=== PATIENT | male | born 1975 | race Caucasian/White ===

== ENCOUNTER 2017-03-19 13:48 | Inpatient (IN) | payer OTHER ==
[2017-03-19] VITALS (9 sets, daily range): BP systolic 100–131; BP diastolic 57–76; PULSE 112–118; RESP 15–18; TEMP 98.7–98.8; O2SAT 90–96
[~2017-03-19] VITALS: Ht 182.9 cm; Wt 75.2 kg
[~2017-03-19 13:48] MED LIST: BACT800T5 PO; BUPR1SUB6 SL; XANA1TAB6 PO
[2017-03-19] MEDS ORDERED: SODIUM CHLORIDE 0.9% FLUSH 10 ML FLUSH IVF PRN (14:30)
[2017-03-19] MEDS ORDERED: FURO1TAB60 PO (14:56)
[2017-03-19] MEDS ORDERED: subutex SL (14:56)
[2017-03-19] MEDS ORDERED: bp med PO (14:56)
--- NOTE | 2017-03-19 14:56 | PD ---
HPI Chief Complaint: Chest Pain Time Seen by Provider: 14:23 Travel History International Travel<30 days: No Contact w/Intl Traveler<30days: No Traveled to known affect area: No History of Present Illness HPI 41-year-old male with history of chronic alcohol use, chronic back pain currently uses Suboxone, chronic leg swelling, presents to the ER today because he complains of increased abdominal girth and left upper quadrant abdominal pain. He denies any nausea, vomiting, shortness of breath, fevers, or any other issues. He states that his primary care physician has done recent workup on him a few weeks ago with ultrasound of the leg which was negative. He has not heard back about CAT scans that were done. He was prescribed diuretics but has not been taking him because he does not feel that his primary care doctor knows what they're doing. Modifying Factors: None Associated Signs & Symptoms: Left upper quadrant abdominal pain, increased abdominal girth Risk Factors: Alcohol abuse PFSH Past Medical History Anxiety: Yes Cardiovascular Problems: Yes Diminished Hearing: No Immunizations Current: Yes Social History Alcohol Use: Yes (WEEKLY) Tobacco Use: Yes (1 PPD) Substance Use: No Allergies-Medications (Allergen,Severity, Reaction): Coded Allergies: clarithromycin (Unverified Allergy, Severe, Rash, 03/19/17) clindamycin (Unverified Allergy, Severe, RASH, 03/19/17) Reported Meds & Prescriptions Reported Meds & Active Scripts Active Reported Xanax (Alprazolam) 1 Mg Tab 1 Mg PO Q6H PRN Lactulose Liq (Lactulose) 10 Gm/15 Ml Soln 30 Ml PO Q6H PRN [bp med] Unknown Dose PO DAILY Lasix (Furosemide) 40 Mg Tab Unknown Dose PO DAILY [subutex] 8 mg 8 Mg SL QID Review of Systems Except as stated in HPI: all other systems reviewed are Neg Physical Exam Narrative GENERAL: Well-developed middle age white male patient currently in mild distress. Awake and oriented 3. SKIN: Focused skin assessment warm/dry. HEAD: Atraumatic. Normocephalic. EYES: Pupils equal and round. No scleral icterus. No injection or drainage. ENT: No nasal bleeding or discharge. Mucous membranes pink and moist. NECK: Trachea midline. No JVD. CARDIOVASCULAR: Regular rate and rhythm. No murmur appreciated. RESPIRATORY: No accessory muscle use. Clear to auscultation. Breath sounds equal bilaterally. GASTROINTESTINAL: Abdomen moderately distended, nontender to palpation. Hepatic and splenic margins not palpable. MUSCULOSKELETAL: No obvious deformities. No clubbing. No cyanosis. No edema. EXTREMITIES: No clubbing, cyanosis, or bilateral severe pitting edema the legs going up to the thighs, there is notable erythema bilaterally. No joint tenderness, effusion, or edema noted. No calf tenderness. NEUROLOGICAL: Awake and alert. No obvious cranial nerve deficits. Motor grossly within normal limits. Normal speech. PSYCHIATRIC: Appropriate mood and affect; insight and judgment normal. Data Data Last Documented VS Vital Signs Date Time Temp Pulse Resp B/P (MAP) Pulse Ox O2 Delivery O2 Flow Rate FiO2 03/19/17 17:05 112 15 114/67 (83) 96 Room Air 03/19/17 13:52 98.8 Orders Orders Electrocardiogram (03/19/17 14:23) Ckmb (Isoenzyme) Profile (03/19/17 14:23) Complete Blood Count With Diff (03/19/17 14:23) Comprehensive Metabolic Panel (03/19/17 14:23) Magnesium (Mg) (03/19/17 14:23) Prothrombin Time / Inr (Pt) (03/19/17 14:23) Act Partial Throm Time (Ptt) (03/19/17 14:23) Troponin I (03/19/17 14:23) Lipase (03/19/17 14:23) Chest, Single Ap (03/19/17 14:23) Ecg Monitoring (03/19/17 14:23) Bilateral Bp Monitoring (03/19/17 14:23) Iv Access Insert/Monitor (03/19/17 14:23) Oximetry (03/19/17 14:23) Oxygen Administration (03/19/17 14:23) Sodium Chloride 0.9% Flush (Ns Flush) (03/19/17 14:30) Us Leg Venous Doppler Bilat (03/19/17 14:41) Lactic Acid Sepsis Protocol (03/19/17 15:36) Urinalysis - C+S If Indicated (03/19/17 15:36) Blood Culture (03/19/17 15:36) Piperacil-Tazo 4.5 Gm Premix (Zosyn 4.5 (03/19/17 15:36) Admit Order (Ed Use Only) (03/19/17 17:26) Labs Laboratory Tests Test 03/19/17 14:30 03/19/17 16:07 03/19/17 16:45 White Blood Count 20.4 TH/MM3 Red Blood Count 3.17 MIL/MM3 Hemoglobin 12.4 GM/DL Hematocrit 36.7 % Mean Corpuscular Volume 115.9 FL Mean Corpuscular Hemoglobin 39.2 PG Mean Corpuscular Hemoglobin Concent 33.8 % Red Cell Distribution Width 17.3 % Platelet Count 173 TH/MM3 Mean Platelet Volume 7.7 FL Neutrophils (%) (Auto) 78.9 % Lymphocytes (%) (Auto) 10.7 % Monocytes (%) (Auto) 9.5 % Eosinophils (%) (Auto) 0.6 % Basophils (%) (Auto) 0.3 % Neutrophils # (Auto) 16.1 TH/MM3 Lymphocytes # (Auto) 2.2 TH/MM3 Monocytes # (Auto) 1.9 TH/MM3 Eosinophils # (Auto) 0.1 TH/MM3 Basophils # (Auto) 0.1 TH/MM3 CBC Comment DIFF FINAL Differential Comment Prothrombin Time 14.1 SEC Prothromb Time International Ratio 1.3 RATIO Activated Partial Thromboplast Time 34.5 SEC Blood Urea Nitrogen 4 MG/DL Creatinine 0.49 MG/DL Random Glucose 101 MG/DL Total Protein 7.5 GM/DL Albumin 2.6 GM/DL Calcium Level 8.0 MG/DL Magnesium Level 1.9 MG/DL Alkaline Phosphatase 213 U/L Aspartate Amino Transf (AST/SGOT) 172 U/L Alanine Aminotransferase (ALT/SGPT) 51 U/L Total Bilirubin 3.3 MG/DL Sodium Level 131 MEQ/L Potassium Level 3.5 MEQ/L Chloride Level 91 MEQ/L Carbon Dioxide Level 32.9 MEQ/L Anion Gap 7 MEQ/L Estimat Glomerular Filtration Rate 189 ML/MIN Total Creatine Kinase 81 U/L Troponin I LESS THAN 0.02 NG/ML Lipase 44 U/L Lactic Acid Level 2.5 mmol/L MDM Medical Decision Making Medical Screen Exam Complete: Yes Emergency Medical Condition: Yes Medical Record Reviewed: Yes Interpretation(s) EKG shows sinus tachycardia at a rate of 114 bpm with no signs of acute ST-T changes. Laboratory Tests Test 03/19/17 14:30 03/19/17 16:07 03/19/17 16:45 White Blood Count 20.4 TH/MM3 (4.0-11.0) Red Blood Count 3.17 MIL/MM3 (4.50-5.90) Hemoglobin 12.4 GM/DL (13.0-17.0) Hematocrit 36.7 % (39.0-51.0) Mean Corpuscular Volume 115.9 FL (80.0-100.0) Mean Corpuscular Hemoglobin 39.2 PG (27.0-34.0) Red Cell Distribution Width 17.3 % (11.6-17.2) Neutrophils (%) (Auto) 78.9 % (16.0-70.0) Monocytes (%) (Auto) 9.5 % (0.0-8.0) Neutrophils # (Auto) 16.1 TH/MM3 (1.8-7.7) Monocytes # (Auto) 1.9 TH/MM3 (0-0.9) Prothrombin Time 14.1 SEC (9.8-11.6) Activated Partial Thromboplast Time 34.5 SEC (24.3-30.1) Blood Urea Nitrogen 4 MG/DL (7-18) Creatinine 0.49 MG/DL (0.60-1.30) Albumin 2.6 GM/DL (3.4-5.0) Calcium Level 8.0 MG/DL (8.5-10.1) Alkaline Phosphatase 213 U/L (45-117) Aspartate Amino Transf (AST/SGOT) 172 U/L (15-37) Total Bilirubin 3.3 MG/DL (0.2-1.0) Sodium Level 131 MEQ/L (136-145) Chloride Level 91 MEQ/L (98-107) Carbon Dioxide Level 32.9 MEQ/L (21.0-32.0) Troponin I LESS THAN 0.02 NG/ML Lipase 44 U/L (73-393) Lactic Acid Level 2.5 mmol/L (0.4-2.0) Last 24 hours Impressions Lower Extremity Ultrasound 03/19/17 1441 Signed Impressions: Service Date/Time: Sunday, March 19, 2017 15:40 - CONCLUSION: 1. No evidence of deep venous thrombosis. Claudio Argueta MD Chest X-Ray 03/19/17 1423 Signed Impressions: Service Date/Time: Sunday, March 19, 2017 14:33 - CONCLUSION: Bibasilar atelectasis and borderline cardiomegaly. Aaron Tesfaye MD Differential Diagnosis Tense ascites versus obstruction versus pneumonia versus ACS versus DVT Narrative Course Lab work shows leukocytosis and considering the way the leg looks, there is concern for cellulitis. Ultrasound did not show any signs of DVT. His lactate is also elevated and IV antibiotics were initiated after cultures were done as precaution. Outpatient CAT scan from a week and a half ago was obtained from [facility] and it shows ascites with portal hypertension and cirrhosis. These findings are consistent with patient's current exam. Abdomen exam is fairly benign other than the ascites and distention. Patient is not vomiting I do not suspect an obstruction in this case. My plan would be to admit him for further treatment. Case was admitted to [facility] Dr. Looney for admission. Diagnosis Primary Impression: Alcoholic cirrhosis Additional Impressions: Sepsis Leg edema Admitting Information Admitting Physician Requests: Admit Alexa Coon MD Mar 19, 2017 14:56
[2017-03-19] MEDS ORDERED: LACT10SO PO (14:58)
[2017-03-19] MEDS ORDERED: XANA1TAB2 PO (14:59)
--- NOTE | 2017-03-19 15:08 | RADRPT ---
EXAM DATE/TIME: 03/19/2017 14:33 [facility] COMPARISON: Report only CHEST SINGLE AP, April 03, 2009, 11:00. INDICATIONS : Chest pain, shortness of breath, swelling of lower legs and feet. Patient states these symptoms are g radually getting worse. MEDICAL HISTORY : None. SURGICAL HISTORY : None. ENCOUNTER: Initial ACUITY: 3 months PAIN SCORE: 6/10 LOCATION: Bilateral chest FINDINGS: Moderate severity bibasilar atelectasis noted. No effusion seen. No pneumothorax. Heart size upper limits of normal. CONCLUSION: Bibasilar atelectasis and borderline cardiomegaly. Aaron Tesfaye MD on March 19, 2017 at 15:06 Board Certified Radiologist. This report was verified electronically.
[2017-03-19 15:15] LABS: AUTOMATED NEUTROPHIL # 16.1 TH/MM3 (1.8-7.7); BASOPHIL # 0.1 TH/MM3 (0-0.2); BASOPHIL % 0.3 % (0.0-2.0); EOSINOPHIL # 0.1 TH/MM3 (0-0.4); EOSINOPHIL % 0.6 % (0.0-4.0); HEMATOCRIT 36.7 % (39.0-51.0); HEMO FLAGS DIFF FINAL; LYMPH % 10.7 % (9.0-44.0); LYMPHOCYTE # 2.2 TH/MM3 (1.0-4.8); MEAN CELL VOLUME 115.9 FL (80.0-100.0); MEAN CORPUSCULAR HEMOGLOBIN 39.2 PG (27.0-34.0); MEAN CORPUSCULAR HGB CONC 33.8 % (32.0-36.0); MONO % 9.5 % (0.0-8.0); NEUT % 78.9 % (16.0-70.0); PLATELET COUNT 173 TH/MM3 (150-450); RED BLOOD COUNT 3.17 MIL/MM3 (4.50-5.90); RED CELL DISTRIBUTION WIDTH 17.3 % (11.6-17.2); WHITE BLOOD COUNT 20.4 TH/MM3 (4.0-11.0)
[2017-03-19] MEDS ORDERED: PIPERACIL-TAZO 4.5 GM PREMIX 100 ML IV STA (15:36)
[2017-03-19 15:38] LABS: APTT (PATIENT) 34.5 SEC (24.3-30.1); INTERNATIONAL NORMALIZED RATIO 1.3 RATIO; PROTHROMBIN TIME - PATIENT 14.1 SEC (9.8-11.6)
[2017-03-19 16:04] LABS: ALKALINE PHOSPHATASE 213 U/L (45-117); ALT (GPT) 51 U/L (12-78); ANION GAP 7 MEQ/L (5-15); AST (GOT) 172 U/L (15-37); BICARBONATE 32.9 MEQ/L (21.0-32.0); BLOOD UREA NITROGEN 4 MG/DL (7-18); CHLORIDE 91 MEQ/L (98-107); GLOMERULAR FILTRATION RATE 189 ML/MIN (>89); MAGNESIUM 1.9 MG/DL (1.5-2.5); POTASSIUM 3.5 MEQ/L (3.5-5.1); SODIUM (NA) 131 MEQ/L (136-145); TOTAL BILIRUBIN ADULT 3.3 MG/DL (0.2-1.0)
[2017-03-19 16:06] LABS: CREATINE KINASE 81 U/L (39-308)
--- NOTE | 2017-03-19 16:20 | RADRPT ---
EXAM DATE/TIME: 03/19/2017 15:40 [facility] COMPARISON: No previous studies available for comparison. INDICATIONS : Bilateral leg swelling. MEDICAL HISTORY : Hypertension. Anxiety. Pneumonia. Ascites. Abdominal pain. SURGICAL HISTORY : Hand surgery. ENCOUNTER: Initial ACUITY: 3 months PAIN SCORE: 2/10 LOCATION: Bilateral legs. TECHNIQUE: Venous ultrasound of the left and right leg was performed from the inguinal ligament to the proximal calf. Real-time, color Doppler and spectral tracing, compression and augmentation techniques were us ed. FINDINGS: RIGHT LEG: There is normal compressibility of the deep venous system from the inguinal region to the proximal ca lf. No echogenic clot is seen in the lumen of the common femoral, femoral, popliteal, and posterior tibial veins. There is a normal response of the venous system to proximal and distal augmentation an d respiration. LEFT LEG: There is normal compressibility of the deep venous system from the inguinal region to the proximal ca lf. No echogenic clot is seen in the lumen of the common femoral, femoral, popliteal, and posterior tibial veins. There is a normal response of the venous system to proximal and distal augmentation an d respiration. CONCLUSION: 1. No evidence of deep venous thrombosis. Claudio Argueta MD on March 19, 2017 at 16:18 Board Certified Radiologist. This report was verified electronically.
[2017-03-19] MEDS ORDERED: LORazepam 2 MG/ML VIAL IV PUSH PRN ×4 (17:45)
[2017-03-19] MEDS ORDERED: ACETAMINOPHEN 325 MG TAB PO PRN (17:45)
[2017-03-19] MEDS ORDERED: NALOXONE HCL 0.4 MG/ML AMP IV PRN (17:45)
[2017-03-19] MEDS ORDERED: FLUMAZENIL 0.5 MG/5 ML VIAL IV PUSH PRN (17:45)
[2017-03-19] MEDS ORDERED: SODIUM CHLORIDE 0.9% FLUSH 10 ML FLUSH IV FLUSH PRN (17:45)
[2017-03-19] MEDS ORDERED: LORazepam 2 MG TAB PO PRN (17:45)
[2017-03-19 17:46] LABS: BACTERIA, URINE RARE /hpf; BLOOD, URINE NEG (NEG); GLUCOSE,URINE NEG (NEG); KETONE, URINE NEG (NEG); NITRITE,URINE NEG (NEG); URINE COLOR YELLOW (YELLW/STRAW)
[2017-03-19 17:48] LABS: COMMENT (UR) CATH-CULTURE IND; CULTURE IF INDICATED CATH CULTURE IND
--- NOTE | 2017-03-19 17:49 | HHI.HP ---
HPI Service [facility] Primary Care Physician Taylor Daniel M.D. Admission Diagnosis Chief Complaint: BLE edema Travel History International Travel<30 Days: No Contact w/Intl Traveler <30 Da: No Traveled to Known Affected Are: No History of Present Illness This a 41 year old male patient with a past medical history which includes ETOH abuse, tobacco abuse and HTN. Patient reports over the last 4 months he has had progressively worsening BLE edema. Patient also having increasing abdominal girth over the past four months. Patient also endorses SOB difficult to take a deep breath, cough productive of brown sputum. Patient denies history of known Cirrhosis. Patient does admit to daily ETOH use a pint or more of vodka a day. Patient also endorses constipation for which he takes Lactulose. Patient denies chest or nausea. Review of Systems ROS Limitations: Poor Historian Constitutional: DENIES: Fatigue, Fever, Chills Eyes: DENIES: Blurred vision, Vision loss, Double Vision Respiratory: COMPLAINS OF: Cough, Sputum production, Shortness of breath Cardiovascular: COMPLAINS OF: Dyspnea on Exertion, Lower Extremity Edema, DENIES: Chest pain Gastrointestinal: COMPLAINS OF: Abdominal pain, Constipation, Vomiting Neurologic: COMPLAINS OF: Tremor, DENIES: Abnormal gait, Headache, Localized weakness Psychiatric: COMPLAINS OF: Confusion, Depression, DENIES: Anxiety Past Family Social History Past Medical History cirrhosis, HTN, ETOH abuse, tobacco use, chronic pain, history of oxycodone/ Roxicodone abuse now on Suboxone Past Surgical History Right hand reconstructive surgery Reported Medications Xanax (Alprazolam) 1 Mg Tab 1 Mg PO Q6H PRN Lactulose Liq (Lactulose) 10 Gm/15 Ml Soln 30 Ml PO Q6H PRN [bp med] Unknown Dose PO DAILY Lasix (Furosemide) 40 Mg Tab Unknown Dose PO DAILY [subutex] 8 mg 8 Mg SL QID Allergies: Coded Allergies: clarithromycin (Unverified Allergy, Severe, Rash, 03/19/17) clindamycin (Unverified Allergy, Severe, RASH, 03/19/17) Active Ordered Medications Current Medications Medications (Trade) Dose Ordered Sig/Edjah Route Start Time Stop Time Status Last Admin (NS Flush) 2 ml UNSCH PRN IVF 03/19/17 14:30 Family History noncontributory Social History started drinking at age 15, daily ETOH use mostly vodka. last drink this AM Tobacco use: 1 PPD since age 16 Illicit drug use: denies at this time. 5 years ago history of oxycodone/ Roxicodone abuse now on Suboxone Physical Exam Vital Signs Vital Signs Date Time Temp Pulse Resp B/P (MAP) Pulse Ox O2 Delivery O2 Flow Rate FiO2 03/19/17 17:05 112 15 114/67 (83) 96 Room Air 03/19/17 15:09 107/57 (74) 100/58 (72) 03/19/17 15:08 112 18 107/57 (74) 94 Room Air 03/19/17 13:52 98.8 118 15 127/74 (91) 93 Physical Exam GENERAL: This is a 41 year old male patient who appear older than stated age SKIN: yellowing of skin EYES: Extraocular motions intact. Positive scleral icterus. No injection or drainage. CARDIOVASCULAR: Regular rate and rhythm without murmurs, gallops, or rubs. RESPIRATORY: Clear to auscultation. Breath sounds equal bilaterally. No wheezes , rales, or rhonchi. GASTROINTESTINAL: Abdomen distended, dullness with percussion MUSCULOSKELETAL: BLE edema 2-3+ NEUROLOGICAL: Awake and alert. no focal deficits. Motor and sensory grossly within normal limits. 4-5 out of 5 muscle strength in all muscle groups. Normal speech. Laboratory Laboratory Tests Test 03/19/17 14:30 03/19/17 16:07 White Blood Count 20.4 Red Blood Count 3.17 Hemoglobin 12.4 Hematocrit 36.7 Mean Corpuscular Volume 115.9 Mean Corpuscular Hemoglobin 39.2 Mean Corpuscular Hemoglobin Concent 33.8 Red Cell Distribution Width 17.3 Platelet Count 173 Mean Platelet Volume 7.7 Neutrophils (%) (Auto) 78.9 Lymphocytes (%) (Auto) 10.7 Monocytes (%) (Auto) 9.5 Eosinophils (%) (Auto) 0.6 Basophils (%) (Auto) 0.3 Neutrophils # (Auto) 16.1 Lymphocytes # (Auto) 2.2 Monocytes # (Auto) 1.9 Eosinophils # (Auto) 0.1 Basophils # (Auto) 0.1 CBC Comment DIFF FINAL Differential Comment Prothrombin Time 14.1 Prothromb Time International Ratio 1.3 Activated Partial Thromboplast Time 34.5 Blood Urea Nitrogen 4 Creatinine 0.49 Random Glucose 101 Total Protein 7.5 Albumin 2.6 Calcium Level 8.0 Magnesium Level 1.9 Alkaline Phosphatase 213 Aspartate Amino Transf (AST/SGOT) 172 Alanine Aminotransferase (ALT/SGPT) 51 Total Bilirubin 3.3 Sodium Level 131 Potassium Level 3.5 Chloride Level 91 Carbon Dioxide Level 32.9 Anion Gap 7 Estimat Glomerular Filtration Rate 189 Total Creatine Kinase 81 Troponin I LESS THAN 0.02 Lipase 44 Lactic Acid Level 2.5 Date/Time Source Procedure Growth Status 03/19/17 15:40 Blood Peripheral Aerobic Blood Culture Pending Received 03/19/17 15:40 Blood Peripheral Anaerobic Blood Culture Pending Received Result Diagram: 03/19/17 1430 03/19/17 1430 Imaging Last Impressions Lower Extremity Ultrasound 03/19/17 1441 Signed Impressions: Service Date/Time: Sunday, March 19, 2017 15:40 - CONCLUSION: 1. No evidence of deep venous thrombosis. Claudio Argueta MD Chest X-Ray 03/19/17 1423 Signed Impressions: Service Date/Time: Sunday, March 19, 2017 14:33 - CONCLUSION: Bibasilar atelectasis and borderline cardiomegaly. Aaron Tesfaye MD Caprini VTE Risk Assessment Caprini VTE Risk Assessment: Mod/High Risk (score >= 2) Caprini Risk Assessment Model Point Value = 1 Point Value = 2 Point Value = 3 Point Value = 5 Age 41-60 Minor surgery BMI > 25 kg/m2 Swollen legs Varicose veins or History of unexplained or recurrent spontaneous Oral contraceptives or hormone replacement Sepsis (< 1 month) Serious lung disease, including pneumonia (< 1 month) Abnormal pulmonary function Acute myocardial infarction Congestive heart failure (< 1 month) History of inflammatory bowel disease Medical patient at bed rest Age 61-74 Arthroscopic surgery Major open surgery (> 45 min) Laparoscopic surgery (> 45 min) Malignancy Confined to bed (> 72 hours) Immobilizing plaster cast Central venous access Age >= 75 History of VTE Family history of VTE Factor V Leiden Prothrombin [id number] Lupus anticoagulant Anticardiolipin antibodies Elevated serum homocysteine Heparin-induced thrombocytopenia Other congenital or acquired thrombophilia Stroke (< 1 month) Elective arthroplasty Hip, pelvis, or leg fracture Acute spinal cord injury (< 1 month) Prophylaxis Regimen Total Risk Factor Score Risk Level Prophylaxis Regimen 0-1 Low Early ambulation 2 Moderate Order ONE of the following: *Sequential Compression Device (SCD) *Heparin 5000 units SQ BID 3-4 Higher Order ONE of the following medications: *Heparin 5000 units SQ TID *Enoxaparin/Lovenox 40 mg SQ daily (WT < 150 kg, CrCl > 30 mL/min) *Enoxaparin/Lovenox 30 mg SQ daily (WT < 150 kg, CrCl > 10-29 mL/min) *Enoxaparin/Lovenox 30 mg SQ BID (WT < 150 kg, CrCl > 30 mL/min) AND/OR *Sequential Compression Device (SCD) 5 or more Highest Order ONE of the following medications: *Heparin 5000 units SQ TID (Preferred with Epidurals) *Enoxaparin/Lovenox 40 mg SQ daily (WT < 150 kg, CrCl > 30 mL/min) *Enoxaparin/Lovenox 30 mg SQ daily (WT < 150 kg, CrCl > 10-29 mL/min) *Enoxaparin/Lovenox 30 mg SQ BID (WT < 150 kg, CrCl > 30 mL/min) AND *Sequential Compression Device (SCD) Assessment and Plan Problem List: (1) Alcoholic cirrhosis ICD Codes: K70.30 - Alcoholic cirrhosis of liver without ascites (2) HTN (hypertension) ICD Codes: I10 - Essential (primary) hypertension (3) ETOH abuse ICD Codes: F10.10 - Alcohol abuse, uncomplicated (4) Tobacco abuse ICD Codes: Z72.0 - Tobacco use (5) Chronic back pain ICD Codes: M54.9 - Dorsalgia, unspecified; G89.29 - Other chronic pain Assessment and Plan Cirrhosis secondary to ETOH abuse Ascites ETOH abuse Seizure precautions - Patient has a long history of ETOH abuse now with progressive BLE edema and abdominal ascites Now with Bilirubin of 3.3 AST 172 ALT 51 Librium 25 mg Q6H scheduled CIWA protocol Thiamine and folic acid supplementation Patient counselled on the effects of ETOH abuse encourage to abstain lactulose TID add Lasix 20 mg IV BID- may also need spironolactone US liver Consult GI HTN- currently hypotensive monitor BP trend Chronic pain- back Hx substance abuse now on Suboxone- our pharmacy does not carry patient my take his own Tobacco abuse patient counselled nicotine patch DVT prophylaxis with SCDs Patient examined. Assessment and plan formulated with Lorene Stackpole PA-C. I agree with the above. etoh abuse. peripheral edema/ascites. mild hepatic encephalopathy. concern for etoh w/d. GI consult. US paracentesis. studies ordered iv lasix. monitor bmp. titrate up and/or add aldactone as tolerated etoh cessation. nicotine patch. pt uses suboxone for hx pain pill abuse. pt says he tested neg for hepatitis. Lorene Ochoa Mar 19, 2017 17:49 Eliud Looney MD Mar 19, 2017 20:34
[2017-03-19] MEDS ORDERED: chlordiazePOXIDE 25 MG CAP PO PRN (18:00)
[2017-03-19] MEDS ORDERED: POTASSIUM CHLORIDE 20 MEQ CONTROLLED RELEASE TAB PO ONE (18:00)
[2017-03-19] MEDS ORDERED: SODIUM CHLOR 0.9% 1000 ML INJ 1,000 ML IV SCH (18:00)
[2017-03-19] MEDS: THIAMINE HCL 100 MG TAB PO SCH (18:15)
[2017-03-19] MEDS: FOLIC ACID 1 MG TAB PO SCH (18:15)
[2017-03-19] MEDS: FUROSEMIDE 20 MG/2 ML VIAL IV PUSH SCH (18:15)
[2017-03-19 18:30] LABS: LACTIC ACID GHOST NOT REPORTABLE
--- NOTE | 2017-03-19 19:32 | RADRPT ---
EXAM DATE/TIME: 03/19/2017 18:23 [facility] COMPARISON: No previous studies available for comparison. INDICATIONS : Abdominal pain and bloating. MEDICAL HISTORY : Hypertension. Anxiety. Pneumonia. Ascites. Abdominal pain. SURGICAL HISTORY : Hand surgery. ENCOUNTER: Initial ACUITY: 3 months PAIN SCORE: 2/10 LOCATION: Bilateral upper quadrant MEASUREMENTS: LIVER: 18.6 cm length COMMON DUCT: 3 mm RIGHT KIDNEY: 11.8 x 5.6 x 5.8 cm SPLEEN: 14.3 cm length FINDINGS: Moderate ascites identified. Gallbladder wall thickened with sludge. Bidirectional flow in the portal vein. Liver enlarged to 18.6 cm and spleen to 14.3 cm. Pancreas not well-visualized CONCLUSION: 1. Moderate ascites. Thickened gallbladder wall with sludge. Mild hepatosplenomegaly. Kyle Thorpe MD on March 19, 2017 at 19:28 Board Certified Radiologist. This report was verified electronically.
[2017-03-19] MEDS: chlordiazePOXIDE 25 MG CAP PO SCH (20:09)
[2017-03-19] MEDS: NICOTINE 21 MG/24 HR PATCH T-DERMAL SCH (20:09)
[2017-03-19] MEDS ORDERED: LACTULOSE SYRUP 20 GM/30 ML CUP PO ONE (20:30)
[2017-03-19] MEDS ORDERED: PATIENT OWN MEDICATION PO SCH (21:00)
[2017-03-19] MEDS ORDERED: [UNRECOGNIZED DRUG - OTHER] PO SCH (21:00)
[2017-03-19] MEDS: LORazepam 1 MG TAB PO PRN (22:05)
[2017-03-19] MEDS: SODIUM CHLORIDE 0.9% FLUSH 10 ML FLUSH IV FLUSH SCH (22:08)
[2017-03-20] VITALS (9 sets, daily range): BP systolic 100–125; BP diastolic 46–75; PULSE 90–119; RESP 14–20; TEMP 96.2–98.5; O2SAT 90–96
[2017-03-20] MEDS: chlordiazePOXIDE 25 MG CAP PO SCH ×3 (00:12→12:20)
--- NOTE | 2017-03-20 08:53 | HHI.PR ---
Subjective Remarks calm. no distress. 3 bm last night good urine output. Objective Vitals oriented no tremors heart reg lung cta abd distended. dullness to percussion on flanks ext 2 plus pitting edema Vital Signs Date Time Temp Pulse Resp B/P (MAP) Pulse Ox O2 Delivery O2 Flow Rate FiO2 03/20/17 04:00 98.4 99 18 125/75 (92) 93 03/20/17 00:00 97.1 108 18 110/65 (80) 93 03/19/17 23:54 94 03/19/17 22:02 112 03/19/17 20:52 03/19/17 20:00 98.7 118 18 117/70 (86) 93 03/19/17 19:00 113 18 112/64 (80) 95 Room Air 03/19/17 18:23 114 131/76 (94) 03/19/17 17:05 112 15 114/67 (83) 96 Room Air 03/19/17 15:09 107/57 (74) 100/58 (72) 03/19/17 15:08 112 18 107/57 (74) 94 Room Air 03/19/17 13:52 98.8 118 15 127/74 (91) 93 Result Diagram: 03/19/17 1430 03/19/17 1430 Imaging Last Impressions Lower Extremity Ultrasound 03/19/17 1441 Signed Impressions: Service Date/Time: Sunday, March 19, 2017 15:40 - CONCLUSION: 1. No evidence of deep venous thrombosis. Claudio Argueta MD Chest X-Ray 03/19/17 1423 Signed Impressions: Service Date/Time: Sunday, March 19, 2017 14:33 - CONCLUSION: Bibasilar atelectasis and borderline cardiomegaly. Aaron Tesfaye MD A/P Problem List: (1) Alcoholic cirrhosis ICD Codes: K70.30 - Alcoholic cirrhosis of liver without ascites Plan: Pt is known alcoholic. hx narcotic addiction/abuse Presents with 4 months progressive lower ext edema/ascites Appears to have liver cirrhosis/portal htn cont iv lasix and titrate as tolerated. likely add aldactone f/u pending bmp today u/s paracentesis with studies ordered and pending GI consulted lactulose to have at least 3bm/day etoh w/d protocol (2) ETOH abuse ICD Codes: F10.10 - Alcohol abuse, uncomplicated Status: Chronic (3) Tobacco abuse ICD Codes: Z72.0 - Tobacco use Status: Chronic (4) Chronic back pain ICD Codes: M54.9 - Dorsalgia, unspecified; G89.29 - Other chronic pain Status: Chronic (5) HTN (hypertension) ICD Codes: I10 - Essential (primary) hypertension Status: Chronic Eliud Looney MD Mar 20, 2017 08:53
[2017-03-20] MEDS: LACTULOSE SYRUP 20 GM/30 ML CUP PO SCH ×2 (08:55→12:20)
[2017-03-20] MEDS: FOLIC ACID 1 MG TAB PO SCH (08:55)
[2017-03-20] MEDS: FUROSEMIDE 20 MG/2 ML VIAL IV PUSH SCH (08:55)
[2017-03-20] MEDS: NICOTINE 21 MG/24 HR PATCH T-DERMAL SCH (08:56)
[2017-03-20] MEDS: SODIUM CHLORIDE 0.9% FLUSH 10 ML FLUSH IV FLUSH SCH ×2 (08:56→20:58)
[2017-03-20] MEDS: THIAMINE HCL 100 MG TAB PO SCH (08:56)
[2017-03-20] MEDS: REMOVE OLD PATCH T-DERMAL SCH (09:00)
[2017-03-20] MEDS: LORazepam 1 MG TAB PO PRN ×2 (09:10→17:39)
[2017-03-20 12:47] LABS: PERITONEAL WBC 579 /MM3 (0-10)
[2017-03-20 12:48] LABS: PERITONEAL BASO 2 %; PERITONEAL HISTIOCYTES 37 %; PERITONEAL LYMPHS 18 %; PERITONEAL MESOTHELIAL 3 %; PERITONEAL POLYS(SEGS) 40 %
--- NOTE | 2017-03-20 13:13 | RADRPT ---
EXAM DATE/TIME: 03/20/2017 09:42 [facility] COMPARISON: No previous studies available for comparison. INDICATIONS : Ascites. MEDICAL HISTORY : ETOH abuse. Hypertension. Anxiety. Pneumonia. Ascites. Abdominal pain. SURGICAL HISTORY : Hand surgery. ENCOUNTER: Initial ACUITY: 4 - 6 months PAIN SCORE: 0/10 LOCATION: Right lower quadrant FLUID: Total volume of 3,300 cc of clear, yellow fluid was removed. Fluid was sent to lab for ordered studies. Post procedure scanning reveals no hematoma or other complication. TECHNIQUE: 1. Ultrasound guidance for abdominal paracentesis. 2. Paracentesis. The risks, benefits, and alternatives to ultrasound guided paracentesis were explained to the patient in detail including the risk of bleeding and infection. Written and verbal informed consent was obt ained. With the patient on the ultrasound table, ultrasound imaging was used to select the most appropriate approach for paracentesis. Overlying skin was prepped and draped in the usual sterile fashion and wi th a local anesthetic, a dermatotomy was made with an 11 blade scalpel. A 6 [place] [id number] ca theter was introduced into the peritoneal cavity and fluid was collected. The patient tolerated the procedure well and left the ultrasound suite in stable condition. CONCLUSION: Uncomplicated ultrasound guided paracentesis. Kareem Mahan MD on March 20, 2017 at 13:11 Board Certified Radiologist. This report was verified electronically.
--- NOTE | 2017-03-20 13:40 | EKG ---
Date Performed: 03/19/2017 Time Performed: 14:57:28 PTAGE: 41 years EKG: SINUS TACHYCARDIA NONSPECIFIC ST & T-WAVE ABNORMALITY ABNORMAL RHYTHM ECG NO PREVIOUS TRACING DOCTOR: Calos Garcia Interpretating Date/Time 03/20/2017 13:37:55
[2017-03-20 15:36] LABS: BASOPHIL % 0.3 % (0.0-2.0); EOSINOPHIL % 0.3 % (0.0-4.0); HEMATOCRIT 31.9 % (39.0-51.0); HEMO FLAGS DIFF FINAL; LYMPH % 9.3 % (9.0-44.0); LYMPHOCYTE # 1.5 TH/MM3 (1.0-4.8); MEAN CELL VOLUME 115.4 FL (80.0-100.0); MEAN CORPUSCULAR HEMOGLOBIN 39.7 PG (27.0-34.0); MEAN CORPUSCULAR HGB CONC 34.4 % (32.0-36.0); MONO % 9.3 % (0.0-8.0); NEUT % 80.8 % (16.0-70.0); PLATELET COUNT 138 TH/MM3 (150-450); RED BLOOD COUNT 2.76 MIL/MM3 (4.50-5.90); RED CELL DISTRIBUTION WIDTH 17.6 % (11.6-17.2); WHITE BLOOD COUNT 16.1 TH/MM3 (4.0-11.0)
--- NOTE | 2017-03-20 15:43 | PD.CONS ---
HPI History of Present Illness This is a 41 year old male with hx ETOH abuse, chronic pain who presented with complaint of worsening BLE edema and abdominal distention, onset 4m ago. He also admits constipation and dark urine. HE denies diarrhea, n/v, blood in stool, prior hx liver problems, hepatitis. Admits drinking "excessively" on a regular basis. He is s/p paracentesis. Never had EGD or colonoscopy. PFSH Past Medical History DDD bulging discs back pain Past Surgical History hand surgery Coded Allergies: clarithromycin (Unverified Allergy, Severe, Rash, 03/19/17) clindamycin (Unverified Allergy, Severe, RASH, 03/19/17) Family History none Social History "excessive" ETOH consumption regularly smokes 1ppd no illicit drug use Review of Systems Constitutional: DENIES: Dizziness Eyes: DENIES: Blurred vision Ears, nose, mouth, throat: DENIES: Hearing loss Respiratory: DENIES: Hemoptysis Cardiovascular: DENIES: Chest pain Gastrointestinal: COMPLAINS OF: Constipation, Swelling of Abdomen, DENIES: Abdominal pain, Black stools, Bloody stools, Diarrhea, Nausea, Vomiting, Hematemesis Genitourinary: DENIES: Hematuria Musculoskeletal: DENIES: Joint Swelling Integumentary: DENIES: Abnormal pigmentation Hematologic/lymphatic: DENIES: Bruising Neurologic: DENIES: Abnormal gait Psychiatric: DENIES: Mood changes GI Exam Vitals I&O Vital Signs Date Time Temp Pulse Resp B/P (MAP) Pulse Ox O2 Delivery O2 Flow Rate FiO2 03/20/17 12:00 112 03/20/17 12:00 98.0 112 18 103/59 (74) 93 03/20/17 11:19 98.0 114 14 102/54 (70) 90 03/20/17 11:16 98.0 114 16 100/46 (64) 90 03/20/17 09:40 98.2 90 18 123/66 (85) 90 03/20/17 08:00 119 03/20/17 08:00 98.5 118 20 106/61 (76) 92 03/20/17 04:00 98.4 99 18 125/75 (92) 93 03/20/17 00:00 97.1 108 18 110/65 (80) 93 03/19/17 23:54 94 03/19/17 22:02 112 03/19/17 20:52 03/19/17 20:00 98.7 118 18 117/70 (86) 93 03/19/17 19:00 113 18 112/64 (80) 95 Room Air 03/19/17 18:23 114 131/76 (94) 03/19/17 17:05 112 15 114/67 (83) 96 Room Air I/O 03/19/17 03/19/17 03/19/17 03/20/17 03/20/17 03/20/17 07:00 15:00 23:00 07:00 15:00 23:00 Intake Total 100 ml Balance 100 ml Intake IV Total 100 ml # Voids 2 1 # Bowel Movements 1 Imaging Last Impressions Cyst Biopsy Asp-Paracentesis US 03/20/17 0600 Signed Impressions: Service Date/Time: Monday, March 20, 2017 09:42 - CONCLUSION: Uncomplicated ultrasound guided paracentesis. Kareem Mahan MD Lower Extremity Ultrasound 03/19/17 1441 Signed Impressions: Service Date/Time: Sunday, March 19, 2017 15:40 - CONCLUSION: 1. No evidence of deep venous thrombosis. Claudio Argueta MD Chest X-Ray 03/19/17 1423 Signed Impressions: Service Date/Time: Sunday, March 19, 2017 14:33 - CONCLUSION: Bibasilar atelectasis and borderline cardiomegaly. Aaron Tesfaye MD Liver Ultrasound 03/19/17 0000 Signed Impressions: Service Date/Time: Sunday, March 19, 2017 18:23 - CONCLUSION: 1. Moderate ascites. Thickened gallbladder wall with sludge. Mild hepatosplenomegaly. Kyle Thorpe MD Laboratory Test 03/19/17 16:07 03/19/17 16:45 03/19/17 18:30 03/19/17 18:45 Lactic Acid Level 2.5 mmol/L 2.6 mmol/L Urine Color YELLOW Urine Turbidity CLEAR Urine pH 6.0 Urine Specific [place] 1.009 Urine Protein NEG mg/dL Urine Glucose (UA) NEG mg/dL Urine Ketones NEG mg/dL Urine Occult Blood NEG Urine Nitrite NEG Urine Bilirubin NEG Urine Urobilinogen 4.0 MG/DL Urine Leukocyte Esterase NEG Urine WBC 1 /hpf Urine Bacteria RARE /hpf Microscopic Urinalysis Comment CATH-CULTURE IND Ammonia 64 MCMOL/L Test 03/20/17 10:15 03/20/17 11:00 03/20/17 15:04 Peritoneal Fluid WBC 579 /MM3 Peritoneal Fluid RBC 140 /MM3 Peritoneal Fluid Neutrophils 40 % Peritoneal Fluid Lymphocytes 18 % Peritoneal Fluid Basophils 2 % Peritoneal Fluid Histiocytes 37 % Peritoneal Fluid Mesothelial Cells 3 % Peritoneal Fluid Total Protein 1.9 GM/DL Peritoneal Fluid Albumin 0.8 G/DL Peritoneal Fluid Glucose 101 MG/DL Date/Time Source Procedure Growth Status 03/19/17 15:40 Blood Peripheral Aerobic Blood Culture - Preliminary NO GROWTH IN 1 DAY Resulted 03/19/17 15:40 Blood Peripheral Anaerobic Blood Culture - Preliminary NO GROWTH IN 1 DAY Resulted 03/20/17 11:00 Fluid Peritoneal Fluid Gram Stain Pending Received 03/20/17 11:00 Fluid Peritoneal Fluid Body Fluid Culture Pending Received 03/19/17 16:45 Urine Catheterized Urine Urine Culture - Preliminary NO GROWTH IN 24 HOURS. Resulted Physical Examination HEENT: PERRL; normocephalic; atraumatic; mild icterus CHEST: CTA CARDIAC: RRR ABDOMEN: semifirm, mildly distended, nontender; bowel sounds are present in all four quadrants. 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 US shows moderate ascites, gallbladder sludge, mild hepatomegaly. DF 12.96. SAAG 1.8, likely portal HTN - acites - s/p paracentesis, on lasix - leukocytosis - WBC 20, peritoneal WBC 579, neutrophils 40% will treat empirically for SBP, await cultures PLAN - hep panel - iron studies - immunology labs - ceftriaxone 1g BID - await peritoneal fluid cx - monitor labs - continue diuretics - ETOH cessation - further recs to follow This pt seen by myself and Dr Reeves and this note is written on his behalf Lainey Qureshi Mar 20, 2017 3:42 pm
[2017-03-20 16:07] LABS: ALT (GPT) 37 U/L (12-78); AST (GOT) 129 U/L (15-37); GLOMERULAR FILTRATION RATE 139 ML/MIN (>89)
[2017-03-20 16:13] LABS: CHLORIDE 87 MEQ/L (98-107); POTASSIUM 3.1 MEQ/L (3.5-5.1); SODIUM (NA) 130 MEQ/L (136-145)
[2017-03-20 16:30] LABS: ALKALINE PHOSPHATASE 183 U/L (45-117); ANION GAP 7 MEQ/L (5-15); BICARBONATE 35.6 MEQ/L (21.0-32.0); BLOOD UREA NITROGEN 4 MG/DL (7-18); TOTAL BILIRUBIN ADULT 7.2 MG/DL (0.2-1.0)
[2017-03-20] MEDS: cefTRIAXone INJ 1,000 MG in SODIUM CHLORIDE 0.9% INJ 100 ML IV SCH (17:39)
[2017-03-20] MEDS: POTASSIUM CHLORIDE 20 MEQ CONTROLLED RELEASE TAB PO SCH ×2 (17:49→20:55)
[2017-03-20] MEDS: BUPRENORPHINE 8 MG SL SCH (20:58)
[2017-03-20] MEDS ORDERED: [UNRECOGNIZED DRUG - OTHER] PO SCH (21:00)
[2017-03-20] MEDS ORDERED: BUPRENORPHINE 8 MG PO SCH (21:00)
[2017-03-21] VITALS (8 sets, daily range): BP systolic 96–109; BP diastolic 52–65; PULSE 102–114; RESP 16–18; TEMP 97.2–98.6; O2SAT 92–94
[2017-03-21] MEDS: LORazepam 1 MG TAB PO PRN ×2 (03:37→16:31)
[2017-03-21] MEDS: cefTRIAXone INJ 1,000 MG in SODIUM CHLORIDE 0.9% INJ 100 ML IV SCH ×2 (03:45→16:32)
[2017-03-21] MEDS ORDERED: FUROSEMIDE 20 MG/2 ML VIAL IV PUSH SCH (09:00)
--- NOTE | 2017-03-21 09:19 | HHI.PR ---
Subjective Remarks doing ok. Objective Vitals heart reg lung cta abd softer. bs ext less pitting edema Vital Signs Date Time Temp Pulse Resp B/P (MAP) Pulse Ox O2 Delivery O2 Flow Rate FiO2 03/21/17 04:00 97.7 110 18 107/65 (79) 93 03/21/17 00:00 97.6 105 17 104/61 (75) 93 03/20/17 20:00 97.6 108 18 110/67 (81) 94 03/20/17 16:00 96.2 111 18 103/59 (74) 96 03/20/17 12:00 112 03/20/17 12:00 98.0 112 18 103/59 (74) 93 03/20/17 11:19 98.0 114 14 102/54 (70) 90 03/20/17 11:16 98.0 114 16 100/46 (64) 90 03/20/17 09:40 98.2 90 18 123/66 (85) 90 Result Diagram: 03/20/17 1504 03/20/17 1504 Imaging Last Impressions Lower Extremity Ultrasound 03/19/17 1441 Signed Impressions: Service Date/Time: Sunday, March 19, 2017 15:40 - CONCLUSION: 1. No evidence of deep venous thrombosis. Claudio Argueta MD Chest X-Ray 03/19/17 1423 Signed Impressions: Service Date/Time: Sunday, March 19, 2017 14:33 - CONCLUSION: Bibasilar atelectasis and borderline cardiomegaly. Aaron Tesfaye MD A/P Problem List: (1) Alcoholic cirrhosis ICD Codes: K70.30 - Alcoholic cirrhosis of liver without ascites Plan: Pt is known alcoholic. hx narcotic addiction/abuse Presents with 4 months progressive lower ext edema/ascites Appears to have liver cirrhosis/portal htn. SAAG 1.5 us guided paracentesis 03/20...3.3 L cont iv lasix and titrate as tolerated. likely add aldactone f/u pending bmp today for med adjustment decisions. f/u ascites studies lactulose etoh w/d protocol] GI following. (2) ETOH abuse ICD Codes: F10.10 - Alcohol abuse, uncomplicated Status: Chronic (3) Tobacco abuse ICD Codes: Z72.0 - Tobacco use Status: Chronic (4) Chronic back pain ICD Codes: M54.9 - Dorsalgia, unspecified; G89.29 - Other chronic pain Status: Chronic (5) HTN (hypertension) ICD Codes: I10 - Essential (primary) hypertension Status: Chronic Eliud Looney MD Mar 21, 2017 09:19
[2017-03-21] MEDS: BUPRENORPHINE 8 MG SL SCH ×2 (09:43→20:03)
[2017-03-21] MEDS: NICOTINE 21 MG/24 HR PATCH T-DERMAL SCH (09:43)
[2017-03-21] MEDS: FOLIC ACID 1 MG TAB PO SCH (09:44)
[2017-03-21] MEDS: LACTULOSE SYRUP 20 GM/30 ML CUP PO SCH ×2 (09:44→20:03)
[2017-03-21] MEDS: SODIUM CHLORIDE 0.9% FLUSH 10 ML FLUSH IV FLUSH SCH ×2 (09:48→20:03)
[2017-03-21] MEDS: REMOVE OLD PATCH T-DERMAL SCH (09:48)
[2017-03-21] MEDS: THIAMINE HCL 100 MG TAB PO SCH (09:52)
[2017-03-21 09:56] LABS: ANION GAP 5 MEQ/L (5-15); BICARBONATE 34.9 MEQ/L (21.0-32.0); BLOOD UREA NITROGEN 6 MG/DL (7-18); CHLORIDE 89 MEQ/L (98-107); FERRITIN 840 NG/ML (26-388); GLOMERULAR FILTRATION RATE 173 ML/MIN (>89); POTASSIUM 3.5 MEQ/L (3.5-5.1); SODIUM (NA) 129 MEQ/L (136-145); TRANSFERRIN IRON PROFILE 65 MG/DL (200-360)
[2017-03-21 10:10] LABS: ACETAMINOPHEN LESS THAN 2.0 MCG/ML (10.0-30.0)
[2017-03-21 10:26] LABS: CALCIUM-PROTEIN CORRECTED 7.9 MG/DL (8.5-10.1)
[2017-03-21] MEDS ORDERED: POTASSIUM CHLORIDE 20 MEQ CONTROLLED RELEASE TAB PO ONE (10:45)
--- NOTE | 2017-03-21 15:12 | HHI.GIFU ---
Subjective Remarks Pt resting in bed, says his leg swelling is much improved. 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) Objective Vitals I&O Vital Signs Date Time Temp Pulse Resp B/P (MAP) Pulse Ox O2 Delivery O2 Flow Rate FiO2 03/21/17 12:00 98.4 104 16 102/58 (73) 92 03/21/17 08:00 98.6 114 18 109/58 (75) 93 03/21/17 04:00 97.7 110 18 107/65 (79) 93 03/21/17 00:00 97.6 105 17 104/61 (75) 93 03/20/17 20:00 97.6 108 18 110/67 (81) 94 03/20/17 16:00 96.2 111 18 103/59 (74) 96 I/O 03/20/17 03/20/17 03/20/17 03/21/17 03/21/17 03/21/17 07:00 15:00 23:00 07:00 15:00 23:00 Intake Total 240 ml Balance 240 ml Intake Oral 240 ml # Voids 1 6 2 # Bowel Movements 1 2 Laboratory Laboratory Tests Test 03/21/17 08:49 Blood Urea Nitrogen 6 Creatinine 0.53 Random Glucose 94 Total Protein 6.1 Calcium Level 7.4 Sodium Level 129 Potassium Level 3.5 Chloride Level 89 Carbon Dioxide Level 34.9 Anion Gap 5 Estimat Glomerular Filtration Rate 173 Protein Corrected Calcium 7.9 Iron Level 93 Total Iron Binding Capacity 91 Percent Iron Saturation Ferritin 840 Acetaminophen Level LESS THAN 2.0 Date/Time Source Procedure Growth Status 03/19/17 15:40 Blood Peripheral Aerobic Blood Culture - Preliminary NO GROWTH IN 2 DAYS Resulted 03/19/17 15:40 Blood Peripheral Anaerobic Blood Culture - Preliminary NO GROWTH IN 2 DAYS Resulted 03/20/17 11:00 Fluid Peritoneal Fluid Gram Stain - Final Resulted 03/20/17 11:00 Fluid Peritoneal Fluid Body Fluid Culture - Preliminary NO GROWTH IN 24 HOURS. Resulted 03/19/17 16:45 Urine Catheterized Urine Urine Culture - Final NO GROWTH IN 48 HOURS. Complete Imaging Last Impressions Cyst Biopsy Asp-Paracentesis US 03/20/17 0600 Signed Impressions: Service Date/Time: Monday, March 20, 2017 09:42 - CONCLUSION: Uncomplicated ultrasound guided paracentesis. Kareem Mahan MD Lower Extremity Ultrasound 03/19/17 1441 Signed Impressions: Service Date/Time: Sunday, March 19, 2017 15:40 - CONCLUSION: 1. No evidence of deep venous thrombosis. Claudio Argueta MD Chest X-Ray 03/19/17 1423 Signed Impressions: Service Date/Time: Sunday, March 19, 2017 14:33 - CONCLUSION: Bibasilar atelectasis and borderline cardiomegaly. Aaron Tesfaye MD Liver Ultrasound 03/19/17 0000 Signed Impressions: Service Date/Time: Sunday, March 19, 2017 18:23 - CONCLUSION: 1. Moderate ascites. Thickened gallbladder wall with sludge. Mild hepatosplenomegaly. Kyle Thorpe MD Physical Exam HEENT: PERRL; normocephalic; atraumatic; CHEST: CTA CARDIAC: RRR ABDOMEN: semifirm, distended, nontender; bowel sounds are present in all four quadrants. EXTREMITIES: No clubbing, cyanosis, or edema. SKIN: Normal; no rash; mild jaundice. REPOSSESSION AGENT: No focal deficits; alert and oriented times three. (Lainey Qureshi) Assessment and Plan Plan ASSESSMENT - elevated LFTs - on admission ALP 213, AST 172, ALT 51. trending down, tbil rising however. ferritin 840H, %sat 102, TIBC 91L, serum fe 93. will check hfe gene rest of liver w/u pending. US shows moderate ascites, gallbladder sludge, mild hepatomegaly. DF 12.96. SAAG > 1.1, likely portal HTN - acites - s/p paracentesis, on lasix - leukocytosis - wbc 20 on admission, peritoneal WBC 579, neutrophils 40% treating empirically for SBP, await cultures on ceftriaxone, wbc decreased today PLAN - await hep panel - await immunology labs - continue ceftriaxone 1g BID - await peritoneal fluid cx - monitor labs - continue diuretics - ETOH cessation This pt seen by myself and Dr Cancino and this note is written on his behalf (Lainey Qureshi) Plan Patient was seen and examined, agree with the above note, the patient is a heavy drinker according to him so still could be alcohol liver disease but we need to rule out hemachromatosis or other etiology and work up is in progress for that we will check gene for hemochromatosis (Ann-Marie Cancino MD) Lainey Qureshi Mar 21, 2017 15:12 Ann-Marie Cancino MD Mar 21, 2017 22:11
[2017-03-21] MEDS: SPIRONOLACTONE 25 MG TAB PO SCH (16:32)
[2017-03-22] VITALS: BP 98/57; PULSE 103; RESP 18; TEMP 98.5; O2SAT 93
[2017-03-22] MEDS: cefTRIAXone INJ 1,000 MG in SODIUM CHLORIDE 0.9% INJ 100 ML IV SCH ×2 (02:34→17:41)
[2017-03-22] MEDS: LORazepam 1 MG TAB PO PRN ×3 (02:34→17:42)
[2017-03-22 04:00] VITALS: BP 104/61; PULSE 108; RESP 18; TEMP 98.6; O2SAT 92
[2017-03-22 08:00] VITALS: BP 108/59; PULSE 110; RESP 18; TEMP 97; O2SAT 91
[2017-03-22 08:22] LABS: BICARBONATE 33.6 MEQ/L (21.0-32.0); POTASSIUM 3.3 MEQ/L (3.5-5.1)
[2017-03-22] MEDS: BUPRENORPHINE 8 MG SL SCH ×2 (09:00→21:00)
[2017-03-22] MEDS: REMOVE OLD PATCH T-DERMAL SCH (09:00)
--- NOTE | 2017-03-22 09:01 | HHI.PR ---
Subjective Remarks doing ok feels better. Objective Vitals heart reg lung cta abd s/nt ext improving LE edema Vital Signs Date Time Temp Pulse Resp B/P (MAP) Pulse Ox O2 Delivery O2 Flow Rate FiO2 03/22/17 04:00 98.6 108 18 104/61 (75) 92 03/22/17 00:00 98.5 103 18 98/57 (71) 93 03/21/17 20:03 112 03/21/17 20:00 98.4 105 16 96/55 (69) 94 03/21/17 16:29 97.2 102 16 97/52 (67) 92 03/21/17 16:00 105 03/21/17 12:00 105 03/21/17 12:00 98.4 104 16 102/58 (73) 92 Result Diagram: 03/20/17 1504 03/22/17 0739 Imaging Last Impressions Lower Extremity Ultrasound 03/19/17 1441 Signed Impressions: Service Date/Time: Sunday, March 19, 2017 15:40 - CONCLUSION: 1. No evidence of deep venous thrombosis. Claudio Argueta MD Chest X-Ray 03/19/17 1423 Signed Impressions: Service Date/Time: Sunday, March 19, 2017 14:33 - CONCLUSION: Bibasilar atelectasis and borderline cardiomegaly. Aaron Tesfaye MD A/P Problem List: (1) Alcoholic cirrhosis ICD Codes: K70.30 - Alcoholic cirrhosis of liver without ascites Plan: Pt is known alcoholic. hx narcotic addiction/abuse Presents with 4 months progressive lower ext edema/ascites Appears to have liver cirrhosis/portal htn. SAAG 1.5 us guided paracentesis 03/20...3.3 L cont aldactone. replace kcl. monitor na. edema improved f/u ascites studies lactulose etoh w/d protocol] GI following. pending liver studies noted. ?d/c over the weekend if stable...otherwise will need to stay until after the storm. (2) ETOH abuse ICD Codes: F10.10 - Alcohol abuse, uncomplicated Status: Chronic (3) Tobacco abuse ICD Codes: Z72.0 - Tobacco use Status: Chronic (4) Chronic back pain ICD Codes: M54.9 - Dorsalgia, unspecified; G89.29 - Other chronic pain Status: Chronic (5) HTN (hypertension) ICD Codes: I10 - Essential (primary) hypertension Status: Chronic Eliud Looney MD Mar 22, 2017 09:01
[2017-03-22] MEDS: FOLIC ACID 1 MG TAB PO SCH (09:06)
[2017-03-22] MEDS: LACTULOSE SYRUP 20 GM/30 ML CUP PO SCH (09:06)
[2017-03-22] MEDS: SPIRONOLACTONE 25 MG TAB PO SCH ×2 (09:07→17:40)
[2017-03-22] MEDS: THIAMINE HCL 100 MG TAB PO SCH (09:07)
[2017-03-22] MEDS: SODIUM CHLORIDE 0.9% FLUSH 10 ML FLUSH IV FLUSH SCH ×2 (09:07→21:53)
[2017-03-22] MEDS: NICOTINE 21 MG/24 HR PATCH T-DERMAL SCH (09:08)
[2017-03-22] MEDS ORDERED: POTASSIUM CHLORIDE 20 MEQ CONTROLLED RELEASE TAB PO ONE (09:15)
[2017-03-22 12:00] VITALS: BP 102/55; PULSE 106; RESP 18; TEMP 98; O2SAT 93
[2017-03-22 16:00] VITALS: BP 110/60; PULSE 109; RESP 18; TEMP 97.5; O2SAT 94
--- NOTE | 2017-03-22 16:50 | HHI.GIFU ---
Subjective Remarks Pt resting in bed. says his abd is more distended. he is having some leakage from paracentesis site. (Lainey Qureshi) Objective Vitals I&O Vital Signs Date Time Temp Pulse Resp B/P (MAP) Pulse Ox O2 Delivery O2 Flow Rate FiO2 03/22/17 12:00 98.0 106 18 102/55 (71) 93 03/22/17 08:00 97.0 110 18 108/59 (75) 91 03/22/17 04:00 98.6 108 18 104/61 (75) 92 03/22/17 00:00 98.5 103 18 98/57 (71) 93 03/21/17 20:03 112 03/21/17 20:00 98.4 105 16 96/55 (69) 94 I/O 03/21/17 03/21/17 03/21/17 03/22/17 03/22/17 03/22/17 06:59 14:59 22:59 06:59 14:59 22:59 Output Total 200 ml Balance -200 ml Output Stool Total 200 ml # Voids 2 2 5 0 # Bowel Movements 4 0 Laboratory Laboratory Tests Test 03/22/17 07:39 Blood Urea Nitrogen 9 Creatinine 0.54 Random Glucose 100 Calcium Level 7.6 Sodium Level 129 Potassium Level 3.3 Chloride Level 86 Carbon Dioxide Level 33.6 Anion Gap 9 Estimat Glomerular Filtration Rate 169 Date/Time Source Procedure Growth Status 03/19/17 15:40 Blood Peripheral Aerobic Blood Culture - Preliminary NO GROWTH IN 3 DAYS Resulted 03/19/17 15:40 Blood Peripheral Anaerobic Blood Culture - Preliminary NO GROWTH IN 3 DAYS Resulted 03/20/17 11:00 Fluid Peritoneal Fluid Gram Stain - Final Resulted 03/20/17 11:00 Fluid Peritoneal Fluid Body Fluid Culture - Preliminary NO GROWTH IN 48 HOURS. Resulted 03/19/17 16:45 Urine Catheterized Urine Urine Culture - Final NO GROWTH IN 48 HOURS. Complete Physical Exam HEENT: PERRL; normocephalic; atraumatic; CHEST: CTA CARDIAC: RRR ABDOMEN: semifirm, distended, nontender; bowel sounds are present in all four quadrants. EXTREMITIES: No clubbing, cyanosis, or edema. SKIN: Normal; no rash; mild jaundice. 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 (Lainey Qureshi) Assessment and Plan Plan ASSESSMENT - elevated LFTs - on admission ALP 213, AST 172, ALT 51. trending down, tbil rising however. ferritin 840H, %sat 102, TIBC 91L, serum fe 93. will check hfe gene ALEJA neg, not a1 antitrypsin deficient, rest of liver w/u pending. US shows moderate ascites, gallbladder sludge, mild hepatomegaly. DF 12.96. SAAG > 1.1, likely portal HTN - acites - s/p paracentesis, on lasix - leukocytosis - wbc 20 on admission, peritoneal WBC 579, neutrophils 40% treating empirically for SBP, cx no growth 48h. on ceftriaxone, wbc did decrease yesterday, will rck PLAN - rck CBC - await Hfe - await hep panel - await immunology labs - continue ceftriaxone 1g BID - monitor labs - continue diuretics - ETOH cessation This pt seen by myself and Dr Cancino and this note is written on his behalf (Lainey Qureshi) Plan Patient was seen and examined, mild distention of his abdomen, some tenderness. Labs still pending, management based on the finding on the labs (Ann-Marie Cancino MD) Lainey Qureshi Mar 22, 2017 16:50 Ann-Marie Cancino MD Mar 22, 2017 21:58
[2017-03-22] MEDS: POTASSIUM CHLORIDE 20 MEQ CONTROLLED RELEASE TAB PO SCH (21:00)
[2017-03-22 21:55] VITALS: BP 108/60; PULSE 107; RESP 18; TEMP 97.9; O2SAT 94
[2017-03-23] VITALS (11 sets, daily range): BP systolic 97–126; BP diastolic 56–74; PULSE 66–114; RESP 16–20; TEMP 97.5–98.3; O2SAT 93–96
[2017-03-23] MEDS: LORazepam 1 MG TAB PO PRN ×3 (02:35→17:10)
[2017-03-23] MEDS: cefTRIAXone INJ 1,000 MG in SODIUM CHLORIDE 0.9% INJ 100 ML IV SCH ×2 (04:37→17:00)
[2017-03-23] MEDS: FOLIC ACID 1 MG TAB PO SCH (08:08)
[2017-03-23] MEDS: LACTULOSE SYRUP 20 GM/30 ML CUP PO SCH (08:08)
[2017-03-23] MEDS: POTASSIUM CHLORIDE 20 MEQ CONTROLLED RELEASE TAB PO SCH ×2 (08:08→20:50)
[2017-03-23] MEDS: SPIRONOLACTONE 25 MG TAB PO SCH ×2 (08:09→17:00)
[2017-03-23] MEDS: THIAMINE HCL 100 MG TAB PO SCH (08:09)
[2017-03-23] MEDS: NICOTINE 21 MG/24 HR PATCH T-DERMAL SCH (08:10)
[2017-03-23] MEDS: REMOVE OLD PATCH T-DERMAL SCH (08:10)
[2017-03-23] MEDS: BUPRENORPHINE 8 MG SL SCH ×2 (08:10→20:51)
[2017-03-23] MEDS: SODIUM CHLORIDE 0.9% FLUSH 10 ML FLUSH IV FLUSH SCH ×2 (08:17→20:50)
--- NOTE | 2017-03-23 09:04 | HHI.PR ---
Subjective Remarks mild scrotal edema Objective Vitals heart rg lung cta abd mild distention. no rebound ext trace to 1plus LE edema..better. Vital Signs Date Time Temp Pulse Resp B/P (MAP) Pulse Ox O2 Delivery O2 Flow Rate FiO2 03/23/17 05:43 97.5 105 18 100/58 (72) 95 03/23/17 01:10 97.9 108 18 97/58 (71) 94 03/22/17 21:55 97.9 107 18 108/60 (76) 94 03/22/17 16:00 97.5 109 18 110/60 (77) 94 03/22/17 12:00 98.0 106 18 102/55 (71) 93 Result Diagram: 03/20/17 1504 03/22/17 0739 Imaging Last Impressions Lower Extremity Ultrasound 03/19/17 1441 Signed Impressions: Service Date/Time: Sunday, March 19, 2017 15:40 - CONCLUSION: 1. No evidence of deep venous thrombosis. Claudio Argueta MD Chest X-Ray 03/19/17 1423 Signed Impressions: Service Date/Time: Sunday, March 19, 2017 14:33 - CONCLUSION: Bibasilar atelectasis and borderline cardiomegaly. Aaron Tesfaye MD A/P Problem List: (1) Alcoholic cirrhosis ICD Codes: K70.30 - Alcoholic cirrhosis of liver without ascites Plan: Pt is known alcoholic. hx narcotic addiction/abuse Presents with 4 months progressive lower ext edema/ascites Appears to have liver cirrhosis/portal htn. SAAG 1.5 us guided paracentesis 03/20...3.3 L cont aldactone. replace kcl. monitor na. edema improved f/u ascites studies labwork pending PT eval. ambulate lactulose etoh w/d protocol] GI following. pending liver studies noted. will likely d/c on Saturday after the storm. (2) ETOH abuse ICD Codes: F10.10 - Alcohol abuse, uncomplicated Status: Chronic (3) Tobacco abuse ICD Codes: Z72.0 - Tobacco use Status: Chronic (4) Chronic back pain ICD Codes: M54.9 - Dorsalgia, unspecified; G89.29 - Other chronic pain Status: Chronic (5) HTN (hypertension) ICD Codes: I10 - Essential (primary) hypertension Status: Chronic Aure,Eliud L MD Mar 23, 2017 09:04
[2017-03-23 12:23] LABS: AUTOMATED NEUTROPHIL # 15.4 TH/MM3 (1.8-7.7); BASOPHIL % 0.1 % (0.0-2.0); EOSINOPHIL # 0.1 TH/MM3 (0-0.4); EOSINOPHIL % 0.6 % (0.0-4.0); HEMATOCRIT 31.2 % (39.0-51.0); LYMPH % 8.3 % (9.0-44.0); LYMPHOCYTE # 1.6 TH/MM3 (1.0-4.8); MEAN CELL VOLUME 114.9 FL (80.0-100.0); MEAN CORPUSCULAR HEMOGLOBIN 39.3 PG (27.0-34.0); MEAN CORPUSCULAR HGB CONC 34.2 % (32.0-36.0); MONO % 11.5 % (0.0-8.0); NEUT % 79.5 % (16.0-70.0); PLATELET COUNT 141 TH/MM3 (150-450); RED BLOOD COUNT 2.72 MIL/MM3 (4.50-5.90); RED CELL DISTRIBUTION WIDTH 17.6 % (11.6-17.2); WHITE BLOOD COUNT 19.4 TH/MM3 (4.0-11.0)
[2017-03-23 12:26] LABS: HEMO FLAGS AUTO DIFF
[2017-03-23 12:54] LABS: BICARBONATE 31.2 MEQ/L (21.0-32.0); MAGNESIUM 1.5 MG/DL (1.5-2.5); POTASSIUM 3.6 MEQ/L (3.5-5.1)
[2017-03-23 13:14] LABS: INDIRECT BILIRUBIN 1.6 MG/DL (0.0-0.8); TOTAL BILIRUBIN ADULT 3.3 MG/DL (0.2-1.0)
[2017-03-23 13:17] LABS: BANDS 3 % (0-6); MYELOCYTES 1 % (0-0); NEUTROPHIL # MANUAL DIFF 15.3 TH/MM3 (1.8-7.7); POLYS (SEG NEUTROPHILS) 75 % (16-70); WBC DIFF SAMPLE 100
[2017-03-23 13:18] LABS: PLATELET ESTIMATE SMEAR LOW (NORMAL); PLATELET MORPHOLOGY NORMAL (NORMAL); SCAN/DIFF FINAL DIFF MANUAL; TARGET CELLS 1+ (NORMAL)
[2017-03-23 19:52] LABS: MITOCHONDRIAL ABS 79.7 U (<=20.0)
[2017-03-24] VITALS (12 sets, daily range): BP systolic 94–114; BP diastolic 52–64; PULSE 86–111; RESP 16–20; TEMP 97.9–99.6; O2SAT 91–96
[2017-03-24] MEDS: cefTRIAXone INJ 1,000 MG in SODIUM CHLORIDE 0.9% INJ 100 ML IV SCH ×2 (03:35→16:57)
[2017-03-24] MEDS: LORazepam 1 MG TAB PO PRN ×4 (03:35→21:02)
--- NOTE | 2017-03-24 08:54 | HHI.PR ---
Subjective Remarks doing well. Objective Vitals heart reg lung cta abd mild distention.no tenderness ext 1 plus edema Vital Signs Date Time Temp Pulse Resp B/P (MAP) Pulse Ox O2 Delivery O2 Flow Rate FiO2 03/24/17 04:00 97.9 111 20 110/64 (79) 95 03/24/17 00:00 98.2 86 16 99/63 (75) 95 03/23/17 20:58 80 03/23/17 20:00 98.3 66 16 123/73 (90) 96 03/23/17 16:38 110 03/23/17 15:50 97.6 109 20 126/70 (88) 93 03/23/17 13:41 114/74 (87) 03/23/17 12:12 107 03/23/17 11:30 98.2 106 20 98/57 (71) 93 Result Diagram: 03/23/17 1145 03/23/17 1145 Imaging Last Impressions Cyst Biopsy Asp-Paracentesis US 03/20/17 0600 Signed Impressions: Service Date/Time: Monday, March 20, 2017 09:42 - CONCLUSION: Uncomplicated ultrasound guided paracentesis. Kareem Mahan MD Lower Extremity Ultrasound 03/19/17 1441 Signed Impressions: Service Date/Time: Sunday, March 19, 2017 15:40 - CONCLUSION: 1. No evidence of deep venous thrombosis. Claudio Argueta MD Chest X-Ray 03/19/17 1423 Signed Impressions: Service Date/Time: Sunday, March 19, 2017 14:33 - CONCLUSION: Bibasilar atelectasis and borderline cardiomegaly. Aaron Tesfaye MD Liver Ultrasound 03/19/17 0000 Signed Impressions: Service Date/Time: Sunday, March 19, 2017 18:23 - CONCLUSION: 1. Moderate ascites. Thickened gallbladder wall with sludge. Mild hepatosplenomegaly. Kyle Thorpe MD Objective Remarks GENERAL: This is a well-nourished, well-developed patient, in no apparent distress. CARDIOVASCULAR: Regular rate and rhythm without murmurs, gallops, or rubs. RESPIRATORY: Clear to auscultation. Breath sounds equal bilaterally. No wheezes , rales, or rhonchi. GASTROINTESTINAL: Abdomen soft, non-tender, nondistended. Normal active bowel sounds MUSCULOSKELETAL: Extremities without clubbing, cyanosis, or edema. NEURO: Alert & Oriented x4 to person, place, time, situation. Moves all ext x4 A/P Problem List: (1) Alcoholic cirrhosis ICD Codes: K70.30 - Alcoholic cirrhosis of liver without ascites Plan: Pt is known alcoholic. hx narcotic addiction/abuse Presents with 4 months progressive lower ext edema/ascites Appears to have liver cirrhosis/portal htn. SAAG 1.5 us guided paracentesis 03/20...3.3 L - aldactone stopped yesterday d/t hypotension - awaiting repeat labs this AM - f/u ascites study - PT - encourage ambulation - continue lactulose PT eval. ambulate lactulose etoh w/d protocol] GI following. pending liver studies noted. will likely d/c on Saturday after the storm. (2) ETOH abuse ICD Codes: F10.10 - Alcohol abuse, uncomplicated Status: Chronic (3) Tobacco abuse ICD Codes: Z72.0 - Tobacco use Status: Chronic (4) Chronic back pain ICD Codes: M54.9 - Dorsalgia, unspecified; G89.29 - Other chronic pain Status: Chronic (5) HTN (hypertension) ICD Codes: I10 - Essential (primary) hypertension Status: Chronic Eliud Looney MD Mar 24, 2017 08:54 Jerardo Khan DO Mar 25, 2017 08:45
[2017-03-24] MEDS: SPIRONOLACTONE 25 MG TAB PO SCH ×2 (10:49→17:24)
[2017-03-24] MEDS: THIAMINE HCL 100 MG TAB PO SCH (10:49)
[2017-03-24] MEDS: POTASSIUM CHLORIDE 20 MEQ CONTROLLED RELEASE TAB PO SCH ×2 (10:49→20:58)
[2017-03-24] MEDS: FOLIC ACID 1 MG TAB PO SCH (10:49)
[2017-03-24] MEDS: LACTULOSE SYRUP 20 GM/30 ML CUP PO SCH (10:49)
[2017-03-24] MEDS: REMOVE OLD PATCH T-DERMAL SCH (10:50)
[2017-03-24] MEDS: NICOTINE 21 MG/24 HR PATCH T-DERMAL SCH (10:50)
[2017-03-24] MEDS: BUPRENORPHINE 8 MG SL SCH ×2 (10:51→20:58)
[2017-03-24] MEDS: SODIUM CHLORIDE 0.9% FLUSH 10 ML FLUSH IV FLUSH SCH ×2 (10:51→20:58)
[2017-03-24 12:39] LABS: BICARBONATE 31.4 MEQ/L (21.0-32.0); POTASSIUM 3.9 MEQ/L (3.5-5.1)
[2017-03-25] VITALS (8 sets, daily range): BP systolic 97–127; BP diastolic 55–72; PULSE 101–115; RESP 18–24; TEMP 98–99.6; O2SAT 91–98
[2017-03-25] MEDS: LORazepam 1 MG TAB PO PRN ×4 (01:35→21:58)
[2017-03-25] MEDS: cefTRIAXone INJ 1,000 MG in SODIUM CHLORIDE 0.9% INJ 100 ML IV SCH ×2 (04:11→16:37)
--- NOTE | 2017-03-25 08:54 | HHI.PR ---
Subjective Remarks PRELIMINARY NOTE No new complaints. Objective Vitals Vital Signs Date Time Temp Pulse Resp B/P (MAP) Pulse Ox O2 Delivery O2 Flow Rate FiO2 03/25/17 08:16 101 03/25/17 04:00 98.1 115 24 127/72 (90) 91 03/25/17 00:00 99.1 106 20 103/57 (72) 94 03/24/17 21:10 104 03/24/17 20:00 99.6 107 18 94/53 (67) 96 03/24/17 17:07 104/57 (73) 03/24/17 16:00 98 03/24/17 15:50 98.9 104 20 96/52 (67) 91 03/24/17 11:50 98.7 111 20 110/59 (76) 93 03/24/17 11:47 108 03/24/17 10:48 106 114/56 (75) Result Diagram: 03/23/17 1145 03/24/17 1115 Imaging Last Impressions Cyst Biopsy Asp-Paracentesis US 03/20/17 0600 Signed Impressions: Service Date/Time: Monday, March 20, 2017 09:42 - CONCLUSION: Uncomplicated ultrasound guided paracentesis. Kareem Mahan MD Lower Extremity Ultrasound 03/19/17 1441 Signed Impressions: Service Date/Time: Sunday, March 19, 2017 15:40 - CONCLUSION: 1. No evidence of deep venous thrombosis. Claudio Argueta MD Chest X-Ray 03/19/17 1423 Signed Impressions: Service Date/Time: Sunday, March 19, 2017 14:33 - CONCLUSION: Bibasilar atelectasis and borderline cardiomegaly. Aaron Tesfaye MD Liver Ultrasound 03/19/17 0000 Signed Impressions: Service Date/Time: Sunday, March 19, 2017 18:23 - CONCLUSION: 1. Moderate ascites. Thickened gallbladder wall with sludge. Mild hepatosplenomegaly. Kyle Thorpe MD Objective Remarks GENERAL: This is a well-nourished, well-developed patient, in no apparent distress. CARDIOVASCULAR: Regular rate and rhythm without murmurs, gallops, or rubs. RESPIRATORY: Clear to auscultation. Breath sounds equal bilaterally. No wheezes , rales, or rhonchi. GASTROINTESTINAL: Abdomen soft, non-tender, nondistended. Normal active bowel sounds MUSCULOSKELETAL: Extremities without clubbing, cyanosis, or edema. NEURO: Alert & Oriented x4 to person, place, time, situation. Moves all ext x4 EXT: 1-2 + LE edema A/P Problem List: (1) Alcoholic cirrhosis ICD Codes: K70.30 - Alcoholic cirrhosis of liver without ascites Plan: - comgmt with GI Pt is known alcoholic. hx narcotic addiction/abuse Presents with 4 months progressive lower ext edema/ascites Appears to have liver cirrhosis/portal htn. SAAG 1.5 us guided paracentesis 03/20...3.3 L - aldactone stopped yesterday d/t hypotension, will try at lower dose with parameters - awaiting repeat labs this AM - f/u ascities study - obtain repeat limited abdominal US to reassess for need for repeat paracentesis prior to discharge - PT - encourage ambulation - continue lactulose - CIWA - liver studies pending - anticipate d/c on Saturday, ? (2) ETOH abuse ICD Codes: F10.10 - Alcohol abuse, uncomplicated Status: Chronic Plan: - see above (3) Tobacco abuse ICD Codes: Z72.0 - Tobacco use Status: Chronic (4) Chronic back pain ICD Codes: M54.9 - Dorsalgia, unspecified; G89.29 - Other chronic pain Status: Chronic (5) HTN (hypertension) ICD Codes: I10 - Essential (primary) hypertension Status: Chronic Jerardo Khan DO Mar 25, 2017 08:54
[2017-03-25] MEDS: SPIRONOLACTONE 25 MG TAB PO SCH ×2 (09:00→16:47)
[2017-03-25] MEDS: LACTULOSE SYRUP 20 GM/30 ML CUP PO SCH (09:02)
[2017-03-25] MEDS: REMOVE OLD PATCH T-DERMAL SCH (09:03)
[2017-03-25] MEDS: FOLIC ACID 1 MG TAB PO SCH (09:03)
[2017-03-25] MEDS: SODIUM CHLORIDE 0.9% FLUSH 10 ML FLUSH IV FLUSH SCH ×2 (09:03→21:59)
[2017-03-25] MEDS: POTASSIUM CHLORIDE 20 MEQ CONTROLLED RELEASE TAB PO SCH ×2 (09:03→21:58)
[2017-03-25] MEDS: THIAMINE HCL 100 MG TAB PO SCH (09:03)
[2017-03-25] MEDS: BUPRENORPHINE 8 MG SL SCH ×2 (09:03→21:59)
[2017-03-25] MEDS: NICOTINE 21 MG/24 HR PATCH T-DERMAL SCH (09:04)
--- NOTE | 2017-03-25 11:17 | RADRPT ---
EXAM DATE/TIME: 03/25/2017 10:49 [facility] COMPARISON: No previous studies available for comparison. INDICATIONS : Ascites. MEDICAL HISTORY : Hypertension. Cirrhosis. SURGICAL HISTORY : Hand surgery. ENCOUNTER: Initial ACUITY: 1 day PAIN SCORE: 07/24 LOCATION: Abdomen. AREA EVALUATED: Abdomen. FINDINGS: Imaging of the abdomen and pelvis was performed to evaluate for ascites for possible paracentesis. T here is very subtle ascites without a sufficient pocket for safe paracentesis. CONCLUSION: 1. Very subtle ascites without sufficient pocket for safe paracentesis. Hipolito Palencia MD on March 25, 2017 at 11:15 Board Certified Radiologist. This report was verified electronically.
[2017-03-25 11:58] LABS: AUTOMATED NEUTROPHIL # 18.8 TH/MM3 (1.8-7.7); BASOPHIL # 0.1 TH/MM3 (0-0.2); BASOPHIL % 0.5 % (0.0-2.0); EOSINOPHIL # 0.1 TH/MM3 (0-0.4); EOSINOPHIL % 0.4 % (0.0-4.0); HEMATOCRIT 32.4 % (39.0-51.0); LYMPH % 6.8 % (9.0-44.0); LYMPHOCYTE # 1.6 TH/MM3 (1.0-4.8); MEAN CELL VOLUME 115.1 FL (80.0-100.0); MEAN CORPUSCULAR HEMOGLOBIN 39.9 PG (27.0-34.0); MEAN CORPUSCULAR HGB CONC 34.6 % (32.0-36.0); MONO % 11.4 % (0.0-8.0); NEUT % 80.9 % (16.0-70.0); PLATELET COUNT 138 TH/MM3 (150-450); RED BLOOD COUNT 2.81 MIL/MM3 (4.50-5.90); RED CELL DISTRIBUTION WIDTH 17.2 % (11.6-17.2); WHITE BLOOD COUNT 23.2 TH/MM3 (4.0-11.0)
[2017-03-25 12:06] LABS: HEMO FLAGS AUTO DIFF
[2017-03-25 12:29] LABS: BICARBONATE 31.5 MEQ/L (21.0-32.0); MAGNESIUM 1.4 MG/DL (1.5-2.5); POTASSIUM 3.8 MEQ/L (3.5-5.1)
[2017-03-25 12:59] LABS: BANDS 3 % (0-6); EOSINOPHILS 1 % (0-4); METAMYELOCYTES 1 % (0-1); PLATELET ESTIMATE SMEAR LOW (NORMAL); PLATELET MORPHOLOGY NORMAL (NORMAL); POLYS (SEG NEUTROPHILS) 82 % (16-70); SCAN/DIFF FINAL DIFF MANUAL; WBC DIFF SAMPLE 100
[2017-03-25 13:00] LABS: TARGET CELLS 1+ (NORMAL)
[2017-03-26] VITALS (9 sets, daily range): BP systolic 87–116; BP diastolic 52–61; PULSE 106–117; RESP 16–20; TEMP 99–99.9; O2SAT 88–95
[2017-03-26] MEDS: LORazepam 1 MG TAB PO PRN ×7 (01:21→16:02)
[2017-03-26] MEDS: cefTRIAXone INJ 1,000 MG in SODIUM CHLORIDE 0.9% INJ 100 ML IV SCH ×2 (04:10→16:02)
[2017-03-26] MEDS: SPIRONOLACTONE 25 MG TAB PO SCH ×2 (08:25→18:09)
[2017-03-26] MEDS: LACTULOSE SYRUP 20 GM/30 ML CUP PO SCH (08:26)
[2017-03-26] MEDS: NICOTINE 21 MG/24 HR PATCH T-DERMAL SCH (08:27)
[2017-03-26] MEDS: POTASSIUM CHLORIDE 20 MEQ CONTROLLED RELEASE TAB PO SCH ×2 (08:27→20:48)
[2017-03-26] MEDS: FOLIC ACID 1 MG TAB PO SCH (08:27)
[2017-03-26] MEDS: REMOVE OLD PATCH T-DERMAL SCH (08:27)
[2017-03-26] MEDS: BUPRENORPHINE 8 MG SL SCH ×2 (08:27→20:49)
[2017-03-26] MEDS: THIAMINE HCL 100 MG TAB PO SCH (08:27)
[2017-03-26] MEDS: SODIUM CHLORIDE 0.9% FLUSH 10 ML FLUSH IV FLUSH SCH ×2 (08:28→20:48)
--- NOTE | 2017-03-26 09:24 | HHI.PR ---
Subjective Remarks Pt with low grade fevers this morning, Tmax 99.9 Pt reports that he didn't sleep well last night and was somewhat anxious. Nursing staff reports that the patient has been hypoxic off the supplemental O2 with sats dropping as low as 76% on RA, pt currently on 4L via NC. Objective Vitals Vital Signs Date Time Temp Pulse Resp B/P (MAP) Pulse Ox O2 Delivery O2 Flow Rate FiO2 03/26/17 08:18 Nasal Cannula 4.00 03/26/17 08:00 99.9 113 19 102/56 (71) 90 03/26/17 04:45 99.7 117 18 116/61 (79) 90 03/26/17 00:40 99.6 106 17 97/53 (68) 91 03/25/17 21:59 Nasal Cannula 4.00 03/25/17 20:45 99.6 111 18 116/65 (82) 92 03/25/17 15:50 98.8 107 20 97/55 (69) 94 03/25/17 14:04 94 Nasal Cannula 4.00 03/25/17 12:26 92 Nasal Cannula 4.00 03/25/17 12:00 91 Nasal Cannula 3.50 03/25/17 11:50 98.9 113 20 110/55 (73) 98 Result Diagram: 03/25/17 1135 03/25/17 1135 Other Results Laboratory Tests Test 03/24/17 11:15 03/25/17 11:35 Blood Urea Nitrogen 6 MG/DL 6 MG/DL Creatinine 0.65 MG/DL 0.51 MG/DL Random Glucose 104 MG/DL 108 MG/DL Calcium Level 7.8 MG/DL 7.6 MG/DL Sodium Level 127 MEQ/L 127 MEQ/L Potassium Level 3.9 MEQ/L 3.8 MEQ/L Chloride Level 89 MEQ/L 88 MEQ/L Carbon Dioxide Level 31.4 MEQ/L 31.5 MEQ/L Anion Gap 7 MEQ/L 8 MEQ/L Estimat Glomerular Filtration Rate 137 ML/MIN 181 ML/MIN Vitamin B12 Level 1559 PG/ML Folate 3.9 NG/ML White Blood Count 23.2 TH/MM3 Red Blood Count 2.81 MIL/MM3 Hemoglobin 11.2 GM/DL Hematocrit 32.4 % Mean Corpuscular Volume 115.1 FL Mean Corpuscular Hemoglobin 39.9 PG Mean Corpuscular Hemoglobin Concent 34.6 % Red Cell Distribution Width 17.2 % Platelet Count 138 TH/MM3 Mean Platelet Volume 8.4 FL Neutrophils (%) (Auto) 80.9 % Lymphocytes (%) (Auto) 6.8 % Monocytes (%) (Auto) 11.4 % Eosinophils (%) (Auto) 0.4 % Basophils (%) (Auto) 0.5 % Neutrophils # (Auto) 18.8 TH/MM3 Lymphocytes # (Auto) 1.6 TH/MM3 Monocytes # (Auto) 2.6 TH/MM3 Eosinophils # (Auto) 0.1 TH/MM3 Basophils # (Auto) 0.1 TH/MM3 CBC Comment AUTO DIFF Differential Total Cells Counted 100 Neutrophils % (Manual) 82 % Band Neutrophils % 3 % Lymphocytes % 7 % Monocytes % 6 % Eosinophils % 1 % Neutrophils # (Manual) 20.0 TH/MM3 Metamyelocytes 1 % Differential Comment FINAL DIFF MANUAL Platelet Estimate LOW Platelet Morphology Comment NORMAL Target Cells 1+ Magnesium Level 1.4 MG/DL Ammonia 35 MCMOL/L Imaging Last Impressions Cyst Biopsy Asp-Paracentesis US 03/20/17 0600 Signed Impressions: Service Date/Time: Monday, March 20, 2017 09:42 - CONCLUSION: Uncomplicated ultrasound guided paracentesis. Kareem Mahan MD Lower Extremity Ultrasound 03/19/17 1441 Signed Impressions: Service Date/Time: Sunday, March 19, 2017 15:40 - CONCLUSION: 1. No evidence of deep venous thrombosis. Claudio Argueta MD Chest X-Ray 03/19/17 1423 Signed Impressions: Service Date/Time: Sunday, March 19, 2017 14:33 - CONCLUSION: Bibasilar atelectasis and borderline cardiomegaly. Aaron Tesfaye MD Liver Ultrasound 03/19/17 0000 Signed Impressions: Service Date/Time: Sunday, March 19, 2017 18:23 - CONCLUSION: 1. Moderate ascites. Thickened gallbladder wall with sludge. Mild hepatosplenomegaly. 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 SAAG 1.5 - He had US guided paracentesis on 03/20 with removal of 3.3 L of ascetic fluid. - Aldactone stopped on 03/24 d/t hypotension, will try at lower dose with parameters - awaiting repeat labs this AM - f/u ascites study - Repeat limited abdominal US (03/25) --> with very subtle ascites without significant pocket for paracentesis. - Liver workup revealed a positive AMA of 79.7 ?PBC, reconsult GI for recommendations - Hemochromatosis workup is pending as well as pt had significantly elevated iron saturation of 102.2% - Pt with some low grade fever this morning, tmax 99.9. Pt is on Ceftriaxone - He is still requiring increased supplemental O2, try to wean, IS, CXR today - PT - encourage ambulation - continue lactulose - Ativan PRN - Supportive care (2) ETOH abuse ICD Codes: F10.10 - Alcohol abuse, uncomplicated Status: Chronic Plan: - see above (3) Tobacco abuse ICD Codes: Z72.0 - Tobacco use Status: Chronic (4) Chronic back pain ICD Codes: M54.9 - Dorsalgia, unspecified; G89.29 - Other chronic pain Status: Chronic (5) HTN (hypertension) ICD Codes: I10 - Essential (primary) hypertension Status: Chronic Assessment and Plan Patient examined. Assessment and plan formulated with Tawnya Sue PA-C. I agree with the above. Tawnya Sue Mar 26, 2017 09:24 Jerardo Khan DO Apr 01, 2017 12:19
[2017-03-26 09:43] LABS: AUTOMATED NEUTROPHIL # 19.8 TH/MM3 (1.8-7.7); BASOPHIL # 0.2 TH/MM3 (0-0.2); BASOPHIL % 0.8 % (0.0-2.0); EOSINOPHIL # 0.1 TH/MM3 (0-0.4); EOSINOPHIL % 0.3 % (0.0-4.0); HEMATOCRIT 30.8 % (39.0-51.0); LYMPH % 6.4 % (9.0-44.0); LYMPHOCYTE # 1.6 TH/MM3 (1.0-4.8); MEAN CELL VOLUME 115.3 FL (80.0-100.0); MEAN CORPUSCULAR HEMOGLOBIN 39.9 PG (27.0-34.0); MEAN CORPUSCULAR HGB CONC 34.6 % (32.0-36.0); MONO % 12.7 % (0.0-8.0); NEUT % 79.8 % (16.0-70.0); PLATELET COUNT 141 TH/MM3 (150-450); RED BLOOD COUNT 2.67 MIL/MM3 (4.50-5.90); WHITE BLOOD COUNT 24.8 TH/MM3 (4.0-11.0)
[2017-03-26 09:58] LABS: HEMO FLAGS AUTO DIFF
[2017-03-26 10:04] LABS: BICARBONATE 28.5 MEQ/L (21.0-32.0); MAGNESIUM 1.4 MG/DL (1.5-2.5); POTASSIUM 3.7 MEQ/L (3.5-5.1)
--- NOTE | 2017-03-26 10:41 | RADRPT ---
EXAM DATE/TIME: 03/26/2017 10:30 [facility] COMPARISON: CHEST SINGLE AP, March 19, 2017, 14:33. INDICATIONS : Short of breath, hypoxic MEDICAL HISTORY : Hypertension. pneumonia, ETOH abuse, anxiety SURGICAL HISTORY : None. ENCOUNTER: Initial ACUITY: 4 - 6 days PAIN SCORE: 0/10 LOCATION: Bilateral chest FINDINGS: AP and lateral views of the chest were obtained and demonstrate new alveolar infiltrates in both cent ral and upper lobes. There are denser and coarser infiltrates again noted the lung bases. There is no effusion. The heart size remains within normal limits. The bony thorax is intact. CONCLUSION: 1. New alveolar infiltrates in both lungs which may represent pulmonary edema which may be noncardiog enic in origin. 2. Denser course infiltrates in both lung bases likely representing scarring. Ap Zamora MD on March 26, 2017 at 10:37 Board Certified Radiologist. This report was verified electronically.
[2017-03-26 10:45] LABS: PLATELET ESTIMATE SMEAR LOW (NORMAL); PLATELET MORPHOLOGY NORMAL (NORMAL); SCAN/DIFF AUTO DIFF CONFIRMED; TARGET CELLS 1+ (NORMAL)
[2017-03-26] MEDS: MAGNESIUM SULFATE 1 GM PREMIX 100 ML IV SCH ×2 (10:49→11:59)
[2017-03-26] MEDS: ALBUMIN HUMAN 25% 25 GM/100 ML BAGP IV SCH (13:56)
[2017-03-26] MEDS: SODIUM CHLOR 0.9% 1000 ML INJ 1,000 ML IV SCH ×2 (13:56→23:15)
[2017-03-26 14:38] LABS: BICARBONATE 30.1 MEQ/L (21.0-32.0); POTASSIUM 3.8 MEQ/L (3.5-5.1)
--- NOTE | 2017-03-26 15:31 | HHI.GIFU ---
Subjective Remarks Resting in bed. States he has been mostly eating chicken noodle soup and trying to drink a large amount of fluids to help with the bloating. No n/v. 2 loose stools today. Low grade temp. (Claudia Harvey) Objective Vitals I&O Vital Signs Date Time Temp Pulse Resp B/P (MAP) Pulse Ox O2 Delivery O2 Flow Rate FiO2 03/26/17 12:00 99.9 110 19 100/58 (72) 90 03/26/17 08:18 Nasal Cannula 4.00 03/26/17 08:00 99.9 113 19 102/56 (71) 90 03/26/17 04:45 99.7 117 18 116/61 (79) 90 03/26/17 00:40 99.6 106 17 97/53 (68) 91 03/25/17 21:59 Nasal Cannula 4.00 03/25/17 20:45 99.6 111 18 116/65 (82) 92 03/25/17 15:50 98.8 107 20 97/55 (69) 94 I/O 03/25/17 03/25/17 03/25/17 03/26/17 03/26/17 03/26/17 07:00 15:00 23:00 07:00 15:00 23:00 Intake Total 240 ml 761 ml 100 ml Balance 240 ml 761 ml 100 ml Intake Oral 240 ml 761 ml IV Total 100 ml # Voids 2 3 # Bowel Movements 1 1 1 Laboratory Laboratory Tests Test 03/26/17 09:23 03/26/17 13:29 White Blood Count 24.8 Red Blood Count 2.67 Hemoglobin 10.6 Hematocrit 30.8 Mean Corpuscular Volume 115.3 Mean Corpuscular Hemoglobin 39.9 Mean Corpuscular Hemoglobin Concent 34.6 Red Cell Distribution Width 17.0 Platelet Count 141 Mean Platelet Volume 8.3 Neutrophils (%) (Auto) 79.8 Lymphocytes (%) (Auto) 6.4 Monocytes (%) (Auto) 12.7 Eosinophils (%) (Auto) 0.3 Basophils (%) (Auto) 0.8 Neutrophils # (Auto) 19.8 Lymphocytes # (Auto) 1.6 Monocytes # (Auto) 3.2 Eosinophils # (Auto) 0.1 Basophils # (Auto) 0.2 CBC Comment AUTO DIFF Differential Comment AUTO DIFF CONFIRMED Platelet Estimate LOW Platelet Morphology Comment NORMAL Target Cells 1+ Blood Urea Nitrogen 7 8 Creatinine 0.57 0.65 Random Glucose 124 111 Calcium Level 7.6 7.8 Magnesium Level 1.4 Sodium Level 121 126 Potassium Level 3.7 3.8 Chloride Level 85 89 Carbon Dioxide Level 28.5 30.1 Anion Gap 8 7 Estimat Glomerular Filtration Rate 159 137 Ammonia 29 Date/Time Source Procedure Growth Status 03/19/17 15:40 Blood Peripheral Aerobic Blood Culture - Final NO GROWTH IN 5 DAYS Complete 03/19/17 15:40 Blood Peripheral Anaerobic Blood Culture - Final NO GROWTH IN 5 DAYS Complete 03/20/17 11:00 Fluid Peritoneal Fluid Gram Stain - Final Complete 03/20/17 11:00 Fluid Peritoneal Fluid Body Fluid Culture - Final NO GROWTH IN 72 HRS.--AEROBICALLY OR ... Complete 03/19/17 16:45 Urine Catheterized Urine Urine Culture - Final NO GROWTH IN 48 HOURS. Complete Imaging Last Impressions Chest X-Ray 03/26/17 0000 Signed Impressions: Service Date/Time: Sunday, March 26, 2017 10:30 - CONCLUSION: 1. New alveolar infiltrates in both lungs which may represent pulmonary edema which may be noncardiogenic in origin. 2. Denser course infiltrates in both lung bases likely representing scarring. Ap Zamora MD Abdomen Ultrasound 03/25/17 0000 Signed Impressions: Service Date/Time: Saturday, March 25, 2017 10:49 - CONCLUSION: 1. Very subtle ascites without sufficient pocket for safe paracentesis. Hipolito Palencia MD Cyst Biopsy Asp-Paracentesis US 03/20/17 0600 Signed Impressions: Service Date/Time: Monday, March 20, 2017 09:42 - CONCLUSION: Uncomplicated ultrasound guided paracentesis. Kareem Mahan MD Lower Extremity Ultrasound 03/19/17 1441 Signed Impressions: Service Date/Time: Sunday, March 19, 2017 15:40 - CONCLUSION: 1. No evidence of deep venous thrombosis. Claudio Argueta MD Liver Ultrasound 03/19/17 0000 Signed Impressions: Service Date/Time: Sunday, March 19, 2017 18:23 - CONCLUSION: 1. Moderate ascites. Thickened gallbladder wall with sludge. Mild hepatosplenomegaly. Kyle Thorpe MD Physical Exam HEENT: Normocephalic; atraumatic; CHEST: CTA CARDIAC: RRR ABDOMEN: Semifirm, distended with ascites, nontender; bowel sounds are present in all four quadrants. EXTREMITIES: No clubbing, cyanosis, or edema. SKIN: Normal; no rash; mild jaundice. 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 (Claudia Harvey) Assessment and Plan Plan ASSESSMENT: - Ascites. US guided paracentesis (03/20/17)---> 3,300cc removed. Peritoneal WBC 579, RBC 140. Peritoneal cx no growth 72 hours. Spironolactone, held for b/p, Ceftriaxone. Of note, patient reports that he is mostly eating chicken noodle soup and trying to drink a large amount of fluids to help with his abdominal distention. D/W patient importance of low sodium diet and trying to limit fluids to 2L per day. Albumin added. - Elevated liver enzymes, liver cirrhosis. Liver US (03/19/17)---> Moderate ascites. Thickened gallbladder wall with sludge, mild hepatomegaly. ALEJA negative, AMA 79.7, ASMA negative, Ceruloplasmin 20, Alpha 1 Antitrypsin 180, Check hepatitis profile, AFP level. Start Actigal. Await Hfe gene. May need liver biopsy (liver cirrhosis with + AMA, high iron saturation). - Elevated Iron Saturation. Check Hfe gene. - (+) AMA. Started on Actigal, ? liver biopsy. - Leukocytosis. Peritoneal cx negative x 72 hours. On Ceftriaxone. - Anemia. HH 10.6/30.8. - Thrombocytopenia Plt 141 - Hepatic encephalopathy, lactulose. A/Ox3 - Hyponatremia, per attending. PLAN: - 2 gram sodium diet, 2L fluid restriction- D/W patient - Add albumin - Add ursodiol - Hepatitis profile - AFP level - Monitor LFTs - Add Protonix 40mg po daily - Cont. Lactulose - Cont. Ceftriaxone - Cont. Spironolactone - Monitor labs - Monitor I/O - ? liver biopsy - Will need egd with band ligation, timing to be determined (inpatient vs. outpatient) - Supportive care - Further recommendations to follow based on results of above - Pt seen and examined by Dr. Maldonado and myself and this note is written on her behalf (Claudia Harvey) Physician Comments seen, examined agree with above (Jacqueline Maldonado MD) Claudia Harvey Mar 26, 2017 15:31 Jacqueline Maldonado MD Mar 26, 2017 18:56
[2017-03-26] MEDS: URSODIOL 300 MG CAP PO SCH (18:09)
[2017-03-26] MEDS: PANTOPRAZOLE SOD 40 MG DELAYED RELEASE TAB PO SCH (20:48)
[2017-03-27] VITALS (16 sets, daily range): BP systolic 81–125; BP diastolic 43–70; PULSE 90–125; RESP 16–33; TEMP 97.7–99.9; O2SAT 87–98
[2017-03-27] MEDS ORDERED: VANCOMYCIN 1,000 MG/NS 250 ML IV ONE ×2
[2017-03-27] MEDS ORDERED: PIPERACIL-TAZO 3.375 GM PREMIX 50 ML IV ONE
[2017-03-27] MEDS: LORazepam 1 MG TAB PO PRN ×3 (00:35→05:34)
[2017-03-27] MEDS ORDERED: FUROSEMIDE 20 MG/2 ML VIAL IV PUSH ONE ×2 (01:15→02:45)
[2017-03-27] MEDS ORDERED: POTASSIUM CHLORIDE 20 MEQ CONTROLLED RELEASE TAB PO ONE (01:30)
--- NOTE | 2017-03-27 01:31 | PD.CONS ---
[facility] Service Critical Care Medicine Consult Requested By Dr. Lund Reason for Consult Respiratory failure Primary Care Physician Taylor Daniel M.D. History of Present Illness This is a 42-year-old male. Date of admission 03/19/2017. Date of consultation 03/27/2017. Past medical history includes EtOH use abuse, tobaccoism, hypertension Gastroesophageal reflux disease and DDD. Patient is on Suboxone for prior opiate abuse. He drinks one bottle of vodka daily patient is on chronic alprazolam at home on lactulose and Lasix. Patient was originally admitted with abdominal ascites. Status post paracentesis 03/20-3300 cc. Possible SBP. Placed on ceftriaxone. Blood work included a positive AMA and elevated iron studies. GS re-consulted. Over the past 24 hours. Patient has had increased oxygen requirements from 4 L currently 2 nonrebreather. He denies chest pressure respiratory denies cough. No significant peripheral edema. Patient's abdomen is quite distended however ultrasound reveals minimal ascites. Awake and alert. His only complaint is "dry throat from aerosolized mask Review of Systems Constitutional: COMPLAINS OF: Fatigue, Weight gain, DENIES: Fever, Weight loss Endocrine: DENIES: Polydipsia, Polyuria Eyes: DENIES: Blurred vision Ears, nose, mouth, throat: DENIES: Tinnitus Respiratory: DENIES: Apneas, Cough, Sputum production, Shortness of breath Cardiovascular: DENIES: Chest pain Gastrointestinal: DENIES: Constipation, Diarrhea, Nausea, Vomiting Genitourinary: DENIES: Sexual dysfunction Musculoskeletal: DENIES: Joint pain Integumentary: DENIES: Abnormal pigmentation Hematologic/lymphatic: COMPLAINS OF: Bruising Immunologic/allergic: DENIES: Eczema Neurologic: DENIES: Abnormal gait, Headache Psychiatric: COMPLAINS OF: Anxiety, DENIES: Confusion Past Family Social History Allergies: Coded Allergies: clarithromycin (Unverified Allergy, Severe, Rash, 03/19/17) clindamycin (Unverified Allergy, Severe, RASH, 03/19/17) Past Medical History Anxiety Hypertension Gastroesophageal reflux disease DDD/low back pain Cirrhosis of the liver Chronic tobaccoism EtOH abuse Past Surgical History Right hand reconstruction with hardware removal Reported Medications Xanax (Alprazolam) 1 Mg Tab 1 Mg PO Q6H PRN Lactulose Liq (Lactulose) 10 Gm/15 Ml Soln 30 Ml PO Q6H PRN [bp med] Unknown Dose PO DAILY Lasix (Furosemide) 40 Mg Tab Unknown Dose PO DAILY [subutex] 8 mg 8 Mg SL QID Active Ordered Medications Reviewed in EMR Family History No history of alcohol isn't/depression. Social History started drinking at age 15, daily ETOH use mostly vodka. last drink this AM Tobacco use: 1 PPD since age 16 Illicit drug use: denies at this time. 5 years ago history of oxycodone/ Roxicodone abuse now on Suboxone Physical Exam Vital Signs Vital Signs Date Time Temp Pulse Resp B/P (MAP) Pulse Ox O2 Delivery O2 Flow Rate FiO2 03/27/17 00:42 90 Non-Rebreather 15.00 03/27/17 00:41 120 107/56 (73) 87 03/27/17 00:40 99.9 116 18 104/57 (73) 90 03/26/17 22:40 90 Partial Non-Rebreather 12.00 03/26/17 20:38 112 16 103/60 (74) 95 03/26/17 20:31 94 Partial Rebreather 15.00 03/26/17 20:20 99.0 111 20 87/53 (64) 89 03/26/17 20:20 113 97/52 (67) 90 03/26/17 20:17 90 Simple Mask 8.00 03/26/17 20:12 104/59 (74) 88 03/26/17 16:00 99.1 106 19 91/52 (65) 90 03/26/17 12:00 99.9 110 19 100/58 (72) 90 03/26/17 08:18 Nasal Cannula 4.00 03/26/17 08:00 99.9 113 19 102/56 (71) 90 03/26/17 04:45 99.7 117 18 116/61 (79) 90 Physical Exam GENERAL: This is a 42-year-old male, critically ill currently resting in bed on a nonrebreather mask SKIN: Warm and dry. No rash HEAD: Atraumatic. Normocephalic. EYES: Pupils equal and round about 2 mm bilaterally and reactive. No scleral icterus. No injection or drainage. ENT: No nasal bleeding or discharge. Mucous membranes pink and moist. NECK: Trachea midline. + JVD CARDIOVASCULAR: Tachycardic, RR. S1, S2 no S4. Without murmur RESPIRATORY: No accessory muscle use. Clear to auscultation. Breath sounds equal bilaterally. GASTROINTESTINAL: Abdomen not distended. Hypoactive bowel sounds. Nontender to palpation. MUSCULOSKELETAL: Extremities with peripheral edema. No obvious deformities. NEUROLOGICAL: Awake and alert. No obvious cranial nerve deficits. Motor grossly within normal limits. Five out of 5 muscle strength in the arms and legs. Normal speech. PSYCHIATRIC: Appropriate mood and affect; insight and judgment normal. Laboratory Laboratory Tests Test 03/26/17 09:23 03/26/17 13:29 03/26/17 14:33 White Blood Count 24.8 Red Blood Count 2.67 Hemoglobin 10.6 Hematocrit 30.8 Mean Corpuscular Volume 115.3 Mean Corpuscular Hemoglobin 39.9 Mean Corpuscular Hemoglobin Concent 34.6 Red Cell Distribution Width 17.0 Platelet Count 141 Mean Platelet Volume 8.3 Neutrophils (%) (Auto) 79.8 Lymphocytes (%) (Auto) 6.4 Monocytes (%) (Auto) 12.7 Eosinophils (%) (Auto) 0.3 Basophils (%) (Auto) 0.8 Neutrophils # (Auto) 19.8 Lymphocytes # (Auto) 1.6 Monocytes # (Auto) 3.2 Eosinophils # (Auto) 0.1 Basophils # (Auto) 0.2 CBC Comment AUTO DIFF Differential Comment AUTO DIFF CONFIRMED Platelet Estimate LOW Platelet Morphology Comment NORMAL Target Cells 1+ Blood Urea Nitrogen 7 8 Creatinine 0.57 0.65 Random Glucose 124 111 Calcium Level 7.6 7.8 Magnesium Level 1.4 Sodium Level 121 126 Potassium Level 3.7 3.8 Chloride Level 85 89 Carbon Dioxide Level 28.5 30.1 Anion Gap 8 7 Estimat Glomerular Filtration Rate 159 137 Ammonia 29 Tumor Marker Alpha Fetoprotein 2.1 Date/Time Source Procedure Growth Status 03/19/17 15:40 Blood Peripheral Aerobic Blood Culture - Final NO GROWTH IN 5 DAYS Complete 03/19/17 15:40 Blood Peripheral Anaerobic Blood Culture - Final NO GROWTH IN 5 DAYS Complete 03/20/17 11:00 Fluid Peritoneal Fluid Gram Stain - Final Complete 03/20/17 11:00 Fluid Peritoneal Fluid Body Fluid Culture - Final NO GROWTH IN 72 HRS.--AEROBICALLY OR ... Complete 03/19/17 16:45 Urine Catheterized Urine Urine Culture - Final NO GROWTH IN 48 HOURS. Complete Result Diagram: 03/26/17 0923 03/26/17 1329 Imaging Last Impressions Chest X-Ray 03/26/17 0000 Signed Impressions: Service Date/Time: Sunday, March 26, 2017 10:30 - CONCLUSION: 1. New alveolar infiltrates in both lungs which may represent pulmonary edema which may be noncardiogenic in origin. 2. Denser course infiltrates in both lung bases likely representing scarring. Ap Zamora MD Abdomen Ultrasound 03/25/17 0000 Signed Impressions: Service Date/Time: Saturday, March 25, 2017 10:49 - CONCLUSION: 1. Very subtle ascites without sufficient pocket for safe paracentesis. Hipolito Palencia MD Cyst Biopsy Asp-Paracentesis US 03/20/17 0600 Signed Impressions: Service Date/Time: Monday, March 20, 2017 09:42 - CONCLUSION: Uncomplicated ultrasound guided paracentesis. Kareem Mahan MD Lower Extremity Ultrasound 03/19/17 1441 Signed Impressions: Service Date/Time: Sunday, March 19, 2017 15:40 - CONCLUSION: 1. No evidence of deep venous thrombosis. Claudio Argueta MD Liver Ultrasound 03/19/17 0000 Signed Impressions: Service Date/Time: Sunday, March 19, 2017 18:23 - CONCLUSION: 1. Moderate ascites. Thickened gallbladder wall with sludge. Mild hepatosplenomegaly. Kyle Thorpe MD Assessment and Plan Assessment and Plan Neuro/Psych: History of oxycodone use Anxiety disorder on chronic alprazolam History of hepatic encephalopathy Patient is using his home Suboxone 8 mg 4 times a day On lorazepam 1 mg every 2 hours when necessary anxiety On alprazolam 1 mg by mouth every 6 hours. Home for anxiety CV: Sinus tachycardia History of hypertension Currently not requiring any vasopressors and/or anti-hypertensives On fluid restricted diet 2 L daily/low sodium. Resp: Acute hypoxemic respiratory failure Tobaccoism Chest x-ray 03/26 revealed Currently on nonrebreather mask to maintain saturations greater than equal to 90 % Albuterol/ipratropium aerosols every 4 hours with albuterol aerosols every 2 hours when necessary Added budesonide 0.5/2 1 inhalation twice a day Added Solu-Medrol 40 mg IV twice a day Nicotine patch at 21 mg daily Tobacco sensation will be encouraged. CT PA pending GI: Likely cirrhosis - Will need liver biopsy Abdominal ascites AMA positive. Elevated iron studies. Pending hemachromatosis and hepatitis panel Status post paracentesis 03/20. -3300. Abdominal ultrasound 03/25. Not sufficient fluid for paracentesis Ursodiol to be continued possible primary biliary cirrhosis Currently in Rocephin 1 g every 24. Noted 579 WBC Continue lactulose 30 cc daily. Continue spironolactone 12.5 mg twice a day. Resume Lasix 40 mg daily. : Bowden catheter not indicated Endo: Sliding-scale insulin currently not indicated Renal: Monitor urine output Accurate I's and O's Heme: Leukocytosis Macrocytic anemia Thrombocytopenia Monitor CBC daily. Follow trends. No indications for transfusion of blood products at this time ID: SBP - culture negative Currently on Rocephin 1 g IV daily. Status post 1 dose vancomycin today. Recheck blood cultures 2, urine antigens and sputum. MSK: Physical therapy evaluate and treat FEN: Hyponatremia Hypo-magnesium Hyponatremia workup see orders osm serum, urine, urine sodium, TSH, cortisol uric acid, triglycerides. A.m. laboratories pending. Replacing electrolytes as clinically indicated Access - Utilize peripheral IV. Central line if indicated Prophylaxis - GI - pantoprazole - DVT - SCD/ pharmacological prophylaxis currently on hold cirrhotic patient. Critical Care: The total critical care time was 35 minutes. Time to perform other separately billable procedures was not included in the critical care time. Code Status Full code Discussed Condition With Patient. Care plan discussed and all questions answered. Félix Barfield MD Mar 27, 2017 01:31
[2017-03-27] MEDS: ALBUMIN HUMAN 25% 25 GM/100 ML BAGP IV SCH ×2 (02:00→14:36)
[2017-03-27] MEDS ORDERED: ALBUMIN HUMAN 25% 25 GM/100 ML BAGP IV ONE (02:45)
[2017-03-27 03:02] LABS: BLOOD GAS BASE EXCESS 4.8 mmol/L (-2-2); BLOOD GAS CARBOXYHEMOGLOBIN 1.8 % (0-4); BLOOD GAS HCO3 29 mmol/L (22-26); BLOOD GAS METHEMOGLOBIN 0.7 % (0-2); BLOOD GAS O2 HGB SATURATION 91 % (90-100); BLOOD GAS PCO2 40 mmHg (38-42); BLOOD GAS PO2 66 mmHg (61-120); BLOOD GAS TOTAL HGB 10.9 G/DL (12.0-16.0); CRITICAL VALUE NO; DRAW SITE RT RADIAL; FIO2 100 %; LITER FLOW 15 L/M; NUMBER OF ARTERIAL PUNCTURES 1; STAT NO; TEMP CORR TO 98.6; ULNAR PULSE PRESENT
[2017-03-27] MEDS: RESP: ALBUTEROL 2.5 MG/IPRATROPIUM 0.5 MG NEB (SCH) NEB ×5 (03:12→20:42)
[2017-03-27] MEDS ORDERED: IOHEXOL 350 MG/ML 10 ML VIAL (for RAD DIAG) IVCONTRAST ONE (03:56)
--- NOTE | 2017-03-27 04:17 | RADRPT ---
EXAM DATE/TIME: 03/27/2017 03:55 [facility] COMPARISON: No previous studies available for comparison. INDICATIONS : Shortness of breath. IV CONTRAST: 75 cc Omnipaque 350 (iohexol) IV RADIATION DOSE: 23.26 CTDIvol (mGy) MEDICAL HISTORY : Hypertension. Cardiovascular disease Cirrhosis. SURGICAL HISTORY : None. ENCOUNTER: Initial ACUITY: 1 day PAIN SCALE: 0/10 LOCATION: chest TECHNIQUE: Volumetric scanning of the chest was performed using a pulmonary embolism protocol MIP images were re constructed. Using automated exposure control and adjustment of the mA and/or kV according to patien t size, radiation dose was kept as low as reasonably achievable to obtain optimal diagnostic quality images. DICOM format image data is available electronically for review and comparison. Follow-up recommendations for detected pulmonary nodules are based at a minimum on nodule size and pa tient risk factors according to Fleischner Society Guidelines. FINDINGS: No filling defects identified to suggest pulmonary embolic disease. Contrast bolus the pulmonary juan donovan is suboptimal. There are moderate bilateral pleural effusions with dependent consolidation and atelectasis in both l ungs. There is also mixed groundglass opacity and dense consolidation in both upper lobes, right greater th an left. Differential diagnosis includes infection/aspiration as well as pulmonary hemorrhage. Trace pericardial fluid. No adenopathy. Upper abdomen reveals an enlarged liver with mild ascites. Al so mild anasarca. CONCLUSION: 1. Mixed groundglass opacity and airspace consolidation in both upper lobes. Differential diagnosis i ncludes infection, aspiration and pulmonary hemorrhage. 2. Moderate pleural effusions with dependent consolidation and atelectasis at both lung bases. 3. Hepatomegaly with ascites. 4. Contrast bolus suboptimal but no pulmonary emboli identified. Kyle Thorpe MD on March 27, 2017 at 4:10 Board Certified Radiologist. This report was verified electronically.
[2017-03-27] MEDS: cefTRIAXone INJ 1,000 MG in SODIUM CHLORIDE 0.9% INJ 100 ML IV SCH (04:38)
[2017-03-27] MEDS: methylPREDNISolone SOD SUCC 40 MG/1 ML VIAL IV PUSH SCH ×3 (05:34→20:29)
[2017-03-27] MEDS ORDERED: VANCOMYCIN 1,000 MG/NS 250 ML IV STA ×2 (05:41)
[2017-03-27] MEDS ORDERED: Vancomycin Consult Pharmacy 1 EA OTHER SCH (05:45)
[2017-03-27 05:52] LABS: APTT (PATIENT) 37.8 SEC (24.3-30.1); INTERNATIONAL NORMALIZED RATIO 1.5 RATIO; PROTHROMBIN TIME - PATIENT 16.3 SEC (9.8-11.6); PROTHROMBIN TIME - PATIENT 16.8 SEC (9.8-11.6)
[2017-03-27] MEDS: PIPERACIL-TAZO 4.5 GM PREMIX 100 ML IV SCH ×3 (06:00→18:05)
[2017-03-27 06:37] LABS: ALKALINE PHOSPHATASE 127 U/L (45-117); ALT (GPT) 31 U/L (12-78); ANION GAP 6 MEQ/L (5-15); AST (GOT) 69 U/L (15-37); BICARBONATE 30.9 MEQ/L (21.0-32.0); BLOOD UREA NITROGEN 8 MG/DL (7-18); CHLORIDE 87 MEQ/L (98-107); GLOMERULAR FILTRATION RATE 134 ML/MIN (>89); MAGNESIUM 1.6 MG/DL (1.5-2.5); POTASSIUM 4.1 MEQ/L (3.5-5.1); TOTAL BILIRUBIN ADULT 5.3 MG/DL (0.2-1.0); URIC ACID 5.1 MG/DL (2.6-7.2)
[2017-03-27 06:55] LABS: SODIUM (NA) 124 MEQ/L (136-145)
[2017-03-27] MEDS: LEVOFLOXACIN 750 MG PREMIX INJ 150 ML IV SCH (06:58)
[2017-03-27] MEDS ORDERED: RESP: ALBUTEROL 2.5 MG/IPRATROPIUM 0.5 MG NEB (SCH) NEB (08:00)
[2017-03-27] MEDS: RESP: BUDESONIDE 0.5 MG/2 ML NEB NEB SCH ×2 (08:00→20:42)
[2017-03-27] MEDS: BUPRENORPHINE 8 MG SL SCH (08:40)
[2017-03-27] MEDS: REMOVE OLD PATCH T-DERMAL SCH (09:00)
[2017-03-27] MEDS: URSODIOL 300 MG CAP PO SCH ×4 (09:00→18:57)
[2017-03-27] MEDS: LACTULOSE SYRUP 20 GM/30 ML CUP PO SCH (09:00)
[2017-03-27] MEDS: NICOTINE 21 MG/24 HR PATCH T-DERMAL SCH (09:28)
[2017-03-27] MEDS: FOLIC ACID 1 MG TAB PO SCH (09:31)
[2017-03-27] MEDS: POTASSIUM CHLORIDE 20 MEQ CONTROLLED RELEASE TAB PO SCH ×2 (09:32→20:36)
[2017-03-27] MEDS: THIAMINE HCL 100 MG TAB PO SCH (09:32)
[2017-03-27] MEDS: SPIRONOLACTONE 25 MG TAB PO SCH ×3 (09:32→18:57)
[2017-03-27] MEDS: SODIUM CHLORIDE 0.9% FLUSH 10 ML FLUSH IV FLUSH SCH ×2 (09:35→20:31)
[2017-03-27] MEDS: PANTOPRAZOLE SOD 40 MG DELAYED RELEASE TAB PO SCH ×2 (09:43→20:36)
[2017-03-27] MEDS: MULTIVITAMIN TAB PO SCH (09:43)
[2017-03-27 12:02] LABS: HEREDITARY HEMOCHROM SPECIMEN WB Whole Blood
--- NOTE | 2017-03-27 16:42 | HHI.GIFU ---
Subjective Remarks Pt resting in bed, family at bedside. Bipap. (Lainey Qureshi) Objective Vitals I&O Vital Signs Date Time Temp Pulse Resp B/P (MAP) Pulse Ox O2 Delivery O2 Flow Rate FiO2 03/27/17 15:51 91 70 03/27/17 12:23 91 100 03/27/17 10:23 91 100 03/27/17 08:02 89 Non-Rebreather 15.00 03/27/17 03:16 94 Non-Rebreather 15.00 100 03/27/17 03:00 98.7 118 26 124/62 (82) 96 03/27/17 00:42 90 Non-Rebreather 15.00 03/27/17 00:41 120 107/56 (73) 87 03/27/17 00:40 99.9 116 18 104/57 (73) 90 03/26/17 22:40 90 Partial Non-Rebreather 12.00 03/26/17 20:38 112 16 103/60 (74) 95 03/26/17 20:31 94 Partial Rebreather 15.00 03/26/17 20:20 99.0 111 20 87/53 (64) 89 03/26/17 20:20 113 97/52 (67) 90 03/26/17 20:17 90 Simple Mask 8.00 03/26/17 20:12 104/59 (74) 88 I/O 03/26/17 03/26/17 03/26/17 03/27/17 03/27/17 03/27/17 07:00 15:00 23:00 07:00 15:00 23:00 Intake Total 200 ml 960 ml 1886 ml 358 ml Output Total 1975 ml 550 ml Balance 200 ml 960 ml -89 ml -192 ml Intake Oral 960 ml 600 ml 250 ml IV Total 200 ml 1286 ml 108 ml Output Urine Total 1975 ml 550 ml # Voids 5 1 # Bowel Movements 1 2 1 Laboratory Laboratory Tests Test 03/27/17 02:45 03/27/17 02:50 03/27/17 05:20 Nasal Screen MRSA (PCR) MRSA NOT DETECTED Blood Gas Puncture Site RT RADIAL Blood Gas Patient Temperature 98.6 Blood Gas HCO3 29 Blood Gas Base Excess 4.8 Blood Gas Oxygen Saturation 91 Arterial Blood pH 7.47 Arterial Blood Partial Pressure CO2 40 Arterial Blood Partial Pressure O2 66 Arterial Blood Oxygen Content 14.0 Arterial Blood Carboxyhemoglobin 1.8 Arterial Blood Methemoglobin 0.7 Blood Gas Hemoglobin 10.9 Oxygen Delivery Device Non-Rebreathing Mask Blood Gas Liter Flow 15 Blood Gas Inspired Oxygen 100 Prothrombin Time 16.3 Prothromb Time International Ratio 1.5 Activated Partial Thromboplast Time 37.8 Fibrinogen 208 Blood Urea Nitrogen 8 Creatinine 0.66 Random Glucose 112 Total Protein 6.2 Albumin 2.7 Calcium Level 7.6 Alkaline Phosphatase 127 Aspartate Amino Transf (AST/SGOT) 69 Alanine Aminotransferase (ALT/SGPT) 31 Total Bilirubin 5.3 Sodium Level 124 Potassium Level 4.1 Chloride Level 87 Carbon Dioxide Level 30.9 Anion Gap 6 Estimat Glomerular Filtration Rate 134 Serum Osmolality 268 Lactic Acid Level 1.4 Uric Acid 5.1 Phosphorus Level 2.9 Magnesium Level 1.6 Ammonia LESS THAN 10 Triglycerides Level 87 Amylase Level 26 Lipase 20 Thyroid Stimulating Hormone 3rd Gen 2.200 Date/Time Source Procedure Growth Status 03/27/17 07:40 Blood Peripheral Aerobic Blood Culture Pending Received 03/27/17 07:40 Blood Peripheral Anaerobic Blood Culture Pending Received 03/20/17 11:00 Fluid Peritoneal Fluid Gram Stain - Final Complete 03/20/17 11:00 Fluid Peritoneal Fluid Body Fluid Culture - Final NO GROWTH IN 72 HRS.--AEROBICALLY OR ... Complete 03/19/17 16:45 Urine Catheterized Urine Urine Culture - Final NO GROWTH IN 48 HOURS. Complete Imaging Last Impressions CT Angiography 03/27/17 0000 Signed Impressions: Service Date/Time: Monday, March 27, 2017 03:55 - CONCLUSION: 1. Mixed groundglass opacity and airspace consolidation in both upper lobes. Differential diagnosis includes infection, aspiration and pulmonary hemorrhage. 2. Moderate pleural effusions with dependent consolidation and atelectasis at both lung bases. 3. Hepatomegaly with ascites. 4. Contrast bolus suboptimal but no pulmonary emboli identified. Kyle Thorpe MD Chest X-Ray 03/26/17 0000 Signed Impressions: Service Date/Time: Sunday, March 26, 2017 10:30 - CONCLUSION: 1. New alveolar infiltrates in both lungs which may represent pulmonary edema which may be noncardiogenic in origin. 2. Denser course infiltrates in both lung bases likely representing scarring. Ap Zamora MD Abdomen Ultrasound 03/25/17 0000 Signed Impressions: Service Date/Time: Saturday, March 25, 2017 10:49 - CONCLUSION: 1. Very subtle ascites without sufficient pocket for safe paracentesis. Hipolito Palencia MD Cyst Biopsy Asp-Paracentesis US 03/20/17 0600 Signed Impressions: Service Date/Time: Monday, March 20, 2017 09:42 - CONCLUSION: Uncomplicated ultrasound guided paracentesis. Kareem Mahan MD Lower Extremity Ultrasound 03/19/17 1441 Signed Impressions: Service Date/Time: Sunday, March 19, 2017 15:40 - CONCLUSION: 1. No evidence of deep venous thrombosis. Claudio Argueta MD Liver Ultrasound 03/19/17 0000 Signed Impressions: Service Date/Time: Sunday, March 19, 2017 18:23 - CONCLUSION: 1. Moderate ascites. Thickened gallbladder wall with sludge. Mild hepatosplenomegaly. Kyle Thorpe MD Physical Exam HEENT: Normocephalic; atraumatic; bipap CHEST: diminished CARDIAC: RRR ABDOMEN: Semifirm, distended with ascites, nontender; bowel sounds are present in all four quadrants. EXTREMITIES: No clubbing, cyanosis, or edema. SKIN: Normal; no rash; mild jaundice. HYPERBARIC NURSE: lethargic (Lainey Qureshi CLINICAL DOCUMENTATION NURSE) Assessment and Plan Plan ASSESSMENT: - Ascites. US guided paracentesis (03/20/17)---> 3,300cc removed. Peritoneal WBC 579, RBC 140. Peritoneal cx no growth 72 hours. Spironolactone, held for b/p, Ceftriaxone. D/W patient importance of low sodium diet and trying to limit fluids to 2L per day. Albumin added. - Elevated liver enzymes, liver cirrhosis. Liver US (03/19/17)---> Moderate ascites. Thickened gallbladder wall with sludge, mild hepatomegaly. ALEJA negative, AMA 79.7, ASMA negative, Ceruloplasmin 20, Alpha 1 Antitrypsin 180, Check hepatitis profile, AFP level WNL. Start Actigal. Hfe--> carrier at minimum hereditary hemochromatosis. May need liver biopsy (liver cirrhosis with + AMA, high iron saturation). - Elevated Iron Saturation. HH carrier at minimum - (+) AMA. Started on Actigal, ? liver biopsy. - Leukocytosis. Peritoneal cx negative x 72 hours. On Ceftriaxone. - Anemia. HH 10.6/30.8. - Thrombocytopenia Plt 141 - Hepatic encephalopathy, lactulose. A/Ox3 - Hyponatremia, per attending. PLAN: - continue fluid, Na restriction - cont albumin - cont ursodiol - await Hepatitis profile - Monitor LFTs - cont Protonix 40mg po daily - Cont. Lactulose - Cont. Ceftriaxone - Cont. Spironolactone - Monitor labs - Monitor I/O - ? liver biopsy - Will need egd with band ligation, timing to be determined (inpatient vs. outpatient) - Supportive care - Further recommendations to follow based on results of above - Pt seen and examined by Dr. Maldonado and myself and this note is written on her behalf (Lainey Qureshi) Physician Comments seen, examined Patient just got intubated secondary worsening pneumonia (Jacqueline Maldonado MD) Lainey Qureshi Mar 27, 2017 16:42 Jacqueline Maldonado MD Mar 27, 2017 17:54
[2017-03-27] MEDS: VANCOMYCIN INJ 2,000 MG in SODIUM CHLORID 0.9% 500 ML INJ 500 ML IV SCH (16:50)
[2017-03-27] MEDS ORDERED: ETOMIDATE 20 MG/10 ML VIAL ONE (17:25)
[2017-03-27] MEDS ORDERED: MIDAZOLAM HCL 2 MG/2 ML VIAL IV PUSH ONE (17:30)
[2017-03-27] MEDS ORDERED: ETOMIDATE 20 MG/10 ML VIAL IVP ONE (17:30)
[2017-03-27] MEDS ORDERED: fentaNYL CITRATE 250 MCG/5 ML AMP IV ONE (17:30)
[2017-03-27] MEDS ORDERED: SUCCINYLCHOLINE CHLORIDE 200 MG/10 ML VIAL IV ONE (17:30)
[2017-03-27] MEDS ORDERED: fentaNYL DRIP 250 ML IV PRN (17:30)
[2017-03-27] MEDS ORDERED: PROPOFOL 1000 MG/100 ML INJ 100 ML ONE (18:02)
[2017-03-27] MEDS: SODIUM CHLOR 0.9% 1000 ML INJ 1,000 ML IV SCH (18:05)
[2017-03-27] MEDS ORDERED: VECURONIUM BROMIDE 10 MG VIAL ONE (18:10)
[2017-03-27] MEDS: MIDAZOLAM 100 MG/100 ML INJ 100 ML IV PRN (18:55)
[2017-03-27] MEDS ORDERED: CISATRACURIUM BESYLATE 20 MG/10 ML VIAL IV PUSH ONE (19:00)
--- NOTE | 2017-03-27 19:02 | RADRPT ---
EXAM DATE/TIME: 03/27/2017 18:12 [facility] COMPARISON: No previous studies available for comparison. INDICATIONS : Confirm Et Tube placement. MEDICAL HISTORY : Hypertension. Cardiovascular disease Cirrhosis SURGICAL HISTORY : None. ENCOUNTER: Subsequent ACUITY: 1 day PAIN SCORE: Non-responsive. LOCATION: Bilateral chest FINDINGS: Diffuse consolidation again seen of both lungs, more dense in the interim. No large effusion seen. No pneumothorax. There is a new right internal jugular central venous catheter with tip at atriocaval junction. Endotracheal tube tip is approximately 4 cm above the antonio. Nasogastric tube courses into the stoma ch. CONCLUSION: 1. Severe, worsening diffuse airspace opacities of both lungs. 2. Lines and tubes as above. The endotracheal tube tip is about 4 cm above the antonio and the right I J central venous catheter tip is at the atriocaval junction. No pneumothorax. Aaron Tesfaye MD on March 27, 2017 at 18:58 Board Certified Radiologist. This report was verified electronically.
[2017-03-27] MEDS ORDERED: NALOXONE HCL 0.4 MG/ML AMP IV PUSH PRN (19:30)
--- NOTE | 2017-03-27 19:40 | HHI.CCPN ---
Subjective Remarks/Hospital Course 03/26: This is a 42-year-old male. Date of admission 03/19/2017. Date of consultation 03/27/2017. Past medical history includes EtOH use abuse, tobaccoism, hypertension Gastroesophageal reflux disease and DDD. Patient is on Suboxone for prior opiate abuse. He drinks one bottle of vodka daily patient is on chronic alprazolam at home on lactulose and Lasix. Patient was originally admitted with abdominal ascites. Status post paracentesis 03/20-3300 cc. Possible SBP. Placed on ceftriaxone. Blood work included a positive AMA and elevated iron studies. GS re-consulted. Over the past 24 hours. Patient has had increased oxygen requirements from 4 L currently 2 nonrebreather. He denies chest pressure respiratory denies cough. No significant peripheral edema. Patient's abdomen is quite distended however ultrasound reveals minimal ascites. Awake and alert. His only complaint is "dry throat from aerosolized mask 03/27: She developed worsening respiratory distress during the day and was placed on BiPAP with full facemask. He was requiring 100% FiO2 with BiPAP settings at +15/+8. His respiratory status declined as a day progress. Had multiple discussions with patient as well as his family members including reviewing his CT chest from early this morning which revealed extensive pulmonary infiltrates (right greater than left) and explained probable need for proceeding with intubation and mechanical ventilation. Subsequently patient's O2 sats dropped in the upper 80s despite BiPAP and patient was intubated and placed on mechanical ventilation around 6 PM. I subsequently proceeded with central line placement. Postintubation chest x-ray revealed extensive bilateral pulmonary infiltrates which appeared to have progress since his previous chest x-ray. Patient was requiring high doses of sedatives including Versed/fentanyl and propofol drips to keep him sedated. Objective Vital Signs Date Time Temp Pulse Resp B/P (MAP) Pulse Ox O2 Delivery O2 Flow Rate FiO2 03/27/17 17:55 95 100 03/27/17 17:55 Mechanical Ventilator 03/27/17 09:30 15.00 03/27/17 03:00 98.7 118 26 124/62 (82) Intake and Output 03/27/17 03/27/17 03/28/17 08:00 16:00 00:00 Intake Total 1886 ml 388 ml 652 ml Output Total 1975 ml 950 ml 100 ml Balance -89 ml -562 ml 552 ml Result Diagram: 03/26/17 0923 03/27/17 0520 Other Results Laboratory Tests Test 03/27/17 02:45 03/27/17 02:50 03/27/17 05:20 Nasal Screen MRSA (PCR) MRSA NOT DETECTED Blood Gas Puncture Site RT RADIAL Blood Gas Patient Temperature 98.6 Blood Gas HCO3 29 mmol/L Blood Gas Base Excess 4.8 mmol/L Blood Gas Oxygen Saturation 91 % Arterial Blood pH 7.47 Arterial Blood Partial Pressure CO2 40 mmHg Arterial Blood Partial Pressure O2 66 mmHg Arterial Blood Oxygen Content 14.0 Vol % Arterial Blood Carboxyhemoglobin 1.8 % Arterial Blood Methemoglobin 0.7 % Blood Gas Hemoglobin 10.9 G/DL Oxygen Delivery Device Non-Rebreathing Mask Blood Gas Liter Flow 15 L/M Blood Gas Inspired Oxygen 100 % Prothrombin Time 16.3 SEC Prothromb Time International Ratio 1.5 RATIO Activated Partial Thromboplast Time 37.8 SEC Fibrinogen 208 mg/dL Blood Urea Nitrogen 8 MG/DL Creatinine 0.66 MG/DL Random Glucose 112 MG/DL Total Protein 6.2 GM/DL Albumin 2.7 GM/DL Calcium Level 7.6 MG/DL Alkaline Phosphatase 127 U/L Aspartate Amino Transf (AST/SGOT) 69 U/L Alanine Aminotransferase (ALT/SGPT) 31 U/L Total Bilirubin 5.3 MG/DL Sodium Level 124 MEQ/L Potassium Level 4.1 MEQ/L Chloride Level 87 MEQ/L Carbon Dioxide Level 30.9 MEQ/L Anion Gap 6 MEQ/L Estimat Glomerular Filtration Rate 134 ML/MIN Serum Osmolality 268 MOSM/KG Lactic Acid Level 1.4 mmol/L Uric Acid 5.1 MG/DL Phosphorus Level 2.9 MG/DL Magnesium Level 1.6 MG/DL Ammonia LESS THAN 10 MCMOL/L Triglycerides Level 87 MG/DL Amylase Level 26 U/L Lipase 20 U/L Thyroid Stimulating Hormone 3rd Gen 2.200 uIU/ML Imaging Chest x-ray portable done on 03/27 post intubation was personally reviewed: ET tube above antonio, right IJ central line with tip overlying SVC, NG tube in place, extensive bilateral infiltrates involving almost the entire lung lopez. Last [address] Angiography 03/27/17 0000 Signed Impressions: Service Date/Time: Monday, March 27, 2017 03:55 - CONCLUSION: 1. Mixed groundglass opacity and airspace consolidation in both upper lobes. Differential diagnosis includes infection, aspiration and pulmonary hemorrhage. 2. Moderate pleural effusions with dependent consolidation and atelectasis at both lung bases. 3. Hepatomegaly with ascites. 4. Contrast bolus suboptimal but no pulmonary emboli identified. Kyle Thorpe MD Last Impressions Chest X-Ray 03/26/17 0000 Signed Impressions: Service Date/Time: Sunday, March 26, 2017 10:30 - CONCLUSION: 1. New alveolar infiltrates in both lungs which may represent pulmonary edema which may be noncardiogenic in origin. 2. Denser course infiltrates in both lung bases likely representing scarring. Ap Zamora MD Abdomen Ultrasound 03/25/17 0000 Signed Impressions: Service Date/Time: Saturday, March 25, 2017 10:49 - CONCLUSION: 1. Very subtle ascites without sufficient pocket for safe paracentesis. Hipolito Palencia MD Cyst Biopsy Asp-Paracentesis US 03/20/17 0600 Signed Impressions: Service Date/Time: Monday, March 20, 2017 09:42 - CONCLUSION: Uncomplicated ultrasound guided paracentesis. Kareem Mahan MD Lower Extremity Ultrasound 03/19/17 1441 Signed Impressions: Service Date/Time: Sunday, March 19, 2017 15:40 - CONCLUSION: 1. No evidence of deep venous thrombosis. Claudio Argueta MD Liver Ultrasound 03/19/17 0000 Signed Impressions: Service Date/Time: Sunday, March 19, 2017 18:23 - CONCLUSION: 1. Moderate ascites. Thickened gallbladder wall with sludge. Mild hepatosplenomegaly. Kyle Thorpe MD Objective Remarks HEENT/ Neuro: Sedated, orally intubated, Pallor present, icterus present, tongue / mucosa moist (was awake alert oriented 3 prior to intubation) Neck: No JVD Chest/Pulm: on mech vent, good air entry bilaterally, bilateral extensive rhonchi, no wheezing/ crackles CVS: S1-S2 regular, no murmur GI/abdomen: soft, distended nontender, bowel sounds sluggish Extremities: warm bilaterally, trace edema Vascular Central Line Catheter: Yes Date of Insertion: Mar 27, 2017 Line: Central Venous Catheter Side: Right Location: Internal, Jugular A/P Assessment and Plan Neuro/Psych: History of oxycodone use Anxiety disorder on chronic alprazolam History of hepatic encephalopathy Patient is using his home Suboxone 8 mg 4 times a day- Suboxone to be held as patient will require sedation while intubated. Starting propofol/Versed gtt. as well as Dilaudid BEATER TENDER 2 mg/h basal rate. One still ordered started will stop fentanyl gtt. Dilaudid 2 mg IV every 3 hourly scheduled for next 72 hours while waiting for buprenorphine to wear off. Starting neuromuscular blockade with Nimbex in view of ARDS to facilitate mechanical ventilation. Added Librium 20 mg every 12 hourly in view of history of alcohol abuse. Continue thiamine/folic acid/MVI via OG tube. On lorazepam 1 mg every 2 hours when necessary anxiety On alprazolam 1 mg by mouth every 6 hours. Home for anxiety CV: Sinus tachycardia History of hypertension Currently not requiring any vasopressors and/or anti-hypertensives Continue spironolactone. Diurese to keep even fluid balance Resp: Acute hypoxemic respiratory failure Bilateral pneumonia ARDS Tobaccoism CT chest on 03/27 with extensive bilateral infiltrates right greater than left. Progressive respiratory failure with borderline O2 sats on BiPAP hence was sedated with endotracheal intubation and patient placed on mechanical ventilation on 03/27. Continue mechanical ventilation with ACV with tidal volume 550, rate 16, FiO2 100%, PEEP +14. Follow up ABG. Albuterol/ipratropium aerosols every 4 hours with albuterol aerosols every 2 hours when necessary budesonide 0.5/2 1 inhalation twice a day Continue Solu-Medrol 40 mg IV twice a day Nicotine patch at 21 mg daily GI/liver: Likely cirrhosis - Will need liver biopsy Abdominal ascites AMA positive. Elevated iron studies. Pending hemachromatosis and hepatitis panel Status post paracentesis 03/20. -3300. Abdominal ultrasound 03/25. Not sufficient fluid for paracentesis Ursodiol to be continued possible primary biliary cirrhosis Noted 579 WBC and peritoneal fluid however peritoneal fluid cultures negative. Was on Rocephin from 03/20 - 03/27 Continue lactulose 30 cc daily. Continue spironolactone 12.5 mg twice a day. Continue Lasix 40 mg daily. Start tube feeds with Neutra hep and advanced to goal of 60 cc an hour : Bowden catheterization for accurate intake output in critically ill patient with sepsis/pneumonia Endo: Sliding-scale insulin if needed for glycemic control. Renal: Strict intake output, monitor and replete electrolytes, follow BUN/creatinine. Heme: Leukocytosis Macrocytic anemia Thrombocytopenia Monitor CBC daily. Follow trends. No indications for transfusion of blood products at this time ID: Sepsis/pneumonia with ARDS SBP - culture negative On Rocephin from 03/20 -03/27. Status post 1 dose vancomycin 03/27. Zosyn started 03/27. Added Zyvox 600 mg IV every 12 hourly on 03/27 following intubation. ID consult requested for sepsis/severe pneumonia. Recheck blood cultures 2, urine antigens. Sputum for Gram stain and cultures following intubation to be sent. MSK: Physical therapy FEN: Hyponatremia Hypo-magnesium Hyponatremia workup see orders osm serum, urine, urine sodium, TSH, cortisol uric acid, triglycerides. Replacing electrolytes as clinically indicated Access -Placed right IJ central line 03/27. Prophylaxis - GI - pantoprazole - DVT - SCD/ pharmacological prophylaxis with subcutaneous heparin 5000 units every 12 hourly. Extensive discussion with patient's family members and with patient at bedside on multiple occasions during the day and following intubation with family members regarding severity of pneumonia and need for mechanical ventilation including neuromuscular blockade and they voiced understanding and were agreeable and appreciative of care provided. Also explained that if patient's restless status does not improve over the next 2 weeks he may require tracheostomy. Condition remains extremely critical. Starting neuromuscular blockade. Probably will require prone ventilation if no improvement in respiratory status. Additional time spent on critical care excluding procedures 90 minutes. Glynn Stoddard MD Mar 27, 2017 19:40
[2017-03-27] MEDS: LINEZOLID 600 MG PREMIX 300 ML IV SCH (20:30)
[2017-03-27] MEDS: NOREPINEPHRINE 4 MG/D5W 250 ML IV PRN (20:32)
[2017-03-27] MEDS: PROPOFOL 1000 MG/100 ML IV PRN (20:35)
[2017-03-27] MEDS: CHLORHEXIDINE 0.12% (ORAL KIT) 15 ML CUP MT SCH (20:42)
[2017-03-27] MEDS: CISATRACURIUM INJ 100 MG in SODIUM CHLOR 0.9% 250 ML INJ 250 ML IV PRN (21:02)
[2017-03-27] MEDS: HYDROmorphone HCL PCA 6 MG/30 ML IV SCH (21:06)
[2017-03-27 21:22] LABS: HEMATOCRIT 30.7 % (39.0-51.0); MEAN CELL VOLUME 115.1 FL (80.0-100.0); MEAN CORPUSCULAR HEMOGLOBIN 38.7 PG (27.0-34.0); MEAN CORPUSCULAR HGB CONC 33.6 % (32.0-36.0); PLATELET COUNT 201 TH/MM3 (150-450); RED BLOOD COUNT 2.66 MIL/MM3 (4.50-5.90); RED CELL DISTRIBUTION WIDTH 17.2 % (11.6-17.2); WHITE BLOOD COUNT 32.2 TH/MM3 (4.0-11.0)
[2017-03-27 21:34] LABS: ANION GAP 9 MEQ/L (5-15); AST (GOT) 60 U/L (15-37); BICARBONATE 25.8 MEQ/L (21.0-32.0); BLOOD UREA NITROGEN 14 MG/DL (7-18); CHLORIDE 93 MEQ/L (98-107); GLOMERULAR FILTRATION RATE 98 ML/MIN (>89); MAGNESIUM 1.8 MG/DL (1.5-2.5); POTASSIUM 4.8 MEQ/L (3.5-5.1); SODIUM (NA) 128 MEQ/L (136-145)
[2017-03-27 21:43] LABS: ALKALINE PHOSPHATASE 107 U/L (45-117); ALT (GPT) 30 U/L (12-78)
[2017-03-27 21:48] LABS: REVIEW FLAG FINAL
[2017-03-27] MEDS: PCA - TOTAL MG DILAUDID DELIVERED PER SHIFT OTHER SCH (22:00)
[2017-03-27 22:31] LABS: BLOOD, URINE TRACE (NEG); COMMENT (UR) CULT NOT INDICATED; CULTURE IF INDICATED CULT NOT INDICATED; GLUCOSE,URINE NEG (NEG); KETONE, URINE NEG (NEG); MUCUS URINE FEW /lpf (OCC); NITRITE,URINE NEG (NEG); PH, URINE 5.5 (5.0-8.5); SQUAMOUS EPITHELIAL CELL URINE 2 /hpf (0-5); URINE COLOR YELLOW (YELLW/STRAW)
--- NOTE | 2017-03-27 22:33 | PD.PROCEDR ---
Procedure Note Procedure DATE: 03/27/2017 PROCEDURE: Left Femoral arterial catheter placement INDICATION: Hemodynamic access DETAILS OF PROCEDURE The patient was placed in supine position. The skin was cleansed with Chloraprep. Additional barrier precautions included large sterile drape, sterile gloves, sterile gown, face mask, and hat. 1% lidocaine was used for local anesthesia. Under direct ultrasound guidance and on the initial attempt, the artery was accessed with an introducer needle. The guide wire was advanced. Using Seldinger technique 20 gauge arterial catheter was placed. The guide wire was removed. The catheter was connected to a transducer line and flushed with saline. The video monitor displayed normal arterial wave forms. The catheter was secured with 2-0 silk. A sterile dressing with antibiotic disc was applied. ESTIMATED BLOOD LOSS: minimal COMPLICATIONS: None Félix Barfield MD Mar 27, 2017 22:33
[2017-03-27] MEDS ORDERED: DEXTROSE 50% IN WATER 50 ML VIAL(D50) IV PRN (22:45)
[2017-03-27] MEDS: ARTIFICIAL TEARS OPTH OINT 3.5 APPLIC/3.5 GM TUBO EACH EYE SCH (22:45)
[2017-03-27] MEDS ORDERED: GLUCAGON 1 MG/ML VIAL OTHER PRN (22:45)
[2017-03-28] VITALS (18 sets, daily range): BP systolic 90–115; BP diastolic 51–74; PULSE 83–100; RESP 14–18; TEMP 95.7–97.7; O2SAT 90–98
[2017-03-28] MEDS: RESP: ALBUTEROL 2.5 MG/IPRATROPIUM 0.5 MG NEB (SCH) NEB ×6 (00:58→20:30)
[2017-03-28] MEDS: PIPERACIL-TAZO 4.5 GM PREMIX 100 ML IV SCH ×4 (01:03→17:17)
[2017-03-28] MEDS: ALBUMIN HUMAN 25% 25 GM/100 ML BAGP IV SCH ×2 (01:03→13:45)
[2017-03-28] MEDS: EPOPROSTENOL NEB SOLUTION 50 NG/KG/MIN 100 ML NEB SCH ×4 (01:05→08:32)
[2017-03-28] MEDS: HYDROmorphone HCL PCA 6 MG/30 ML IV SCH ×7 (01:06→22:00)
[2017-03-28 02:26] LABS: BLOOD GAS BASE EXCESS -0.5 mmol/L (-2-2); BLOOD GAS CARBOXYHEMOGLOBIN 1.3 % (0-4); BLOOD GAS HCO3 24 mmol/L (22-26); BLOOD GAS O2 HGB SATURATION 93 % (90-100); BLOOD GAS OXYGEN CONTENT 14.7 Vol % (12.0-20.0); BLOOD GAS PCO2 40 mmHg (38-42); BLOOD GAS PO2 80 mmHg (61-120); BLOOD GAS TOTAL HGB 11.2 G/DL (12.0-16.0); CRITICAL VALUE NO; OXYGEN DEVICE VENTILATOR; TEMP CORR TO 98.6
[2017-03-28 02:27] LABS: DRAW SITE ART LINE; FIO2 965 %; STAT NO
[2017-03-28] MEDS: PROPOFOL 1000 MG/100 ML IV PRN ×6 (02:49→22:24)
[2017-03-28] MEDS: INSULIN NovoLIN REGULAR SUPPLEMENTAL SCALE SQ SCH ×5 (04:00→16:20)
[2017-03-28] MEDS: MIDAZOLAM 100 MG/100 ML INJ 100 ML IV PRN ×2 (05:16→13:45)
[2017-03-28] MEDS: NOREPINEPHRINE 4 MG/D5W 250 ML IV PRN ×3 (05:17→18:16)
[2017-03-28] MEDS: LEVOFLOXACIN 750 MG PREMIX INJ 150 ML IV SCH (05:21)
[2017-03-28] MEDS: VANCOMYCIN INJ 2,000 MG in SODIUM CHLORID 0.9% 500 ML INJ 500 ML IV SCH (05:21)
[2017-03-28] MEDS: methylPREDNISolone SOD SUCC 40 MG/1 ML VIAL IV PUSH SCH ×3 (05:22→21:26)
[2017-03-28 05:34] LABS: AUTOMATED NEUTROPHIL # 37.5 TH/MM3 (1.8-7.7); BASOPHIL # 0.1 TH/MM3 (0-0.2); BASOPHIL % 0.1 % (0.0-2.0); HEMATOCRIT 32.3 % (39.0-51.0); LYMPH % 4.1 % (9.0-44.0); LYMPHOCYTE # 1.7 TH/MM3 (1.0-4.8); MEAN CELL VOLUME 114.9 FL (80.0-100.0); MEAN CORPUSCULAR HEMOGLOBIN 38.6 PG (27.0-34.0); MEAN CORPUSCULAR HGB CONC 33.6 % (32.0-36.0); MONO % 8.1 % (0.0-8.0); NEUT % 87.7 % (16.0-70.0); PLATELET COUNT 262 TH/MM3 (150-450); RED BLOOD COUNT 2.81 MIL/MM3 (4.50-5.90); RED CELL DISTRIBUTION WIDTH 17.4 % (11.6-17.2); WHITE BLOOD COUNT 42.7 TH/MM3 (4.0-11.0)
[2017-03-28 05:39] LABS: HEMO FLAGS AUTO DIFF
[2017-03-28] MEDS: PCA - TOTAL MG DILAUDID DELIVERED PER SHIFT OTHER SCH ×3 (06:00→21:26)
[2017-03-28 06:02] LABS: ALT (GPT) 30 U/L (12-78); ANION GAP 9 MEQ/L (5-15); AST (GOT) 62 U/L (15-37); BICARBONATE 26.3 MEQ/L (21.0-32.0); BLOOD UREA NITROGEN 19 MG/DL (7-18); CHLORIDE 92 MEQ/L (98-107); GLOMERULAR FILTRATION RATE 87 ML/MIN (>89); MAGNESIUM 1.9 MG/DL (1.5-2.5); POTASSIUM 4.3 MEQ/L (3.5-5.1); SODIUM (NA) 127 MEQ/L (136-145)
[2017-03-28 06:05] LABS: ALKALINE PHOSPHATASE 104 U/L (45-117); TOTAL BILIRUBIN ADULT 4.4 MG/DL (0.2-1.0)
--- NOTE | 2017-03-28 06:55 | RADRPT ---
EXAM DATE/TIME: 03/28/2017 06:06 [facility] COMPARISON: CHEST SINGLE AP, March 27, 2017, 18:12. INDICATIONS : Shortness of breath MEDICAL HISTORY : Hypertension. Cardiovascular disease Cirrhosis SURGICAL HISTORY : None. ENCOUNTER: Subsequent ACUITY: 2 weeks PAIN SCORE: Non-responsive. LOCATION: Bilateral chest FINDINGS: A single view of the chest demonstrates diffuse bilateral airspace disease, unchanged. Heart size is prominent. Life support tubes are unchanged in position. CONCLUSION: 1. Diffuse bilateral airspace disease, unchanged. 2. Stable position of life support tubes. Michael Oliveira MD on March 28, 2017 at 6:53 Board Certified Radiologist. This report was verified electronically.
[2017-03-28] MEDS ORDERED: BUMETANIDE INJ 1 MG/4 ML VIAL IV ONE (07:00)
[2017-03-28] MEDS: CHLORHEXIDINE 0.12% (ORAL KIT) 15 ML CUP MT SCH ×2 (08:32→22:23)
[2017-03-28 08:43] LABS: BANDS 6 % (0-6); METAMYELOCYTES 1 % (0-1); MYELOCYTES 1 % (0-0); NEUTROPHIL # MANUAL DIFF 38.9 TH/MM3 (1.8-7.7); POLYS (SEG NEUTROPHILS) 83 % (16-70); WBC DIFF SAMPLE 100
[2017-03-28 08:44] LABS: TARGET CELLS 1+ (NORMAL)
[2017-03-28 08:45] LABS: PLATELET ESTIMATE SMEAR NORMAL (NORMAL); PLATELET MORPHOLOGY NORMAL (NORMAL)
[2017-03-28 08:47] LABS: SCAN/DIFF FINAL DIFF MANUAL
[2017-03-28] MEDS: CISATRACURIUM INJ 100 MG in SODIUM CHLOR 0.9% 250 ML INJ 250 ML IV PRN ×2 (08:53→18:14)
[2017-03-28] MEDS: URSODIOL 300 MG CAP PO SCH ×3 (09:00→17:17)
[2017-03-28] MEDS: SODIUM CHLORIDE 0.9% FLUSH 10 ML FLUSH IV FLUSH SCH ×2 (09:00→21:00)
[2017-03-28] MEDS ORDERED: LANSOPRAZOLE SOLUTAB 30 MG TAB NG SCH (09:00)
[2017-03-28] MEDS: LACTULOSE SYRUP 20 GM/30 ML CUP PO SCH (09:04)
[2017-03-28] MEDS: MULTIVITAMIN TAB PO SCH (09:04)
[2017-03-28] MEDS: FOLIC ACID 1 MG TAB PO SCH (09:04)
[2017-03-28] MEDS: PANTOPRAZOLE SODIUM 40 MG VIAL IV SCH (09:04)
[2017-03-28] MEDS: SPIRONOLACTONE 25 MG TAB PO SCH ×2 (09:04→17:17)
[2017-03-28] MEDS: THIAMINE HCL 100 MG TAB PO SCH (09:04)
[2017-03-28] MEDS: RESP: BUDESONIDE 0.5 MG/2 ML NEB NEB SCH ×2 (09:05→20:30)
[2017-03-28] MEDS: ARTIFICIAL TEARS OPTH OINT 3.5 APPLIC/3.5 GM TUBO EACH EYE SCH ×2 (09:10→22:23)
[2017-03-28] MEDS: LINEZOLID 600 MG PREMIX 300 ML IV SCH ×2 (09:10→21:25)
[2017-03-28] MEDS: HEPARIN SODIUM - SQ 10,000 UNITS/ML VIAL SQ SCH ×2 (10:21→21:26)
--- NOTE | 2017-03-28 13:35 | PD.ID.CON ---
History of Present Illness Service ID Consult Requested By Dr Stoddard Reason for Consult PNA sepsis Primary Care Physician Taylor Daniel M.D. Diagnoses: History of Present Illness Pt unable to give history History obtained from the chart 42 yo male with liver cirrhosis, EtOH use abuse, tobaccoism, hypertension Gastroesophageal reflux disease and DDD. admistted on 03/19 with abdominal ascites , sp t paracentesis 3300 cc. Possible SBP (borderline ANC). Placed on ceftriaxone. , but clx were negative 2 days ago pt started to experience respiratory difficulties which quickly progressed into respiratory failure requiring intubation [facility] Postintubation chest x-ray revealed extensive bilateral pulmonary infiltrates His WBC is 42 K Low grade fever 2 days ago now pt is hypothermic His admission blood clx are finalised negative and repeat blood clx are neg @ 1 day so far His sputum G stain looks unremarkable and clx is P He had mild lactic acodiosisi yday He is on broad spectrum abx (BSA) Influenza, leg, pneimococcus antigens negative Pt is on pressors Review of Systems ROS Limitations: Clinical Condition, Intubated Past Family Social History Allergies: Coded Allergies: clarithromycin (Unverified Allergy, Severe, Rash, 03/19/17) clindamycin (Unverified Allergy, Severe, RASH, 03/19/17) Past Medical History cirrhosis, HTN, ETOH abuse, tobacco use, chronic pain, 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 noncontributory Social History started drinking at age 15, daily ETOH use mostly vodka. last drink this AM Tobacco use: 1 PPD since age 16 Illicit drug use: denies at this time. 5 years ago history of oxycodone/ Roxicodone abuse now on Suboxone Physical Exam Vital Signs Vital Signs Date Time Temp Pulse Resp B/P (MAP) Pulse Ox O2 Delivery O2 Flow Rate FiO2 03/28/17 12:25 98 50 03/28/17 12:10 14 03/28/17 12:00 97.7 100 14 101/63 (76) 94 03/28/17 12:00 50 03/28/17 10:44 50 03/28/17 10:00 96.6 92 14 106/64 (78) 98 03/28/17 09:32 94 109/66 03/28/17 09:08 96 Ventilator 100 03/28/17 09:05 14 03/28/17 08:55 96 100 03/28/17 08:00 95.9 86 14 115/71 (86) 90 03/28/17 07:26 16 03/28/17 07:00 91 Mechanical Ventilator 95 03/28/17 06:00 16 03/28/17 05:17 87 94/53 03/28/17 04:39 92 95 03/28/17 04:00 95.7 83 16 90/53 (65) 94 101/60 (74) 03/28/17 04:00 95 03/28/17 02:01 95 95 03/28/17 01:06 16 03/28/17 01:00 95 03/28/17 00:00 95.7 87 16 111/72 (85) 94 94/51 (65) 03/28/17 00:00 100 03/27/17 22:59 90 15.00 100 03/27/17 22:26 97 90 03/27/17 22:00 0 03/27/17 21:06 16 03/27/17 20:42 98 90 03/27/17 20:32 87 79/41 03/27/17 20:00 97.9 90 16 82/43 (56) 98 03/27/17 20:00 100 03/27/17 19:00 98 Mechanical Ventilator 100 03/27/17 17:55 95 100 03/27/17 17:55 100 03/27/17 17:55 99 Mechanical Ventilator 100 03/27/17 16:00 97.7 94 27 81/52 (62) 96 03/27/17 15:51 91 70 03/27/17 15:20 95 Bi-Pap 70 Physical Exam CONSTITUTIONAL/GENERAL: This is an adequately nourished patient, sedated intubated, paralysed in prone position in rotaprobne bed TUBES/LINES/DRAINS: SKIN: No jaundice, rashes, or lesions. HEAD: Unable to assess 2/2 prone position EYES: Unable to assess 2/2 prone position ENT: Face edematous Unable to assess 2/2 prone position NECK: Unable to assess 2/2 prone position CARDIOVASCULAR: Regular rate and rhythm on th e monitor . Well perfused perifery RESPIRATORY/CHEST: Diffuse prominent rhonchi posteriorly to auscultation. GASTROINTESTINAL:Unable to assess 2/2 prone position GENITOURINARY: Bowden catheter in place with clear yellow urine MUSCULOSKELETAL: Extremities without clubbing, cyanosis, or edema. LYMPHATICS: Unable to assess 2/2 prone position NEUROLOGICAL:Sedated and paralyzed PSYCHIATRIC:Unable to assess 2/2 heavy sedation Laboratory Laboratory Tests Test 03/27/17 20:50 03/27/17 20:55 03/27/17 21:30 03/28/17 02:07 Blood Urea Nitrogen 14 Creatinine 0.86 Random Glucose 187 Total Protein 6.0 Albumin 2.5 Calcium Level 8.1 Phosphorus Level 4.4 Magnesium Level 1.8 Alkaline Phosphatase 107 Aspartate Amino Transf (AST/SGOT) 60 Alanine Aminotransferase (ALT/SGPT) 30 Total Bilirubin 5.0 Sodium Level 128 Potassium Level 4.8 Chloride Level 93 Carbon Dioxide Level 25.8 Anion Gap 9 Estimat Glomerular Filtration Rate 98 White Blood Count 32.2 Red Blood Count 2.66 Hemoglobin 10.3 Hematocrit 30.7 Mean Corpuscular Volume 115.1 Mean Corpuscular Hemoglobin 38.7 Mean Corpuscular Hemoglobin Concent 33.6 Red Cell Distribution Width 17.2 Platelet Count 201 Mean Platelet Volume 8.4 Lactic Acid Level 2.1 Urine Color YELLOW Urine Turbidity CLOUDY Urine pH 5.5 Urine Specific [place] 1.028 Urine Protein 30 Urine Glucose (UA) NEG Urine Ketones NEG Urine Occult Blood TRACE Urine Nitrite NEG Urine Bilirubin NEG Urine Urobilinogen LESS THAN 2.0 Urine Leukocyte Esterase NEG Urine RBC 2 Urine WBC 3 Urine Squamous Epithelial Cells 2 Urine Amorphous Sediment RARE Urine Mucus FEW Microscopic Urinalysis Comment CULT NOT INDICATED Urine Osmolality 308 Urine Random Sodium 10 Blood Gas Puncture Site ART LINE Blood Gas Patient Temperature 98.6 Blood Gas HCO3 24 Blood Gas Base Excess -0.5 Blood Gas Oxygen Saturation 93 Arterial Blood pH 7.39 Arterial Blood Partial Pressure CO2 40 Arterial Blood Partial Pressure O2 80 Arterial Blood Oxygen Content 14.7 Arterial Blood Carboxyhemoglobin 1.3 Arterial Blood Methemoglobin 1.0 Blood Gas Hemoglobin 11.2 Oxygen Delivery Device VENTILATOR Blood Gas Ventilator Setting SEE COMMENT Blood Gas Inspired Oxygen 965 Test 03/28/17 05:15 White Blood Count 42.7 Red Blood Count 2.81 Hemoglobin 10.9 Hematocrit 32.3 Mean Corpuscular Volume 114.9 Mean Corpuscular Hemoglobin 38.6 Mean Corpuscular Hemoglobin Concent 33.6 Red Cell Distribution Width 17.4 Platelet Count 262 Mean Platelet Volume 8.8 Neutrophils (%) (Auto) 87.7 Lymphocytes (%) (Auto) 4.1 Monocytes (%) (Auto) 8.1 Eosinophils (%) (Auto) 0.0 Basophils (%) (Auto) 0.1 Neutrophils # (Auto) 37.5 Lymphocytes # (Auto) 1.7 Monocytes # (Auto) 3.5 Eosinophils # (Auto) 0.0 Basophils # (Auto) 0.1 CBC Comment AUTO DIFF Differential Total Cells Counted 100 Neutrophils % (Manual) 83 Band Neutrophils % 6 Lymphocytes % 6 Monocytes % 3 Neutrophils # (Manual) 38.9 Metamyelocytes 1 Myelocytes 1 Differential Comment FINAL DIFF MANUAL Platelet Estimate NORMAL Platelet Morphology Comment NORMAL Target Cells 1+ Blood Urea Nitrogen 19 Creatinine 0.96 Random Glucose 166 Total Protein 6.5 Albumin 2.9 Calcium Level 8.6 Phosphorus Level 4.1 Magnesium Level 1.9 Alkaline Phosphatase 104 Aspartate Amino Transf (AST/SGOT) 62 Alanine Aminotransferase (ALT/SGPT) 30 Total Bilirubin 4.4 Sodium Level 127 Potassium Level 4.3 Chloride Level 92 Carbon Dioxide Level 26.3 Anion Gap 9 Estimat Glomerular Filtration Rate 87 Date/Time Source Procedure Growth Status 03/27/17 07:40 Blood Peripheral Aerobic Blood Culture - Preliminary NO GROWTH IN 1 DAY Resulted 03/27/17 07:40 Blood Peripheral Anaerobic Blood Culture - Preliminary NO GROWTH IN 1 DAY Resulted 03/20/17 11:00 Fluid Peritoneal Fluid Gram Stain - Final Complete 03/20/17 11:00 Fluid Peritoneal Fluid Body Fluid Culture - Final NO GROWTH IN 72 HRS.--AEROBICALLY OR ... Complete 03/27/17 21:30 Nasal Aspirate Influenza Types A,B Antigen (KRISTINE) - Final NEGATIVE FOR FLU A AND B ANTIGEN.... Complete 03/27/17 21:30 Urine Clean Catch Legionella Antigen - Final PRESUMPTIVE NEGATIVE FOR LEGIONELLA P... Complete 03/27/17 21:30 Urine Clean Catch Streptococcus pneumoniae Antigen (M - Final PRESUMPTIVE NEGATIVE FOR STREPTOCOCCU... Complete Result Diagram: 03/28/17 0515 03/28/17 0515 Imaging Last Impressions Chest X-Ray 03/28/17 0600 Signed Impressions: Service Date/Time: March 06:06 - CONCLUSION: 1. Diffuse bilateral airspace disease, unchanged. 2. Stable position of life support tubes. Michael Oliveira MD CT Angiography 03/27/17 0000 Signed Impressions: Service Date/Time: Monday, March 27, 2017 03:55 - CONCLUSION: 1. Mixed groundglass opacity and airspace consolidation in both upper lobes. Differential diagnosis includes infection, aspiration and pulmonary hemorrhage. 2. Moderate pleural effusions with dependent consolidation and atelectasis at both lung bases. 3. Hepatomegaly with ascites. 4. Contrast bolus suboptimal but no pulmonary emboli identified. Kyle Thorpe MD Abdomen Ultrasound 03/25/17 0000 Signed Impressions: Service Date/Time: Saturday, March 25, 2017 10:49 - CONCLUSION: 1. Very subtle ascites without sufficient pocket for safe paracentesis. Hipolito Palencia MD Cyst Biopsy Asp-Paracentesis US 03/20/17 0600 Signed Impressions: Service Date/Time: Monday, March 20, 2017 09:42 - CONCLUSION: Uncomplicated ultrasound guided paracentesis. Kareem Mahan MD Lower Extremity Ultrasound 03/19/17 1441 Signed Impressions: Service Date/Time: Sunday, March 19, 2017 15:40 - CONCLUSION: 1. No evidence of deep venous thrombosis. Claudio Argueta MD Liver Ultrasound 03/19/17 0000 Signed Impressions: Service Date/Time: Sunday, March 19, 2017 18:23 - CONCLUSION: 1. Moderate ascites. Thickened gallbladder wall with sludge. Mild hepatosplenomegaly. Kyle Thorpe MD Assessment and Plan Assessment and Plan PNA Acute VDRF, severe, requires igh vent settings and prone ventilation Liver cisrrosis Critically ill and unstable cont broad spectrum abx fu P clx further rec's to follow per clinical status and results Elda Farias MD Mar 28, 2017 13:35
[2017-03-28] MEDS: SODIUM CHLOR 0.9% 1000 ML INJ 1,000 ML IV SCH (13:46)
[2017-03-28] MEDS ORDERED: EPOPROSTENOL NEB SOLUTION 20 NG/KG/MIN 100 ML NEB SCH ×2 (15:00)
[2017-03-28 15:02] LABS: BLOOD GAS BASE EXCESS -3.6 mmol/L (-2-2); BLOOD GAS HCO3 22 mmol/L (22-26); BLOOD GAS METHEMOGLOBIN 0.9 % (0-2); BLOOD GAS O2 HGB SATURATION 94 % (90-100); BLOOD GAS OXYGEN CONTENT 13.8 Vol % (12.0-20.0); BLOOD GAS PCO2 50 mmHg (38-42); BLOOD GAS PO2 88 mmHg (61-120); BLOOD GAS TOTAL HGB 10.4 G/DL (12.0-16.0); TEMP CORR TO 98.6
[2017-03-28 15:03] LABS: CRITICAL VALUE YES; OXYGEN DEVICE VENTILATOR
[2017-03-28 15:06] LABS: DRAW SITE ART LINE; FIO2 50 %; STAT NO
--- NOTE | 2017-03-28 16:27 | HHI.CCPN ---
Subjective Remarks/Hospital Course 03/26: This is a 42-year-old male. Date of admission 03/19/2017. Date of consultation 03/27/2017. Past medical history includes EtOH use abuse, tobaccoism, hypertension Gastroesophageal reflux disease and DDD. Patient is on Suboxone for prior opiate abuse. He drinks one bottle of vodka daily patient is on chronic alprazolam at home on lactulose and Lasix. Patient was originally admitted with abdominal ascites. Status post paracentesis 03/20-3300 cc. Possible SBP. Placed on ceftriaxone. Blood work included a positive AMA and elevated iron studies. GS re-consulted. Over the past 24 hours. Patient has had increased oxygen requirements from 4 L currently 2 nonrebreather. He denies chest pressure respiratory denies cough. No significant peripheral edema. Patient's abdomen is quite distended however ultrasound reveals minimal ascites. Awake and alert. His only complaint is "dry throat from aerosolized mask 03/27: Patient developed worsening respiratory distress during the day and was placed on BiPAP with full facemask. He was requiring 100% FiO2 with BiPAP settings at +15/+8. His respiratory status declined as a day progress. Had multiple discussions with patient as well as his family members including reviewing his CT chest from early this morning which revealed extensive pulmonary infiltrates (right greater than left) and explained probable need for proceeding with intubation and mechanical ventilation. Subsequently patient's O2 sats dropped in the upper 80s despite BiPAP and patient was intubated and placed on mechanical ventilation around 6 PM. I subsequently proceeded with central line placement. Postintubation chest x-ray revealed extensive bilateral pulmonary infiltrates which appeared to have progress since his previous chest x-ray. Patient was requiring high doses of sedatives including Versed/fentanyl and propofol drips to keep him sedated. 03/28: Patient placed on prone ventilation last night and inhaled Flolan. Currently sedated, orally intubated on mechanical ventilation. On neuromuscular blockade. Remains on Versed/propofol/Dilaudid drips for sedation. Nimbex for neuromuscular blockade. Objective Vital Signs Date Time Temp Pulse Resp B/P (MAP) Pulse Ox O2 Delivery O2 Flow Rate FiO2 03/28/17 16:00 50 03/28/17 16:00 97.0 97 14 103/51 (68) 96 03/28/17 09:08 Ventilator 03/27/17 22:59 15.00 Intake and Output 03/28/17 03/28/17 03/29/17 08:00 16:00 00:00 Intake Total 1242 ml 1500 ml Output Total 1010 ml Balance 232 ml 1500 ml Result Diagram: 03/28/17 0515 03/28/17 0515 Other Results Microbiology Date/Time Source Procedure Growth Status 03/27/17 21:30 Nasal Aspirate Influenza Types A,B Antigen (KRISTINE) - Final NEGATIVE FOR FLU A AND B ANTIGEN.... Complete 03/27/17 21:30 Urine Clean Catch Legionella Antigen - Final PRESUMPTIVE NEGATIVE FOR LEGIONELLA P... Complete 03/27/17 21:30 Urine Clean Catch Streptococcus pneumoniae Antigen (M - Final PRESUMPTIVE NEGATIVE FOR STREPTOCOCCU... Complete Laboratory Tests Test 03/27/17 20:50 03/27/17 20:55 03/27/17 21:30 03/28/17 02:07 Blood Urea Nitrogen 14 MG/DL Creatinine 0.86 MG/DL Random Glucose 187 MG/DL Total Protein 6.0 GM/DL Albumin 2.5 GM/DL Calcium Level 8.1 MG/DL Phosphorus Level 4.4 MG/DL Magnesium Level 1.8 MG/DL Alkaline Phosphatase 107 U/L Aspartate Amino Transf (AST/SGOT) 60 U/L Alanine Aminotransferase (ALT/SGPT) 30 U/L Total Bilirubin 5.0 MG/DL Sodium Level 128 MEQ/L Potassium Level 4.8 MEQ/L Chloride Level 93 MEQ/L Carbon Dioxide Level 25.8 MEQ/L Anion Gap 9 MEQ/L Estimat Glomerular Filtration Rate 98 ML/MIN White Blood Count 32.2 TH/MM3 Red Blood Count 2.66 MIL/MM3 Hemoglobin 10.3 GM/DL Hematocrit 30.7 % Mean Corpuscular Volume 115.1 FL Mean Corpuscular Hemoglobin 38.7 PG Mean Corpuscular Hemoglobin Concent 33.6 % Red Cell Distribution Width 17.2 % Platelet Count 201 TH/MM3 Mean Platelet Volume 8.4 FL Lactic Acid Level 2.1 mmol/L Urine Color YELLOW Urine Turbidity CLOUDY Urine pH 5.5 Urine Specific [place] 1.028 Urine Protein 30 mg/dL Urine Glucose (UA) NEG mg/dL Urine Ketones NEG mg/dL Urine Occult Blood TRACE Urine Nitrite NEG Urine Bilirubin NEG Urine Urobilinogen LESS THAN 2.0 MG/DL Urine Leukocyte Esterase NEG Urine RBC 2 /hpf Urine WBC 3 /hpf Urine Squamous Epithelial Cells 2 /hpf Urine Amorphous Sediment RARE Urine Mucus FEW /lpf Microscopic Urinalysis Comment CULT NOT INDICATED Urine Osmolality 308 MOSM/KG Urine Random Sodium 10 MEQ/L Blood Gas Puncture Site ART LINE Blood Gas Patient Temperature 98.6 Blood Gas HCO3 24 mmol/L Blood Gas Base Excess -0.5 mmol/L Blood Gas Oxygen Saturation 93 % Arterial Blood pH 7.39 Arterial Blood Partial Pressure CO2 40 mmHg Arterial Blood Partial Pressure O2 80 mmHg Arterial Blood Oxygen Content 14.7 Vol % Arterial Blood Carboxyhemoglobin 1.3 % Arterial Blood Methemoglobin 1.0 % Blood Gas Hemoglobin 11.2 G/DL Oxygen Delivery Device VENTILATOR Blood Gas Ventilator Setting SEE COMMENT Blood Gas Inspired Oxygen 965 % Test 03/28/17 05:15 03/28/17 14:47 White Blood Count 42.7 TH/MM3 Red Blood Count 2.81 MIL/MM3 Hemoglobin 10.9 GM/DL Hematocrit 32.3 % Mean Corpuscular Volume 114.9 FL Mean Corpuscular Hemoglobin 38.6 PG Mean Corpuscular Hemoglobin Concent 33.6 % Red Cell Distribution Width 17.4 % Platelet Count 262 TH/MM3 Mean Platelet Volume 8.8 FL Neutrophils (%) (Auto) 87.7 % Lymphocytes (%) (Auto) 4.1 % Monocytes (%) (Auto) 8.1 % Eosinophils (%) (Auto) 0.0 % Basophils (%) (Auto) 0.1 % Neutrophils # (Auto) 37.5 TH/MM3 Lymphocytes # (Auto) 1.7 TH/MM3 Monocytes # (Auto) 3.5 TH/MM3 Eosinophils # (Auto) 0.0 TH/MM3 Basophils # (Auto) 0.1 TH/MM3 CBC Comment AUTO DIFF Differential Total Cells Counted 100 Neutrophils % (Manual) 83 % Band Neutrophils % 6 % Lymphocytes % 6 % Monocytes % 3 % Neutrophils # (Manual) 38.9 TH/MM3 Metamyelocytes 1 % Myelocytes 1 % Differential Comment FINAL DIFF MANUAL Platelet Estimate NORMAL Platelet Morphology Comment NORMAL Target Cells 1+ Blood Urea Nitrogen 19 MG/DL Creatinine 0.96 MG/DL Random Glucose 166 MG/DL Total Protein 6.5 GM/DL Albumin 2.9 GM/DL Calcium Level 8.6 MG/DL Phosphorus Level 4.1 MG/DL Magnesium Level 1.9 MG/DL Alkaline Phosphatase 104 U/L Aspartate Amino Transf (AST/SGOT) 62 U/L Alanine Aminotransferase (ALT/SGPT) 30 U/L Total Bilirubin 4.4 MG/DL Sodium Level 127 MEQ/L Potassium Level 4.3 MEQ/L Chloride Level 92 MEQ/L Carbon Dioxide Level 26.3 MEQ/L Anion Gap 9 MEQ/L Estimat Glomerular Filtration Rate 87 ML/MIN Blood Gas Puncture Site ART LINE Blood Gas Patient Temperature 98.6 Blood Gas HCO3 22 mmol/L Blood Gas Base Excess -3.6 mmol/L Blood Gas Oxygen Saturation 94 % Arterial Blood pH 7.27 Arterial Blood Partial Pressure CO2 50 mmHg Arterial Blood Partial Pressure O2 88 mmHg Arterial Blood Oxygen Content 13.8 Vol % Arterial Blood Carboxyhemoglobin 1.0 % Arterial Blood Methemoglobin 0.9 % Blood Gas Hemoglobin 10.4 G/DL Oxygen Delivery Device VENTILATOR Blood Gas Ventilator Setting Blood Gas Inspired Oxygen 50 % Imaging Chest x-ray portable done on 03/27 post intubation was personally reviewed: ET tube above antonio, right IJ central line with tip overlying SVC, NG tube in place, extensive bilateral infiltrates involving almost the entire lung lopez. Last [address] Angiography 03/27/17 0000 Signed Impressions: Service Date/Time: Monday, March 27, 2017 03:55 - CONCLUSION: 1. Mixed groundglass opacity and airspace consolidation in both upper lobes. Differential diagnosis includes infection, aspiration and pulmonary hemorrhage. 2. Moderate pleural effusions with dependent consolidation and atelectasis at both lung bases. 3. Hepatomegaly with ascites. 4. Contrast bolus suboptimal but no pulmonary emboli identified. Kyle Thorpe MD Last Impressions Chest X-Ray 03/26/17 0000 Signed Impressions: Service Date/Time: Sunday, March 26, 2017 10:30 - CONCLUSION: 1. New alveolar infiltrates in both lungs which may represent pulmonary edema which may be noncardiogenic in origin. 2. Denser course infiltrates in both lung bases likely representing scarring. Ap Zamora MD Abdomen Ultrasound 03/25/17 0000 Signed Impressions: Service Date/Time: Saturday, March 25, 2017 10:49 - CONCLUSION: 1. Very subtle ascites without sufficient pocket for safe paracentesis. Hipolito Palencia MD Cyst Biopsy Asp-Paracentesis US 03/20/17 0600 Signed Impressions: Service Date/Time: Monday, March 20, 2017 09:42 - CONCLUSION: Uncomplicated ultrasound guided paracentesis. Kareem Mahan MD Lower Extremity Ultrasound 03/19/17 1441 Signed Impressions: Service Date/Time: Sunday, March 19, 2017 15:40 - CONCLUSION: 1. No evidence of deep venous thrombosis. Claudio Argueta MD Liver Ultrasound 03/19/17 0000 Signed Impressions: Service Date/Time: Sunday, March 19, 2017 18:23 - CONCLUSION: 1. Moderate ascites. Thickened gallbladder wall with sludge. Mild hepatosplenomegaly. Kyle Thorpe MD Objective Remarks HEENT/ Neuro: Sedated, on neuromuscular blockade, pupils 2 mm bilaterally constricted. Orally intubated, Pallor present, icterus present, tongue/ mucosa moist (was awake alert oriented 3 prior to intubation) Neck: Right IJ central line in place Chest/Pulm: on mech vent on Rota prone bed, good air entry bilaterally, bilateral extensive rhonchi, no wheezing/ crackles CVS: S1-S2 regular, no murmur GI/abdomen: soft, distended nontender, bowel sounds sluggish Extremities: warm bilaterally, trace edema Urinary Catheter: Yes Assessment to: Continue Vascular Central Line Catheter: Yes Assessment to: Continue Date of Insertion: Mar 27, 2017 Line: Central Venous Catheter Side: Right Location: Internal, Jugular A/P Assessment and Plan Neuro/Psych: History of oxycodone use Anxiety disorder on chronic alprazolam History of hepatic encephalopathy Patient was on his home Suboxone 8 mg 4 times a day till 03/28 which was held following intubation as patient requiring deep sedation and neuromuscular blockade. Starting propofol/Versed gtt. as well as Dilaudid [employer] 2 mg/h basal rate.. Dilaudid 2 mg IV every 3 hourly scheduled for 72 hours up to 03/30/17 while waiting for buprenorphine to wear off and will then plan on transitioning to fentanyl gtt from Dilaudid [employer]. Continue neuromuscular blockade with Nimbex in view of ARDS to facilitate mechanical ventilation. Added Librium 20 mg every 12 hourly in view of history of alcohol abuse. Continue thiamine/folic acid/MVI via OG tube. On lorazepam 1 mg every 2 hours when necessary anxiety On alprazolam 1 mg by mouth every 6 hours. Home for anxiety CV: Sinus tachycardia History of hypertension Hypotension Levophed for pressor support. Continue spironolactone for fluid retention secondary to liver disease. Diurese to keep even fluid balance Resp: Acute hypoxemic respiratory failure Bilateral pneumonia ARDS Tobaccoism CT chest on 03/27 with extensive bilateral infiltrates right greater than left. Progressive respiratory failure with borderline O2 sats on BiPAP hence was sedated with endotracheal intubation and patient placed on mechanical ventilation on 03/27. Continue mechanical ventilation with ACV with tidal volume 550, rate 16, FiO2 100%, PEEP +14. Follow up ABG. Albuterol/ipratropium aerosols every 4 hours with albuterol aerosols every 2 hours when necessary budesonide 0.5/2 1 inhalation twice a day Continue Solu-Medrol 40 mg IV twice a day Nicotine patch at 21 mg daily GI/liver: Likely cirrhosis - Will need liver biopsy Abdominal ascites AMA positive. Elevated iron studies. Pending hepatitis panel. Appears to be carrier for hemochromatosis gene ? Significance. Status post paracentesis 03/20. -3300. Abdominal ultrasound 03/25. Not sufficient fluid for paracentesis Ursodiol to be continued possible primary biliary cirrhosis Noted 579 WBC and peritoneal fluid however peritoneal fluid cultures negative. Was on Rocephin from 03/20 - 03/27 Continue lactulose 30 cc daily. Continue spironolactone. Continue Lasix 40 mg daily. Start tube feeds with Neutra hep and advanced to goal of 60 cc an hour : Bowden catheterization for accurate intake output in critically ill patient with sepsis/pneumonia Endo: Sliding-scale insulin if needed for glycemic control. Renal: Strict intake output, monitor and replete electrolytes, follow BUN/creatinine. Heme: Leukocytosis Macrocytic anemia Thrombocytopenia Monitor CBC daily. Follow trends. Continue MVI/folic acid. No indications for transfusion of blood products at this time ID: Sepsis/pneumonia with ARDS SBP - culture negative On Rocephin from 03/20 -03/27. Status post 1 dose vancomycin 03/27. Zosyn started 03/27. Added Zyvox 600 mg IV every 12 hourly on 03/27 following intubation. ID consult requested for sepsis/severe pneumonia. Recheck blood cultures 2, urine antigens. Urine negative for strep pneumo and Legionella antigen Sputum for Gram stain and cultures following intubation to be sent. MSK: Physical therapy FEN: Hyponatremia Hypo-magnesium Hyponatremia workup see orders osm serum, urine, urine sodium, TSH, cortisol uric acid, triglycerides. Replacing electrolytes as clinically indicated Access -Placed right IJ central line 03/27. Prophylaxis - GI - pantoprazole - DVT - SCD/ pharmacological prophylaxis with subcutaneous heparin 5000 units every 12 hourly. Extensive discussion on 03/27 with patient's family members and with patient at bedside on multiple occasions during the day and following intubation with family members regarding severity of pneumonia and need for mechanical ventilation including neuromuscular blockade and they voiced understanding and were agreeable and appreciative of care provided. Also explained that if patient's restless status does not improve over the next 2 weeks he may require tracheostomy. Condition remains extremely critical. Starting neuromuscular blockade. Probably will require prone ventilation if no improvement in respiratory status. Updated patient's mother on 03/28 regarding current clinical status including prone ventilation and possible need for prolonged mechanical ventilation. She voiced understanding and was agreeable with plan of care. Condition remains extremely critical with severe ARDS on prone ventilation and hypotension. Time spent on critical care excluding procedures 45 minutes Glynn Stoddard MD Mar 28, 2017 16:27
--- NOTE | 2017-03-28 16:31 | PD.PROCEDR ---
Central Line Procedure Date of procedure: 03/27/2017 REASON FOR PROCEDURE Central venous access PROCEDURE PERFORMED Central line placement: Right internal jugular vein CONSENT Informed consent for procedure was obtained from patient's family and documented on chart. ANESTHESIA Local injection of 1% Lidocaine DESCRIPTION OF THE PROCEDURE The patient was placed in supine, mild Trendelenburg position. The area was exposed and cleansed with ChloraPrep, times two. Large sterile drape was used to cover the patient, with the site exposed, under sterile conditions including cap, face mask, sterile gown, and sterile gloves. On single attempt, the introducer needle was inserted with negative pressure in syringe and venous flash was obtained. The guide wire was then advanced without any restriction and the needle was removed. The dilator was used without any complications. Using Seldinger technique a 20 cm antimicrobial coated triple lumen catheter was advanced over the guide wire to a depth of 17 centimeters. The guide wire was removed. All ports were aspirated with dark venous blood return and flushed easily with sterile saline. All ports were capped. Antibiotic disc was placed around central line at puncture site. The central line was secured to the skin with a stat lock,the area was bandaged with sterile see-through central line bandage. RADIOLOGICAL DATA Ultrasound guidance was used to locate the right internal jugular vein. COMPLICATIONS: No apparent complications. Prior failed attempt at right subclavian vein cannulation. ESTIMATED BLOOD LOSS: Less than 1 cc. Glynn Stoddard MD Mar 28, 2017 16:31
--- NOTE | 2017-03-28 17:05 | PD.PROCEDR ---
Procedure Note Procedure Date of procedure: 03/27/17 Procedure: Endotracheal intubation Preop diagnosis: Pneumonia, ARDS, acute respiratory failure Postop diagnosis: Same Sedation used: Etomidate 40 mg, fentanyl 200 mcg, succinylcholine 150 mg IV Procedure: Patient was preoxygenated with 100% oxygen via Ambu bag with bag mask ventilation, following induction of sedation and neuromuscular blockade, direct laryngoscopy was performed using a Mac 3 blade with good visualization of vocal cords. An 8 Syriac ET tube was passed through the vocal cords under direct visualization up to the 25 centimeter carlos and after inflating cuff of ET tube, correct placement was confirmed using bagging with good color change on CO2 detector, 5 point auscultation and chest rise with ventilation. Patient was connected to mechanical ventilation. Patient tolerated the procedure well with no immediate complications noted. Postprocedure chest x-ray was ordered. Glynn Stoddard MD Mar 28, 2017 17:05
[2017-03-28] MEDS: EPOPROSTENOL NEB SOLUTION 20 NG/KG/MIN 100 ML NEB SCH ×2 (17:17)
--- NOTE | 2017-03-28 17:38 | HHI.GIFU ---
Subjective Remarks Pt was intubated last night and then placed on rotaprone bed earlier today. No vomiting. TF started trickle feeds- nurse reports that plan is to place dobhoff tonight when they turn him. (Claudia Harvey) Objective Vitals I&O Vital Signs Date Time Temp Pulse Resp B/P (MAP) Pulse Ox O2 Delivery O2 Flow Rate FiO2 03/28/17 16:54 50 03/28/17 16:32 96 50 03/28/17 16:00 50 03/28/17 16:00 97.0 97 14 103/51 (68) 96 03/28/17 15:33 14 03/28/17 14:00 97.0 94 14 106/66 (79) 96 03/28/17 13:49 14 03/28/17 12:25 98 50 03/28/17 12:10 14 03/28/17 12:00 97.7 100 14 101/63 (76) 94 03/28/17 12:00 50 03/28/17 10:44 50 03/28/17 10:00 96.6 92 14 106/64 (78) 98 03/28/17 09:32 94 109/66 03/28/17 09:08 96 Ventilator 100 03/28/17 09:05 14 03/28/17 08:55 96 100 03/28/17 08:00 95.9 86 14 115/71 (86) 90 03/28/17 07:26 16 03/28/17 07:00 91 Mechanical Ventilator 95 03/28/17 06:00 16 03/28/17 05:17 87 94/53 03/28/17 04:39 92 95 03/28/17 04:00 95.7 83 16 90/53 (65) 94 101/60 (74) 03/28/17 04:00 95 03/28/17 02:01 95 95 03/28/17 01:06 16 03/28/17 01:00 95 03/28/17 00:00 95.7 87 16 111/72 (85) 94 94/51 (65) 03/28/17 00:00 100 03/27/17 22:59 90 15.00 100 03/27/17 22:26 97 90 03/27/17 22:00 0 03/27/17 21:06 16 03/27/17 20:42 98 90 03/27/17 20:32 87 79/41 03/27/17 20:00 97.9 90 16 82/43 (56) 98 03/27/17 20:00 100 03/27/17 19:00 98 Mechanical Ventilator 100 03/27/17 17:55 95 100 03/27/17 17:55 100 03/27/17 17:55 99 Mechanical Ventilator 100 I/O 03/27/17 03/27/17 03/27/17 03/28/17 03/28/17 03/28/17 07:00 15:00 23:00 07:00 15:00 23:00 Intake Total 1886 ml 388 ml 2502 ml 622 ml 2120 ml 155 ml Output Total 1975 ml 950 ml 100 ml 1010 ml Balance -89 ml -562 ml 2402 ml -388 ml 2120 ml 155 ml Intake Oral 600 ml 280 ml IV Total 1286 ml 108 ml 2402 ml 622 ml 2120 ml 155 ml Other 100 ml Output Urine Total 1975 ml 950 ml 100 ml 1000 ml Stool Total 0 ml Gastric Drainage Total 10 ml # Voids 2 1 # Bowel Movements 2 Laboratory Laboratory Tests Test 03/27/17 20:50 03/27/17 20:55 03/27/17 21:30 03/28/17 02:07 Blood Urea Nitrogen 14 Creatinine 0.86 Random Glucose 187 Total Protein 6.0 Albumin 2.5 Calcium Level 8.1 Phosphorus Level 4.4 Magnesium Level 1.8 Alkaline Phosphatase 107 Aspartate Amino Transf (AST/SGOT) 60 Alanine Aminotransferase (ALT/SGPT) 30 Total Bilirubin 5.0 Sodium Level 128 Potassium Level 4.8 Chloride Level 93 Carbon Dioxide Level 25.8 Anion Gap 9 Estimat Glomerular Filtration Rate 98 White Blood Count 32.2 Red Blood Count 2.66 Hemoglobin 10.3 Hematocrit 30.7 Mean Corpuscular Volume 115.1 Mean Corpuscular Hemoglobin 38.7 Mean Corpuscular Hemoglobin Concent 33.6 Red Cell Distribution Width 17.2 Platelet Count 201 Mean Platelet Volume 8.4 Lactic Acid Level 2.1 Urine Color YELLOW Urine Turbidity CLOUDY Urine pH 5.5 Urine Specific Dur[place] 1.028 Urine Protein 30 Urine Glucose (UA) NEG Urine Ketones NEG Urine Occult Blood TRACE Urine Nitrite NEG Urine Bilirubin NEG Urine Urobilinogen LESS THAN 2.0 Urine Leukocyte Esterase NEG Urine RBC 2 Urine WBC 3 Urine Squamous Epithelial Cells 2 Urine Amorphous Sediment RARE Urine Mucus FEW Microscopic Urinalysis Comment CULT NOT INDICATED Urine Osmolality 308 Urine Random Sodium 10 Blood Gas Puncture Site ART LINE Blood Gas Patient Temperature 98.6 Blood Gas HCO3 24 Blood Gas Base Excess -0.5 Blood Gas Oxygen Saturation 93 Arterial Blood pH 7.39 Arterial Blood Partial Pressure CO2 40 Arterial Blood Partial Pressure O2 80 Arterial Blood Oxygen Content 14.7 Arterial Blood Carboxyhemoglobin 1.3 Arterial Blood Methemoglobin 1.0 Blood Gas Hemoglobin 11.2 Oxygen Delivery Device VENTILATOR Blood Gas Ventilator Setting SEE COMMENT Blood Gas Inspired Oxygen 965 Test 03/28/17 05:15 03/28/17 14:47 White Blood Count 42.7 Red Blood Count 2.81 Hemoglobin 10.9 Hematocrit 32.3 Mean Corpuscular Volume 114.9 Mean Corpuscular Hemoglobin 38.6 Mean Corpuscular Hemoglobin Concent 33.6 Red Cell Distribution Width 17.4 Platelet Count 262 Mean Platelet Volume 8.8 Neutrophils (%) (Auto) 87.7 Lymphocytes (%) (Auto) 4.1 Monocytes (%) (Auto) 8.1 Eosinophils (%) (Auto) 0.0 Basophils (%) (Auto) 0.1 Neutrophils # (Auto) 37.5 Lymphocytes # (Auto) 1.7 Monocytes # (Auto) 3.5 Eosinophils # (Auto) 0.0 Basophils # (Auto) 0.1 CBC Comment AUTO DIFF Differential Total Cells Counted 100 Neutrophils % (Manual) 83 Band Neutrophils % 6 Lymphocytes % 6 Monocytes % 3 Neutrophils # (Manual) 38.9 Metamyelocytes 1 Myelocytes 1 Differential Comment FINAL DIFF MANUAL Platelet Estimate NORMAL Platelet Morphology Comment NORMAL Target Cells 1+ Blood Urea Nitrogen 19 Creatinine 0.96 Random Glucose 166 Total Protein 6.5 Albumin 2.9 Calcium Level 8.6 Phosphorus Level 4.1 Magnesium Level 1.9 Alkaline Phosphatase 104 Aspartate Amino Transf (AST/SGOT) 62 Alanine Aminotransferase (ALT/SGPT) 30 Total Bilirubin 4.4 Sodium Level 127 Potassium Level 4.3 Chloride Level 92 Carbon Dioxide Level 26.3 Anion Gap 9 Estimat Glomerular Filtration Rate 87 Blood Gas Puncture Site ART LINE Blood Gas Patient Temperature 98.6 Blood Gas HCO3 22 Blood Gas Base Excess -3.6 Blood Gas Oxygen Saturation 94 Arterial Blood pH 7.27 Arterial Blood Partial Pressure CO2 50 Arterial Blood Partial Pressure O2 88 Arterial Blood Oxygen Content 13.8 Arterial Blood Carboxyhemoglobin 1.0 Arterial Blood Methemoglobin 0.9 Blood Gas Hemoglobin 10.4 Oxygen Delivery Device VENTILATOR Blood Gas Ventilator Setting Blood Gas Inspired Oxygen 50 Date/Time Source Procedure Growth Status 03/27/17 07:40 Blood Peripheral Aerobic Blood Culture - Preliminary NO GROWTH IN 1 DAY Resulted 03/27/17 07:40 Blood Peripheral Anaerobic Blood Culture - Preliminary NO GROWTH IN 1 DAY Resulted 03/20/17 11:00 Fluid Peritoneal Fluid Gram Stain - Final Complete 03/20/17 11:00 Fluid Peritoneal Fluid Body Fluid Culture - Final NO GROWTH IN 72 HRS.--AEROBICALLY OR ... Complete 03/27/17 21:30 Nasal Aspirate Influenza Types A,B Antigen (KRISTINE) - Final NEGATIVE FOR FLU A AND B ANTIGEN.... Complete 03/27/17 21:30 Urine Clean Catch Legionella Antigen - Final PRESUMPTIVE NEGATIVE FOR LEGIONELLA P... Complete 03/27/17 21:30 Urine Clean Catch Streptococcus pneumoniae Antigen (M - Final PRESUMPTIVE NEGATIVE FOR STREPTOCOCCU... Complete Imaging Last Impressions Chest X-Ray 03/28/17 0600 Signed Impressions: Service Date/Time: March 06:06 - CONCLUSION: 1. Diffuse bilateral airspace disease, unchanged. 2. Stable position of life support tubes. Michael Oliveira MD CT Angiography 03/27/17 0000 Signed Impressions: Service Date/Time: Monday, March 27, 2017 03:55 - CONCLUSION: 1. Mixed groundglass opacity and airspace consolidation in both upper lobes. Differential diagnosis includes infection, aspiration and pulmonary hemorrhage. 2. Moderate pleural effusions with dependent consolidation and atelectasis at both lung bases. 3. Hepatomegaly with ascites. 4. Contrast bolus suboptimal but no pulmonary emboli identified. Kyle Thorpe MD Abdomen Ultrasound 03/25/17 0000 Signed Impressions: Service Date/Time: Saturday, March 25, 2017 10:49 - CONCLUSION: 1. Very subtle ascites without sufficient pocket for safe paracentesis. Hipolito Palencia MD Cyst Biopsy Asp-Paracentesis US 03/20/17 0600 Signed Impressions: Service Date/Time: Monday, March 20, 2017 09:42 - CONCLUSION: Uncomplicated ultrasound guided paracentesis. Kareem Mahan MD Lower Extremity Ultrasound 03/19/17 1441 Signed Impressions: Service Date/Time: Sunday, March 19, 2017 15:40 - CONCLUSION: 1. No evidence of deep venous thrombosis. Claudio Argueta MD Liver Ultrasound 03/19/17 0000 Signed Impressions: Service Date/Time: Sunday, March 19, 2017 18:23 - CONCLUSION: 1. Moderate ascites. Thickened gallbladder wall with sludge. Mild hepatosplenomegaly. Kyle Thorpe MD Physical Exam HEENT: On rotaprone bed CHEST: Course breath sounds. OETT to vent CARDIAC: RRR ABDOMEN: Unable to examine- in rotaprone, flexiseal without stool [employer]: Sedated on vent Limited assessment, on rotaprone (Claudia Harvey) Assessment and Plan Plan ASSESSMENT: - Ascites. US guided paracentesis (03/20/17)---> 3,300cc removed. Peritoneal WBC 579, RBC 140. Peritoneal cx no growth 72 hours. Spironolactone, Albumin - Elevated liver enzymes, liver cirrhosis. Liver US (03/19/17)---> Moderate ascites. Thickened gallbladder wall with sludge, mild hepatomegaly. ALEJA negative, AMA 79.7, ASMA negative, Ceruloplasmin 20, Alpha 1 Antitrypsin 180, Hepatitis profile negative AFP 2.1. Iron saturation 102.2%, Ferritin 840, Hfe gene C282Y one mutation identified, H63D, S65C not detected. ? Liver bx at some point, timing to be determined. He was started on Ursodiol. T. Bili 4.4, AST 62, ALT 30, ALk PHosph 104. - Elevated Iron Saturation. Hfe gene C282Y one mutation identified, H63D, S65C not detected. - (+) AMA. Started on Actigal, ? liver biopsy when stable. - Leukocytosis, worsening. WBC 42.7. Not having diarrhea. Bilateral pna. Peritoneal cx negative x 72 hours. BCx no growth 1/5 day, sputum cx pending, Urine negative for legionella, streptococcus pneumoniae. On Zyvox, Levaquin , Zosyn - Anemia. HH 10.9/32.3 - Thrombocytopenia, improved - Hepatic encephalopathy, lactulose. Sedated on vent. - Hyponatremia, per attending. - Respiratory failure, bilateral pneumonia, ARDS. vent per CCM, on Rotaprone PLAN: - Plan is for dobhoff when rotaprone turned. - Cont albumin - Cont ursodiol - Cont Protonix - Cont. Lactulose - Cont. Spironolactone - Monitor labs - Monitor I/O - Supportive care - ? liver biopsy when stable - Will need egd with band ligation, timing to be determined (inpatient vs. outpatient)-inpatient if active bleeding, otherwise when stable - Further recommendations to follow based on results of above - Pt seen and examined by Dr. Maldonado and myself and this note is written on her behalf (Claudia Harvey) Physician Comments agree with above (Jacqueline Maldonado MD) Claudia Harvey Mar 28, 2017 17:38 Jacqueline Maldonado MD Mar 28, 2017 19:08
[2017-03-28 22:02] LABS: BLOOD GAS BASE EXCESS -4.3 mmol/L (-2-2); BLOOD GAS HCO3 23 mmol/L (22-26); BLOOD GAS METHEMOGLOBIN 1.1 % (0-2); BLOOD GAS O2 HGB SATURATION 93 % (90-100); BLOOD GAS OXYGEN CONTENT 13.1 Vol % (12.0-20.0); BLOOD GAS PCO2 65 mmHg (38-42); BLOOD GAS PO2 96 mmHg (61-120); BLOOD GAS TOTAL HGB 9.8 G/DL (12.0-16.0); TEMP CORR TO 98.6
[2017-03-28 22:03] LABS: CRITICAL VALUE YES; OXYGEN DEVICE VENTILATOR
[2017-03-28 22:04] LABS: DRAW SITE ART LINE; FIO2 50 %; STAT NO
[2017-03-29] VITALS (12 sets, daily range): BP systolic 90–122; BP diastolic 48–74; PULSE 83–95; RESP 18–20; TEMP 95.2–98.1; O2SAT 91–97
[2017-03-29] MEDS: RESP: ALBUTEROL 2.5 MG/IPRATROPIUM 0.5 MG NEB (SCH) NEB ×6 (00:15→21:59)
[2017-03-29] MEDS: HYDROmorphone HCL PCA 6 MG/30 ML IV SCH ×8 (00:30→21:00)
[2017-03-29] MEDS: MIDAZOLAM 100 MG/100 ML INJ 100 ML IV PRN ×3 (01:40→21:00)
[2017-03-29] MEDS: ALBUMIN HUMAN 25% 25 GM/100 ML BAGP IV SCH ×2 (02:00→13:44)
[2017-03-29] MEDS: CISATRACURIUM INJ 100 MG in SODIUM CHLOR 0.9% 250 ML INJ 250 ML IV PRN ×3 (02:15→15:49)
[2017-03-29] MEDS: PROPOFOL 1000 MG/100 ML IV PRN ×6 (02:30→22:00)
[2017-03-29] MEDS: INSULIN NovoLIN REGULAR SUPPLEMENTAL SCALE SQ SCH ×5 (04:00→16:00)
[2017-03-29 04:03] LABS: BLOOD GAS BASE EXCESS -2.2 mmol/L (-2-2); BLOOD GAS CARBOXYHEMOGLOBIN 1.3 % (0-4); BLOOD GAS HCO3 23 mmol/L (22-26); BLOOD GAS METHEMOGLOBIN 1.1 % (0-2); BLOOD GAS O2 HGB SATURATION 94 % (90-100); BLOOD GAS OXYGEN CONTENT 13.9 Vol % (12.0-20.0); BLOOD GAS PCO2 48 mmHg (38-42); BLOOD GAS PO2 85 mmHg (61-120); BLOOD GAS TOTAL HGB 10.4 G/DL (12.0-16.0); CRITICAL VALUE NO; OXYGEN DEVICE VENTILATOR; TEMP CORR TO 98.6
[2017-03-29 04:04] LABS: DRAW SITE ART LINE; FIO2 50 %; STAT NO
[2017-03-29] MEDS: EPOPROSTENOL NEB SOLUTION 20 NG/KG/MIN 100 ML NEB SCH ×4 (04:10→09:00)
[2017-03-29] MEDS ORDERED: PHARMACY ORDERED LAB ONE (04:45)
[2017-03-29 05:00] LABS: BLOOD GAS BASE EXCESS -0.7 mmol/L (-2-2); BLOOD GAS CARBOXYHEMOGLOBIN 1.3 % (0-4); BLOOD GAS HCO3 24 mmol/L (22-26); BLOOD GAS METHEMOGLOBIN 0.9 % (0-2); BLOOD GAS O2 HGB SATURATION 94 % (90-100); BLOOD GAS OXYGEN CONTENT 12.6 Vol % (12.0-20.0); BLOOD GAS PCO2 43 mmHg (38-42); BLOOD GAS PO2 79 mmHg (61-120); BLOOD GAS TOTAL HGB 9.5 G/DL (12.0-16.0); CRITICAL VALUE NO; TEMP CORR TO 98.6
[2017-03-29 05:01] LABS: OXYGEN DEVICE VENTILATOR
[2017-03-29 05:02] LABS: DRAW SITE ALINE; FIO2 50 %; STAT NO
[2017-03-29] MEDS: methylPREDNISolone SOD SUCC 40 MG/1 ML VIAL IV PUSH SCH ×3 (05:21→22:00)
[2017-03-29] MEDS: LEVOFLOXACIN 750 MG PREMIX INJ 150 ML IV SCH (05:21)
[2017-03-29] MEDS: PIPERACIL-TAZO 4.5 GM PREMIX 100 ML IV SCH ×4 (05:21→17:39)
[2017-03-29] MEDS: PCA - TOTAL MG DILAUDID DELIVERED PER SHIFT OTHER SCH ×3 (05:22→22:00)
[2017-03-29 06:24] LABS: HEMATOCRIT 29.2 % (39.0-51.0); MEAN CELL VOLUME 114.7 FL (80.0-100.0); MEAN CORPUSCULAR HEMOGLOBIN 38.7 PG (27.0-34.0); MEAN CORPUSCULAR HGB CONC 33.7 % (32.0-36.0); PLATELET COUNT 277 TH/MM3 (150-450); RED BLOOD COUNT 2.55 MIL/MM3 (4.50-5.90); WHITE BLOOD COUNT 33.9 TH/MM3 (4.0-11.0)
[2017-03-29 06:34] LABS: ANION GAP 12 MEQ/L (5-15); AST (GOT) 61 U/L (15-37); BICARBONATE 24.5 MEQ/L (21.0-32.0); BLOOD UREA NITROGEN 26 MG/DL (7-18); CHLORIDE 93 MEQ/L (98-107); GLOMERULAR FILTRATION RATE 61 ML/MIN (>89); HEMO FLAGS AUTO DIFF; POTASSIUM 3.9 MEQ/L (3.5-5.1); SODIUM (NA) 129 MEQ/L (136-145)
[2017-03-29 06:35] LABS: ALT (GPT) 32 U/L (12-78)
[2017-03-29 06:38] LABS: ALKALINE PHOSPHATASE 83 U/L (45-117)
[2017-03-29] MEDS: RESP: ALBUTEROL 2.5 MG/3 ML NEB (PRN) NEB (07:44)
[2017-03-29] MEDS: RESP: BUDESONIDE 0.5 MG/2 ML NEB NEB SCH ×2 (07:44→21:59)
[2017-03-29] MEDS: CHLORHEXIDINE 0.12% (ORAL KIT) 15 ML CUP MT SCH ×2 (08:00→20:00)
[2017-03-29 08:10] LABS: BANDS 1 % (0-6); NEUTROPHIL # MANUAL DIFF 31.2 TH/MM3 (1.8-7.7); POLYS (SEG NEUTROPHILS) 91 % (16-70); WBC DIFF SAMPLE 100
[2017-03-29 08:11] LABS: PLATELET ESTIMATE SMEAR NORMAL (NORMAL); PLATELET MORPHOLOGY NORMAL (NORMAL); SCAN/DIFF FINAL DIFF MANUAL
[2017-03-29] MEDS: URSODIOL 300 MG CAP PO SCH ×3 (08:11→17:39)
[2017-03-29] MEDS: LINEZOLID 600 MG PREMIX 300 ML IV SCH ×2 (08:11→20:00)
[2017-03-29] MEDS: PANTOPRAZOLE SODIUM 40 MG VIAL IV SCH (08:11)
[2017-03-29] MEDS: SODIUM CHLORIDE 0.9% FLUSH 10 ML FLUSH IV FLUSH SCH ×2 (08:11→21:00)
[2017-03-29] MEDS: ARTIFICIAL TEARS OPTH OINT 3.5 APPLIC/3.5 GM TUBO EACH EYE SCH ×2 (08:11→21:00)
[2017-03-29] MEDS: MULTIVITAMIN TAB PO SCH (08:12)
[2017-03-29] MEDS: THIAMINE HCL 100 MG TAB PO SCH (08:12)
[2017-03-29] MEDS: SPIRONOLACTONE 25 MG TAB PO SCH ×2 (08:12→17:39)
[2017-03-29] MEDS: FOLIC ACID 1 MG TAB PO SCH (08:12)
[2017-03-29] MEDS: HEPARIN SODIUM - SQ 10,000 UNITS/ML VIAL SQ SCH ×2 (08:12→21:00)
[2017-03-29] MEDS: LACTULOSE SYRUP 20 GM/30 ML CUP PO SCH (08:12)
[2017-03-29] MEDS: NOREPINEPHRINE INJ 4 MG in SODIUM CHLOR 0.9% 250 ML INJ 250 ML IV PRN (08:39)
--- NOTE | 2017-03-29 09:26 | MB ---
cc: ALEXANDRE NICE DATE OF CONSULTATION: 03/28/2017 REASON FOR CONSULTATION: Pulmonary management. History of acute respiratory distress syndrome. HISTORY OF PRESENT ILLNESS: This is a 42 year-old white male who initially was admitted on 03/19/2017, has had a history of hypertension and history of ethanolism and history of probable chronic obstructive pulmonary disease due to long standing history of smoking. Has had gastroesophageal reflux. The patient also has been on Suboxone for a prior of opiate abuse and has had been on alprazolam and lactulose as well as Lasix for leg edema. He was admitted for ascites and had a paracentesis done for admission and was on antibiotic therapy as well. He had been on oxygen at 4 liters nasal cannula but over the past 24 hours apparently his oxygen requirements markedly increased and the patient was tachypneic and hypoxic. He was transferred to the intensive care unit and his abdomen is noted to be quite distended. The patient had to be intubated urgently for acute respiratory failure. Chest x-ray Done following intubation and also a CT chest that was done which demonstrated extensive bilateral pulmonary infiltrates with a CT angiogram was reportedly showing ground-glass opacity in the air space consolidation in both upper lobes and there was a question of aspiration and/or pulmonary hemorrhage. There is moderate pleural effusions noted atelectasis at both lung bases. He had hepatomegaly as well as ascites. The patient was then sedated and needed the large doses of propofol and also was on fentanyl but subsequently switched to IV Dilaudid and has been on the Limbex as well. His chest x-ray continued to show bilateral pulmonary infiltrates and he has not been placed on Flolan inhalation and the patient has been on antibiotic therapy for aspiration pneumonia. The patient is presently on a throne bed and on a small dose of Levophed. His blood gases showing respiratory acidosis and his O2 sats now 96% on 50% FIO2 and a PEEP of 16. PAST MEDICAL HISTORY: The past history has included history for gastritis and history for hypertension and history of cirrhosis of the liver and chronic smoking. He has anxiety disorder. He has had a right hand surgery for trauma. MEDICATIONS: Medication list includes; 1. Lasix 2. Xanax 3. Lactulose FAMILY HISTORY Noncontributory HABITS The patient was smoker a pack per day since age 16. Alcohol use quite regular. REVIEW OF SYSTEMS The patient is on ventilator support. PHYSICAL EXAMINATION IN GENERAL: This averagely built middle-aged man is intubated, sedated on a throne bed. VITAL SIGNS: Blood pressure 104/60, pulse is 112, respiration respirations are 16, temperature 99.5. HEAD, EYES, EARS, NOSE, AND THROAT: Pupils reactive. Sclerae are anicteric. Throat not visible. The ET tube in place. NECK: No venous distension. CHEST: Decreased breath sounds at the periphery. Occasional wheezes are heard. HEART: Heart sounds are regular S1-S2. ABDOMEN: Abdomen is soft, slightly protuberant. Bowel sounds not heard. EXTREMITIES: Mild peripheral edema. The patient is sedated and does not move his extremities. DERMATOLOGY: The skin was dry and cool. IMPRESSION 1. Acute hypoxemic respiratory failure. 2. ARDS 3. Aspiration pneumonia versus pulmonary edema. 4. Cirrhosis of the liver 5. Probable underlying chronic lung disease 6. Ascites. PLAN The patient has been placed on FIO2 of 30%. We will wean the PEEP down and he will be maintained on pressure control ventilation. Sedation will be continued as ordered as well as Flolan and follow up chest x-ray has been ordered for the a.m. we will continue with antibiotic therapy as ordered and get cultures. Continue with Solu-Medrol 40 mg every 8 hours and if he is clinically improving over the next 24 hours attempts will be made to wean the ventilator down to C-PAP. I will review and follow the case with you Dr. Stoddard, thank you for this consultation. MD CELSO Husain/mandeep /6:40 PM /9:06 AM
--- NOTE | 2017-03-29 10:15 | HHI.CCPN ---
Subjective Remarks/Hospital Course 03/26: This is a 42-year-old male. Date of admission 03/19/2017. Date of consultation 03/27/2017. Past medical history includes EtOH use abuse, tobaccoism, hypertension Gastroesophageal reflux disease and DDD. Patient is on Suboxone for prior opiate abuse. He drinks one bottle of vodka daily patient is on chronic alprazolam at home on lactulose and Lasix. Patient was originally admitted with abdominal ascites. Status post paracentesis 03/20-3300 cc. Possible SBP. Placed on ceftriaxone. Blood work included a positive AMA and elevated iron studies. GS re-consulted. Over the past 24 hours. Patient has had increased oxygen requirements from 4 L currently 2 nonrebreather. He denies chest pressure respiratory denies cough. No significant peripheral edema. Patient's abdomen is quite distended however ultrasound reveals minimal ascites. Awake and alert. His only complaint is "dry throat from aerosolized mask 03/27: Patient developed worsening respiratory distress during the day and was placed on BiPAP with full facemask. He was requiring 100% FiO2 with BiPAP settings at +15/+8. His respiratory status declined as a day progress. Had multiple discussions with patient as well as his family members including reviewing his CT chest from early this morning which revealed extensive pulmonary infiltrates (right greater than left) and explained probable need for proceeding with intubation and mechanical ventilation. Subsequently patient's O2 sats dropped in the upper 80s despite BiPAP and patient was intubated and placed on mechanical ventilation around 6 PM. I subsequently proceeded with central line placement. Postintubation chest x-ray revealed extensive bilateral pulmonary infiltrates which appeared to have progress since his previous chest x-ray. Patient was requiring high doses of sedatives including Versed/fentanyl and propofol drips to keep him sedated. 03/28: Patient placed on prone ventilation last night and inhaled Flolan. Currently sedated, orally intubated on mechanical ventilation. On neuromuscular blockade. Remains on Versed/propofol/Dilaudid drips for sedation. Nimbex for neuromuscular blockade. 03/29: Remains sedated, orally intubated on mechanical ventilation, on neuromuscular blockade. Inhaled Flolan to be decreased from 20,000 ng per KG per minute to 10,000 ng per KG per minute this morning. O2 sats in the mid 90s. Vent mode change from pressure control to PRVC last night for elevation of PCO2. Objective Vital Signs Date Time Temp Pulse Resp B/P (MAP) Pulse Ox O2 Delivery O2 Flow Rate FiO2 03/29/17 09:19 20 03/29/17 08:39 86 108/68 03/29/17 08:00 96.4 96 03/29/17 08:00 50 03/29/17 07:00 Mechanical Ventilator 03/27/17 22:59 15.00 Intake and Output 03/29/17 03/29/17 03/30/17 08:00 16:00 00:00 Intake Total 1076 ml 228 ml Output Total 850 ml Balance 226 ml 228 ml Result Diagram: 03/29/17 0515 03/29/17 0515 Other Results Microbiology Date/Time Source Procedure Growth Status 03/27/17 21:30 Nasal Aspirate Influenza Types A,B Antigen (KRISTINE) - Final NEGATIVE FOR FLU A AND B ANTIGEN.... Complete 03/27/17 18:00 Sputum Endotracheal Gram Stain - Final Complete 03/27/17 18:00 Sputum Endotracheal Sputum Culture - Final NO GROWTH IN 48 HOURS. Complete 03/27/17 21:30 Urine Clean Catch Legionella Antigen - Final PRESUMPTIVE NEGATIVE FOR LEGIONELLA P... Complete 03/27/17 21:30 Urine Clean Catch Streptococcus pneumoniae Antigen (M - Final PRESUMPTIVE NEGATIVE FOR STREPTOCOCCU... Complete Laboratory Tests Test 03/28/17 14:47 03/28/17 21:39 03/28/17 22:51 03/29/17 04:44 Blood Gas Puncture Site ART LINE ART LINE ART LINE LAURIE Blood Gas Patient Temperature 98.6 98.6 98.6 98.6 Blood Gas HCO3 22 mmol/L (22-26) 23 mmol/L (22-26) 23 mmol/L (22-26) 24 mmol/L (22-26) Blood Gas Base Excess -3.6 mmol/L (-2-2) -4.3 mmol/L (-2-2) -2.2 mmol/L (-2-2) -0.7 mmol/L (-2-2) Blood Gas Oxygen Saturation 94 % (90-100) 93 % (90-100) 94 % (90-100) 94 % ( 90-100) Arterial Blood pH 7.27 (7.380-7.420) 7.17 (7.380-7.420) 7.31 (7.380-7.420) 7.37 (7.380-7.420) Arterial Blood Partial Pressure CO2 50 mmHg (38-42) 65 mmHg (38-42) 48 mmHg (38-42) 43 mmHg (38-42) Arterial Blood Partial Pressure O2 88 mmHg (61-120) 96 mmHg (61-120) 85 mmHg (61-120) 79 mmHg (61-120) Arterial Blood Oxygen Content 13.8 Vol % (12.0-20.0) 13.1 Vol % (12.0-20.0) 13.9 Vol % (12.0-20.0) 12.6 Vol % (12.0-20.0) Arterial Blood Carboxyhemoglobin 1.0 % (0-4) 1.0 % (0-4) 1.3 % (0-4) 1.3 % (0-4) Arterial Blood Methemoglobin 0.9 % (0-2) 1.1 % (0-2) 1.1 % (0-2) 0.9 % (0-2) Blood Gas Hemoglobin 10.4 G/DL (12.0-16.0) 9.8 G/DL (12.0-16.0) 10.4 G/DL (12.0-16.0) 9.5 G/DL (12.0-16.0) Oxygen Delivery Device VENTILATOR VENTILATOR VENTILATOR VENTILATOR Blood Gas Ventilator Setting SEE COMMENT SEE COMMENT SEE COMMENT Blood Gas Inspired Oxygen 50 % 50 % 50 % 50 % Imaging Chest x-ray portable done on 03/27 post intubation was personally reviewed: ET tube above antonio, right IJ central line with tip overlying SVC, NG tube in place, extensive bilateral infiltrates involving almost the entire lung lopez. Last [address] Angiography 03/27/17 0000 Signed Impressions: Service Date/Time: Monday, March 27, 2017 03:55 - CONCLUSION: 1. Mixed groundglass opacity and airspace consolidation in both upper lobes. Differential diagnosis includes infection, aspiration and pulmonary hemorrhage. 2. Moderate pleural effusions with dependent consolidation and atelectasis at both lung bases. 3. Hepatomegaly with ascites. 4. Contrast bolus suboptimal but no pulmonary emboli identified. Kyle Thrope MD Last Impressions Chest X-Ray 03/26/17 0000 Signed Impressions: Service Date/Time: Sunday, March 26, 2017 10:30 - CONCLUSION: 1. New alveolar infiltrates in both lungs which may represent pulmonary edema which may be noncardiogenic in origin. 2. Denser course infiltrates in both lung bases likely representing scarring. Ap Zamora MD Abdomen Ultrasound 03/25/17 0000 Signed Impressions: Service Date/Time: Saturday, March 25, 2017 10:49 - CONCLUSION: 1. Very subtle ascites without sufficient pocket for safe paracentesis. Hipolito Palencia MD Cyst Biopsy Asp-Paracentesis US 03/20/17 0600 Signed Impressions: Service Date/Time: Monday, March 20, 2017 09:42 - CONCLUSION: Uncomplicated ultrasound guided paracentesis. Kareem Mahan MD Lower Extremity Ultrasound 03/19/17 1441 Signed Impressions: Service Date/Time: Sunday, March 19, 2017 15:40 - CONCLUSION: 1. No evidence of deep venous thrombosis. Claudio Argueta MD Liver Ultrasound 03/19/17 0000 Signed Impressions: Service Date/Time: Sunday, March 19, 2017 18:23 - CONCLUSION: 1. Moderate ascites. Thickened gallbladder wall with sludge. Mild hepatosplenomegaly. Kyle Thorpe MD Objective Remarks HEENT/ Neuro: Sedated, on neuromuscular blockade, pupils 2 mm bilaterally constricted. Orally intubated, Pallor present, icterus present, tongue/ mucosa moist (was awake alert oriented 3 prior to intubation) Neck: Right IJ central line in place Chest/Pulm: on mech vent on Rota prone bed, good air entry bilaterally, bilateral rhonchi, no wheezing/ crackles CVS: S1-S2 regular, no murmur GI/abdomen: soft, distended nontender, bowel sounds sluggish Extremities: warm bilaterally, trace edema Date of Insertion: Mar 27, 2017 Line: Central Venous Catheter Side: Right Location: Internal, Jugular A/P Assessment and Plan Neuro/Psych: History of oxycodone use Anxiety disorder on chronic alprazolam History of hepatic encephalopathy Patient was on his home Suboxone 8 mg 4 times a day till 03/28 which was held following intubation as patient requiring deep sedation and neuromuscular blockade. Starting propofol/Versed gtt. as well as Dilaudid [employer] LINE 2 mg/h basal rate.. Dilaudid 2 mg IV every 3 hourly scheduled for 72 hours up to 03/30/17 while waiting for buprenorphine to wear off and will then plan on transitioning to fentanyl gtt from Dilaudid [employer] LINE. Continue neuromuscular blockade with Nimbex in view of ARDS to facilitate mechanical ventilation. Added Librium 20 mg every 12 hourly in view of history of alcohol abuse. Continue thiamine/folic acid/MVI via OG tube. On lorazepam 1 mg every 2 hours when necessary anxiety On alprazolam 1 mg by mouth every 6 hours. Home for anxiety CV: Sinus tachycardia History of hypertension Hypotension Levophed for pressor support. Continue spironolactone for fluid retention secondary to liver disease. Diurese to keep even fluid balance Resp: Acute hypoxemic respiratory failure Bilateral pneumonia ARDS Tobaccoism CT chest on 03/27 with extensive bilateral infiltrates right greater than left. Progressive respiratory failure with borderline O2 sats on BiPAP hence was intubated and placed on mechanical ventilation on 03/27. Continue mechanical ventilation with PRVC with tidal volume 500, rate 16, FiO2 50%, PEEP +15. Follow up ABGs. Allow permissive hypercapnia Albuterol/ipratropium aerosols every 4 hours with albuterol aerosols every 2 hours when necessary Titrate off inhaled Flolan if tolerated Continue Solu-Medrol 40 mg IV every 8 hourly Nicotine patch at 21 mg daily GI/liver: Likely cirrhosis - Will need liver biopsy Abdominal ascites AMA positive. Elevated iron studies. Pending hepatitis panel. Appears to be carrier for hemochromatosis gene ? Significance. Status post paracentesis 03/20. -3300. Abdominal ultrasound 03/25. Not sufficient fluid for paracentesis Ursodiol to be continued possible primary biliary cirrhosis Noted 579 WBC and peritoneal fluid however peritoneal fluid cultures negative. Was on Rocephin from 03/20 - 03/27 Continue lactulose 30 cc daily. Continue spironolactone. Continue Lasix 40 mg daily. Start tube feeds with Neutra hep and advance to goal of 60 cc an hour once Dobbhoff placed. : Bowden catheterization for accurate intake output in critically ill patient with sepsis/pneumonia Endo: Sliding-scale insulin if needed for glycemic control. Renal: Strict intake output, monitor and replete electrolytes, follow BUN/creatinine. Heme: Leukocytosis Macrocytic anemia Thrombocytopenia Monitor CBC daily. Follow trends. Continue MVI/folic acid. No indications for transfusion of blood products at this time ID: Sepsis/pneumonia with ARDS SBP - culture negative On Rocephin from 03/20 -03/27. Status post 1 dose vancomycin 03/27. Zosyn started 03/27. Added Zyvox 600 mg IV every 12 hourly on 03/27 following intubation. ID consult requested for sepsis/severe pneumonia. Recheck blood cultures 2, urine antigens. Urine negative for strep pneumo and Legionella antigen Sputum for Gram stain and cultures following intubation in process MSK: Physical therapy FEN: Hyponatremia Hypo-magnesium Hyponatremia workup see orders osm serum, urine, urine sodium, TSH, cortisol uric acid, triglycerides. Replacing electrolytes as clinically indicated Access -Placed right IJ central line 03/27. Prophylaxis - GI - pantoprazole - DVT - SCD/ pharmacological prophylaxis with subcutaneous heparin 5000 units every 12 hourly. Extensive discussion on 03/27 with patient's family members and with patient at bedside on multiple occasions during the day and following intubation with family members regarding severity of pneumonia and need for mechanical ventilation including neuromuscular blockade and they voiced understanding and were agreeable and appreciative of care provided. Also explained that if patient's restless status does not improve over the next 2 weeks he may require tracheostomy. Condition remains extremely critical. Starting neuromuscular blockade. Probably will require prone ventilation if no improvement in respiratory status. Updated patient's mother on 03/28 and 03/29 regarding current clinical status including prone ventilation and possible need for prolonged mechanical ventilation. She voiced understanding and was agreeable with plan of care. Condition remains extremely critical with severe ARDS on prone ventilation, neuromuscular blockade and inhaled Flolan. Time spent on critical care excluding procedures 45 minutes Glynn Stoddard MD Mar 29, 2017 10:15
--- NOTE | 2017-03-29 11:06 | RADRPT ---
EXAM DATE/TIME: 03/29/2017 10:03 [facility] COMPARISON: CHEST SINGLE AP, March 28, 2017, 6:06. INDICATIONS : Follow up pneumonia/ ARDS. MEDICAL HISTORY : Hypertension. Cardiovascular disease. Cirrhosis SURGICAL HISTORY : None. ENCOUNTER: Initial ACUITY: 3 days PAIN SCORE: Non-responsive. LOCATION: Bilateral chest FINDINGS: The heart is enlarged. The right jugular central line and nasogastric tube are in good position. The endotracheal tube is slightly high approximately 7 cm above the level of the antonio. There is diffuse infiltrate within the pulmonary parenchyma consolidative change within the left lowe r lobe. The visualized bony structures are grossly intact. CONCLUSION: 1. The ET tube is somewhat high approximately 7 cm above the antonio. 2. The remainder of the port with its in good position. 3. Continued diffuse parenchymal infiltrate and consolidation concerning for pneumonia/ARDS. Bo Wall MD on March 29, 2017 at 11:03 Board Certified Radiologist. This report was verified electronically.
--- NOTE | 2017-03-29 11:46 | RADRPT ---
EXAM DATE/TIME: 03/29/2017 10:15 [facility] COMPARISON: No previous studies available for comparison. INDICATIONS : Dobhoff placement. MEDICAL HISTORY : Hypertension. Cardiovascular disease. Cirrhosis SURGICAL HISTORY : None. ENCOUNTER: Initial ACUITY: 1 day PAIN SCORE: Non-responsive. LOCATION: Bilateral abdomen. FINDINGS: Feeding tube antrum of the stomach next to the NG tube. Normal bowel gas pattern. CONCLUSION: Feeding tube antrum of the stomach. Roland Wall MD FACR on March 29, 2017 at 11:43 Board Certified Radiologist. This report was verified electronically.
--- NOTE | 2017-03-29 12:17 | HHI.PR ---
Subjective Remarks Sedated and on Prone bed. FIo2 50 %. On PRVC A/C rate 20, PEEP 15 Objective Vital Signs Date Time Temp Pulse Resp B/P (MAP) Pulse Ox O2 Delivery O2 Flow Rate FiO2 03/29/17 09:49 20 03/29/17 09:19 20 03/29/17 08:39 86 108/68 03/29/17 08:00 96.4 85 20 96 108/66 (80) 03/29/17 08:00 50 03/29/17 07:45 93 50 03/29/17 07:00 94 Mechanical Ventilator 50 03/29/17 06:35 20 03/29/17 05:22 2 03/29/17 04:17 95 50 03/29/17 04:00 97.2 89 20 95 102/64 (77) 03/29/17 04:00 50 03/29/17 03:30 20 03/29/17 01:19 94 50 03/29/17 00:30 18 03/29/17 00:00 97.3 95 18 95 122/74 (90) 03/29/17 00:00 50 03/28/17 22:11 93 50 03/28/17 22:00 18 03/28/17 21:26 2 03/28/17 20:31 94 100 03/28/17 20:00 50 03/28/17 20:00 97.2 97 18 98/55 (69) 96 93/74 (80) 03/28/17 19:00 97 Mechanical Ventilator 50 03/28/17 18:48 97 50 03/28/17 18:34 14 03/28/17 18:16 95 104/63 03/28/17 18:00 97.2 95 14 111/71 (84) 97 03/28/17 16:54 50 03/28/17 16:32 96 50 03/28/17 16:00 50 03/28/17 16:00 97.0 97 14 103/51 (68) 96 03/28/17 15:33 14 03/28/17 14:00 97.0 94 14 106/66 (79) 96 03/28/17 13:49 14 03/28/17 12:25 98 50 I/O 03/28/17 03/28/17 03/28/17 03/29/17 03/29/17 03/29/17 07:00 15:00 23:00 07:00 15:00 23:00 Intake Total 622 ml 2120 ml 1727 ml 1076 ml 912 ml Output Total 1010 ml 630 ml 850 ml Balance -388 ml 2120 ml 1097 ml 226 ml 912 ml Intake Oral 0 ml IV Total 622 ml 2120 ml 1425 ml 810 ml 912 ml Tube Feeding 202 ml 206 ml Other 100 ml 60 ml Output Urine Total 1000 ml 630 ml 850 ml Stool Total 0 ml Gastric Drainage Total 10 ml 0 ml # Bowel Movements 0 0 Result Diagram: 03/29/1751403/29/17514 Objective Remarks PHYSICAL EXAMINATION IN GENERAL: This averagely built middle-aged man is intubated, sedated on a throne bed. HEAD, EYES, EARS, NOSE, AND THROAT: Pupils reactive. Sclerae are icteric. Throat not visible. The ET tube in place. NECK: No venous distension. CHEST: Decreased breath sounds at the periphery. Occasional wheezes are heard. HEART: Heart sounds are regular S1-S2. ABDOMEN: Abdomen is soft, slightly protuberant. Bowel sounds not heard. EXTREMITIES: Mild peripheral edema. The patient is sedated and does not move his extremities. DERMATOLOGY: The skin was dry and cool. Assessment and Plan Assessment and Plan IMPRESSION 1. Acute hypoxemic respiratory failure. 2. ARDS 3. Aspiration pneumonia versus pulmonary edema. 4. Cirrhosis of the liver 5. Probable underlying chronic lung disease 6. Ascites. Plan : 1. WEan FIO2 to keep sat >92. 2. Continue Flolan and taper. 3. Antibiotics as ordered. 4. Continue Solumedrol 40 mg IV q8h. 5. Nebs q6h with duoneb. 6. Wean Levophed. 7. CXR ,CBC,BMP in am Mela Becerra MD Mar 29, 2017 12:17
--- NOTE | 2017-03-29 14:46 | HHI.IDPN ---
Subjective Subjective Remarks Hypothermic remains on prone ventilation WBC better from 42+ to 33.9 Antibiotics zyvox levaquin zosyn Allergies: Coded Allergies: clarithromycin (Unverified Allergy, Severe, Rash, 03/19/17) clindamycin (Unverified Allergy, Severe, RASH, 03/19/17) Objective . Vital Signs Date Time Temp Pulse Resp B/P (MAP) Pulse Ox O2 Delivery O2 Flow Rate FiO2 03/29/17 13:52 20 03/29/17 13:02 20 03/29/17 12:32 20 03/29/17 12:08 91 50 03/29/17 12:00 50 03/29/17 12:00 95.2 83 20 93 109/71 (84) 03/29/17 09:19 20 03/29/17 08:39 86 108/68 03/29/17 08:00 96.4 85 20 96 108/66 (80) 03/29/17 08:00 50 03/29/17 07:45 93 50 03/29/17 07:00 94 Mechanical Ventilator 50 03/29/17 06:35 20 03/29/17 05:22 2 03/29/17 04:17 95 50 03/29/17 04:00 97.2 89 20 95 102/64 (77) 03/29/17 04:00 50 03/29/17 03:30 20 03/29/17 01:19 94 50 03/29/17 00:30 18 03/29/17 00:00 97.3 95 18 95 122/74 (90) 03/29/17 00:00 50 03/28/17 22:11 93 50 03/28/17 22:00 18 03/28/17 21:26 2 03/28/17 20:31 94 100 03/28/17 20:00 50 03/28/17 20:00 97.2 97 18 98/55 (69) 96 93/74 (80) 03/28/17 19:00 97 Mechanical Ventilator 50 03/28/17 18:48 97 50 03/28/17 18:34 14 03/28/17 18:16 95 104/63 03/28/17 18:00 97.2 95 14 111/71 (84) 97 03/28/17 16:54 50 03/28/17 16:32 96 50 03/28/17 16:00 50 03/28/17 16:00 97.0 97 14 103/51 (68) 96 03/28/17 15:33 14 03/29/17 03/29/17 03/30/17 15:00 23:00 07:00 Intake Total 1210 ml Balance 1210 ml IV Total 1210 ml . Laboratory Tests Test 03/27/17 20:55 03/28/17 05:15 03/29/17 05:15 White Blood Count 32.2 TH/MM3 42.7 TH/MM3 33.9 TH/MM3 Red Blood Count 2.66 MIL/MM3 2.81 MIL/MM3 2.55 MIL/MM3 Hemoglobin 10.3 GM/DL 10.9 GM/DL 9.9 GM/DL Hematocrit 30.7 % 32.3 % 29.2 % Mean Corpuscular Volume 115.1 FL 114.9 FL 114.7 FL Mean Corpuscular Hemoglobin 38.7 PG 38.6 PG 38.7 PG Mean Corpuscular Hemoglobin Concent 33.6 % 33.6 % 33.7 % Red Cell Distribution Width 17.2 % 17.4 % 17.0 % Platelet Count 201 TH/MM3 262 TH/MM3 277 TH/MM3 Mean Platelet Volume 8.4 FL 8.8 FL 8.0 FL Neutrophils (%) (Auto) 87.7 % Lymphocytes (%) (Auto) 4.1 % Monocytes (%) (Auto) 8.1 % Eosinophils (%) (Auto) 0.0 % Basophils (%) (Auto) 0.1 % Neutrophils # (Auto) 37.5 TH/MM3 Lymphocytes # (Auto) 1.7 TH/MM3 Monocytes # (Auto) 3.5 TH/MM3 Eosinophils # (Auto) 0.0 TH/MM3 Basophils # (Auto) 0.1 TH/MM3 CBC Comment AUTO DIFF AUTO DIFF Differential Total Cells Counted 100 100 Neutrophils % (Manual) 83 % 91 % Band Neutrophils % 6 % 1 % Lymphocytes % 6 % 1 % Monocytes % 3 % 7 % Neutrophils # (Manual) 38.9 TH/MM3 31.2 TH/MM3 Metamyelocytes 1 % Myelocytes 1 % Differential Comment FINAL DIFF MANUAL FINAL DIFF MANUAL Platelet Estimate NORMAL NORMAL Platelet Morphology Comment NORMAL NORMAL Target Cells 1+ Laboratory Tests Test 03/27/17 20:50 03/27/17 20:55 03/28/17 05:15 03/29/17 05:15 Blood Urea Nitrogen 14 MG/DL 19 MG/DL 26 MG/DL Creatinine 0.86 MG/DL 0.96 MG/DL 1.30 MG/DL Random Glucose 187 MG/DL 166 MG/DL 148 MG/DL Total Protein 6.0 GM/DL 6.5 GM/DL 6.4 GM/DL Albumin 2.5 GM/DL 2.9 GM/DL 3.2 GM/DL Calcium Level 8.1 MG/DL 8.6 MG/DL 8.0 MG/DL Phosphorus Level 4.4 MG/DL 4.1 MG/DL Magnesium Level 1.8 MG/DL 1.9 MG/DL Alkaline Phosphatase 107 U/L 104 U/L 83 U/L Aspartate Amino Transf (AST/SGOT) 60 U/L 62 U/L 61 U/L Alanine Aminotransferase (ALT/SGPT) 30 U/L 30 U/L 32 U/L Total Bilirubin 5.0 MG/DL 4.4 MG/DL 3.0 MG/DL Sodium Level 128 MEQ/L 127 MEQ/L 129 MEQ/L Potassium Level 4.8 MEQ/L 4.3 MEQ/L 3.9 MEQ/L Chloride Level 93 MEQ/L 92 MEQ/L 93 MEQ/L Carbon Dioxide Level 25.8 MEQ/L 26.3 MEQ/L 24.5 MEQ/L Anion Gap 9 MEQ/L 9 MEQ/L 12 MEQ/L Estimat Glomerular Filtration Rate 98 ML/MIN 87 ML/MIN 61 ML/MIN Lactic Acid Level 2.1 mmol/L Microbiology Date/Time Source Procedure Growth Status 03/27/17 07:40 Blood Peripheral Aerobic Blood Culture - Preliminary NO GROWTH IN 2 DAYS Resulted 03/27/17 07:40 Blood Peripheral Anaerobic Blood Culture - Preliminary NO GROWTH IN 2 DAYS Resulted 03/27/17 07:40 Blood Peripheral Aerobic Blood Culture - Preliminary NO GROWTH IN 2 DAYS Resulted 03/27/17 07:40 Blood Peripheral Anaerobic Blood Culture - Preliminary NO GROWTH IN 2 DAYS Resulted 03/27/17 21:30 Nasal Aspirate Influenza Types A,B Antigen (KRISTINE) - Final NEGATIVE FOR FLU A AND B ANTIGEN.... Complete 03/27/17 18:00 Sputum Endotracheal Gram Stain - Final Complete 03/27/17 18:00 Sputum Endotracheal Sputum Culture - Final NO GROWTH IN 48 HOURS. Complete 03/27/17 21:30 Urine Clean Catch Legionella Antigen - Final PRESUMPTIVE NEGATIVE FOR LEGIONELLA P... Complete 03/27/17 21:30 Urine Clean Catch Streptococcus pneumoniae Antigen (M - Final PRESUMPTIVE NEGATIVE FOR STREPTOCOCCU... Complete Imaging Last Impressions Chest X-Ray 03/29/17 0600 Signed Impressions: Service Date/Time: Wednesday, March 29, 2017 10:03 - CONCLUSION: 1. The ET tube is somewhat high approximately 7 cm above the antonio. 2. The remainder of the port with its in good position. 3. Continued diffuse parenchymal infiltrate and consolidation concerning for pneumonia/ARDS. Bo Wall MD CT Angiography 03/27/17 0000 Signed Impressions: Service Date/Time: Monday, March 27, 2017 03:55 - CONCLUSION: 1. Mixed groundglass opacity and airspace consolidation in both upper lobes. Differential diagnosis includes infection, aspiration and pulmonary hemorrhage. 2. Moderate pleural effusions with dependent consolidation and atelectasis at both lung bases. 3. Hepatomegaly with ascites. 4. Contrast bolus suboptimal but no pulmonary emboli identified. Kyle Thorpe MD Abdomen Ultrasound 03/25/17 0000 Signed Impressions: Service Date/Time: Saturday, March 25, 2017 10:49 - CONCLUSION: 1. Very subtle ascites without sufficient pocket for safe paracentesis. Hipolito Palencia MD Cyst Biopsy Asp-Paracentesis US 03/20/17 0600 Signed Impressions: Service Date/Time: Monday, March 20, 2017 09:42 - CONCLUSION: Uncomplicated ultrasound guided paracentesis. Kareem Mahan MD Lower Extremity Ultrasound 03/19/17 1441 Signed Impressions: Service Date/Time: Sunday, March 19, 2017 15:40 - CONCLUSION: 1. No evidence of deep venous thrombosis. Claudio Argueta MD Liver Ultrasound 03/19/17 0000 Signed Impressions: Service Date/Time: Sunday, March 19, 2017 18:23 - CONCLUSION: 1. Moderate ascites. Thickened gallbladder wall with sludge. Mild hepatosplenomegaly. Kyle Thorpe MD Physical Exam CONSTITUTIONAL/GENERAL: This is an adequately nourished patient, sedated intubated, paralysed in prone position in rotaprobne bed TUBES/LINES/DRAINS: SKIN: No jaundice, rashes, or lesions. HEAD: Unable to assess 2/2 prone position EYES: Unable to assess 2/2 prone position ENT: Face quite edematous Unable to assess 2/2 prone position NECK: very edematous Unable to assess 2/2 prone position CARDIOVASCULAR: Regular rate and rhythm on th e monitor . Well perfused perifery RESPIRATORY/CHEST: clear posteriorly to auscultation. GASTROINTESTINAL:Unable to assess 2/2 prone position GENITOURINARY: Bowden catheter in place with clear yellow urine MUSCULOSKELETAL: Extremities without clubbing, cyanosis, or edema. LYMPHATICS: Unable to assess 2/2 prone position NEUROLOGICAL:Sedated and paralyzed PSYCHIATRIC:Unable to assess 2/2 heavy sedation Assessment & Plan Remarks PNA, culture negative Acute VDRF, very unstable remains on prone ventilation Liver cisrrosis Critically ill and unstable cont broad spectrum abx fu P clx will chk crypto serologies further rec's to follow per clinical status and results dw Elda Jeffery MD Mar 29, 2017 14:46
[2017-03-29] MEDS: EPOPROSTENOL NEB SOLUTION 10 NG/KG/MIN 100 ML NEB SCH ×4 (15:16→23:00)
[2017-03-29] MEDS ORDERED: METOCLOPRAMIDE HCL 10 MG/2 ML VIAL IV PUSH ONE (17:15)
--- NOTE | 2017-03-29 19:05 | HHI.GIFU ---
Subjective Remarks Sedated, on rotaprone bed. Family at bedside. There is a very scant amount of red blood in ogt, but this only occurred after dobhoff was placed and otherwise has been draining yellow/bilious material. No BM since arrival to [facility] per nurse. (Claudia Harvey) Objective Vitals I&O Vital Signs Date Time Temp Pulse Resp B/P (MAP) Pulse Ox O2 Delivery O2 Flow Rate FiO2 03/29/17 18:44 90 105/64 03/29/17 18:29 20 03/29/17 17:32 97 50 03/29/17 16:00 96.4 87 20 95 106/73 (84) 03/29/17 16:00 50 03/29/17 15:52 20 03/29/17 15:22 20 03/29/17 13:52 20 03/29/17 12:32 20 03/29/17 12:08 91 50 03/29/17 12:00 50 03/29/17 12:00 95.2 83 20 93 109/71 (84) 03/29/17 09:19 20 03/29/17 08:39 86 108/68 03/29/17 08:00 96.4 85 20 96 108/66 (80) 03/29/17 08:00 50 03/29/17 07:45 93 50 03/29/17 07:00 94 Mechanical Ventilator 50 03/29/17 06:35 20 03/29/17 05:22 2 03/29/17 04:17 95 50 03/29/17 04:00 97.2 89 20 95 102/64 (77) 03/29/17 04:00 50 03/29/17 03:30 20 03/29/17 01:19 94 50 03/29/17 00:30 18 03/29/17 00:00 97.3 95 18 95 122/74 (90) 03/29/17 00:00 50 03/28/17 22:11 93 50 03/28/17 22:00 18 03/28/17 21:26 2 03/28/17 20:31 94 100 03/28/17 20:00 50 03/28/17 20:00 97.2 97 18 98/55 (69) 96 93/74 (80) 03/28/17 19:00 97 Mechanical Ventilator 50 I/O 03/28/17 03/28/17 03/28/17 03/29/17 03/29/17 03/29/17 07:00 15:00 23:00 07:00 15:00 23:00 Intake Total 622 ml 2120 ml 1727 ml 1076 ml 1210 ml 1119 ml Output Total 1010 ml 630 ml 850 ml 1150 ml Balance -388 ml 2120 ml 1097 ml 226 ml 1210 ml -31 ml Intake Oral 0 ml IV Total 622 ml 2120 ml 1425 ml 810 ml 1210 ml 719 ml Tube Feeding 202 ml 206 ml 300 ml Other 100 ml 60 ml 100 ml Output Urine Total 1000 ml 630 ml 850 ml 750 ml Stool Total 0 ml Gastric Drainage Total 10 ml 0 ml 400 ml # Bowel Movements 0 0 0 Laboratory Laboratory Tests Test 03/28/17 21:39 03/28/17 22:51 03/29/17 04:44 03/29/17 05:15 Blood Gas Puncture Site ART LINE ART LINE LAURIE Blood Gas Patient Temperature 98.6 98.6 98.6 Blood Gas HCO3 23 23 24 Blood Gas Base Excess -4.3 -2.2 -0.7 Blood Gas Oxygen Saturation 93 94 94 Arterial Blood pH 7.17 7.31 7.37 Arterial Blood Partial Pressure CO2 65 48 43 Arterial Blood Partial Pressure O2 96 85 79 Arterial Blood Oxygen Content 13.1 13.9 12.6 Arterial Blood Carboxyhemoglobin 1.0 1.3 1.3 Arterial Blood Methemoglobin 1.1 1.1 0.9 Blood Gas Hemoglobin 9.8 10.4 9.5 Oxygen Delivery Device VENTILATOR VENTILATOR VENTILATOR Blood Gas Ventilator Setting SEE COMMENT SEE COMMENT SEE COMMENT Blood Gas Inspired Oxygen 50 50 50 White Blood Count 33.9 Red Blood Count 2.55 Hemoglobin 9.9 Hematocrit 29.2 Mean Corpuscular Volume 114.7 Mean Corpuscular Hemoglobin 38.7 Mean Corpuscular Hemoglobin Concent 33.7 Red Cell Distribution Width 17.0 Platelet Count 277 Mean Platelet Volume 8.0 CBC Comment AUTO DIFF Differential Total Cells Counted 100 Neutrophils % (Manual) 91 Band Neutrophils % 1 Lymphocytes % 1 Monocytes % 7 Neutrophils # (Manual) 31.2 Differential Comment FINAL DIFF MANUAL Platelet Estimate NORMAL Platelet Morphology Comment NORMAL Blood Urea Nitrogen 26 Creatinine 1.30 Random Glucose 148 Total Protein 6.4 Albumin 3.2 Calcium Level 8.0 Alkaline Phosphatase 83 Aspartate Amino Transf (AST/SGOT) 61 Alanine Aminotransferase (ALT/SGPT) 32 Total Bilirubin 3.0 Sodium Level 129 Potassium Level 3.9 Chloride Level 93 Carbon Dioxide Level 24.5 Anion Gap 12 Estimat Glomerular Filtration Rate 61 Vancomycin Level Trough 25.7 Date/Time Source Procedure Growth Status 03/27/17 07:40 Blood Peripheral Aerobic Blood Culture - Preliminary NO GROWTH IN 2 DAYS Resulted 03/27/17 07:40 Blood Peripheral Anaerobic Blood Culture - Preliminary NO GROWTH IN 2 DAYS Resulted 03/20/17 11:00 Fluid Peritoneal Fluid Gram Stain - Final Complete 03/20/17 11:00 Fluid Peritoneal Fluid Body Fluid Culture - Final NO GROWTH IN 72 HRS.--AEROBICALLY OR ... Complete 03/27/17 21:30 Nasal Aspirate Influenza Types A,B Antigen (KRISTINE) - Final NEGATIVE FOR FLU A AND B ANTIGEN.... Complete 03/27/17 21:30 Urine Clean Catch Legionella Antigen - Final PRESUMPTIVE NEGATIVE FOR LEGIONELLA P... Complete 03/27/17 21:30 Urine Clean Catch Streptococcus pneumoniae Antigen (M - Final PRESUMPTIVE NEGATIVE FOR STREPTOCOCCU... Complete Imaging Last Impressions Chest X-Ray 03/29/17 0600 Signed Impressions: Service Date/Time: Wednesday, March 29, 2017 10:03 - CONCLUSION: 1. The ET tube is somewhat high approximately 7 cm above the antonio. 2. The remainder of the port with its in good position. 3. Continued diffuse parenchymal infiltrate and consolidation concerning for pneumonia/ARDS. Bo Wall MD Abdomen X-Ray 03/29/17 0000 Signed Impressions: Service Date/Time: Wednesday, March 29, 2017 10:15 - CONCLUSION: Feeding tube antrum of the stomach. Roland Wall MD FACR CT Angiography 03/27/17 0000 Signed Impressions: Service Date/Time: Monday, March 27, 2017 03:55 - CONCLUSION: 1. Mixed groundglass opacity and airspace consolidation in both upper lobes. Differential diagnosis includes infection, aspiration and pulmonary hemorrhage. 2. Moderate pleural effusions with dependent consolidation and atelectasis at both lung bases. 3. Hepatomegaly with ascites. 4. Contrast bolus suboptimal but no pulmonary emboli identified. Kyle Thorpe MD Abdomen Ultrasound 03/25/17 0000 Signed Impressions: Service Date/Time: Saturday, March 25, 2017 10:49 - CONCLUSION: 1. Very subtle ascites without sufficient pocket for safe paracentesis. Hipolito Palencia MD Cyst Biopsy Asp-Paracentesis US 03/20/17 0600 Signed Impressions: Service Date/Time: Monday, March 20, 2017 09:42 - CONCLUSION: Uncomplicated ultrasound guided paracentesis. Kareem Mahan MD Lower Extremity Ultrasound 03/19/17 1441 Signed Impressions: Service Date/Time: Sunday, March 19, 2017 15:40 - CONCLUSION: 1. No evidence of deep venous thrombosis. Claudio Argueta MD Liver Ultrasound 03/19/17 0000 Signed Impressions: Service Date/Time: Sunday, March 19, 2017 18:23 - CONCLUSION: 1. Moderate ascites. Thickened gallbladder wall with sludge. Mild hepatosplenomegaly. Kyle Thorpe MD Physical Exam HEENT: On rotaprone bed CHEST: Course breath sounds. 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 US guided paracentesis (03/20/17)---> 3,300cc removed. Peritoneal WBC 579, RBC 140. Peritoneal cx no growth 72 hours. Spironolactone, Albumin - Constipation, abdominal distention. Nurse reports no bowel movements since arrival to [facility]. He is on lactulose. Will add reglan. - Elevated liver enzymes, liver cirrhosis. Liver US (03/19/17)---> Moderate ascites. Thickened gallbladder wall with sludge, mild hepatomegaly. ALEJA negative, AMA 79.7, ASMA negative, Ceruloplasmin 20, Alpha 1 Antitrypsin 180, Hepatitis profile negative AFP 2.1. Iron saturation 102.2%, Ferritin 840, Hfe gene C282Y one mutation identified, H63D, S65C not detected. ? Liver bx at some point, timing to be determined. He was started on Ursodiol. LFts trending down. - Elevated Iron Saturation. Hfe gene C282Y one mutation identified, H63D, S65C not detected. - (+) AMA. Started on Actigal, ? liver biopsy when stable. - Leukocytosis. WBC 33.9. Not having diarrhea. Bilateral pna. Peritoneal cx negative x 72 hours. BCx no growth 2/5 day, sputum cx neg, Urine negative for legionella, streptococcus pneumoniae. On Zyvox, Levaquin , Zosyn - Anemia. HH 10.9/32.3 - Thrombocytopenia, improved - Hepatic encephalopathy, lactulose. Sedated on vent. - Hyponatremia, per attending. - Respiratory failure, bilateral pneumonia, ARDS. vent per CCM, on Rotaprone PLAN: - TF via Dobhoff - Add Reglan - Cont Albumin - Cont Ursodiol - Cont Protonix - Cont. Lactulose - Cont. Spironolactone - Monitor labs - Monitor I/O - Supportive care - ? liver biopsy when stable - Will need egd with band ligation, timing to be determined (inpatient vs. outpatient)-inpatient if active bleeding, otherwise when stable - Further recommendations to follow based on results of above - Pt seen and examined by Dr. Maldonado and myself and this note is written on her behalf (Claudia Harvey) Claudia Harvey Mar 29, 2017 19:05 Jacqueline Maldonado MD Mar 29, 2017 19:18
[2017-03-29] MEDS: METOCLOPRAMIDE HCL 10 MG/2 ML VIAL IV PUSH SCH (22:00)
[2017-03-30] VITALS (12 sets, daily range): BP systolic 92–118; BP diastolic 52–70; PULSE 83–90; RESP 11–20; TEMP 97.5–99; O2SAT 92–98
[2017-03-30] MEDS: PIPERACIL-TAZO 4.5 GM PREMIX 100 ML IV SCH ×4 (00:21→17:27)
[2017-03-30] MEDS: HYDROmorphone HCL PCA 6 MG/30 ML IV SCH ×5 (00:22→17:38)
[2017-03-30] MEDS: CISATRACURIUM INJ 100 MG in SODIUM CHLOR 0.9% 250 ML INJ 250 ML IV PRN ×2 (00:53→05:48)
[2017-03-30] MEDS: RESP: ALBUTEROL 2.5 MG/IPRATROPIUM 0.5 MG NEB (SCH) NEB ×6 (01:20→20:32)
[2017-03-30] MEDS: ALBUMIN HUMAN 25% 25 GM/100 ML BAGP IV SCH ×2 (03:04→13:07)
[2017-03-30] MEDS: PROPOFOL 1000 MG/100 ML IV PRN ×5 (03:04→17:27)
[2017-03-30] MEDS: INSULIN NovoLIN REGULAR SUPPLEMENTAL SCALE SQ SCH ×6 (04:00→19:56)
[2017-03-30 05:01] LABS: BLOOD GAS CARBOXYHEMOGLOBIN 1.3 % (0-4); BLOOD GAS HCO3 25 mmol/L (22-26); BLOOD GAS METHEMOGLOBIN 1.1 % (0-2); BLOOD GAS O2 HGB SATURATION 95 % (90-100); BLOOD GAS OXYGEN CONTENT 12.9 Vol % (12.0-20.0); BLOOD GAS PCO2 40 mmHg (38-42); BLOOD GAS PO2 94 mmHg (61-120); BLOOD GAS TOTAL HGB 9.5 G/DL (12.0-16.0); CRITICAL VALUE NO; OXYGEN DEVICE VENTILATOR; TEMP CORR TO 98.6
[2017-03-30 05:02] LABS: DRAW SITE LT RADIAL; FIO2 50 %; NUMBER OF ARTERIAL PUNCTURES 1; STAT NO; ULNAR PULSE PRESENT; VENT SETTINGS PRVC/20/500/1.0/+15
[2017-03-30] MEDS: methylPREDNISolone SOD SUCC 40 MG/1 ML VIAL IV PUSH SCH ×3 (05:43→22:32)
[2017-03-30] MEDS: LEVOFLOXACIN 750 MG PREMIX INJ 150 ML IV SCH (05:43)
[2017-03-30] MEDS: METOCLOPRAMIDE HCL 10 MG/2 ML VIAL IV PUSH SCH ×3 (05:44→22:32)
[2017-03-30] MEDS: PCA - TOTAL MG DILAUDID DELIVERED PER SHIFT OTHER SCH ×3 (05:45→22:00)
[2017-03-30 05:57] LABS: HEMATOCRIT 27.8 % (39.0-51.0); MEAN CELL VOLUME 113.8 FL (80.0-100.0); MEAN CORPUSCULAR HEMOGLOBIN 39.4 PG (27.0-34.0); MEAN CORPUSCULAR HGB CONC 34.6 % (32.0-36.0); PLATELET COUNT 200 TH/MM3 (150-450); RED BLOOD COUNT 2.45 MIL/MM3 (4.50-5.90); WHITE BLOOD COUNT 22.8 TH/MM3 (4.0-11.0)
[2017-03-30 06:03] LABS: HEMO FLAGS AUTO DIFF
[2017-03-30 06:08] LABS: GLOMERULAR FILTRATION RATE 46 ML/MIN (>89)
[2017-03-30] MEDS: MIDAZOLAM 100 MG/100 ML INJ 100 ML IV PRN ×2 (06:55→17:26)
[2017-03-30 07:36] LABS: BLOOD UREA NITROGEN 31 MG/DL (7-18); CHLORIDE 95 MEQ/L (98-107); POTASSIUM 4.2 MEQ/L (3.5-5.1); SODIUM (NA) 131 MEQ/L (136-145)
[2017-03-30 07:40] LABS: AST (GOT) 68 U/L (15-37)
[2017-03-30 07:41] LABS: TOTAL BILIRUBIN ADULT 2.3 MG/DL (0.2-1.0)
[2017-03-30 08:00] LABS: ANION GAP 11 MEQ/L (5-15); BICARBONATE 24.6 MEQ/L (21.0-32.0)
[2017-03-30] MEDS: CHLORHEXIDINE 0.12% (ORAL KIT) 15 ML CUP MT SCH ×2 (08:00→19:55)
[2017-03-30 08:03] LABS: ALKALINE PHOSPHATASE 72 U/L (45-117); ALT (GPT) 39 U/L (12-78)
[2017-03-30] MEDS: LACTULOSE SYRUP 20 GM/30 ML CUP PO SCH (08:17)
[2017-03-30] MEDS: HEPARIN SODIUM - SQ 10,000 UNITS/ML VIAL SQ SCH ×2 (08:17→19:56)
[2017-03-30] MEDS: SPIRONOLACTONE 25 MG TAB PO SCH ×2 (08:18→18:00)
[2017-03-30] MEDS: FOLIC ACID 1 MG TAB PO SCH (08:18)
[2017-03-30] MEDS: THIAMINE HCL 100 MG TAB PO SCH (08:18)
[2017-03-30] MEDS: MULTIVITAMIN TAB PO SCH (08:18)
[2017-03-30] MEDS: LINEZOLID 600 MG PREMIX 300 ML IV SCH ×2 (08:19→19:55)
[2017-03-30] MEDS: ARTIFICIAL TEARS OPTH OINT 3.5 APPLIC/3.5 GM TUBO EACH EYE SCH ×2 (08:19→19:56)
[2017-03-30] MEDS: PANTOPRAZOLE SODIUM 40 MG VIAL IV SCH (08:19)
--- NOTE | 2017-03-30 08:54 | HHI.CCPN ---
Subjective Remarks/Hospital Course 03/26: This is a 42-year-old male. Date of admission 03/19/2017. Date of consultation 03/27/2017. Past medical history includes EtOH use abuse, tobaccoism, hypertension Gastroesophageal reflux disease and DDD. Patient is on Suboxone for prior opiate abuse. He drinks one bottle of vodka daily patient is on chronic alprazolam at home on lactulose and Lasix. Patient was originally admitted with abdominal ascites. Status post paracentesis 03/20-3300 cc. Possible SBP. Placed on ceftriaxone. Blood work included a positive AMA and elevated iron studies. GS re-consulted. Over the past 24 hours. Patient has had increased oxygen requirements from 4 L currently 2 nonrebreather. He denies chest pressure respiratory denies cough. No significant peripheral edema. Patient's abdomen is quite distended however ultrasound reveals minimal ascites. Awake and alert. His only complaint is "dry throat from aerosolized mask 03/27: Patient developed worsening respiratory distress during the day and was placed on BiPAP with full facemask. He was requiring 100% FiO2 with BiPAP settings at +15/+8. His respiratory status declined as a day progress. Had multiple discussions with patient as well as his family members including reviewing his CT chest from early this morning which revealed extensive pulmonary infiltrates (right greater than left) and explained probable need for proceeding with intubation and mechanical ventilation. Subsequently patient's O2 sats dropped in the upper 80s despite BiPAP and patient was intubated and placed on mechanical ventilation around 6 PM. I subsequently proceeded with central line placement. Postintubation chest x-ray revealed extensive bilateral pulmonary infiltrates which appeared to have progress since his previous chest x-ray. Patient was requiring high doses of sedatives including Versed/fentanyl and propofol drips to keep him sedated. 03/28: Patient placed on prone ventilation last night and inhaled Flolan. Currently sedated, orally intubated on mechanical ventilation. On neuromuscular blockade. Remains on Versed/propofol/Dilaudid drips for sedation. Nimbex for neuromuscular blockade. 03/29: Remains sedated, orally intubated on mechanical ventilation, on neuromuscular blockade. Inhaled Flolan to be decreased from 20,000 ng per KG per minute to 10,000 ng per KG per minute this morning. O2 sats in the mid 90s. Vent mode change from pressure control to PRVC last night for elevation of PCO2. 09/16: Down to FiO2 0.50, PEEP 15. Will convert to regular bed. Leave on PRVC. Update, converted to APRV due to lack of progress on conventional mode. Improved PO2 to 114 and no CO2 retention. Objective Vital Signs Date Time Temp Pulse Resp B/P (MAP) Pulse Ox O2 Delivery O2 Flow Rate FiO2 03/30/17 05:45 18 03/30/17 04:00 50 03/30/17 04:00 98.8 90 97/52 (67) 95 114/67 (83) 03/29/17 19:00 Mechanical Ventilator 03/27/17 22:59 15.00 Intake and Output 03/30/17 03/30/17 03/31/17 08:00 16:00 00:00 Intake Total 1055 ml Output Total 850 ml Balance 205 ml Result Diagram: 03/30/1725 03/30/17524 Other Results Microbiology Date/Time Source Procedure Growth Status 03/27/17 21:30 Nasal Aspirate Influenza Types A,B Antigen (KRISTINE) - Final NEGATIVE FOR FLU A AND B ANTIGEN.... Complete 03/27/17 18:00 Sputum Endotracheal Gram Stain - Final Complete 03/27/17 18:00 Sputum Endotracheal Sputum Culture - Final NO GROWTH IN 48 HOURS. Complete 03/27/17 21:30 Urine Clean Catch Legionella Antigen - Final PRESUMPTIVE NEGATIVE FOR LEGIONELLA P... Complete 03/27/17 21:30 Urine Clean Catch Streptococcus pneumoniae Antigen (M - Final PRESUMPTIVE NEGATIVE FOR STREPTOCOCCU... Complete Laboratory Tests Test 03/30/17 04:50 Blood Gas Puncture Site LT RADIAL Blood Gas Patient Temperature 98.6 Blood Gas HCO3 25 mmol/L (22-26) Blood Gas Base Excess 1.0 mmol/L (-2-2) Blood Gas Oxygen Saturation 95 % (90-100) Arterial Blood pH 7.41 (7.380-7.420) Arterial Blood Partial Pressure CO2 40 mmHg (38-42) Arterial Blood Partial Pressure O2 94 mmHg (61-120) Arterial Blood Oxygen Content 12.9 Vol % (12.0-20.0) Arterial Blood Carboxyhemoglobin 1.3 % (0-4) Arterial Blood Methemoglobin 1.1 % (0-2) Blood Gas Hemoglobin 9.5 G/DL (12.0-16.0) Oxygen Delivery Device VENTILATOR Blood Gas Ventilator Setting PRVC/20/500/1.0/+15 Blood Gas Inspired Oxygen 50 % Imaging Chest x-ray portable done on 03/27 post intubation was personally reviewed: ET tube above antonio, right IJ central line with tip overlying SVC, NG tube in place, extensive bilateral infiltrates involving almost the entire lung lopez. Last [address] Angiography 03/27/17 0000 Signed Impressions: Service Date/Time: Monday, March 27, 2017 03:55 - CONCLUSION: 1. Mixed groundglass opacity and airspace consolidation in both upper lobes. Differential diagnosis includes infection, aspiration and pulmonary hemorrhage. 2. Moderate pleural effusions with dependent consolidation and atelectasis at both lung bases. 3. Hepatomegaly with ascites. 4. Contrast bolus suboptimal but no pulmonary emboli identified. Kyle Thorpe MD Last Impressions Chest X-Ray 03/26/17 0000 Signed Impressions: Service Date/Time: Sunday, March 26, 2017 10:30 - CONCLUSION: 1. New alveolar infiltrates in both lungs which may represent pulmonary edema which may be noncardiogenic in origin. 2. Denser course infiltrates in both lung bases likely representing scarring. Ap Zamora MD Abdomen Ultrasound 03/25/17 0000 Signed Impressions: Service Date/Time: Saturday, March 25, 2017 10:49 - CONCLUSION: 1. Very subtle ascites without sufficient pocket for safe paracentesis. Hipolito Palencia MD Cyst Biopsy Asp-Paracentesis US 03/20/17 0600 Signed Impressions: Service Date/Time: Monday, March 20, 2017 09:42 - CONCLUSION: Uncomplicated ultrasound guided paracentesis. Kareem Mahan MD Lower Extremity Ultrasound 03/19/17 1441 Signed Impressions: Service Date/Time: Sunday, March 19, 2017 15:40 - CONCLUSION: 1. No evidence of deep venous thrombosis. Claudio Argueta MD Liver Ultrasound 03/19/17 0000 Signed Impressions: Service Date/Time: Sunday, March 19, 2017 18:23 - CONCLUSION: 1. Moderate ascites. Thickened gallbladder wall with sludge. Mild hepatosplenomegaly. Kyle Thorpe MD Objective Remarks HEENT/ Neuro: Sedated, on neuromuscular blockade, pupils 2 mm bilaterally constricted. Neck: Right IJ central line in place. Orally intubated. Chest/Pulm: on mech vent on Rota prone bed, good air entry bilaterally, diffuse bilateral rhonchi, no wheezing/ crackles CVS: S1-S2 regular, no murmur GI/abdomen: soft, distended nontender, bowel sounds active Extremities: warm bilaterally, trace edema Date of Insertion: Mar 27, 2017 Line: Central Venous Catheter Side: Right Location: Internal, Jugular A/P Assessment and Plan Neuro/Psych: History of oxycodone use Anxiety disorder on chronic alprazolam History of hepatic encephalopathy Patient was on his home Suboxone 8 mg 4 times a day till 03/28 which was held following intubation as patient requiring deep sedation and neuromuscular blockade. Starting propofol/Versed gtt. as well as Dilaudid [employer] 2 mg/h basal rate.. Dilaudid 2 mg IV every 3 hourly scheduled for 72 hours up to 03/30/17 while waiting for buprenorphine to wear off and will then plan on transitioning to fentanyl gtt from Dilaudid [employer]. Continue neuromuscular blockade with Nimbex in view of ARDS to facilitate mechanical ventilation. Added Librium 20 mg every 12 hourly in view of history of alcohol abuse. Continue thiamine/folic acid/MVI via OG tube. On lorazepam 1 mg every 2 hours when necessary anxiety On alprazolam 1 mg by mouth every 6 hours chronically. CV: Sinus tachycardia History of hypertension Hypotension Levophed for pressor support. Continue spironolactone for fluid retention secondary to liver disease. Diurese to keep even fluid balance Resp: Acute hypoxemic respiratory failure Bilateral pneumonia ARDS Tobaccoism CT chest on 03/27 with extensive bilateral infiltrates right greater than left. Progressive respiratory failure with borderline O2 sats on BiPAP hence was intubated and placed on mechanical ventilation on 03/27. Continue mechanical ventilation with PRVC with tidal volume 500, rate 16, FiO2 50%, PEEP +15. Follow up ABGs. Allow permissive hypercapnia Albuterol/ipratropium aerosols every 4 hours with albuterol aerosols every 2 hours when necessary Titrate off inhaled Flolan if tolerated Continue Solu-Medrol 40 mg IV every 8 hourly Nicotine patch at 21 mg daily GI/liver: Likely cirrhosis - Will need liver biopsy Abdominal ascites AMA positive. Elevated iron studies. Pending hepatitis panel. Appears to be carrier for hemochromatosis gene ? Significance. Status post paracentesis 03/20. -3300. Abdominal ultrasound 03/25. Not sufficient fluid for paracentesis Ursodiol to be continued possible primary biliary cirrhosis Noted 579 WBC and peritoneal fluid however peritoneal fluid cultures negative. Was on Rocephin from 03/20 - 03/27 Continue lactulose 30 cc daily. Continue spironolactone. Continue Lasix 40 mg daily. Start tube feeds with Neutra hep and advance to goal of 60 cc an hour once Dobbhoff placed. : Bowden catheterization for accurate intake output in critically ill patient with sepsis/pneumonia Endo: Sliding-scale insulin if needed for glycemic control. Renal: Strict intake output, monitor and replete electrolytes, follow BUN/creatinine. Heme: Leukocytosis Macrocytic anemia Thrombocytopenia Monitor CBC daily. Follow trends. Continue MVI/folic acid. No indications for transfusion of blood products at this time ID: Sepsis/pneumonia with ARDS SBP - culture negative On Rocephin from 03/20 -03/27. Status post 1 dose vancomycin 03/27. Zosyn started 03/27. Added Zyvox 600 mg IV every 12 hourly on 03/27 following intubation. ID consult requested for sepsis/severe pneumonia. Recheck blood cultures 2, urine antigens. Urine negative for strep pneumo and Legionella antigen Sputum for Gram stain and cultures following intubation in process MSK: Physical therapy FEN: Hyponatremia Hypo-magnesium Hyponatremia workup see orders osm serum, urine, urine sodium, TSH, cortisol uric acid, triglycerides. Replacing electrolytes as clinically indicated Access -Placed right IJ central line 03/27. Prophylaxis - GI - pantoprazole - DVT - SCD/ pharmacological prophylaxis with subcutaneous heparin 5000 units every 12 hourly. Extensive discussion on 03/27 with patient's family members and with patient at bedside on multiple occasions during the day and following intubation with family members regarding severity of pneumonia and need for mechanical ventilation including neuromuscular blockade and they voiced understanding and were agreeable and appreciative of care provided. Also explained that if patient's restless status does not improve over the next 2 weeks he may require tracheostomy. Condition remains extremely critical. Continue neuromuscular blockade. Dr. Stoddard updated patient's mother on 03/28 and 03/29 regarding current clinical status including prone ventilation and possible need for prolonged mechanical ventilation. She voiced understanding and was agreeable with plan of care. Overall impression: Condition remains extremely critical with severe ARDS on prone ventilation, neuromuscular blockade and inhaled Flolan. Remains critically ill. Critical Care 38 mins Donn Davalos MD Mar 30, 2017 08:53
[2017-03-30 09:11] LABS: NEUTROPHIL # MANUAL DIFF 20.3 TH/MM3 (1.8-7.7); POLYS (SEG NEUTROPHILS) 89 % (16-70); TOXIC VACUOLATION PRESENT (NONE SEEN); WBC DIFF SAMPLE 100
[2017-03-30 09:12] LABS: SCAN/DIFF FINAL DIFF MANUAL; TARGET CELLS 1+ (NORMAL)
[2017-03-30] MEDS: RESP: BUDESONIDE 0.5 MG/2 ML NEB NEB SCH ×2 (09:24→20:32)
[2017-03-30] MEDS: NOREPINEPHRINE INJ 4 MG in SODIUM CHLOR 0.9% 250 ML INJ 250 ML IV PRN (10:28)
--- NOTE | 2017-03-30 10:30 | RADRPT ---
EXAM DATE/TIME: 03/30/2017 10:02 [facility] COMPARISON: CHEST SINGLE AP, March 29, 2017, 10:03. INDICATIONS : Shortness of breath- ARDS. MEDICAL HISTORY : Hypertension. Cardiovascular disease. Cirrhosis. SURGICAL HISTORY : None. ENCOUNTER: Subsequent ACUITY: 1 week PAIN SCORE: Non-responsive. LOCATION: Bilateral chest FINDINGS: ET tube, NG tube, feeding tube, and right internal jugular central line are well placed. The heart si ze is normal. There is increased density throughout the lungs being worse on the right. Significant e ffusions are not clearly identified. CONCLUSION: Diffuse consolidation seen much worse on the right likely related to underlying processes such as kavin ma, diffuse infection, or ARDS. Aaron Moscoso MD on March 30, 2017 at 10:27 Board Certified Radiologist. This report was verified electronically.
[2017-03-30] MEDS: URSODIOL 300 MG CAP PO SCH ×3 (10:45→17:26)
[2017-03-30] MEDS: SODIUM CHLORIDE 0.9% FLUSH 10 ML FLUSH IV FLUSH SCH ×2 (10:45→19:56)
[2017-03-30 11:35] LABS: BLOOD GAS BASE EXCESS -2.8 mmol/L (-2-2); BLOOD GAS CARBOXYHEMOGLOBIN 1.3 % (0-4); BLOOD GAS HCO3 21 mmol/L (22-26); BLOOD GAS METHEMOGLOBIN 1.1 % (0-2); BLOOD GAS O2 HGB SATURATION 95 % (90-100); BLOOD GAS OXYGEN CONTENT 11.9 Vol % (12.0-20.0); BLOOD GAS PCO2 35 mmHg (38-42); BLOOD GAS PO2 90 mmHg (61-120); BLOOD GAS TOTAL HGB 8.8 G/DL (12.0-16.0); CRITICAL VALUE NO; OXYGEN DEVICE VENTILATOR; TEMP CORR TO 98.6
[2017-03-30 11:36] LABS: DRAW SITE ART LINE; FIO2 50 %; STAT NO
[2017-03-30 16:42] LABS: BLOOD GAS BASE EXCESS -0.9 mmol/L (-2-2); BLOOD GAS CARBOXYHEMOGLOBIN 1.2 % (0-4); BLOOD GAS HCO3 23 mmol/L (22-26); BLOOD GAS METHEMOGLOBIN 1.1 % (0-2); BLOOD GAS O2 HGB SATURATION 96 % (90-100); BLOOD GAS OXYGEN CONTENT 12.9 Vol % (12.0-20.0); BLOOD GAS PCO2 39 mmHg (38-42); BLOOD GAS PO2 114 mmHg (61-120); BLOOD GAS TOTAL HGB 9.3 G/DL (12.0-16.0); CRITICAL VALUE NO; DRAW SITE ART LINE; FIO2 50 %; OXYGEN DEVICE VENTILATOR; STAT NO; TEMP CORR TO 98.6
[2017-03-31] VITALS (15 sets, daily range): BP systolic 102–122; BP diastolic 54–64; PULSE 78–107; RESP 10–18; TEMP 97.5–98.4; O2SAT 95–98
[2017-03-31] MEDS: PIPERACIL-TAZO 4.5 GM PREMIX 100 ML IV SCH ×4 (00:23→17:34)
[2017-03-31] MEDS: PROPOFOL 1000 MG/100 ML IV PRN ×4 (00:23→19:57)
[2017-03-31] MEDS: RESP: ALBUTEROL 2.5 MG/IPRATROPIUM 0.5 MG NEB (SCH) NEB (00:49)
[2017-03-31] MEDS: ALBUMIN HUMAN 25% 25 GM/100 ML BAGP IV SCH ×2 (03:00→13:07)
[2017-03-31] MEDS: INSULIN NovoLIN REGULAR SUPPLEMENTAL SCALE SQ SCH ×6 (04:00→20:00)
[2017-03-31 04:33] LABS: AUTOMATED NEUTROPHIL # 21.8 TH/MM3 (1.8-7.7); BASOPHIL # 0.1 TH/MM3 (0-0.2); BASOPHIL % 0.3 % (0.0-2.0); LYMPH % 4.6 % (9.0-44.0); LYMPHOCYTE # 1.2 TH/MM3 (1.0-4.8); MEAN CELL VOLUME 113.4 FL (80.0-100.0); MEAN CORPUSCULAR HEMOGLOBIN 38.3 PG (27.0-34.0); MEAN CORPUSCULAR HGB CONC 33.8 % (32.0-36.0); MONO % 8.7 % (0.0-8.0); NEUT % 86.4 % (16.0-70.0); PLATELET COUNT 256 TH/MM3 (150-450); RED BLOOD COUNT 2.65 MIL/MM3 (4.50-5.90); RED CELL DISTRIBUTION WIDTH 17.2 % (11.6-17.2); WHITE BLOOD COUNT 25.3 TH/MM3 (4.0-11.0)
[2017-03-31 04:50] LABS: HEMO FLAGS AUTO DIFF
[2017-03-31 04:52] LABS: BICARBONATE 27.2 MEQ/L (21.0-32.0); POTASSIUM 4.2 MEQ/L (3.5-5.1)
[2017-03-31] MEDS: LEVOFLOXACIN 750 MG PREMIX INJ 150 ML IV SCH (05:16)
[2017-03-31] MEDS: METOCLOPRAMIDE HCL 10 MG/2 ML VIAL IV PUSH SCH ×3 (05:16→22:19)
[2017-03-31] MEDS: methylPREDNISolone SOD SUCC 40 MG/1 ML VIAL IV PUSH SCH ×3 (05:16→22:19)
--- NOTE | 2017-03-31 05:36 | RADRPT ---
EXAM DATE/TIME: 03/31/2017 04:06 [facility] COMPARISON: CHEST SINGLE AP, March 30, 2017, 10:02. INDICATIONS : Evaluate ARDS MEDICAL HISTORY : Hypertension. Cardiovascular disease. Cirrhosis. SURGICAL HISTORY : Unknown ENCOUNTER: Subsequent ACUITY: 1 week PAIN SCORE: Non-responsive. LOCATION: Bilateral chest FINDINGS: A single view of the chest demonstrates bilateral airspace disease, right greater than left with some improvement in aeration on the right side. There appears to be an improving right-sided effusion. Pe rsistent left basilar consolidation/effusion. Heart size is prominent. Endotracheal tube, Dobbhoff fe eding tube and right IJ central venous catheter are unchanged in position. CONCLUSION: 1. Improving aeration in the right lung with probable resolving effusion. 2. Persistent left basilar consolidation/effusion. 3. Cardiomegaly. Stable position of life support catheters. Michael Oliveira MD on March 31, 2017 at 5:33 Board Certified Radiologist. This report was verified electronically.
[2017-03-31 05:40] LABS: BLOOD GAS CARBOXYHEMOGLOBIN 1.2 % (0-4); BLOOD GAS HCO3 23 mmol/L (22-26); BLOOD GAS O2 HGB SATURATION 97 % (90-100); BLOOD GAS OXYGEN CONTENT 12.9 Vol % (12.0-20.0); BLOOD GAS PCO2 39 mmHg (38-42); BLOOD GAS PO2 130 mmHg (61-120); BLOOD GAS TOTAL HGB 9.2 G/DL (12.0-16.0); CRITICAL VALUE NO; OXYGEN DEVICE VENTILATOR; TEMP CORR TO 98.6
[2017-03-31 05:41] LABS: DRAW SITE ALINE; FIO2 50 %; STAT NO; ULNAR PULSE PRESENT; VENT SETTINGS APRV/
[2017-03-31] MEDS: PCA - TOTAL MG DILAUDID DELIVERED PER SHIFT OTHER SCH ×3 (05:59→22:00)
[2017-03-31] MEDS: HYDROmorphone HCL PCA 6 MG/30 ML IV SCH (06:52)
--- NOTE | 2017-03-31 06:52 | HHI.CCPN ---
Subjective Remarks/Hospital Course 03/26: This is a 42-year-old male. Date of admission 03/19/2017. Date of consultation 03/27/2017. Past medical history includes EtOH use abuse, tobaccoism, hypertension Gastroesophageal reflux disease and DDD. Patient is on Suboxone for prior opiate abuse. He drinks one bottle of vodka daily patient is on chronic alprazolam at home on lactulose and Lasix. Patient was originally admitted with abdominal ascites. Status post paracentesis 03/20-3300 cc. Possible SBP. Placed on ceftriaxone. Blood work included a positive AMA and elevated iron studies. GS re-consulted. Over the past 24 hours. Patient has had increased oxygen requirements from 4 L currently 2 nonrebreather. He denies chest pressure respiratory denies cough. No significant peripheral edema. Patient's abdomen is quite distended however ultrasound reveals minimal ascites. Awake and alert. His only complaint is "dry throat from aerosolized mask 03/27: Patient developed worsening respiratory distress during the day and was placed on BiPAP with full facemask. He was requiring 100% FiO2 with BiPAP settings at +15/+8. His respiratory status declined as a day progress. Had multiple discussions with patient as well as his family members including reviewing his CT chest from early this morning which revealed extensive pulmonary infiltrates (right greater than left) and explained probable need for proceeding with intubation and mechanical ventilation. Subsequently patient's O2 sats dropped in the upper 80s despite BiPAP and patient was intubated and placed on mechanical ventilation around 6 PM. I subsequently proceeded with central line placement. Postintubation chest x-ray revealed extensive bilateral pulmonary infiltrates which appeared to have progress since his previous chest x-ray. Patient was requiring high doses of sedatives including Versed/fentanyl and propofol drips to keep him sedated. 03/28: Patient placed on prone ventilation last night and inhaled Flolan. Currently sedated, orally intubated on mechanical ventilation. On neuromuscular blockade. Remains on Versed/propofol/Dilaudid drips for sedation. Nimbex for neuromuscular blockade. 03/29: Remains sedated, orally intubated on mechanical ventilation, on neuromuscular blockade. Inhaled Flolan to be decreased from 20,000 ng per KG per minute to 10,000 ng per KG per minute this morning. O2 sats in the mid 90s. Vent mode change from pressure control to PRVC last night for elevation of PCO2. 09/16: Down to FiO2 0.50, PEEP 15. Will convert to regular bed. Leave on PRVC. Update, converted to APRV due to lack of progress on conventional mode. Improved PO2 to 114 and no CO2 retention. 03/31: Improved oxygenation. Lung lopez clearing on CXR. A little dry perhaps; will continue maintenance iv. Organism? Relaxant off 24 24hrs now, weaning dilaudid and versed. Objective Vital Signs Date Time Temp Pulse Resp B/P (MAP) Pulse Ox O2 Delivery O2 Flow Rate FiO2 03/31/17 05:59 10 03/31/17 04:45 97 50 03/31/17 04:00 97.5 78 106/58 (74) 03/30/17 19:00 Mechanical Ventilator 03/27/17 22:59 15.00 Intake and Output 03/31/17 03/31/17 04/01/17 08:00 16:00 00:00 Intake Total 506 ml Balance 506 ml Result Diagram: 03/31/17 0405 03/31/17 0405 Other Results Laboratory Tests Test 03/30/17 11:16 03/30/17 16:21 03/31/17 05:30 Blood Gas Puncture Site ART LINE ART LINE LAURIE Blood Gas Patient Temperature 98.6 98.6 98.6 Blood Gas HCO3 21 mmol/L (22-26) 23 mmol/L (22-26) 23 mmol/L (22-26) Blood Gas Base Excess -2.8 mmol/L (-2-2) -0.9 mmol/L (-2-2) -1.0 mmol/L (-2-2) Blood Gas Oxygen Saturation 95 % (90-100) 96 % (90-100) 97 % (90-100) Arterial Blood pH 7.40 (7.380-7.420) 7.39 (7.380-7.420) 7.39 (7.380-7.420) Arterial Blood Partial Pressure CO2 35 mmHg (38-42) 39 mmHg (38-42) 39 mmHg (38-42) Arterial Blood Partial Pressure O2 90 mmHg (61-120) 114 mmHg (61-120) 130 mmHg (61-120) Arterial Blood Oxygen Content 11.9 Vol % (12.0-20.0) 12.9 Vol % (12.0-20.0) 12.9 Vol % (12.0-20.0) Arterial Blood Carboxyhemoglobin 1.3 % (0-4) 1.2 % (0-4) 1.2 % (0-4) Arterial Blood Methemoglobin 1.1 % (0-2) 1.1 % (0-2) 1.0 % (0-2) Blood Gas Hemoglobin 8.8 G/DL (12.0-16.0) 9.3 G/DL (12.0-16.0) 9.2 G/DL (12.0-16.0) Oxygen Delivery Device VENTILATOR VENTILATOR VENTILATOR Blood Gas Ventilator Setting SEE NOTE SEE NOTE APRV/ Blood Gas Inspired Oxygen 50 % 50 % 50 % Imaging Chest x-ray portable done on 03/27 post intubation was personally reviewed: ET tube above antonio, right IJ central line with tip overlying SVC, NG tube in place, extensive bilateral infiltrates involving almost the entire lung lopez. Last [address] Angiography 03/27/17 0000 Signed Impressions: Service Date/Time: Monday, March 27, 2017 03:55 - CONCLUSION: 1. Mixed groundglass opacity and airspace consolidation in both upper lobes. Differential diagnosis includes infection, aspiration and pulmonary hemorrhage. 2. Moderate pleural effusions with dependent consolidation and atelectasis at both lung bases. 3. Hepatomegaly with ascites. 4. Contrast bolus suboptimal but no pulmonary emboli identified. Kyle Thorpe MD Last Impressions Chest X-Ray 03/26/17 0000 Signed Impressions: Service Date/Time: Sunday, March 26, 2017 10:30 - CONCLUSION: 1. New alveolar infiltrates in both lungs which may represent pulmonary edema which may be noncardiogenic in origin. 2. Denser course infiltrates in both lung bases likely representing scarring. Ap Zamora MD Abdomen Ultrasound 03/25/17 0000 Signed Impressions: Service Date/Time: Saturday, March 25, 2017 10:49 - CONCLUSION: 1. Very subtle ascites without sufficient pocket for safe paracentesis. Hipolito Palnecia MD Cyst Biopsy Asp-Paracentesis US 03/20/17 0600 Signed Impressions: Service Date/Time: Monday, March 20, 2017 09:42 - CONCLUSION: Uncomplicated ultrasound guided paracentesis. Kareem Mahan MD Lower Extremity Ultrasound 03/19/17 1441 Signed Impressions: Service Date/Time: Sunday, March 19, 2017 15:40 - CONCLUSION: 1. No evidence of deep venous thrombosis. Claudio Argueta MD Liver Ultrasound 03/19/17 0000 Signed Impressions: Service Date/Time: Sunday, March 19, 2017 18:23 - CONCLUSION: 1. Moderate ascites. Thickened gallbladder wall with sludge. Mild hepatosplenomegaly. Kyle Thorpe MD Objective Remarks HEENT/ Neuro: Sedated, on neuromuscular blockade, pupils 2 mm bilaterally constricted. Neck: Right IJ central line in place. Orally intubated. Chest/Pulm: on mech vent on Rota prone bed, good air entry bilaterally, diffuse bilateral rhonchi, no wheezing/ crackles CVS: S1-S2 regular, no murmur GI/abdomen: soft, distended nontender, bowel sounds active Extremities: warm bilaterally, trace edema Date of Insertion: Mar 27, 2017 Line: Central Venous Catheter Side: Right Location: Internal, Jugular A/P Assessment and Plan Neuro/Psych: History of oxycodone use Anxiety disorder on chronic alprazolam History of hepatic encephalopathy Patient was on his home Suboxone 8 mg 4 times a day till 03/28 which was held following intubation as patient requiring deep sedation and neuromuscular blockade. Starting propofol/Versed gtt. as well as Dilaudid MEAT CUTTER APPRENTICE 2 mg/h basal rate.. Dilaudid 2 mg IV every 3 hourly scheduled for 72 hours up to 03/30/17 while waiting for buprenorphine to wear off and will then plan on transitioning to fentanyl gtt from Dilaudid MEAT CUTTER APPRENTICE. Continue neuromuscular blockade with Nimbex in view of ARDS to facilitate mechanical ventilation. Added Librium 20 mg every 12 hourly in view of history of alcohol abuse. Continue thiamine/folic acid/MVI via OG tube. On lorazepam 1 mg every 2 hours when necessary anxiety On alprazolam 1 mg by mouth every 6 hours chronically. CV: Sinus tachycardia History of hypertension Hypotension Levophed for pressor support. Continue spironolactone for fluid retention secondary to liver disease. Diurese to keep even fluid balance Resp: Acute hypoxemic respiratory failure Bilateral pneumonia ARDS Tobaccoism CT chest on 03/27 with extensive bilateral infiltrates right greater than left. Progressive respiratory failure with borderline O2 sats on BiPAP hence was intubated and placed on mechanical ventilation on 03/27. Continue mechanical ventilation with PRVC with tidal volume 500, rate 16, FiO2 50%, PEEP +15. Follow up ABGs. Allow permissive hypercapnia Albuterol/ipratropium aerosols every 4 hours with albuterol aerosols every 2 hours when necessary Titrate off inhaled Flolan if tolerated Continue Solu-Medrol 40 mg IV every 8 hourly Nicotine patch at 21 mg daily APRV initiated 03/30 after lack of progress on PRVC. GI/liver: Likely cirrhosis - Will need liver biopsy Abdominal ascites AMA positive. Elevated iron studies. Pending hepatitis panel. Appears to be carrier for hemochromatosis gene ? Significance. Status post paracentesis 03/20. -3300. Abdominal ultrasound 03/25. Not sufficient fluid for paracentesis Ursodiol to be continued possible primary biliary cirrhosis Noted 579 WBC and peritoneal fluid however peritoneal fluid cultures negative. Was on Rocephin from 03/20 - 03/27 Continue lactulose 30 cc daily. Continue spironolactone. Continue Lasix 40 mg daily. Start tube feeds with Neutra hep and advance to goal of 60 cc an hour once Dobbhoff placed. : Bowden catheterization for accurate intake output in critically ill patient with sepsis/pneumonia Endo: Sliding-scale insulin if needed for glycemic control. Renal: Strict intake output, monitor and replete electrolytes, follow BUN/creatinine. Heme: Leukocytosis Macrocytic anemia Thrombocytopenia Monitor CBC daily. Follow trends. Continue MVI/folic acid. No indications for transfusion of blood products at this time ID: Sepsis/pneumonia with ARDS SBP - culture negative On Rocephin from 03/20 -03/27. Status post 1 dose vancomycin 03/27. Zosyn started 03/27. Added Zyvox 600 mg IV every 12 hourly on 03/27 following intubation. ID consult requested for sepsis/severe pneumonia. Recheck blood cultures 2, urine antigens. Urine negative for strep pneumo and Legionella antigen Sputum for Gram stain and cultures following intubation in process MSK: Physical therapy FEN: Hyponatremia Hypo-magnesium Hyponatremia workup see orders osm serum, urine, urine sodium, TSH, cortisol uric acid, triglycerides. Replacing electrolytes as clinically indicated Access -Placed right IJ central line 03/27. Prophylaxis - GI - pantoprazole - DVT - SCD/ pharmacological prophylaxis with subcutaneous heparin 5000 units every 12 hourly. Extensive discussion on 03/27 with patient's family members and with patient at bedside on multiple occasions during the day and following intubation with family members regarding severity of pneumonia and need for mechanical ventilation including neuromuscular blockade and they voiced understanding and were agreeable and appreciative of care provided. Also explained that if patient's restless status does not improve over the next 2 weeks he may require tracheostomy. Condition remains extremely critical. Continue neuromuscular blockade. Dr. Stoddard updated patient's mother on 03/28 and 03/29 regarding current clinical status including prone ventilation and possible need for prolonged mechanical ventilation. She voiced understanding and was agreeable with plan of care. Overall impression: Condition remains extremely critical with severe ARDS on mechanical ventilation. Remains critically ill and unable to wean off ventilator. Critical Care 37 mins Donn Davalos MD Mar 31, 2017 06:52
[2017-03-31] MEDS: CHLORHEXIDINE 0.12% (ORAL KIT) 15 ML CUP MT SCH ×2 (08:00→19:56)
[2017-03-31] MEDS: NOREPINEPHRINE INJ 4 MG in SODIUM CHLOR 0.9% 250 ML INJ 250 ML IV PRN (08:14)
[2017-03-31] MEDS: LACTULOSE SYRUP 20 GM/30 ML CUP PO SCH (08:28)
[2017-03-31] MEDS: THIAMINE HCL 100 MG TAB PO SCH (08:29)
[2017-03-31] MEDS: FOLIC ACID 1 MG TAB PO SCH (08:29)
[2017-03-31] MEDS: MULTIVITAMIN TAB PO SCH (08:29)
[2017-03-31] MEDS: PANTOPRAZOLE SODIUM 40 MG VIAL IV SCH (08:29)
[2017-03-31] MEDS: URSODIOL 300 MG CAP PO SCH ×3 (08:29→17:34)
[2017-03-31] MEDS: LINEZOLID 600 MG PREMIX 300 ML IV SCH ×2 (08:29→19:56)
[2017-03-31] MEDS: SODIUM CHLORIDE 0.9% FLUSH 10 ML FLUSH IV FLUSH SCH ×2 (08:30→19:56)
[2017-03-31] MEDS: ARTIFICIAL TEARS OPTH OINT 3.5 APPLIC/3.5 GM TUBO EACH EYE SCH ×2 (08:30→19:56)
[2017-03-31] MEDS: HEPARIN SODIUM - SQ 10,000 UNITS/ML VIAL SQ SCH ×2 (08:30→19:57)
[2017-03-31] MEDS: SPIRONOLACTONE 25 MG TAB PO SCH ×2 (08:30→17:34)
[2017-03-31 08:35] LABS: BANDS 5 % (0-6); MYELOCYTES 1 % (0-0); NEUTROPHIL # MANUAL DIFF 21.5 TH/MM3 (1.8-7.7); PLATELET ESTIMATE SMEAR NORMAL (NORMAL); PLATELET MORPHOLOGY NORMAL (NORMAL); POLYS (SEG NEUTROPHILS) 79 % (16-70); SCAN/DIFF FINAL DIFF MANUAL; WBC DIFF SAMPLE 100
[2017-03-31 09:14] LABS: BLOOD GAS BASE EXCESS -0.7 mmol/L (-2-2); BLOOD GAS CARBOXYHEMOGLOBIN 1.1 % (0-4); BLOOD GAS HCO3 24 mmol/L (22-26); BLOOD GAS METHEMOGLOBIN 1.1 % (0-2); BLOOD GAS O2 HGB SATURATION 97 % (90-100); BLOOD GAS OXYGEN CONTENT 13.2 Vol % (12.0-20.0); BLOOD GAS PCO2 42 mmHg (38-42); BLOOD GAS PO2 120 mmHg (61-120); BLOOD GAS TOTAL HGB 9.5 G/DL (12.0-16.0); TEMP CORR TO 98.6
[2017-03-31 09:15] LABS: CRITICAL VALUE NO; DRAW SITE ART LINE; FIO2 40 %; OXYGEN DEVICE VENTILATOR; STAT NO
[2017-03-31] MEDS: RESP: BUDESONIDE 0.5 MG/2 ML NEB NEB SCH ×2 (10:18→20:33)
[2017-03-31] MEDS: RESP: ALBUTEROL 2.5 MG/3 ML NEB (PRN) NEB (10:18)
[2017-04-01] VITALS (18 sets, daily range): BP systolic 100–117; BP diastolic 53–63; PULSE 86–104; RESP 9–17; TEMP 97.9–98.3; O2SAT 97–98
[2017-04-01] MEDS: ALBUMIN HUMAN 25% 25 GM/100 ML BAGP IV SCH ×2 (00:56→13:06)
[2017-04-01] MEDS: PIPERACIL-TAZO 4.5 GM PREMIX 100 ML IV SCH ×4 (00:56→17:03)
[2017-04-01] MEDS: INSULIN NovoLIN REGULAR SUPPLEMENTAL SCALE SQ SCH ×6 (04:00→20:00)
[2017-04-01 04:25] LABS: AUTOMATED NEUTROPHIL # 16.4 TH/MM3 (1.8-7.7); BASOPHIL % 0.2 % (0.0-2.0); HEMO FLAGS DIFF FINAL; LYMPH % 4.6 % (9.0-44.0); LYMPHOCYTE # 0.9 TH/MM3 (1.0-4.8); MEAN CELL VOLUME 112.9 FL (80.0-100.0); MEAN CORPUSCULAR HEMOGLOBIN 38.6 PG (27.0-34.0); MEAN CORPUSCULAR HGB CONC 34.2 % (32.0-36.0); NEUT % 86.2 % (16.0-70.0); PLATELET COUNT 193 TH/MM3 (150-450); RED BLOOD COUNT 2.39 MIL/MM3 (4.50-5.90); RED CELL DISTRIBUTION WIDTH 16.9 % (11.6-17.2)
[2017-04-01] MEDS: PROPOFOL 1000 MG/100 ML IV PRN ×5 (04:51→22:53)
[2017-04-01 05:01] LABS: ALT (GPT) 41 U/L (12-78); ANION GAP 10 MEQ/L (5-15); AST (GOT) 56 U/L (15-37); BICARBONATE 25.4 MEQ/L (21.0-32.0); BLOOD UREA NITROGEN 40 MG/DL (7-18); CHLORIDE 96 MEQ/L (98-107); GLOMERULAR FILTRATION RATE 48 ML/MIN (>89); POTASSIUM 4.2 MEQ/L (3.5-5.1); SODIUM (NA) 131 MEQ/L (136-145)
[2017-04-01 05:02] LABS: BLOOD GAS BASE EXCESS -0.1 mmol/L (-2-2); BLOOD GAS CARBOXYHEMOGLOBIN 1.2 % (0-4); BLOOD GAS HCO3 24 mmol/L (22-26); BLOOD GAS METHEMOGLOBIN 1.2 % (0-2); BLOOD GAS O2 HGB SATURATION 97 % (90-100); BLOOD GAS OXYGEN CONTENT 12.7 Vol % (12.0-20.0); BLOOD GAS PCO2 40 mmHg (38-42); BLOOD GAS PO2 159 mmHg (61-120); BLOOD GAS TOTAL HGB 9.1 G/DL (12.0-16.0); CRITICAL VALUE NO; TEMP CORR TO 98.6
[2017-04-01 05:03] LABS: ALKALINE PHOSPHATASE 60 U/L (45-117); TOTAL BILIRUBIN ADULT 1.8 MG/DL (0.2-1.0)
[2017-04-01 05:03] LABS: OXYGEN DEVICE VENTILATOR
[2017-04-01 05:05] LABS: DRAW SITE ART LINE; FIO2 40 %; STAT NO; VENT SETTINGS APRV
--- NOTE | 2017-04-01 05:08 | RADRPT ---
EXAM DATE/TIME: 04/01/2017 04:29 [facility] COMPARISON: CHEST SINGLE AP, March 31, 2017, 4:06. INDICATIONS : ARDS MEDICAL HISTORY : Hypertension. Cirrhosis. Cardiovascular disease. SURGICAL HISTORY : None. ENCOUNTER: Subsequent ACUITY: 1 week PAIN SCORE: Non-responsive. LOCATION: Bilateral chest FINDINGS: 2 portable frontal views of the chest show an endotracheal tube with the tip obscured by overlapping structures. A nasogastric tube and weighted feeding tube course off the entire margin of the film. Ri ght-sided central line. Patchy areas of consolidation involving both lungs particularly the left base . These are stable. No effusions. Heart is normal in size. CONCLUSION: Unchanged scattered areas of parenchymal consolidation bilaterally. Miles Ge Jr., MD on April 01, 2017 at 5:05 Board Certified Radiologist. This report was verified electronically.
[2017-04-01] MEDS: methylPREDNISolone SOD SUCC 40 MG/1 ML VIAL IV PUSH SCH ×3 (05:51→21:05)
[2017-04-01] MEDS: METOCLOPRAMIDE HCL 10 MG/2 ML VIAL IV PUSH SCH ×3 (05:51→21:05)
[2017-04-01] MEDS: LEVOFLOXACIN 750 MG PREMIX INJ 150 ML IV SCH (05:52)
[2017-04-01] MEDS: PCA - TOTAL MG DILAUDID DELIVERED PER SHIFT OTHER SCH ×3 (05:52→22:00)
--- NOTE | 2017-04-01 07:53 | HHI.CCPN ---
Subjective Remarks/Hospital Course 03/26: This is a 42-year-old male. Date of admission 03/19/2017. Date of consultation 03/27/2017. Past medical history includes EtOH use abuse, tobaccoism, hypertension Gastroesophageal reflux disease and DDD. Patient is on Suboxone for prior opiate abuse. He drinks one bottle of vodka daily patient is on chronic alprazolam at home on lactulose and Lasix. Patient was originally admitted with abdominal ascites. Status post paracentesis 03/20-3300 cc. Possible SBP. Placed on ceftriaxone. Blood work included a positive AMA and elevated iron studies. GS re-consulted. Over the past 24 hours. Patient has had increased oxygen requirements from 4 L currently 2 nonrebreather. He denies chest pressure respiratory denies cough. No significant peripheral edema. Patient's abdomen is quite distended however ultrasound reveals minimal ascites. Awake and alert. His only complaint is "dry throat from aerosolized mask 03/27: Patient developed worsening respiratory distress during the day and was placed on BiPAP with full facemask. He was requiring 100% FiO2 with BiPAP settings at +15/+8. His respiratory status declined as a day progress. Had multiple discussions with patient as well as his family members including reviewing his CT chest from early this morning which revealed extensive pulmonary infiltrates (right greater than left) and explained probable need for proceeding with intubation and mechanical ventilation. Subsequently patient's O2 sats dropped in the upper 80s despite BiPAP and patient was intubated and placed on mechanical ventilation around 6 PM. I subsequently proceeded with central line placement. Postintubation chest x-ray revealed extensive bilateral pulmonary infiltrates which appeared to have progress since his previous chest x-ray. Patient was requiring high doses of sedatives including Versed/fentanyl and propofol drips to keep him sedated. 03/28: Patient placed on prone ventilation last night and inhaled Flolan. Currently sedated, orally intubated on mechanical ventilation. On neuromuscular blockade. Remains on Versed/propofol/Dilaudid drips for sedation. Nimbex for neuromuscular blockade. 03/29: Remains sedated, orally intubated on mechanical ventilation, on neuromuscular blockade. Inhaled Flolan to be decreased from 20,000 ng per KG per minute to 10,000 ng per KG per minute this morning. O2 sats in the mid 90s. Vent mode change from pressure control to PRVC last night for elevation of PCO2. 09/16: Down to FiO2 0.50, PEEP 15. Will convert to regular bed. Leave on PRVC. Update, converted to APRV due to lack of progress on conventional mode. Improved PO2 to 114 and no CO2 retention. 03/31: Improved oxygenation. Lung lopez clearing on CXR. A little dry perhaps; will continue maintenance iv. Organism? Relaxant off 24 24hrs now, weaning dilaudid and versed. 04/01: Continued improvement in gas exchange but persistent ARDS pattern without diagnosis. Suspect infectious etiology and continue broad coverage. Withdrawal symptoms controlled, may need precedex to extubate. Objective Vital Signs Date Time Temp Pulse Resp B/P (MAP) Pulse Ox O2 Delivery O2 Flow Rate FiO2 04/01/17 07:00 97 Mechanical Ventilator 35 04/01/17 06:00 94 04/01/17 05:52 9 04/01/17 04:00 98.1 105/62 (76) Intake and Output 04/01/17 04/01/17 04/02/17 08:00 16:00 00:00 Intake Total 1008.8 ml Output Total 1125 ml Balance -116.2 ml Result Diagram: 04/01/17 0400 04/01/17 0400 Other Results Laboratory Tests Test 03/31/17 08:47 04/01/17 04:45 Blood Gas Puncture Site ART LINE ART LINE Blood Gas Patient Temperature 98.6 98.6 Blood Gas HCO3 24 mmol/L (22-26) 24 mmol/L (22-26) Blood Gas Base Excess -0.7 mmol/L (-2-2) -0.1 mmol/L (-2-2) Blood Gas Oxygen Saturation 97 % (90-100) 97 % (90-100) Arterial Blood pH 7.37 (7.380-7.420) 7.40 (7.380-7.420) Arterial Blood Partial Pressure CO2 42 mmHg (38-42) 40 mmHg (38-42) Arterial Blood Partial Pressure O2 120 mmHg (61-120) 159 mmHg (61-120) Arterial Blood Oxygen Content 13.2 Vol % (12.0-20.0) 12.7 Vol % (12.0-20.0) Arterial Blood Carboxyhemoglobin 1.1 % (0-4) 1.2 % (0-4) Arterial Blood Methemoglobin 1.1 % (0-2) 1.2 % (0-2) Blood Gas Hemoglobin 9.5 G/DL (12.0-16.0) 9.1 G/DL (12.0-16.0) Oxygen Delivery Device VENTILATOR VENTILATOR Blood Gas Ventilator Setting SEE NOTE APRV Blood Gas Inspired Oxygen 40 % 40 % Imaging Chest x-ray portable done on 03/27 post intubation was personally reviewed: ET tube above antonio, right IJ central line with tip overlying SVC, NG tube in place, extensive bilateral infiltrates involving almost the entire lung lopez. Last [address] Angiography 03/27/17 0000 Signed Impressions: Service Date/Time: Monday, March 27, 2017 03:55 - CONCLUSION: 1. Mixed groundglass opacity and airspace consolidation in both upper lobes. Differential diagnosis includes infection, aspiration and pulmonary hemorrhage. 2. Moderate pleural effusions with dependent consolidation and atelectasis at both lung bases. 3. Hepatomegaly with ascites. 4. Contrast bolus suboptimal but no pulmonary emboli identified. Kyle Thorpe MD Last Impressions Chest X-Ray 03/26/17 0000 Signed Impressions: Service Date/Time: Sunday, March 26, 2017 10:30 - CONCLUSION: 1. New alveolar infiltrates in both lungs which may represent pulmonary edema which may be noncardiogenic in origin. 2. Denser course infiltrates in both lung bases likely representing scarring. Ap Zamora MD Abdomen Ultrasound 03/25/17 0000 Signed Impressions: Service Date/Time: Saturday, March 25, 2017 10:49 - CONCLUSION: 1. Very subtle ascites without sufficient pocket for safe paracentesis. Hipolito Palencia MD Cyst Biopsy Asp-Paracentesis US 03/20/17 0600 Signed Impressions: Service Date/Time: Monday, March 20, 2017 09:42 - CONCLUSION: Uncomplicated ultrasound guided paracentesis. Kareem Mahan MD Lower Extremity Ultrasound 03/19/17 1441 Signed Impressions: Service Date/Time: Sunday, March 19, 2017 15:40 - CONCLUSION: 1. No evidence of deep venous thrombosis. Claudio Argueta MD Liver Ultrasound 03/19/17 0000 Signed Impressions: Service Date/Time: Sunday, March 19, 2017 18:23 - CONCLUSION: 1. Moderate ascites. Thickened gallbladder wall with sludge. Mild hepatosplenomegaly. Kyle Thorpe MD Objective Remarks HEENT/ Neuro: Lightly sedated, opens eyes to loud voice, no tremors, pupils 2 mm , reactive. Neck: Right IJ central line in place. Orally intubated. Chest/Pulm: Few rhonchi, good air entry bilaterally, no wheezing/ crackles CVS: S1-S2 regular, no murmur, neck vein full (but thoracic pressures elevated). GI/abdomen: soft, moderately distended nontender, bowel sounds active Extremities: warm bilaterally, trace edema, well perfused. Date of Insertion: Mar 27, 2017 Line: Central Venous Catheter Side: Right Location: Internal, Jugular A/P Assessment and Plan Neuro/Psych: History of oxycodone use Anxiety disorder on chronic alprazolam History of hepatic encephalopathy Patient was on his home Suboxone 8 mg 4 times a day till 03/28 which was held following intubation as patient requiring deep sedation and neuromuscular blockade. Starting propofol/Versed gtt. as well as Dilaudid REVENUE STAMPER 2 mg/h basal rate.. Dilaudid 2 mg IV every 3 hourly scheduled for 72 hours up to 03/30/17 while waiting for buprenorphine to wear off and will then plan on transitioning to fentanyl gtt from Dilaudid REVENUE STAMPER. Continue neuromuscular blockade with Nimbex in view of ARDS to facilitate mechanical ventilation. Added Librium 20 mg every 12 hourly in view of history of alcohol abuse. Continue thiamine/folic acid/MVI via OG tube. On lorazepam 1 mg every 2 hours when necessary anxiety On alprazolam 1 mg by mouth every 6 hours chronically. Versed drip at 3 mg/hr, patient wakes. CV: Sinus tachycardia History of hypertension Hypotension Levophed for pressor support. Continue spironolactone for fluid retention secondary to liver disease. Diurese to keep even fluid balance Resp: Acute hypoxemic respiratory failure Bilateral pneumonia ARDS Tobaccoism CT chest on 03/27 with extensive bilateral infiltrates right greater than left. Progressive respiratory failure with borderline O2 sats on BiPAP hence was intubated and placed on mechanical ventilation on 03/27. Continue mechanical ventilation with PRVC with tidal volume 500, rate 16, FiO2 50%, PEEP +15. Follow up ABGs. Allow permissive hypercapnia Albuterol/ipratropium aerosols every 4 hours with albuterol aerosols every 2 hours when necessary Titrate off inhaled Flolan if tolerated Continue Solu-Medrol 40 mg IV every 8 hourly Nicotine patch at 21 mg daily APRV initiated 03/30 after lack of progress on PRVC. CXR with diffuse process now, including bases. GI/liver: Likely cirrhosis - Will need liver biopsy Abdominal ascites AMA positive. Elevated iron studies. Pending hepatitis panel. Appears to be carrier for hemochromatosis gene ? Significance. Status post paracentesis 03/20. -3300. Abdominal ultrasound 03/25. Not sufficient fluid for paracentesis Ursodiol to be continued possible primary biliary cirrhosis Noted 579 WBC and peritoneal fluid however peritoneal fluid cultures negative. Was on Rocephin from 03/20 - 03/27 Continue lactulose 30 cc daily. Continue spironolactone. Continue Lasix 40 mg daily. Start tube feeds with Neutra hep and advance to goal of 60 cc an hour once Dobbhoff placed. : Bowden catheterization for accurate intake output in critically ill patient with sepsis/pneumonia Endo: Sliding-scale insulin if needed for glycemic control. Renal: Strict intake output, monitor and replete electrolytes, follow BUN/creatinine. Heme: Leukocytosis Macrocytic anemia Thrombocytopenia Monitor CBC daily. Follow trends. Continue MVI/folic acid. No indications for transfusion of blood products at this time ID: Sepsis/pneumonia with ARDS SBP - culture negative On Rocephin from 03/20 -03/27. Status post 1 dose vancomycin 03/27. Zosyn started 03/27. Added Zyvox 600 mg IV every 12 hourly on 03/27 following intubation. ID consult requested for sepsis/severe pneumonia. Recheck blood cultures 2, urine antigens. Urine negative for strep pneumo and Legionella antigen Sputum for Gram stain and cultures obtained after intubation -> pending MSK: Physical therapy. Unable to participate. FEN: Hyponatremia Hypo-magnesium Hyponatremia workup see orders osm serum, urine, urine sodium, TSH, cortisol uric acid, triglycerides. Replacing electrolytes as clinically indicated Access -Placed right IJ central line 03/27. Prophylaxis - GI - pantoprazole - DVT - SCD/ pharmacological prophylaxis with subcutaneous heparin 5000 units every 12 hourly. Extensive discussion on 03/27 with patient's family members and with patient at bedside on multiple occasions during the day and following intubation with family members regarding severity of pneumonia and need for mechanical ventilation including neuromuscular blockade and they voiced understanding and were agreeable and appreciative of care provided. Also explained that if patient's restless status does not improve over the next 2 weeks he may require tracheostomy. Condition remains extremely critical. Continue neuromuscular blockade. Dr. Stoddard updated patient's mother on 03/28 and 03/29 regarding current clinical status including prone ventilation and possible need for prolonged mechanical ventilation. She voiced understanding and was agreeable with plan of care. Overall impression: Patient remains critically ill with severe ARDS on mechanical ventilation with markedly elevated airway pressure requirements. Unable to wean from ventilator. Critical Care 39 mins Donn Davalos MD Apr 01, 2017 07:53
[2017-04-01] MEDS: RESP: ALBUTEROL 2.5 MG/3 ML NEB (PRN) NEB ×2 (08:00→20:42)
[2017-04-01] MEDS: RESP: BUDESONIDE 0.5 MG/2 ML NEB NEB SCH ×2 (08:00→20:42)
[2017-04-01] MEDS: CHLORHEXIDINE 0.12% (ORAL KIT) 15 ML CUP MT SCH ×2 (08:00→20:00)
[2017-04-01] MEDS: LACTULOSE SYRUP 20 GM/30 ML CUP PO SCH (08:34)
[2017-04-01] MEDS: FUROSEMIDE 40 MG/4 ML VIAL IV PUSH SCH (08:52)
[2017-04-01] MEDS: MULTIVITAMIN TAB PO SCH (08:53)
[2017-04-01] MEDS: HEPARIN SODIUM - SQ 10,000 UNITS/ML VIAL SQ SCH ×2 (08:53→20:22)
[2017-04-01] MEDS: PANTOPRAZOLE SODIUM 40 MG VIAL IV SCH (08:53)
[2017-04-01] MEDS: URSODIOL 300 MG CAP PO SCH ×3 (08:53→17:03)
[2017-04-01] MEDS: THIAMINE HCL 100 MG TAB PO SCH (08:53)
[2017-04-01] MEDS: SPIRONOLACTONE 25 MG TAB PO SCH ×2 (08:54→17:03)
[2017-04-01] MEDS: ARTIFICIAL TEARS OPTH OINT 3.5 APPLIC/3.5 GM TUBO EACH EYE SCH ×2 (08:55→20:21)
[2017-04-01] MEDS: LINEZOLID 600 MG PREMIX 300 ML IV SCH (08:55)
[2017-04-01] MEDS: FOLIC ACID 1 MG TAB PO SCH (08:56)
[2017-04-01] MEDS: SODIUM CHLORIDE 0.9% FLUSH 10 ML FLUSH IV FLUSH SCH ×2 (08:57→21:00)
--- NOTE | 2017-04-01 15:50 | HHI.PR ---
Addendum to Inpatient Note Additional Information pt seen around 1400 full note to follow Elda Farias MD Apr 01, 2017 15:50
--- NOTE | 2017-04-01 19:03 | HHI.PR ---
Subjective Remarks Sedated and on Vent support. FIo2 35 %. On APRV rate 16, PEEP 5 CXR showing some Improvement but ARDS pattern noted. Objective Vital Signs Date Time Temp Pulse Resp B/P (MAP) Pulse Ox O2 Delivery O2 Flow Rate FiO2 04/01/17 18:00 94 04/01/17 16:00 98.1 91 9 97 102/56 (71) 04/01/17 16:00 91 04/01/17 16:00 35 04/01/17 15:44 97 35 04/01/17 14:00 96 04/01/17 12:00 98.3 97 9 97 105/57 (73) 04/01/17 12:00 35 04/01/17 12:00 95 04/01/17 11:24 97 35 04/01/17 10:00 98 04/01/17 08:01 98 35 04/01/17 08:00 98.2 102 14 97 117/63 (81) 04/01/17 08:00 102 04/01/17 08:00 35 04/01/17 07:00 97 Mechanical Ventilator 35 04/01/17 06:00 94 04/01/17 05:52 9 04/01/17 04:03 98 40 04/01/17 04:00 98.1 95 14 98 105/62 (76) 04/01/17 04:00 40 04/01/17 04:00 95 04/01/17 02:00 104 04/01/17 00:35 98 40 04/01/17 00:00 40 04/01/17 00:00 99 04/01/17 00:00 98.1 99 9 98 107/63 (78) 03/31/17 22:00 107 03/31/17 20:33 97 40 03/31/17 20:00 106 03/31/17 20:00 98.2 106 13 98 122/64 (83) 03/31/17 20:00 40 I/O 03/31/17 03/31/17 03/31/17 04/01/17 04/01/17 04/01/17 07:00 15:00 23:00 07:00 15:00 23:00 Intake Total 1045 ml 1214 ml 2224 ml 1008.8 ml 2073 ml Output Total 950 ml 915 ml 1125 ml 970 ml Balance 95 ml 1214 ml 1309 ml -116.2 ml 1103 ml IV Total 506 ml 1214 ml 1641 ml 320.8 ml 1081 ml Tube Feeding 439 ml 583 ml 588 ml 692 ml Albumin 100 ml Other 100 ml 100 ml 200 ml Output Urine Total 100 ml 815 ml 725 ml 850 ml Stool Total 850 ml 100 ml 400 ml 120 ml Result Diagram: 04/01/1739904/01/17399 Objective Remarks PHYSICAL EXAMINATION IN GENERAL: This averagely built middle-aged man is intubated, sedated . HEAD, EYES, EARS, NOSE, AND THROAT: Pupils reactive. Sclerae are icteric. Throat not visible. The ET tube in place. NECK: No venous distension. CHEST: Decreased breath sounds at the periphery. Occ Crackles and Occasional wheezes are heard. HEART: Heart sounds are regular S1-S2. ABDOMEN: Abdomen is soft, slightly protuberant. Bowel sounds not heard. EXTREMITIES: Mild peripheral edema. The patient is sedated and does not move his extremities. DERMATOLOGY: The skin was dry and cool. Assessment and Plan Assessment and Plan IMPRESSION 1. Acute hypoxemic respiratory failure. 2. ARDS 3. Aspiration pneumonia versus pulmonary edema. 4. Cirrhosis of the liver 5. Probable underlying chronic lung disease 6. Ascites. Plan : 1. Wean FIO2 to keep sat >92. 2. D/C Flolan and paralytics 3. Antibiotics as ordered. 4. Continue Solumedrol 40 mg IV q8h. 5. Nebs q6h with duoneb. 6. Wean sedation as tolerated 7. Continue Dilaudid drip 7. CXR ,CBC,BMP in Mela Becerra MD Apr 01, 2017 19:03
--- NOTE | 2017-04-01 19:27 | HHI.IDPN ---
Subjective Subjective Remarks Pt is doing better On vent, but not requiring pronning any more FiO2 down to 40% No fever + liquid diarrhea Antibiotics zyvox levaquin zosyn Allergies: Coded Allergies: clarithromycin (Unverified Allergy, Severe, Rash, 03/19/17) clindamycin (Unverified Allergy, Severe, RASH, 03/19/17) Objective . Vital Signs Date Time Temp Pulse Resp B/P (MAP) Pulse Ox O2 Delivery O2 Flow Rate FiO2 04/01/17 18:00 94 04/01/17 16:00 98.1 91 9 97 102/56 (71) 04/01/17 16:00 91 04/01/17 16:00 35 04/01/17 15:44 97 35 04/01/17 14:00 96 04/01/17 12:00 98.3 97 9 97 105/57 (73) 04/01/17 12:00 35 04/01/17 12:00 95 04/01/17 11:24 97 35 04/01/17 10:00 98 04/01/17 08:01 98 35 04/01/17 08:00 98.2 102 14 97 117/63 (81) 04/01/17 08:00 102 04/01/17 08:00 35 04/01/17 07:00 97 Mechanical Ventilator 35 04/01/17 06:00 94 04/01/17 05:52 9 04/01/17 04:03 98 40 04/01/17 04:00 98.1 95 14 98 105/62 (76) 04/01/17 04:00 40 04/01/17 04:00 95 04/01/17 02:00 104 04/01/17 00:35 98 40 04/01/17 00:00 40 04/01/17 00:00 99 04/01/17 00:00 98.1 99 9 98 107/63 (78) 03/31/17 22:00 107 03/31/17 20:33 97 40 03/31/17 20:00 106 03/31/17 20:00 98.2 106 13 98 122/64 (83) 03/31/17 20:00 40 04/01/17 04/01/17 04/02/17 15:00 23:00 07:00 Intake Total 2073 ml Output Total 970 ml Balance 1103 ml IV Total 1081 ml Tube Feeding 692 ml Albumin 100 ml Other 200 ml Output Urine Total 850 ml Stool Total 120 ml . Laboratory Tests Test 03/31/17 04:05 04/01/17 04:00 White Blood Count 25.3 TH/MM3 19.0 TH/MM3 Red Blood Count 2.65 MIL/MM3 2.39 MIL/MM3 Hemoglobin 10.1 GM/DL 9.2 GM/DL Hematocrit 30.0 % 27.0 % Mean Corpuscular Volume 113.4 FL 112.9 FL Mean Corpuscular Hemoglobin 38.3 PG 38.6 PG Mean Corpuscular Hemoglobin Concent 33.8 % 34.2 % Red Cell Distribution Width 17.2 % 16.9 % Platelet Count 256 TH/MM3 193 TH/MM3 Mean Platelet Volume 7.9 FL 7.6 FL Neutrophils (%) (Auto) 86.4 % 86.2 % Lymphocytes (%) (Auto) 4.6 % 4.6 % Monocytes (%) (Auto) 8.7 % 9.0 % Eosinophils (%) (Auto) 0.0 % 0.0 % Basophils (%) (Auto) 0.3 % 0.2 % Neutrophils # (Auto) 21.8 TH/MM3 16.4 TH/MM3 Lymphocytes # (Auto) 1.2 TH/MM3 0.9 TH/MM3 Monocytes # (Auto) 2.2 TH/MM3 1.7 TH/MM3 Eosinophils # (Auto) 0.0 TH/MM3 0.0 TH/MM3 Basophils # (Auto) 0.1 TH/MM3 0.0 TH/MM3 CBC Comment AUTO DIFF DIFF FINAL Differential Total Cells Counted 100 Neutrophils % (Manual) 79 % Band Neutrophils % 5 % Lymphocytes % 5 % Monocytes % 10 % Neutrophils # (Manual) 21.5 TH/MM3 Myelocytes 1 % Differential Comment FINAL DIFF MANUAL Platelet Estimate NORMAL Platelet Morphology Comment NORMAL Laboratory Tests Test 03/31/17 04:05 04/01/17 04:00 Blood Urea Nitrogen 34 MG/DL 40 MG/DL Creatinine 1.65 MG/DL 1.59 MG/DL Random Glucose 156 MG/DL 121 MG/DL Calcium Level 9.1 MG/DL 8.7 MG/DL Sodium Level 129 MEQ/L 131 MEQ/L Potassium Level 4.2 MEQ/L 4.2 MEQ/L Chloride Level 95 MEQ/L 96 MEQ/L Carbon Dioxide Level 27.2 MEQ/L 25.4 MEQ/L Anion Gap 7 MEQ/L 10 MEQ/L Estimat Glomerular Filtration Rate 46 ML/MIN 48 ML/MIN Total Protein 6.7 GM/DL Albumin 3.6 GM/DL Alkaline Phosphatase 60 U/L Aspartate Amino Transf (AST/SGOT) 56 U/L Alanine Aminotransferase (ALT/SGPT) 41 U/L Total Bilirubin 1.8 MG/DL Imaging Last Impressions Chest X-Ray 04/01/17 0500 Signed Impressions: Service Date/Time: Saturday, April 01, 2017 04:29 - CONCLUSION: Unchanged scattered areas of parenchymal consolidation bilaterally. Miles Ge Jr., MD Abdomen X-Ray 03/29/17 0000 Signed Impressions: Service Date/Time: Wednesday, March 29, 2017 10:15 - CONCLUSION: Feeding tube antrum of the stomach. Roland Wall MD FACR CT Angiography 03/27/17 0000 Signed Impressions: Service Date/Time: Monday, March 27, 2017 03:55 - CONCLUSION: 1. Mixed groundglass opacity and airspace consolidation in both upper lobes. Differential diagnosis includes infection, aspiration and pulmonary hemorrhage. 2. Moderate pleural effusions with dependent consolidation and atelectasis at both lung bases. 3. Hepatomegaly with ascites. 4. Contrast bolus suboptimal but no pulmonary emboli identified. Kyle Thorpe MD Abdomen Ultrasound 03/25/17 0000 Signed Impressions: Service Date/Time: Saturday, March 25, 2017 10:49 - CONCLUSION: 1. Very subtle ascites without sufficient pocket for safe paracentesis. Hipolito Palencia MD Cyst Biopsy Asp-Paracentesis US 03/20/17 0600 Signed Impressions: Service Date/Time: Monday, March 20, 2017 09:42 - CONCLUSION: Uncomplicated ultrasound guided paracentesis. Kareem Mahan MD Lower Extremity Ultrasound 03/19/17 1441 Signed Impressions: Service Date/Time: Sunday, March 19, 2017 15:40 - CONCLUSION: 1. No evidence of deep venous thrombosis. Claudio Argueta MD Liver Ultrasound 03/19/17 0000 Signed Impressions: Service Date/Time: Sunday, March 19, 2017 18:23 - CONCLUSION: 1. Moderate ascites. Thickened gallbladder wall with sludge. Mild hepatosplenomegaly. Kyle Thorpe MD Physical Exam CONSTITUTIONAL/GENERAL: This is an adequately nourished patient, in no apparent distress. TUBES/LINES/DRAINS: SKIN: No jaundice, rashes, or lesions. Skin temperature appropriate. Not diaphoretic. HEAD: Atraumatic. Normocephalic. EYES: Pupils equal and round and reactive. Extraocular motions intact. No scleral icterus. No injection or drainage. Fundi not examined. ENT: Nose without bleeding or purulent drainage. Oral mucosae without visible erythema, exudates, masses, or lesions. Orally intuated NECK: Trachea midline. Supple, nontender. CARDIOVASCULAR: Regular rate and rhythm without murmurs, gallops, or rubs. No JVD. Peripheral pulses symmetric. RESPIRATORY/CHEST: Symmetric, unlabored respirations. Clear to auscultation. Breath sounds equal bilaterally. No wheezes, rales, or rhonchi. GASTROINTESTINAL: Abdomen tense no reaction to palpation, quite distended. No hepato-splenomegaly, or palpable masses. Bowel sounds present. Has dignishield i place with liquid brown stool GENITOURINARY: Without palpable bladder distension. Bowden catheter in place with clierar yellow urine MUSCULOSKELETAL: Extremities without clubbing, cyanosis, + mild jung. N No mottling or clubbing. LYMPHATICS: No palpable cervical or supraclavicular adenopathy. NEUROLOGICAL: sedated; not following commnds PSYCHIATRIC: unable to assess Assessment & Plan Remarks PNA, culture negative Acute VDRF, very unstable remains on prone ventilation Liver cisrrosis Critically ill but seem to be more stable ? tense ascites cont zosyn, levaquin dc zyvox fu crypto serologies r/o C.diff abd Elda Naylor RN, MD Apr 01, 2017 19:27
[2017-04-01] MEDS: MIDAZOLAM 100 MG/100 ML INJ 100 ML IV PRN (20:24)
[2017-04-02] VITALS (19 sets, daily range): BP systolic 92–112; BP diastolic 46–62; PULSE 82–92; RESP 9–20; TEMP 96.3–98.5; O2SAT 98–100
[2017-04-02 00:06] LABS: C. DIFF EPI 027 PRESUMPTIVE NEGATIVE (NEGATIVE)
[2017-04-02] MEDS: PIPERACIL-TAZO 4.5 GM PREMIX 100 ML IV SCH ×4 (00:20→17:00)
[2017-04-02] MEDS: ALBUMIN HUMAN 25% 25 GM/100 ML BAGP IV SCH ×2 (02:00→14:03)
[2017-04-02] MEDS: INSULIN NovoLIN REGULAR SUPPLEMENTAL SCALE SQ SCH ×6 (04:00→20:00)
[2017-04-02 04:11] LABS: BASOPHIL % 0.2 % (0.0-2.0); HEMATOCRIT 27.8 % (39.0-51.0); HEMO FLAGS DIFF FINAL; LYMPH % 3.8 % (9.0-44.0); LYMPHOCYTE # 0.9 TH/MM3 (1.0-4.8); MEAN CELL VOLUME 113.4 FL (80.0-100.0); MEAN CORPUSCULAR HGB CONC 34.4 % (32.0-36.0); PLATELET COUNT 182 TH/MM3 (150-450); RED BLOOD COUNT 2.45 MIL/MM3 (4.50-5.90); RED CELL DISTRIBUTION WIDTH 17.1 % (11.6-17.2); WHITE BLOOD COUNT 22.5 TH/MM3 (4.0-11.0)
[2017-04-02 04:55] LABS: BICARBONATE 25.6 MEQ/L (21.0-32.0); MAGNESIUM 2.2 MG/DL (1.5-2.5); POTASSIUM 3.9 MEQ/L (3.5-5.1)
[2017-04-02] MEDS: PROPOFOL 1000 MG/100 ML IV PRN ×4 (05:23→19:58)
[2017-04-02] MEDS: LEVOFLOXACIN 750 MG PREMIX INJ 150 ML IV SCH (05:24)
[2017-04-02] MEDS: METOCLOPRAMIDE HCL 10 MG/2 ML VIAL IV PUSH SCH ×3 (05:24→22:52)
[2017-04-02] MEDS: methylPREDNISolone SOD SUCC 40 MG/1 ML VIAL IV PUSH SCH ×2 (05:24→21:00)
[2017-04-02] MEDS: PCA - TOTAL MG DILAUDID DELIVERED PER SHIFT OTHER SCH ×3 (05:29→22:00)
[2017-04-02 06:01] LABS: BLOOD GAS BASE EXCESS -1.1 mmol/L (-2-2); BLOOD GAS CARBOXYHEMOGLOBIN 1.1 % (0-4); BLOOD GAS HCO3 24 mmol/L (22-26); BLOOD GAS METHEMOGLOBIN 1.1 % (0-2); BLOOD GAS O2 HGB SATURATION 97 % (90-100); BLOOD GAS OXYGEN CONTENT 14.7 Vol % (12.0-20.0); BLOOD GAS PCO2 44 mmHg (38-42); BLOOD GAS PO2 126 mmHg (61-120); BLOOD GAS TOTAL HGB 10.6 G/DL (12.0-16.0); CRITICAL VALUE NO; OXYGEN DEVICE VENT; TEMP CORR TO 98.6
[2017-04-02 06:02] LABS: DRAW SITE ART LINE; FIO2 35 %; STAT NO; ULNAR PULSE PRESENT; VENT SETTINGS SEE COMMENTS
--- NOTE | 2017-04-02 06:24 | RADRPT ---
EXAM DATE/TIME: 04/02/2017 06:08 [facility] COMPARISON: CT PULMONARY ANGIOGRAM, March 27, 2017, 3:55. INDICATIONS : Abdominal distention. MEDICAL HISTORY : Hypertension. Cirrhosis. Cardiovascular disease. SURGICAL HISTORY : None. ENCOUNTER: Initial ACUITY: 1 day PAIN SCORE: Non-responsive. LOCATION: Bilateral abdomen. FINDINGS: 2 portable supine views of the abdomen showing weighted feeding tube with the tip near the region of the pylorus. Gas is seen involving the transverse colon which is not dilated. There is a relative [place] of bowel gas throughout the remaining aspect of the abdomen. Increase in density in diffuse fash ion suggests ascites. CONCLUSION: No dilated bowel loops. Suspected ascites. Miles Ge Jr., MD on April 02, 2017 at 6:22 Board Certified Radiologist. This report was verified electronically.
[2017-04-02] MEDS: RESP: BUDESONIDE 0.5 MG/2 ML NEB NEB SCH ×2 (08:01→20:16)
[2017-04-02] MEDS: RESP: ALBUTEROL 2.5 MG/3 ML NEB (PRN) NEB ×2 (08:01→20:16)
[2017-04-02] MEDS: SODIUM CHLORIDE 0.9% FLUSH 10 ML FLUSH IV FLUSH SCH ×2 (08:48→21:00)
[2017-04-02] MEDS: ARTIFICIAL TEARS OPTH OINT 3.5 APPLIC/3.5 GM TUBO EACH EYE SCH ×2 (08:48→21:00)
[2017-04-02] MEDS: CHLORHEXIDINE 0.12% (ORAL KIT) 15 ML CUP MT SCH ×2 (08:48→20:00)
[2017-04-02] MEDS: LACTULOSE SYRUP 20 GM/30 ML CUP PO SCH (09:11)
[2017-04-02] MEDS: PANTOPRAZOLE SODIUM 40 MG VIAL IV SCH (09:11)
[2017-04-02] MEDS: SPIRONOLACTONE 25 MG TAB PO SCH ×2 (09:12→17:00)
[2017-04-02] MEDS: HEPARIN SODIUM - SQ 10,000 UNITS/ML VIAL SQ SCH ×2 (09:12→19:59)
[2017-04-02] MEDS: URSODIOL 300 MG CAP PO SCH ×3 (09:12→17:00)
[2017-04-02] MEDS: FOLIC ACID 1 MG TAB PO SCH (09:12)
[2017-04-02] MEDS: THIAMINE HCL 100 MG TAB PO SCH (09:12)
[2017-04-02] MEDS: MULTIVITAMIN TAB PO SCH (09:12)
[2017-04-02] MEDS: FUROSEMIDE 40 MG/4 ML VIAL IV PUSH SCH (09:12)
--- NOTE | 2017-04-02 09:14 | HHI.CCPN ---
Subjective Remarks/Hospital Course 03/26: This is a 42-year-old male. Date of admission 03/19/2017. Date of consultation 03/27/2017. Past medical history includes EtOH use abuse, tobaccoism, hypertension Gastroesophageal reflux disease and DDD. Patient is on Suboxone for prior opiate abuse. He drinks one bottle of vodka daily patient is on chronic alprazolam at home on lactulose and Lasix. Patient was originally admitted with abdominal ascites. Status post paracentesis 03/20-3300 cc. Possible SBP. Placed on ceftriaxone. Blood work included a positive AMA and elevated iron studies. GS re-consulted. Over the past 24 hours. Patient has had increased oxygen requirements from 4 L currently 2 nonrebreather. He denies chest pressure respiratory denies cough. No significant peripheral edema. Patient's abdomen is quite distended however ultrasound reveals minimal ascites. Awake and alert. His only complaint is "dry throat from aerosolized mask 03/27: Patient developed worsening respiratory distress during the day and was placed on BiPAP with full facemask. He was requiring 100% FiO2 with BiPAP settings at +15/+8. His respiratory status declined as a day progress. Had multiple discussions with patient as well as his family members including reviewing his CT chest from early this morning which revealed extensive pulmonary infiltrates (right greater than left) and explained probable need for proceeding with intubation and mechanical ventilation. Subsequently patient's O2 sats dropped in the upper 80s despite BiPAP and patient was intubated and placed on mechanical ventilation around 6 PM. I subsequently proceeded with central line placement. Postintubation chest x-ray revealed extensive bilateral pulmonary infiltrates which appeared to have progress since his previous chest x-ray. Patient was requiring high doses of sedatives including Versed/fentanyl and propofol drips to keep him sedated. 03/28: Patient placed on prone ventilation last night and inhaled Flolan. Currently sedated, orally intubated on mechanical ventilation. On neuromuscular blockade. Remains on Versed/propofol/Dilaudid drips for sedation. Nimbex for neuromuscular blockade. 03/29: Remains sedated, orally intubated on mechanical ventilation, on neuromuscular blockade. Inhaled Flolan to be decreased from 20,000 ng per KG per minute to 10,000 ng per KG per minute this morning. O2 sats in the mid 90s. Vent mode change from pressure control to PRVC last night for elevation of PCO2. 09/16: Down to FiO2 0.50, PEEP 15. Will convert to regular bed. Leave on PRVC. Update, converted to APRV due to lack of progress on conventional mode. Improved PO2 to 114 and no CO2 retention. 03/31: Improved oxygenation. Lung lopez clearing on CXR. A little dry perhaps; will continue maintenance iv. Organism? Relaxant off 24 24hrs now, weaning dilaudid and versed. 04/01: Continued improvement in gas exchange but persistent ARDS pattern without diagnosis. Suspect infectious etiology and continue broad coverage. Withdrawal symptoms controlled, may need precedex to extubate. 04/02: Remains sedated, orally intubated on mechanical ventilation on APRV mode. Abdomen appears distended and firm currently. Stool positive for C. difficile by PCR. Had about 500 cc of diarrhea overnight. Tolerating tube feeds Objective Vital Signs Date Time Temp Pulse Resp B/P (MAP) Pulse Ox O2 Delivery O2 Flow Rate FiO2 04/02/17 08:01 100 35 04/02/17 07:00 Mechanical Ventilator 04/02/17 06:00 83 04/02/17 04:00 96.3 16 104/60 (75) 04/01/17 19:00 2.00 Intake and Output 04/02/17 04/02/17 04/03/17 08:00 16:00 00:00 Intake Total 1151 ml Output Total 1050 ml Balance 101 ml Result Diagram: 04/02/17 0329 04/02/17 0329 Other Results Laboratory Tests Test 04/02/17 05:44 Blood Gas Puncture Site ART LINE Blood Gas Patient Temperature 98.6 Blood Gas HCO3 24 mmol/L (22-26) Blood Gas Base Excess -1.1 mmol/L (-2-2) Blood Gas Oxygen Saturation 97 % (90-100) Arterial Blood pH 7.35 (7.380-7.420) Arterial Blood Partial Pressure CO2 44 mmHg (38-42) Arterial Blood Partial Pressure O2 126 mmHg (61-120) Arterial Blood Oxygen Content 14.7 Vol % (12.0-20.0) Arterial Blood Carboxyhemoglobin 1.1 % (0-4) Arterial Blood Methemoglobin 1.1 % (0-2) Blood Gas Hemoglobin 10.6 G/DL (12.0-16.0) Oxygen Delivery Device VENT Blood Gas Ventilator Setting SEE COMMENTS Blood Gas Inspired Oxygen 35 % Imaging Chest x-ray portable done on 03/27 post intubation was personally reviewed: ET tube above antonoi, right IJ central line with tip overlying SVC, NG tube in place, extensive bilateral infiltrates involving almost the entire lung lopez. Last [address] Angiography 03/27/17 0000 Signed Impressions: Service Date/Time: Monday, March 27, 2017 03:55 - CONCLUSION: 1. Mixed groundglass opacity and airspace consolidation in both upper lobes. Differential diagnosis includes infection, aspiration and pulmonary hemorrhage. 2. Moderate pleural effusions with dependent consolidation and atelectasis at both lung bases. 3. Hepatomegaly with ascites. 4. Contrast bolus suboptimal but no pulmonary emboli identified. Kyle Thorpe MD Last Impressions Chest X-Ray 03/26/17 0000 Signed Impressions: Service Date/Time: Sunday, March 26, 2017 10:30 - CONCLUSION: 1. New alveolar infiltrates in both lungs which may represent pulmonary edema which may be noncardiogenic in origin. 2. Denser course infiltrates in both lung bases likely representing scarring. Ap Zamora MD Abdomen Ultrasound 03/25/17 0000 Signed Impressions: Service Date/Time: Saturday, March 25, 2017 10:49 - CONCLUSION: 1. Very subtle ascites without sufficient pocket for safe paracentesis. Hipolito Palencia MD Cyst Biopsy Asp-Paracentesis US 03/20/17 0600 Signed Impressions: Service Date/Time: Monday, March 20, 2017 09:42 - CONCLUSION: Uncomplicated ultrasound guided paracentesis. Kareem Mahan MD Lower Extremity Ultrasound 03/19/17 1441 Signed Impressions: Service Date/Time: Sunday, March 19, 2017 15:40 - CONCLUSION: 1. No evidence of deep venous thrombosis. Claudio Argueta MD Liver Ultrasound 03/19/17 0000 Signed Impressions: Service Date/Time: Sunday, March 19, 2017 18:23 - CONCLUSION: 1. Moderate ascites. Thickened gallbladder wall with sludge. Mild hepatosplenomegaly. Kyle Thorpe MD Objective Remarks HEENT/ Neuro: Lightly sedated, opens eyes to loud voice, no tremors, pupils 2 mm , reactive. Neck: Right IJ central line in place. Orally intubated. Chest/Pulm: Few rhonchi, good air entry bilaterally, no wheezing/ crackles CVS: S1-S2 regular, no murmur, neck vein full (but thoracic pressures elevated). GI/abdomen: firm, moderately distended nontender, bowel sounds active Extremities: warm bilaterally, trace edema, well perfused. Date of Insertion: Mar 27, 2017 Line: Central Venous Catheter Side: Right Location: Internal, Jugular A/P Assessment and Plan Neuro/Psych: History of oxycodone use Anxiety disorder on chronic alprazolam History of hepatic encephalopathy Patient was on his home Suboxone 8 mg 4 times a day till 03/28 which was held following intubation as patient requiring deep sedation and neuromuscular blockade. Starting propofol/Versed gtt. as well as Dilaudid PIT OPERATOR 2 mg/h basal rate.. Dilaudid 2 mg IV every 3 hourly scheduled for 72 hours up to 03/30/17 while waiting for buprenorphine to wear off and will then plan on transitioning to fentanyl gtt from Dilaudid PIT OPERATOR. Has been off neuromuscular blockade. Continue Librium 20 mg every 12 hourly in view of history of alcohol abuse. Continue thiamine/folic acid/MVI via OG tube. On lorazepam 1 mg every 2 hours when necessary anxiety On alprazolam 1 mg by mouth every 6 hours chronically. Versed drip at 3 mg/hr, patient wakes. Propofol as needed. CV: Sinus tachycardia History of hypertension Hypotension Off Levophed. Continue spironolactone for fluid retention secondary to liver disease. Diurese to keep even fluid balance Resp: Acute hypoxemic respiratory failure Bilateral pneumonia ARDS Tobaccoism CT chest on 03/27 with extensive bilateral infiltrates right greater than left. Progressive respiratory failure with borderline O2 sats on BiPAP hence was intubated and placed on mechanical ventilation on 03/27. Continue mechanical ventilation with APRV mode, FiO2 35%. Allow permissive hypercapnia Albuterol/ipratropium aerosols every 4 hours with albuterol aerosols every 2 hours when necessary Off inhaled Flolan. Continue Solu-Medrol 40 mg IV every 8 hourly Nicotine patch at 21 mg daily APRV initiated 03/30 after lack of progress on PRVC. CXR with diffuse process now, including bases. GI/liver: Likely cirrhosis - Will need liver biopsy Abdominal ascites AMA positive. Elevated iron studies. Pending hepatitis panel. Appears to be carrier for hemochromatosis gene ? Significance. Status post paracentesis 03/20. -3300. May need to repeat paracentesis, will discuss with GI. Abdominal ultrasound 03/25. Not sufficient fluid for paracentesis Ursodiol to be continued possible primary biliary cirrhosis Noted 579 WBC and peritoneal fluid however peritoneal fluid cultures negative. Was on Rocephin from 03/20 - 03/27 Continue lactulose 30 cc daily. Continue spironolactone. Continue Lasix 40 mg daily. Start tube feeds with Neutra hep and advance to goal of 60 cc an hour once Dobbhoff placed. : Bowden catheterization for accurate intake output in critically ill patient with sepsis/pneumonia Endo: Sliding-scale insulin if needed for glycemic control. Renal: Strict intake output, monitor and replete electrolytes, follow BUN/creatinine. Heme: Leukocytosis Macrocytic anemia Thrombocytopenia Monitor CBC daily. Follow trends. Continue MVI/folic acid. No indications for transfusion of blood products at this time ID: Sepsis/pneumonia with ARDS SBP - culture negative On Rocephin from 03/20 -03/27. Status post 1 dose vancomycin 03/27. Zosyn started 03/27. Added Zyvox 600 mg IV every 12 hourly on 03/27 following intubation. ID consult requested for sepsis/severe pneumonia. Recheck blood cultures 2, urine antigens. Urine negative for strep pneumo and Legionella antigen Sputum for Gram stain and cultures obtained after intubation -> no growth so far. Stoo positive for C diff by PCR - will d/w ID regarding starting PO vancomycin . MSK: Physical therapy. Unable to participate. FEN: Hyponatremia Hypo-magnesium Hyponatremia workup see orders osm serum, urine, urine sodium, TSH, cortisol uric acid, triglycerides. Replacing electrolytes as clinically indicated Access -Placed right IJ central line 03/27. Prophylaxis - GI - pantoprazole - DVT - SCD/ pharmacological prophylaxis with subcutaneous heparin 5000 units every 12 hourly. Extensive discussion on 03/27 with patient's family members and with patient at bedside on multiple occasions during the day and following intubation with family members regarding severity of pneumonia and need for mechanical ventilation including neuromuscular blockade and they voiced understanding and were agreeable and appreciative of care provided. Also explained that if patient's restless status does not improve over the next 2 weeks he may require tracheostomy. Condition remains extremely critical. Continue neuromuscular blockade. Dr. Stoddard updated patient's mother on 03/28 and 03/29 regarding current clinical status including prone ventilation and possible need for prolonged mechanical ventilation. She voiced understanding and was agreeable with plan of care. Overall impression: Patient remains critically ill with severe ARDS on mechanical ventilation with markedly elevated airway pressure requirements. Unable to wean from ventilator. Critical Care time excluding procedures : 40 mins Glynn Stoddard MD Apr 02, 2017 09:14
[2017-04-02] MEDS: VANCOMYCIN 500 MG VIAL (FOR ORAL USE ONLY) PO SCH ×3 (10:20→22:51)
[2017-04-02 10:28] LABS: CRYPTOCOCCUS ANTIGEN Negative (Negative)
--- NOTE | 2017-04-02 11:21 | RADRPT ---
EXAM DATE/TIME: 04/02/2017 10:36 [facility] COMPARISON: No previous studies available for comparison. INDICATIONS : Ascites. MEDICAL HISTORY : Hypertension. Cirrhosis. Gastroesophageal reflux disease. Tremors. Pneumonia. ETOH abuse. C.diff. Anx iety. SURGICAL HISTORY : Right hand surgery. ENCOUNTER: Sequela ACUITY: 1 week PAIN SCORE: Nonresponsive. LOCATION: Abdomen. AREA EVALUATED: Abdominal quadrants. FINDINGS: Imaging of the abdomen and pelvis was performed to evaluate for ascites for possible paracentesis. CONCLUSION: 1. There is a large amount of ascites. Marked was placed on the right lower quadrant with patient lyi ng on back with head elevated to about 30-40. Distance from skin to peritoneal surface is 2.2 cm and maximal safe depth is 4.4 cm. Kyle Thorpe MD on April 02, 2017 at 11:19 Board Certified Radiologist. This report was verified electronically.
[2017-04-02] MEDS ORDERED: ALBUMIN HUMAN 25% 12.5 GM/50 ML BAGP IV ONE (12:45)
--- NOTE | 2017-04-02 13:04 | HHI.PR ---
Subjective Remarks Sedated and on Vent support. Overall better. Ascites was drained FIo2 35 %. On APRV rate 18, PEEP 5 CXR showing some Improvement but ARDS pattern noted. Objective Vital Signs Date Time Temp Pulse Resp B/P (MAP) Pulse Ox O2 Delivery O2 Flow Rate FiO2 04/02/17 12:00 91 04/02/17 12:00 35 04/02/17 11:41 99 35 04/02/17 10:00 84 04/02/17 08:01 100 35 04/02/17 08:00 82 04/02/17 08:00 35 04/02/17 08:00 98.5 86 20 110/60 (77) 99 04/02/17 07:00 99 Mechanical Ventilator 35 04/02/17 06:00 83 04/02/17 04:25 100 35 04/02/17 04:00 96.3 82 16 104/60 (75) 100 04/02/17 04:00 35 04/02/17 04:00 82 04/02/17 02:00 82 04/02/17 00:23 98 35 04/02/17 00:08 86 04/02/17 00:08 97.5 86 9 105/58 (74) 98 100/53 (69) 04/02/17 00:08 35 04/01/17 22:00 86 04/01/17 20:43 98 35 04/01/17 20:00 90 04/01/17 20:00 97.9 91 17 98 100/53 (69) 04/01/17 20:00 35 04/01/17 19:00 98 Mechanical Ventilator 2.00 35 04/01/17 18:00 94 04/01/17 16:00 98.1 91 9 97 102/56 (71) 04/01/17 16:00 91 04/01/17 16:00 35 04/01/17 15:44 97 35 04/01/17 14:00 96 I/O 04/01/17 04/01/17 04/01/17 04/02/17 04/02/17 04/02/17 07:00 15:00 23:00 07:00 15:00 23:00 Intake Total 1008.8 ml 2281 ml 1151 ml Output Total 1125 ml 970 ml 1050 ml Balance -116.2 ml 1311 ml 101 ml Oral Supplement 501 ml IV Total 320.8 ml 1289 ml 550 ml Tube Feeding 588 ml 692 ml Albumin 100 ml 100 ml Other 100 ml 200 ml Output Urine Total 725 ml 850 ml 650 ml Stool Total 400 ml 120 ml 400 ml Result Diagram: 04/02/1732804/02/17328 Objective Remarks PHYSICAL EXAMINATION IN GENERAL: This averagely built middle-aged man is intubated, sedated . HEAD, EYES, EARS, NOSE, AND THROAT: Pupils reactive. Sclerae are icteric. Throat not visible. The ET tube in place. NECK: No venous distension. CHEST: Decreased breath sounds at the periphery. Occ Crackles at bases HEART: Heart sounds are regular S1-S2. ABDOMEN: Abdomen is soft, slightly protuberant. Bowel sounds not heard. EXTREMITIES: Mild peripheral edema. The patient is sedated and does not move. DERMATOLOGY: The skin was dry and cool. Assessment and Plan Assessment and Plan IMPRESSION 1. Acute hypoxemic respiratory failure. 2. ARDS 3. Aspiration pneumonia versus pulmonary edema. 4. Cirrhosis of the liver 5. Probable underlying chronic lung disease 6. Ascites. Plan : 1. Wean FIO2 to keep sat >92. 2. Wean to CPAP in am FIO2 35 % 3. Antibiotics as ordered. 4. Continue Solumedrol 40 mg IV q12h. 5. Nebs q6h with duoneb. 6. Wean sedation as tolerated 7. Wean Dilaudid 7. CXR ,CBC,BMP in am Mela Becerra MD Apr 02, 2017 13:04
--- NOTE | 2017-04-02 13:18 | PD.PROCEDR ---
Procedure Note Procedure Preoperative diagnosis: Acute respiratory failure on mechanical ventilation, ascites, liver cirrhosis, pneumonia/ARDS Postop diagnosis: Same Procedure: Ultrasound-guided abdominal paracentesis (diagnostic and therapeutic) Informed consent: Obtained from patient's mother and documented on chart. Anesthesia used: 1% lidocaine for local infiltration anesthesia Procedure: After sterile prepping and draping using 1% lidocaine for local infiltration anesthesia, small stab wound was made on the right lower quadrant at the ultrasound guided marked site following which paracentesis kit was used to advance catheter into peritoneal cavity while applying suction until ascites fluid was obtained and the syringe following which the catheter was advanced into the peritoneal cavity and the needle was then removed. Connector tubing was attached to the catheter and then connected to a Vacutainer bottle and 3.8 L of straw-colored ascites fluid was drained. Following this introducer catheter was removed and pressure was held on the drainage site. There was minimal oozing off ascites fluid from the incision site hence decision was made to put a small ostomy bag over the site for the draining fluid. Patient tolerated the procedure well with no immediate competitions noted. Ordered specimen to be sent for studies. Glynn Stoddard MD Apr 02, 2017 13:18
--- NOTE | 2017-04-02 13:58 | RADRPT ---
EXAM DATE/TIME: 04/02/2017 13:18 [facility] COMPARISON: CHEST SINGLE AP, April 01, 2017, 4:29. INDICATIONS : ET tube placement. MEDICAL HISTORY : None. SURGICAL HISTORY : None. ENCOUNTER: Subsequent ACUITY: 2 weeks PAIN SCORE: Non-responsive. LOCATION: Bilateral chest FINDINGS: A single view of the chest demonstrates improving bibasilar atelectatic changes, especially in the le ft base. Decreased density in the right hemithorax may represent a resolving posterior layering effus ion. Nasogastric Dobbhoff feeding tube traverses the GE junction and extends off the inferior aspect of the film. I believe the nasogastric tube is been pulled back in the esophagus. Endotracheal tube h as also been pulled back to the thoracic inlet. CONCLUSION: 1. Improving aeration in both lungs with resolving bibasilar atelectatic changes. 2. Endotracheal tube is been pulled back to the thoracic inlet and I believe the nasogastric tube is now identified with the tip in the midesophagus, above the GE junction. 3. Right IJ central venous catheter and a Dobbhoff feeding tube are stable in position. Michael Oliveira MD on April 02, 2017 at 13:54 Board Certified Radiologist. This report was verified electronically.
[2017-04-02 14:43] LABS: BLOOD GAS BASE EXCESS 0.4 mmol/L (-2-2); BLOOD GAS CARBOXYHEMOGLOBIN 1.4 % (0-4); BLOOD GAS HCO3 24 mmol/L (22-26); BLOOD GAS O2 HGB SATURATION 97 % (90-100); BLOOD GAS OXYGEN CONTENT 13.1 Vol % (12.0-20.0); BLOOD GAS PCO2 38 mmHg (38-42); BLOOD GAS PO2 123 mmHg (61-120); BLOOD GAS TOTAL HGB 9.4 G/DL (12.0-16.0); CRITICAL VALUE NO; OXYGEN DEVICE VENTILATOR; TEMP CORR TO 98.6
[2017-04-02 14:44] LABS: DRAW SITE ART LINE; FIO2 35 %; STAT NO; VENT SETTINGS PRVC/AC
--- NOTE | 2017-04-02 16:43 | HHI.IDPN ---
Subjective Subjective Remarks On vent C.diff confirmed this am sp therapeutic paracenthesis - 4 L removed fluid with low albumin, WBC and Gstain P Antibiotics PO vanco levaquin zosyn Allergies: Coded Allergies: clarithromycin (Unverified Allergy, Severe, Rash, 03/19/17) clindamycin (Unverified Allergy, Severe, RASH, 03/19/17) Objective . Vital Signs Date Time Temp Pulse Resp B/P (MAP) Pulse Ox O2 Delivery O2 Flow Rate FiO2 04/02/17 16:00 35 04/02/17 16:00 88 04/02/17 16:00 98.1 88 16 97/53 (68) 100 04/02/17 15:48 100 35 04/02/17 14:00 85 04/02/17 12:00 91 04/02/17 12:00 97.8 92 19 112/62 (79) 100 04/02/17 12:00 35 04/02/17 11:41 99 35 04/02/17 10:00 84 04/02/17 08:01 100 35 04/02/17 08:00 82 04/02/17 08:00 35 04/02/17 08:00 98.5 86 20 110/60 (77) 99 04/02/17 07:00 99 Mechanical Ventilator 35 04/02/17 06:00 83 04/02/17 04:25 100 35 04/02/17 04:00 96.3 82 16 104/60 (75) 100 04/02/17 04:00 35 04/02/17 04:00 82 04/02/17 02:00 82 04/02/17 00:23 98 35 04/02/17 00:08 86 04/02/17 00:08 97.5 86 9 105/58 (74) 98 100/53 (69) 04/02/17 00:08 35 04/01/17 22:00 86 04/01/17 20:43 98 35 04/01/17 20:00 90 04/01/17 20:00 97.9 91 17 98 100/53 (69) 04/01/17 20:00 35 04/01/17 19:00 98 Mechanical Ventilator 2.00 35 04/01/17 18:00 94 . Laboratory Tests Test 04/01/17 04:00 04/02/17 03:29 White Blood Count 19.0 TH/MM3 22.5 TH/MM3 Red Blood Count 2.39 MIL/MM3 2.45 MIL/MM3 Hemoglobin 9.2 GM/DL 9.6 GM/DL Hematocrit 27.0 % 27.8 % Mean Corpuscular Volume 112.9 FL 113.4 FL Mean Corpuscular Hemoglobin 38.6 PG 39.0 PG Mean Corpuscular Hemoglobin Concent 34.2 % 34.4 % Red Cell Distribution Width 16.9 % 17.1 % Platelet Count 193 TH/MM3 182 TH/MM3 Mean Platelet Volume 7.6 FL 7.8 FL Neutrophils (%) (Auto) 86.2 % 89.0 % Lymphocytes (%) (Auto) 4.6 % 3.8 % Monocytes (%) (Auto) 9.0 % 7.0 % Eosinophils (%) (Auto) 0.0 % 0.0 % Basophils (%) (Auto) 0.2 % 0.2 % Neutrophils # (Auto) 16.4 TH/MM3 20.0 TH/MM3 Lymphocytes # (Auto) 0.9 TH/MM3 0.9 TH/MM3 Monocytes # (Auto) 1.7 TH/MM3 1.6 TH/MM3 Eosinophils # (Auto) 0.0 TH/MM3 0.0 TH/MM3 Basophils # (Auto) 0.0 TH/MM3 0.0 TH/MM3 CBC Comment DIFF FINAL DIFF FINAL Differential Comment Laboratory Tests Test 04/01/17 04:00 04/02/17 03:29 Blood Urea Nitrogen 40 MG/DL 53 MG/DL Creatinine 1.59 MG/DL 1.71 MG/DL Random Glucose 121 MG/DL 152 MG/DL Total Protein 6.7 GM/DL Albumin 3.6 GM/DL Calcium Level 8.7 MG/DL 8.7 MG/DL Alkaline Phosphatase 60 U/L Aspartate Amino Transf (AST/SGOT) 56 U/L Alanine Aminotransferase (ALT/SGPT) 41 U/L Total Bilirubin 1.8 MG/DL Sodium Level 131 MEQ/L 130 MEQ/L Potassium Level 4.2 MEQ/L 3.9 MEQ/L Chloride Level 96 MEQ/L 95 MEQ/L Carbon Dioxide Level 25.4 MEQ/L 25.6 MEQ/L Anion Gap 10 MEQ/L 9 MEQ/L Estimat Glomerular Filtration Rate 48 ML/MIN 45 ML/MIN Phosphorus Level 4.5 MG/DL Magnesium Level 2.2 MG/DL Microbiology Date/Time Source Procedure Growth Status 04/02/17 13:30 Fluid Peritoneal Fluid Gram Stain Pending Received 04/02/17 13:30 Fluid Peritoneal Fluid Body Fluid Culture Pending Received Imaging Last Impressions Abdomen X-Ray 04/02/17 0600 Signed Impressions: Service Date/Time: Sunday, April 02, 2017 06:08 - CONCLUSION: No dilated bowel loops. Suspected ascites. Miles Ge Jr., MD Chest X-Ray 04/02/17 0000 Signed Impressions: Service Date/Time: Sunday, April 02, 2017 13:18 - CONCLUSION: 1. Improving aeration in both lungs with resolving bibasilar atelectatic changes. 2. Endotracheal tube is been pulled back to the thoracic inlet and I believe the nasogastric tube is now identified with the tip in the midesophagus, above the GE junction. 3. Right IJ central venous catheter and a Dobbhoff feeding tube are stable in position. Michael Oliveira MD Abdomen Ultrasound 04/02/17 0000 Signed Impressions: Service Date/Time: Sunday, April 02, 2017 10:36 - CONCLUSION: 1. There is a large amount of ascites. Marked was placed on the right lower quadrant with patient lying on back with head elevated to about 30-40. Distance from skin to peritoneal surface is 2.2 cm and maximal safe depth is 4.4 cm. Kyle Thorpe MD CT Angiography 03/27/17 0000 Signed Impressions: Service Date/Time: Monday, March 27, 2017 03:55 - CONCLUSION: 1. Mixed groundglass opacity and airspace consolidation in both upper lobes. Differential diagnosis includes infection, aspiration and pulmonary hemorrhage. 2. Moderate pleural effusions with dependent consolidation and atelectasis at both lung bases. 3. Hepatomegaly with ascites. 4. Contrast bolus suboptimal but no pulmonary emboli identified. Kyle Thorpe MD Cyst Biopsy Asp-Paracentesis US 03/20/17 0600 Signed Impressions: Service Date/Time: Monday, March 20, 2017 09:42 - CONCLUSION: Uncomplicated ultrasound guided paracentesis. Kareem Mahan MD Lower Extremity Ultrasound 03/19/17 1441 Signed Impressions: Service Date/Time: Sunday, March 19, 2017 15:40 - CONCLUSION: 1. No evidence of deep venous thrombosis. Claudio Argueta MD Liver Ultrasound 03/19/17 0000 Signed Impressions: Service Date/Time: Sunday, March 19, 2017 18:23 - CONCLUSION: 1. Moderate ascites. Thickened gallbladder wall with sludge. Mild hepatosplenomegaly. Kyle Thorpe MD Physical Exam CONSTITUTIONAL/GENERAL: This is an adequately nourished patient, in no apparent distress. TUBES/LINES/DRAINS: SKIN: No jaundice, rashes, or lesions. Skin temperature appropriate. Not diaphoretic. HEAD: Atraumatic. Normocephalic. EYES: Pupils equal and round and reactive. Extraocular motions intact. No scleral icterus. No injection or drainage. Fundi not examined. ENT: Nose without bleeding or purulent drainage. Oral mucosae without visible erythema, exudates, masses, or lesions. Orally intuated NECK: Trachea midline. Supple, nontender. CARDIOVASCULAR: Regular rate and rhythm without murmurs, gallops, or rubs. No JVD. Peripheral pulses symmetric. RESPIRATORY/CHEST: Symmetric, unlabored respirations. Clear to auscultation. Breath sounds equal bilaterally. No wheezes, rales, or rhonchi. GASTROINTESTINAL: Abdomen soft, much flatter right after procedures Ascitic fluid light yellow clear and foamy - 3.6 L removed no reaction to palpation, mildly distended. No hepato-splenomegaly, or palpable masses. Bowel sounds present. Has dignishield i place with liquid brown stool GENITOURINARY: Without palpable bladder distension. Bowden catheter in place with clierar yellow urine MUSCULOSKELETAL: Extremities without clubbing, cyanosis, + marked edema, at least 3+ . No mottling or clubbing. LYMPHATICS: No palpable cervical or supraclavicular adenopathy. NEUROLOGICAL: sedated; not following commnds PSYCHIATRIC: unable to assess Assessment & Plan Remarks PNA, culture negative - crypto also negative Acute VDRF, very unstable remains on prone ventilation Liver cisrrosis Critically ill but seem to be more stable tense ascites sp therapeutic paracenthesis - P clx C.diff - new issue dc levaquin cont zosyn, for now start vanco PO fu ascitic fluid clx might wean off abx in the next 24-48 hrs P results of ascitic fluid clx dw RN dw Elda Goncalves MD Apr 02, 2017 16:43
[2017-04-02 17:02] LABS: PERITONEAL WBC 60 /MM3 (0-10)
[2017-04-02 17:03] LABS: PERITONEAL HISTIOCYTES 7 %; PERITONEAL LYMPHS 28 %; PERITONEAL MESOTHELIAL 2 %; PERITONEAL MONOS 18 %; PERITONEAL POLYS(SEGS) 45 %
[2017-04-03] VITALS (18 sets, daily range): BP systolic 95–108; BP diastolic 50–59; PULSE 90–108; RESP 14–24; TEMP 98.6–99.3; O2SAT 93–99
[2017-04-03] MEDS: PROPOFOL 1000 MG/100 ML IV PRN ×3 (00:21→05:06)
[2017-04-03] MEDS: PIPERACIL-TAZO 4.5 GM PREMIX 100 ML IV SCH ×4 (01:44→17:35)
[2017-04-03] MEDS: ALBUMIN HUMAN 25% 25 GM/100 ML BAGP IV SCH ×2 (01:44→14:00)
[2017-04-03] MEDS: INSULIN NovoLIN REGULAR SUPPLEMENTAL SCALE SQ SCH ×7 (03:30→23:29)
[2017-04-03] MEDS: VANCOMYCIN 500 MG VIAL (FOR ORAL USE ONLY) PO SCH ×4 (03:37→21:07)
[2017-04-03] MEDS: METOCLOPRAMIDE HCL 10 MG/2 ML VIAL IV PUSH SCH ×3 (05:07→21:07)
[2017-04-03] MEDS: PCA - TOTAL MG DILAUDID DELIVERED PER SHIFT OTHER SCH ×3 (05:08→21:35)
[2017-04-03] MEDS: CHLORHEXIDINE 0.12% (ORAL KIT) 15 ML CUP MT SCH ×2 (08:00→20:27)
[2017-04-03] MEDS: RESP: BUDESONIDE 0.5 MG/2 ML NEB NEB SCH ×2 (08:08→20:22)
[2017-04-03] MEDS: RESP: ALBUTEROL 2.5 MG/3 ML NEB (PRN) NEB (08:08)
[2017-04-03 08:23] LABS: AUTOMATED NEUTROPHIL # 25.2 TH/MM3 (1.8-7.7); BASOPHIL % 0.1 % (0.0-2.0); HEMATOCRIT 29.3 % (39.0-51.0); LYMPH % 3.6 % (9.0-44.0); MEAN CELL VOLUME 113.1 FL (80.0-100.0); MEAN CORPUSCULAR HGB CONC 33.6 % (32.0-36.0); MONO % 8.9 % (0.0-8.0); NEUT % 87.4 % (16.0-70.0); PLATELET COUNT 178 TH/MM3 (150-450); RED BLOOD COUNT 2.59 MIL/MM3 (4.50-5.90); RED CELL DISTRIBUTION WIDTH 17.1 % (11.6-17.2); WHITE BLOOD COUNT 28.9 TH/MM3 (4.0-11.0)
[2017-04-03 08:24] LABS: HEMO FLAGS AUTO DIFF
[2017-04-03 08:31] LABS: INTERNATIONAL NORMALIZED RATIO 1.4 RATIO; PROTHROMBIN TIME - PATIENT 15.5 SEC (9.8-11.6)
[2017-04-03 08:47] LABS: ANION GAP 11 MEQ/L (5-15); AST (GOT) 62 U/L (15-37); BICARBONATE 25.4 MEQ/L (21.0-32.0); BLOOD UREA NITROGEN 62 MG/DL (7-18); CHLORIDE 95 MEQ/L (98-107); GLOMERULAR FILTRATION RATE 43 ML/MIN (>89); MAGNESIUM 2.3 MG/DL (1.5-2.5); POTASSIUM 3.8 MEQ/L (3.5-5.1); SODIUM (NA) 131 MEQ/L (136-145)
[2017-04-03 08:56] LABS: BANDS 4 % (0-6); CORRECTED NUCLEATED RBC 1 /100 WBC (0-0); METAMYELOCYTES 1 % (0-1); MYELOCYTES 1 % (0-0); NEUTROPHIL # MANUAL DIFF 25.1 TH/MM3 (1.8-7.7); PLATELET ESTIMATE SMEAR NORMAL (NORMAL); PLATELET MORPHOLOGY NORMAL (NORMAL); POLYS (SEG NEUTROPHILS) 81 % (16-70); SCAN/DIFF FINAL DIFF MANUAL; TARGET CELLS 1+ (NORMAL); WBC DIFF SAMPLE 100
[2017-04-03 09:00] LABS: ALKALINE PHOSPHATASE 50 U/L (45-117); ALT (GPT) 46 U/L (12-78); TOTAL BILIRUBIN ADULT 1.7 MG/DL (0.2-1.0)
[2017-04-03] MEDS: ARTIFICIAL TEARS OPTH OINT 3.5 APPLIC/3.5 GM TUBO EACH EYE SCH ×2 (09:00→20:28)
[2017-04-03] MEDS: SODIUM CHLORIDE 0.9% FLUSH 10 ML FLUSH IV FLUSH SCH ×2 (09:00→20:28)
[2017-04-03] MEDS: LACTULOSE SYRUP 20 GM/30 ML CUP PO SCH (09:03)
[2017-04-03] MEDS: MULTIVITAMIN TAB PO SCH (09:04)
[2017-04-03] MEDS: SPIRONOLACTONE 25 MG TAB OG-TUBE SCH ×2 (09:04→17:35)
[2017-04-03] MEDS: THIAMINE HCL 100 MG TAB PO SCH (09:04)
[2017-04-03] MEDS: HEPARIN SODIUM - SQ 10,000 UNITS/ML VIAL SQ SCH ×2 (09:04→20:30)
[2017-04-03] MEDS: FOLIC ACID 1 MG TAB PO SCH (09:04)
[2017-04-03] MEDS: PANTOPRAZOLE SODIUM 40 MG VIAL IV SCH (09:05)
[2017-04-03] MEDS: methylPREDNISolone SOD SUCC 40 MG/1 ML VIAL IV PUSH SCH ×2 (09:05→20:29)
[2017-04-03] MEDS: FUROSEMIDE 40 MG/4 ML VIAL IV PUSH SCH (09:06)
[2017-04-03 09:07] LABS: BLOOD GAS CARBOXYHEMOGLOBIN 1.2 % (0-4); BLOOD GAS HCO3 23 mmol/L (22-26); BLOOD GAS O2 HGB SATURATION 96 % (90-100); BLOOD GAS OXYGEN CONTENT 12.2 Vol % (12.0-20.0); BLOOD GAS PCO2 38 mmHg (38-42); BLOOD GAS PO2 96 mmHg (61-120); BLOOD GAS TOTAL HGB 8.9 G/DL (12.0-16.0); CRITICAL VALUE NO; OXYGEN DEVICE VENTILATOR; TEMP CORR TO 98.6; VENT SETTINGS SEE COMMENTS
[2017-04-03 09:08] LABS: DRAW SITE ART LINE; FIO2 35 %; STAT NO
--- NOTE | 2017-04-03 09:09 | HHI.CCPN ---
Subjective Remarks/Hospital Course 03/26: This is a 42-year-old male. Date of admission 03/19/2017. Date of consultation 03/27/2017. Past medical history includes EtOH use abuse, tobaccoism, hypertension Gastroesophageal reflux disease and DDD. Patient is on Suboxone for prior opiate abuse. He drinks one bottle of vodka daily patient is on chronic alprazolam at home on lactulose and Lasix. Patient was originally admitted with abdominal ascites. Status post paracentesis 03/20-3300 cc. Possible SBP. Placed on ceftriaxone. Blood work included a positive AMA and elevated iron studies. GS re-consulted. Over the past 24 hours. Patient has had increased oxygen requirements from 4 L currently 2 nonrebreather. He denies chest pressure respiratory denies cough. No significant peripheral edema. Patient's abdomen is quite distended however ultrasound reveals minimal ascites. Awake and alert. His only complaint is "dry throat from aerosolized mask 03/27: Patient developed worsening respiratory distress during the day and was placed on BiPAP with full facemask. He was requiring 100% FiO2 with BiPAP settings at +15/+8. His respiratory status declined as a day progress. Had multiple discussions with patient as well as his family members including reviewing his CT chest from early this morning which revealed extensive pulmonary infiltrates (right greater than left) and explained probable need for proceeding with intubation and mechanical ventilation. Subsequently patient's O2 sats dropped in the upper 80s despite BiPAP and patient was intubated and placed on mechanical ventilation around 6 PM. I subsequently proceeded with central line placement. Postintubation chest x-ray revealed extensive bilateral pulmonary infiltrates which appeared to have progress since his previous chest x-ray. Patient was requiring high doses of sedatives including Versed/fentanyl and propofol drips to keep him sedated. 03/28: Patient placed on prone ventilation last night and inhaled Flolan. Currently sedated, orally intubated on mechanical ventilation. On neuromuscular blockade. Remains on Versed/propofol/Dilaudid drips for sedation. Nimbex for neuromuscular blockade. 03/29: Remains sedated, orally intubated on mechanical ventilation, on neuromuscular blockade. Inhaled Flolan to be decreased from 20,000 ng per KG per minute to 10,000 ng per KG per minute this morning. O2 sats in the mid 90s. Vent mode change from pressure control to PRVC last night for elevation of PCO2. 09/16: Down to FiO2 0.50, PEEP 15. Will convert to regular bed. Leave on PRVC. Update, converted to APRV due to lack of progress on conventional mode. Improved PO2 to 114 and no CO2 retention. 03/31: Improved oxygenation. Lung lopez clearing on CXR. A little dry perhaps; will continue maintenance iv. Organism? Relaxant off 24 24hrs now, weaning dilaudid and versed. 04/01: Continued improvement in gas exchange but persistent ARDS pattern without diagnosis. Suspect infectious etiology and continue broad coverage. Withdrawal symptoms controlled, may need precedex to extubate. 04/02: Remains sedated, orally intubated on mechanical ventilation on APRV mode. Abdomen appears distended and firm currently. Stool positive for C. difficile by PCR. Had about 500 cc of diarrhea overnight. Tolerating tube feeds 04/03: Sedated, arousable, remains orally intubated on mechanical ventilation. Underwent paracentesis on 04/02 with drainage of 3.8 L of ascites fluid. Switched from APRV mode to PRVC mode mech vent on 04/02 and tolerating well remains on 35% FiO2 and PEEP at +14 this morning. Started on oral vancomycin for C. difficile colitis on 04/02. Tolerating tube feeds. On propofol and Versed drips currently for sedation. Objective Vital Signs Date Time Temp Pulse Resp B/P (MAP) Pulse Ox O2 Delivery O2 Flow Rate FiO2 04/03/17 08:00 97 35 04/03/17 06:16 100 04/03/17 04:00 98.6 16 103/55 (71) 108/57 (74) 04/02/17 19:00 Mechanical Ventilator 2.00 Intake and Output 04/03/17 04/03/17 04/04/17 08:00 16:00 00:00 Intake Total 1400 ml Output Total 1200 ml Balance 200 ml Result Diagram: 04/03/17 0800 04/03/17 0400 Other Results Laboratory Tests Test 04/02/17 12:25 04/02/17 13:30 04/03/17 04:00 04/03/17 08:00 Blood Gas Puncture Site ART LINE Blood Gas Patient Temperature 98.6 Blood Gas HCO3 24 mmol/L Blood Gas Base Excess 0.4 mmol/L Blood Gas Oxygen Saturation 97 % Arterial Blood pH 7.43 Arterial Blood Partial Pressure CO2 38 mmHg Arterial Blood Partial Pressure O2 123 mmHg Arterial Blood Oxygen Content 13.1 Vol % Arterial Blood Carboxyhemoglobin 1.4 % Arterial Blood Methemoglobin 1.0 % Blood Gas Hemoglobin 9.4 G/DL Oxygen Delivery Device VENTILATOR Blood Gas Ventilator Setting PRVC/AC Blood Gas Inspired Oxygen 35 % Peritoneal Fluid WBC 60 /MM3 Peritoneal Fluid RBC 120 /MM3 Peritoneal Fluid Neutrophils 45 % Peritoneal Fluid Lymphocytes 28 % Peritoneal Fluid Monocytes 18 % Peritoneal Fluid Histiocytes 7 % Peritoneal Fluid Mesothelial Cells 2 % Peritoneal Fluid Total Protein 2.3 GM/DL Peritoneal Fluid Albumin 1.3 G/DL Peritoneal Fluid LDH 46 U/L Peritoneal Fluid Glucose 144 MG/DL Creatinine 1.81 MG/DL 1.76 MG/DL Estimat Glomerular Filtration Rate 42 ML/MIN 43 ML/MIN White Blood Count 28.9 TH/MM3 Red Blood Count 2.59 MIL/MM3 Hemoglobin 9.8 GM/DL Hematocrit 29.3 % Mean Corpuscular Volume 113.1 FL Mean Corpuscular Hemoglobin 38.0 PG Mean Corpuscular Hemoglobin Concent 33.6 % Red Cell Distribution Width 17.1 % Platelet Count 178 TH/MM3 Mean Platelet Volume 7.2 FL Neutrophils (%) (Auto) 87.4 % Lymphocytes (%) (Auto) 3.6 % Monocytes (%) (Auto) 8.9 % Eosinophils (%) (Auto) 0.0 % Basophils (%) (Auto) 0.1 % Neutrophils # (Auto) 25.2 TH/MM3 Lymphocytes # (Auto) 1.0 TH/MM3 Monocytes # (Auto) 2.6 TH/MM3 Eosinophils # (Auto) 0.0 TH/MM3 Basophils # (Auto) 0.0 TH/MM3 CBC Comment AUTO DIFF Prothrombin Time 15.5 SEC Prothromb Time International Ratio 1.4 RATIO Blood Urea Nitrogen 62 MG/DL Random Glucose 132 MG/DL Albumin 3.9 GM/DL Calcium Level 9.0 MG/DL Magnesium Level 2.3 MG/DL Aspartate Amino Transf (AST/SGOT) 62 U/L Sodium Level 131 MEQ/L Potassium Level 3.8 MEQ/L Chloride Level 95 MEQ/L Carbon Dioxide Level 25.4 MEQ/L Anion Gap 11 MEQ/L Imaging Last Impressions Abdomen X-Ray 04/02/17 0600 Signed Impressions: Service Date/Time: Sunday, April 02, 2017 06:08 - CONCLUSION: No dilated bowel loops. Suspected ascites. Miles Ge Jr., MD Chest X-Ray 04/02/17 0000 Signed Impressions: Service Date/Time: Sunday, April 02, 2017 13:18 - CONCLUSION: 1. Improving aeration in both lungs with resolving bibasilar atelectatic changes. 2. Endotracheal tube is been pulled back to the thoracic inlet and I believe the nasogastric tube is now identified with the tip in the midesophagus, above the GE junction. 3. Right IJ central venous catheter and a Dobbhoff feeding tube are stable in position. Michael Oliveira MD Abdomen Ultrasound 04/02/17 0000 Signed Impressions: Service Date/Time: Sunday, April 02, 2017 10:36 - CONCLUSION: 1. There is a large amount of ascites. Marked was placed on the right lower quadrant with patient lying on back with head elevated to about 30-40. Distance from skin to peritoneal surface is 2.2 cm and maximal safe depth is 4.[address] Kyle Thorpe MD CT Angiography 03/27/17 0000 Signed Impressions: Service Date/Time: Monday, March 27, 2017 03:55 - CONCLUSION: 1. Mixed groundglass opacity and airspace consolidation in both upper lobes. Differential diagnosis includes infection, aspiration and pulmonary hemorrhage. 2. Moderate pleural effusions with dependent consolidation and atelectasis at both lung bases. 3. Hepatomegaly with ascites. 4. Contrast bolus suboptimal but no pulmonary emboli identified. Kyle Thorpe MD Cyst Biopsy Asp-Paracentesis US 03/20/17 0600 Signed Impressions: Service Date/Time: Monday, March 20, 2017 09:42 - CONCLUSION: Uncomplicated ultrasound guided paracentesis. Kareem Mahan MD Lower Extremity Ultrasound 03/19/17 1441 Signed Impressions: Service Date/Time: Sunday, March 19, 2017 15:40 - CONCLUSION: 1. No evidence of deep venous thrombosis. Claudio Argueta MD Liver Ultrasound 03/19/17 0000 Signed Impressions: Service Date/Time: Sunday, March 19, 2017 18:23 - CONCLUSION: 1. Moderate ascites. Thickened gallbladder wall with sludge. Mild hepatosplenomegaly. Kyle Thorpe MD Chest x-ray portable done on 03/27 post intubation was personally reviewed: ET tube above antonio, right IJ central line with tip overlying SVC, NG tube in place, extensive bilateral infiltrates involving almost the entire lung lopez. Last [address] Angiography 03/27/17 0000 Signed Impressions: Service Date/Time: Monday, March 27, 2017 03:55 - CONCLUSION: 1. Mixed groundglass opacity and airspace consolidation in both upper lobes. Differential diagnosis includes infection, aspiration and pulmonary hemorrhage. 2. Moderate pleural effusions with dependent consolidation and atelectasis at both lung bases. 3. Hepatomegaly with ascites. 4. Contrast bolus suboptimal but no pulmonary emboli identified. Kyle Thorpe MD Last Impressions Chest X-Ray 03/26/17 0000 Signed Impressions: Service Date/Time: Sunday, March 26, 2017 10:30 - CONCLUSION: 1. New alveolar infiltrates in both lungs which may represent pulmonary edema which may be noncardiogenic in origin. 2. Denser course infiltrates in both lung bases likely representing scarring. Ap Zamora MD Abdomen Ultrasound 03/25/17 0000 Signed Impressions: Service Date/Time: Saturday, March 25, 2017 10:49 - CONCLUSION: 1. Very subtle ascites without sufficient pocket for safe paracentesis. Hipolito Palencia MD Cyst Biopsy Asp-Paracentesis US 03/20/17 0600 Signed Impressions: Service Date/Time: Monday, March 20, 2017 09:42 - CONCLUSION: Uncomplicated ultrasound guided paracentesis. Kareem Mahan MD Lower Extremity Ultrasound 03/19/17 1441 Signed Impressions: Service Date/Time: Sunday, March 19, 2017 15:40 - CONCLUSION: 1. No evidence of deep venous thrombosis. Claudio Argueta MD Liver Ultrasound 03/19/17 0000 Signed Impressions: Service Date/Time: Sunday, March 19, 2017 18:23 - CONCLUSION: 1. Moderate ascites. Thickened gallbladder wall with sludge. Mild hepatosplenomegaly. Kyle Thorpe MD Objective Remarks HEENT/ Neuro: Lightly sedated, opens eyes to loud voice, no tremors, pupils 2 mm , reactive. Neck: Right IJ central line in place. Orally intubated. Chest/Pulm: Few rhonchi, good air entry bilaterally, no wheezing/ crackles CVS: S1-S2 regular, no murmur, neck vein full (but thoracic pressures elevated). GI/abdomen: firm, moderately distended nontender, bowel sounds active Extremities: warm bilaterally, trace edema, well perfused. Urinary Catheter: Yes Assessment to: Continue Vascular Central Line Catheter: Yes Assessment to: Continue Date of Insertion: Mar 27, 2017 Line: Central Venous Catheter Side: Right Location: Internal, Jugular A/P Assessment and Plan Neuro/Psych: History of oxycodone use Anxiety disorder on chronic alprazolam History of hepatic encephalopathy Patient was on his home Suboxone 8 mg 4 times a day till 03/28 which was held following intubation as patient requiring deep sedation and neuromuscular blockade. Starting propofol/Versed gtt. as well as Dilaudid TILLER MAN 2 mg/h basal rate.. Dilaudid 2 mg IV every 3 hourly scheduled for 72 hours up to 03/30/17 while waiting for buprenorphine to wear off and will then plan on transitioning to fentanyl gtt from Dilaudid TILLER MAN. Has been off neuromuscular blockade. Continue Librium 20 mg every 12 hourly in view of history of alcohol abuse. Continue thiamine/folic acid/MVI via OG tube. On lorazepam 1 mg every 2 hours when necessary anxiety On alprazolam 1 mg by mouth every 6 hours chronically. Versed drip at 3 mg/hr, patient wakes. Propofol @ 30mcg/kg/min. CV: Sinus tachycardia History of hypertension Hypotension Off Levophed. Resumed spironolactone for fluid retention secondary to liver disease on 04/03. Lasix 40 mg IV daily to attempt to diurese/ keep even fluid balance Resp: Acute hypoxemic respiratory failure Bilateral pneumonia ARDS Tobaccoism CT chest on 03/27 with extensive bilateral infiltrates right greater than left. Progressive respiratory failure with borderline O2 sats on BiPAP hence was intubated and placed on mechanical ventilation on 03/27. Was on prone ventilation and inhaled Flolan as well as neuromuscular blockade initially. Continue mechanical ventilation : APRV initiated 03/30 after lack of progress on PRVC, Switched from APRV mode to PRVC mode on 04/02. Currently on PRVC 550/12/ 35%/ PEEP decreased from 15 to +8 Albuterol/ipratropium aerosols every 4 hours with albuterol aerosols every 2 hours when necessary Off inhaled Flolan. Continue Solu-Medrol 40 mg IV every 12 hourly Nicotine patch at 21 mg daily CXR with diffuse process now, including bases. GI/liver: Likely cirrhosis - Will need liver biopsy Abdominal ascites AMA positive. Elevated iron studies. Pending hepatitis panel. Appears to be carrier for hemochromatosis gene ? Significance. Status post paracentesis 03/20. -3300. Underwent repeat paracentesis on 04/02 with drainage of 3.8 L of ascites fluid Ursodiol to be continued possible primary biliary cirrhosis Noted 579 WBC and peritoneal fluid however peritoneal fluid cultures negative. Was on Rocephin from 03/20 - 03/27 Continue lactulose 30 cc daily. Resumed spironolactone 04/03. Continue Lasix 40 mg daily. Continue tube feeds with Nutrahep goal of 60 cc an hour. : Bowden catheterization for accurate intake output in critically ill patient with sepsis/pneumonia Endo: Sliding-scale insulin if needed for glycemic control. Renal: Strict intake output, monitor and replete electrolytes, follow BUN/creatinine. Heme: Leukocytosis Macrocytic anemia Thrombocytopenia Monitor CBC daily. Follow trends. Continue MVI/folic acid. No indications for transfusion of blood products at this time ID: Sepsis/pneumonia with ARDS SBP - culture negative C diff colitis On Rocephin from 03/20 -03/27. Status post 1 dose vancomycin 03/27. Zosyn started 03/27. Added Zyvox 600 mg IV every 12 hourly on 03/27 following intubation. ID consult requested for sepsis/severe pneumonia. Off zyvox and levaquin, zosyn continues. Paracentesis repeated on 04/02 and fluid sent for Gram stain and cultures- results pending. Repeated sputum gm stain and C/S on 04/03. All cultures remain negative so far Urine negative for strep pneumo and Legionella antigen Sputum for Gram stain and cultures obtained after intubation -> no growth so far. Stoo positive for C diff by PCR - d/w ID and started PO vancomycin 04/02. MSK: Physical therapy. Unable to participate. FEN: Hyponatremia Hypo-magnesium Hyponatremia workup see orders osm serum, urine, urine sodium, TSH, cortisol uric acid, triglycerides. Replacing electrolytes as clinically indicated Access -Placed right IJ central line 03/27. Prophylaxis - GI - pantoprazole - DVT - SCD/ pharmacological prophylaxis with subcutaneous heparin 5000 units every 12 hourly. Extensive discussion on 03/27 with patient's family members and with patient at bedside on multiple occasions during the day and following intubation with family members regarding severity of pneumonia and need for mechanical ventilation including neuromuscular blockade and they voiced understanding and were agreeable and appreciative of care provided. Also explained that if patient's restless status does not improve over the next 2 weeks he may require tracheostomy. Condition remains extremely critical. Continue neuromuscular blockade. Dr. Stoddard updated patient's mother on 03/28 and 03/29 regarding current clinical status including prone ventilation and possible need for prolonged mechanical ventilation. She voiced understanding and was agreeable with plan of care. Dr. Stoddard updated patient's mother on 04/03 regarding current clinical status and she voiced understanding. Overall impression: Patient remains critically ill with severe ARDS on mechanical ventilation Critical Care time excluding procedures : 40 mins Glynn Stoddard MD Apr 03, 2017 09:09
[2017-04-03] MEDS: URSODIOL 300 MG CAP PO SCH ×3 (09:10→17:35)
[2017-04-03] MEDS: RESP: ALBUTEROL 2.5 MG/IPRATROPIUM 0.5 MG NEB (SCH) NEB ×3 (11:27→20:22)
[2017-04-03 12:14] LABS: BLOOD GAS BASE EXCESS -1.4 mmol/L (-2-2); BLOOD GAS CARBOXYHEMOGLOBIN 1.3 % (0-4); BLOOD GAS HCO3 23 mmol/L (22-26); BLOOD GAS O2 HGB SATURATION 93 % (90-100); BLOOD GAS OXYGEN CONTENT 13.1 Vol % (12.0-20.0); BLOOD GAS PCO2 36 mmHg (38-42); BLOOD GAS PO2 78 mmHg (61-120); CRITICAL VALUE NO; DRAW SITE ART LINE; LITER FLOW 5 L/M; OXYGEN DEVICE NASAL CANNULA; TEMP CORR TO 98.6
[2017-04-03 12:15] LABS: STAT NO
--- NOTE | 2017-04-03 14:41 | HHI.IDPN ---
Subjective Subjective Remarks ID Xcover for . Overnight events reviewed. Extubated this am. C.diff confirmed this am sp therapeutic paracenthesis - 4 L removed fluid with low albumin, WBC and Gstain P Antibiotics PO vanco zosyn IV Lines Line sites with no e.o infection Past Medical History reviewed. Allergies: Coded Allergies: clarithromycin (Unverified Allergy, Severe, Rash, 03/19/17) clindamycin (Unverified Allergy, Severe, RASH, 03/19/17) Objective . Vital Signs Date Time Temp Pulse Resp B/P (MAP) Pulse Ox O2 Delivery O2 Flow Rate FiO2 04/03/17 14:00 98 04/03/17 12:00 98 04/03/17 12:00 98.6 98 14 103/54 (70) 96 103/54 (70) 04/03/17 11:40 95 Nasal Cannula 5.00 04/03/17 10:00 108 04/03/17 09:50 93 Venturi Mask 6 50 04/03/17 09:50 93 Venturi Mask 6.00 50 04/03/17 09:15 98 35 04/03/17 09:15 Venturi Mask 50 35 04/03/17 08:00 99.0 102 17 108/59 (75) 97 108/59 (75) 04/03/17 08:00 35 04/03/17 08:00 102 04/03/17 08:00 97 35 04/03/17 07:00 99 Mechanical Ventilator 2.00 35 04/03/17 06:16 100 04/03/17 04:05 96 35 04/03/17 04:00 35 04/03/17 04:00 93 04/03/17 04:00 98.6 93 16 103/55 (71) 99 108/57 (74) 04/03/17 02:00 90 04/03/17 01:43 99 35 04/03/17 00:00 92 04/03/17 00:00 35 04/03/17 00:00 98.6 92 16 95/50 (65) 99 96/55 (69) 04/02/17 22:28 99 35 04/02/17 22:00 89 04/02/17 20:17 100 35 04/02/17 20:00 97.1 89 16 92/46 (61) 100 93/52 (66) 04/02/17 20:00 89 04/02/17 20:00 35 04/02/17 19:00 Mechanical Ventilator 2.00 35 04/02/17 18:00 92 04/02/17 16:00 35 04/02/17 16:00 88 04/02/17 16:00 98.1 88 16 97/53 (68) 100 04/02/17 15:48 100 35 04/03/17 04/03/17 04/04/17 15:00 23:00 07:00 Intake Total 324 ml Balance 324 ml IV Total 324 ml . Laboratory Tests Test 04/02/17 03:29 04/03/17 08:00 White Blood Count 22.5 TH/MM3 28.9 TH/MM3 Red Blood Count 2.45 MIL/MM3 2.59 MIL/MM3 Hemoglobin 9.6 GM/DL 9.8 GM/DL Hematocrit 27.8 % 29.3 % Mean Corpuscular Volume 113.4 FL 113.1 FL Mean Corpuscular Hemoglobin 39.0 PG 38.0 PG Mean Corpuscular Hemoglobin Concent 34.4 % 33.6 % Red Cell Distribution Width 17.1 % 17.1 % Platelet Count 182 TH/MM3 178 TH/MM3 Mean Platelet Volume 7.8 FL 7.2 FL Neutrophils (%) (Auto) 89.0 % 87.4 % Lymphocytes (%) (Auto) 3.8 % 3.6 % Monocytes (%) (Auto) 7.0 % 8.9 % Eosinophils (%) (Auto) 0.0 % 0.0 % Basophils (%) (Auto) 0.2 % 0.1 % Neutrophils # (Auto) 20.0 TH/MM3 25.2 TH/MM3 Lymphocytes # (Auto) 0.9 TH/MM3 1.0 TH/MM3 Monocytes # (Auto) 1.6 TH/MM3 2.6 TH/MM3 Eosinophils # (Auto) 0.0 TH/MM3 0.0 TH/MM3 Basophils # (Auto) 0.0 TH/MM3 0.0 TH/MM3 CBC Comment DIFF FINAL AUTO DIFF Differential Comment FINAL DIFF MANUAL Differential Total Cells Counted 100 Neutrophils % (Manual) 81 % Band Neutrophils % 4 % Lymphocytes % 7 % Monocytes % 6 % Neutrophils # (Manual) 25.1 TH/MM3 Metamyelocytes 1 % Myelocytes 1 % Nucleated Red Blood Cells 1 /100 WBC Platelet Estimate NORMAL Platelet Morphology Comment NORMAL Target Cells 1+ Laboratory Tests Test 04/02/17 03:29 04/03/17 04:00 04/03/17 08:00 Blood Urea Nitrogen 53 MG/DL 62 MG/DL Creatinine 1.71 MG/DL 1.81 MG/DL 1.76 MG/DL Random Glucose 152 MG/DL 132 MG/DL Calcium Level 8.7 MG/DL 9.0 MG/DL Phosphorus Level 4.5 MG/DL 4.1 MG/DL Magnesium Level 2.2 MG/DL 2.3 MG/DL Sodium Level 130 MEQ/L 131 MEQ/L Potassium Level 3.9 MEQ/L 3.8 MEQ/L Chloride Level 95 MEQ/L 95 MEQ/L Carbon Dioxide Level 25.6 MEQ/L 25.4 MEQ/L Anion Gap 9 MEQ/L 11 MEQ/L Estimat Glomerular Filtration Rate 45 ML/MIN 42 ML/MIN 43 ML/MIN Total Protein 6.4 GM/DL Albumin 3.9 GM/DL Alkaline Phosphatase 50 U/L Aspartate Amino Transf (AST/SGOT) 62 U/L Alanine Aminotransferase (ALT/SGPT) 46 U/L Total Bilirubin 1.7 MG/DL Microbiology Date/Time Source Procedure Growth Status 04/02/17 13:30 Fluid Peritoneal Fluid Gram Stain - Final Resulted 04/02/17 13:30 Fluid Peritoneal Fluid Body Fluid Culture - Preliminary NO GROWTH IN 24 HOURS. Resulted 04/03/17 10:00 Sputum Endotracheal Gram Stain Pending Received 04/03/17 10:00 Sputum Endotracheal Sputum Culture Pending Received Imaging Last Impressions Abdomen X-Ray 04/02/17 0600 Signed Impressions: Service Date/Time: Sunday, April 02, 2017 06:08 - CONCLUSION: No dilated bowel loops. Suspected ascites. Miles Ge Jr., MD Chest X-Ray 04/02/17 0000 Signed Impressions: Service Date/Time: Sunday, April 02, 2017 13:18 - CONCLUSION: 1. Improving aeration in both lungs with resolving bibasilar atelectatic changes. 2. Endotracheal tube is been pulled back to the thoracic inlet and I believe the nasogastric tube is now identified with the tip in the midesophagus, above the GE junction. 3. Right IJ central venous catheter and a Dobbhoff feeding tube are stable in position. Michael Oliveira MD Abdomen Ultrasound 04/02/17 0000 Signed Impressions: Service Date/Time: Sunday, April 02, 2017 10:36 - CONCLUSION: 1. There is a large amount of ascites. Marked was placed on the right lower quadrant with patient lying on back with head elevated to about 30-40. Distance from skin to peritoneal surface is 2.2 cm and maximal safe depth is 4.[address] cm[address]pe MD CT Angiography 03/27/17 0000 Signed Impressions: Service Date/Time: Monday, March 27, 2017 03:55 - CONCLUSION: 1. Mixed groundglass opacity and airspace consolidation in both upper lobes. Differential diagnosis includes infection, aspiration and pulmonary hemorrhage. 2. Moderate pleural effusions with dependent consolidation and atelectasis at both lung bases. 3. Hepatomegaly with ascites. 4. Contrast bolus suboptimal but no pulmonary emboli identified. Kyle Thorpe MD Cyst Biopsy Asp-Paracentesis US 03/20/17 0600 Signed Impressions: Service Date/Time: Monday, March 20, 2017 09:42 - CONCLUSION: Uncomplicated ultrasound guided paracentesis. Kareem Mahan MD Lower Extremity Ultrasound 03/19/17 1441 Signed Impressions: Service Date/Time: Sunday, March 19, 2017 15:40 - CONCLUSION: 1. No evidence of deep venous thrombosis. Claudio Argueta MD Liver Ultrasound 03/19/17 0000 Signed Impressions: Service Date/Time: Sunday, March 19, 2017 18:23 - CONCLUSION: 1. Moderate ascites. Thickened gallbladder wall with sludge. Mild hepatosplenomegaly. Kyle Thorpe MD Physical Exam CONSTITUTIONAL/GENERAL: This is an adequately nourished patient, in no apparent distress. TUBES/LINES/DRAINS: SKIN: No jaundice, rashes, or lesions. Skin temperature appropriate. Not diaphoretic. HEAD: Atraumatic. Normocephalic. EYES: Pupils equal and round and reactive. Extraocular motions intact. No scleral icterus. No injection or drainage. Fundi not examined. ENT: Nose without bleeding or purulent drainage. Oral mucosae without visible erythema, exudates, masses, or lesions. Orally intuated NECK: Trachea midline. Supple, nontender. CARDIOVASCULAR: Regular rate and rhythm without murmurs, gallops, or rubs. No JVD. Peripheral pulses symmetric. RESPIRATORY/CHEST: Symmetric, unlabored respirations. Clear to auscultation. Breath sounds equal bilaterally. No wheezes, rales, or rhonchi. GASTROINTESTINAL: Abdomen soft, much flatter right after procedures Ascitic fluid light yellow clear and foamy - 3.6 L removed no reaction to palpation, mildly distended. No hepato-splenomegaly, or palpable masses. Bowel sounds present. Has dignishield i place with liquid brown stool GENITOURINARY: Without palpable bladder distension. Bowden catheter in place with clierar yellow urine MUSCULOSKELETAL: Extremities without clubbing, cyanosis, + marked edema, at least 3+ . No mottling or clubbing. LYMPHATICS: No palpable cervical or supraclavicular adenopathy. NEUROLOGICAL: sedated; not following commnds PSYCHIATRIC: unable to assess Assessment & Plan Remarks PNA, culture negative - crypto also negative Liver cirrhosis Critically ill but seem to be more stable tense ascites sp therapeutic paracentesis x 2. - P clx C.diff - new issue Recs: cont zosyn, for now. Continue vanco PO fu ascitic fluid clx might wean off abx in the next 24-48 hrs P results of ascitic fluid clx dw RN autumn MCALLISTER MD. to resume care in am. Haley Stoddard MD Apr 03, 2017 14:41
[2017-04-03] MEDS: RESP: ACETYLCYSTEINE 10% 30 ML NEB NEB SCH (15:52)
--- NOTE | 2017-04-03 18:33 | HHI.PR ---
Subjective Remarks Off the vent and Extubated . On O2 5 L. Ascites was drained He is alert and talking. CXR showing some Improvement . Good output. Objective Vital Signs Date Time Temp Pulse Resp B/P (MAP) Pulse Ox O2 Delivery O2 Flow Rate FiO2 04/03/17 18:00 105 04/03/17 16:00 101 04/03/17 16:00 99.0 101 24 108/57 (74) 95 Arterial Line 04/03/17 14:00 98 04/03/17 12:00 98 04/03/17 12:00 98.6 98 14 103/54 (70) 96 103/54 (70) 04/03/17 11:40 95 Nasal Cannula 5.00 04/03/17 10:00 108 04/03/17 09:50 93 Venturi Mask 6 50 04/03/17 09:50 93 Venturi Mask 6.00 50 04/03/17 09:15 98 35 04/03/17 09:15 Venturi Mask 50 35 04/03/17 08:00 99.0 102 17 108/59 (75) 97 108/59 (75) 04/03/17 08:00 35 04/03/17 08:00 102 04/03/17 08:00 97 35 04/03/17 07:00 99 Mechanical Ventilator 2.00 35 04/03/17 06:16 100 04/03/17 04:05 96 35 04/03/17 04:00 35 04/03/17 04:00 93 04/03/17 04:00 98.6 93 16 103/55 (71) 99 108/57 (74) 04/03/17 02:00 90 04/03/17 01:43 99 35 04/03/17 00:00 92 04/03/17 00:00 35 04/03/17 00:00 98.6 92 16 95/50 (65) 99 96/55 (69) 04/02/17 22:28 99 35 04/02/17 22:00 89 04/02/17 20:17 100 35 04/02/17 20:00 97.1 89 16 92/46 (61) 100 93/52 (66) 04/02/17 20:00 89 04/02/17 20:00 35 04/02/17 19:00 Mechanical Ventilator 2.00 35 I/O 04/02/17 04/02/17 04/02/17 04/03/17 04/03/17 04/03/17 07:00 15:00 23:00 07:00 15:00 23:00 Intake Total 1151 ml 1006 ml 1400 ml 324 ml 434 ml Output Total 1050 ml 800 ml 1200 ml 2500 ml Balance 101 ml 206 ml 200 ml 324 ml -2066 ml Intake Oral 0 ml Oral Supplement 501 ml IV Total 550 ml 714 ml 737 ml 324 ml 182 ml Tube Feeding 262 ml 563 ml 192 ml Albumin 100 ml 100 ml Tube Irrigant 30 ml Other 60 ml Output Urine Total 650 ml 750 ml 1100 ml 1500 ml Stool Total 400 ml 50 ml 100 ml 1000 ml Result Diagram: 04/03/17 0800 04/03/17 08 Objective Remarks PHYSICAL EXAMINATION IN GENERAL: This averagely built middle-aged man alert and in no distress HEAD, EYES, EARS, NOSE, AND THROAT: Pupils reactive. Sclerae are clear Throat clear. NECK: No venous distension. CHEST: Decreased breath sounds at the periphery. Occ Crackles at bases HEART: Heart sounds are regular S1-S2. ABDOMEN: Abdomen is soft, slightly protuberant. Bowel sounds not heard. EXTREMITIES: Mild peripheral edema. The patient is awake and moved all limbs DERMATOLOGY: The skin was warm Assessment and Plan Assessment and Plan IMPRESSION 1. Acute hypoxemic respiratory failure.Resolved 2. ARDS 3. Aspiration pneumonia versus pulmonary edema. 4. Cirrhosis of the liver 5. Probable underlying chronic lung disease 6. Ascites. Plan : 1. Wean FIO2 to keep sat >92. 2. Bipap at HS 10/5 CM if in distress 3. Antibiotics as ordered. 4 Solumedrol 40 mg IV q12h. 5. Nebs q6h with duoneb. 6. D/C sedation 7. Swallow test in am and Diet 7. CXR ,CBC,BMP in am Mela Becerra MD Apr 03, 2017 18:33
[2017-04-04] VITALS (24 sets, daily range): BP systolic 93–128; BP diastolic 52–64; PULSE 80–124; RESP 17–27; TEMP 97.7–99.3; O2SAT 89–100
[2017-04-04] MEDS: ALBUMIN HUMAN 25% 25 GM/100 ML BAGP IV SCH ×2 (01:02→14:45)
[2017-04-04] MEDS: PIPERACIL-TAZO 4.5 GM PREMIX 100 ML IV SCH ×2 (01:02→06:24)
[2017-04-04] MEDS: LORazepam 1 MG TAB PO PRN (02:37)
[2017-04-04] MEDS: RESP: ALBUTEROL 2.5 MG/IPRATROPIUM 0.5 MG NEB (SCH) NEB ×7 (03:31→23:50)
[2017-04-04] MEDS: VANCOMYCIN 500 MG VIAL (FOR ORAL USE ONLY) PO SCH ×4 (03:47→21:16)
[2017-04-04] MEDS: INSULIN NovoLIN REGULAR SUPPLEMENTAL SCALE SQ SCH ×5 (03:47→19:42)
--- NOTE | 2017-04-04 03:49 | RADRPT ---
EXAM DATE/TIME: 04/04/2017 02:48 [facility] COMPARISON: CHEST SINGLE AP, April 02, 2017, 13:18. INDICATIONS : Short of breath. MEDICAL HISTORY : None. SURGICAL HISTORY : None. ENCOUNTER: Subsequent ACUITY: 2 weeks PAIN SCORE: Non-responsive. LOCATION: Bilateral chest FINDINGS: A single portable frontal view of the chest shows bilateral diffuse intra-alveolar pulmonary infiltra tika. Small left effusion. Heart is normal in size. A weighted feeding tube courses off the inferior m argin of the film. Right-sided central line observed. No pneumothorax. CONCLUSION: Diffuse bilateral pulmonary infiltrates with small left effusion. Miles Ge Jr., MD on April 04, 2017 at 3:46 Board Certified Radiologist. This report was verified electronically.
[2017-04-04 03:52] LABS: BLOOD GAS CARBOXYHEMOGLOBIN 1.6 % (0-4); BLOOD GAS HCO3 26 mmol/L (22-26); BLOOD GAS METHEMOGLOBIN 1.1 % (0-2); BLOOD GAS O2 HGB SATURATION 89 % (90-100); BLOOD GAS OXYGEN CONTENT 12.5 Vol % (12.0-20.0); BLOOD GAS PCO2 37 mmHg (38-42); BLOOD GAS PO2 61 mmHg (61-120); TEMP CORR TO 98.6
[2017-04-04 03:53] LABS: CRITICAL VALUE YES
[2017-04-04 03:55] LABS: LITER FLOW 15 L/M; OXYGEN DEVICE NONREBRATHER
[2017-04-04 03:56] LABS: DRAW SITE RT RADIAL; NUMBER OF ARTERIAL PUNCTURES 1; STAT NO; ULNAR PULSE PRESENT
[2017-04-04] MEDS ORDERED: ETOMIDATE 20 MG/10 ML VIAL ONE (04:52)
[2017-04-04] MEDS ORDERED: ROCURONIUM INJ 50 MG/5 ML VIAL ONE (04:53)
[2017-04-04] MEDS ORDERED: ROCURONIUM INJ 50 MG/5 ML VIAL IV ONE (05:00)
[2017-04-04] MEDS ORDERED: ETOMIDATE 20 MG/10 ML VIAL IV PUSH ONE (05:00)
[2017-04-04] MEDS ORDERED: fentaNYL DRIP 250 ML IV PRN (05:00)
--- NOTE | 2017-04-04 05:36 | PD.PROCEDR ---
Procedure Note Procedure PROCEDURE NOTE PROCEDURE: Endotracheal intubation INDICATION: Acute respiratory failure DETAILS OF PROCEDURE: I was called to bedside due to patient's respiratory distress. RN states that he had increased oxygen requirement around 1 AM and was placed on simple mask. At that point he was alert and communicative but at around 3 AM he became lethargic and confused and was placed on nonrebreather. Now sats are 88-90% on nonrebreather and he is tachypneic with respiratory rate in the high 30s.. He is actually able to follow commands with all extremities and can speak a few words but is very confused.. The patient was placed in optimal position and preoxygenated with NR. Oximeter oxygen saturation of 91% was obtained prior to direct laryngoscopy. The patient was administered etomidate 20 mg IV for sedation and rocuronium 50 mg IV Direct laryngoscopy was performed with a 3 Jose laryngoscope blade and a grade I Cormack-Lehane view was obtained. On single attempt a size 8.0 endotracheal tube was visualized passing through the cords. Correct placement was confirmed with colorimetric CO2 detector. Breath sounds were equal bilaterally. No sounds auscultated over the stomach. The endotracheal tube was secured with a commercial tube montejo at a depth of 23 cm at the lips. The patient was connected to the ventilator. The patient tolerated the procedure well without any apparent complication. Oxygen saturations were maintained greater than 89% at all times. Stat chest x-ray was ordered. Camila Jones MD Apr 04, 2017 05:36
[2017-04-04] MEDS: PCA - TOTAL MG DILAUDID DELIVERED PER SHIFT OTHER SCH ×3 (06:00→21:12)
[2017-04-04 06:07] LABS: AUTOMATED NEUTROPHIL # 33.3 TH/MM3 (1.8-7.7); BASOPHIL # 0.2 TH/MM3 (0-0.2); BASOPHIL % 0.6 % (0.0-2.0); HEMATOCRIT 30.2 % (39.0-51.0); LYMPH % 3.5 % (9.0-44.0); LYMPHOCYTE # 1.4 TH/MM3 (1.0-4.8); MEAN CELL VOLUME 112.4 FL (80.0-100.0); MEAN CORPUSCULAR HEMOGLOBIN 38.2 PG (27.0-34.0); MONO % 9.2 % (0.0-8.0); NEUT % 86.7 % (16.0-70.0); PLATELET COUNT 163 TH/MM3 (150-450); RED BLOOD COUNT 2.69 MIL/MM3 (4.50-5.90); RED CELL DISTRIBUTION WIDTH 17.2 % (11.6-17.2); WHITE BLOOD COUNT 38.5 TH/MM3 (4.0-11.0)
[2017-04-04 06:16] LABS: HEMO FLAGS AUTO DIFF
[2017-04-04] MEDS: METOCLOPRAMIDE HCL 10 MG/2 ML VIAL IV PUSH SCH ×3 (06:24→21:16)
[2017-04-04 06:36] LABS: ALT (GPT) 45 U/L (12-78); ANION GAP 10 MEQ/L (5-15); AST (GOT) 62 U/L (15-37); BICARBONATE 25.9 MEQ/L (21.0-32.0); BLOOD UREA NITROGEN 61 MG/DL (7-18); CHLORIDE 99 MEQ/L (98-107); GLOMERULAR FILTRATION RATE 45 ML/MIN (>89); POTASSIUM 3.5 MEQ/L (3.5-5.1); SODIUM (NA) 135 MEQ/L (136-145)
[2017-04-04 06:37] LABS: ALKALINE PHOSPHATASE 45 U/L (45-117); TOTAL BILIRUBIN ADULT 2.3 MG/DL (0.2-1.0)
--- NOTE | 2017-04-04 06:51 | RADRPT ---
EXAM DATE/TIME: 04/04/2017 05:33 [facility] COMPARISON: CHEST SINGLE AP, April 04, 2017, 2:48. INDICATIONS : Post intubation. MEDICAL HISTORY : Hypertension. Cirrhosis. Gastroesophageal reflux disease. Tremors. Pneumonia. SURGICAL HISTORY : None. ENCOUNTER: Subsequent ACUITY: 2 weeks PAIN SCORE: Non-responsive. LOCATION: Bilateral chest FINDINGS: Single portable frontal view of the chest shows an endotracheal tube with tip 2 cm from the antonio. W eighted feeding tube courses off the intramarginal film. Right sided central line. Diffuse bilateral pulmonary infiltrates are stable. Heart small enlarged. CONCLUSION: Interval intubation. No change in the diffuse bilateral pulmonary infiltrates. Miles Ge Jr., MD on April 04, 2017 at 6:48 Board Certified Radiologist. This report was verified electronically.
[2017-04-04 07:00] LABS: BLOOD GAS BASE EXCESS 2.7 mmol/L (-2-2); BLOOD GAS CARBOXYHEMOGLOBIN 1.2 % (0-4); BLOOD GAS HCO3 27 mmol/L (22-26); BLOOD GAS METHEMOGLOBIN 1.1 % (0-2); BLOOD GAS O2 HGB SATURATION 98 % (90-100); BLOOD GAS OXYGEN CONTENT 14.1 Vol % (12.0-20.0); BLOOD GAS PCO2 42 mmHg (38-42); BLOOD GAS PO2 202 mmHg (61-120); BLOOD GAS TOTAL HGB 9.9 G/DL (12.0-16.0); CRITICAL VALUE NO; TEMP CORR TO 98.6
[2017-04-04 07:01] LABS: OXYGEN DEVICE VENTILATOR
[2017-04-04 07:02] LABS: FIO2 100 %; VENT SETTINGS PRVC/AC
[2017-04-04 07:03] LABS: DRAW SITE RT RADIAL; NUMBER OF ARTERIAL PUNCTURES 1; STAT NO; ULNAR PULSE PRESENT
[2017-04-04] MEDS: CHLORHEXIDINE 0.12% (ORAL KIT) 15 ML CUP MT SCH ×2 (08:00→19:25)
[2017-04-04 08:01] LABS: BANDS 3 % (0-6)
[2017-04-04 08:02] LABS: METAMYELOCYTES 2 % (0-1); NEUTROPHIL # MANUAL DIFF 35.4 TH/MM3 (1.8-7.7); POLYS (SEG NEUTROPHILS) 87 % (16-70); WBC DIFF SAMPLE 100
[2017-04-04 08:03] LABS: PLATELET ESTIMATE SMEAR NORMAL (NORMAL); PLATELET MORPHOLOGY NORMAL (NORMAL); TARGET CELLS 1+ (NORMAL)
[2017-04-04 08:05] LABS: SCAN/DIFF FINAL DIFF MANUAL
[2017-04-04] MEDS: RESP: BUDESONIDE 0.5 MG/2 ML NEB NEB SCH ×2 (08:26→20:07)
[2017-04-04] MEDS: RESP: ACETYLCYSTEINE 10% 30 ML NEB NEB SCH ×3 (08:27→16:00)
[2017-04-04] MEDS: methylPREDNISolone SOD SUCC 40 MG/1 ML VIAL IV PUSH SCH (08:37)
[2017-04-04] MEDS: LACTULOSE SYRUP 20 GM/30 ML CUP PO SCH (08:37)
[2017-04-04] MEDS: URSODIOL 300 MG CAP PO SCH ×3 (08:37→17:50)
[2017-04-04] MEDS: PANTOPRAZOLE SODIUM 40 MG VIAL IV SCH (08:37)
[2017-04-04] MEDS: THIAMINE HCL 100 MG TAB PO SCH (08:38)
[2017-04-04] MEDS: HEPARIN SODIUM - SQ 10,000 UNITS/ML VIAL SQ SCH ×2 (08:38→21:16)
[2017-04-04] MEDS: FUROSEMIDE 40 MG/4 ML VIAL IV PUSH SCH (08:38)
[2017-04-04] MEDS: SPIRONOLACTONE 25 MG TAB OG-TUBE SCH ×2 (08:39→17:50)
[2017-04-04] MEDS: MULTIVITAMIN TAB PO SCH (08:39)
[2017-04-04] MEDS: FOLIC ACID 1 MG TAB PO SCH (08:39)
[2017-04-04] MEDS: ARTIFICIAL TEARS OPTH OINT 3.5 APPLIC/3.5 GM TUBO EACH EYE SCH ×2 (08:39→21:17)
[2017-04-04] MEDS ORDERED: POTASSIUM CHLOR 40 MEQ PREMIX 100 ML IV ONE (09:00)
[2017-04-04] MEDS: SODIUM CHLORIDE 0.9% FLUSH 10 ML FLUSH IV FLUSH SCH ×2 (09:00→21:17)
--- NOTE | 2017-04-04 11:30 | HHI.CCPN ---
Subjective Remarks/Hospital Course 03/26: This is a 42-year-old male. Date of admission 03/19/2017. Date of consultation 03/27/2017. Past medical history includes EtOH use abuse, tobaccoism, hypertension Gastroesophageal reflux disease and DDD. Patient is on Suboxone for prior opiate abuse. He drinks one bottle of vodka daily patient is on chronic alprazolam at home on lactulose and Lasix. Patient was originally admitted with abdominal ascites. Status post paracentesis 03/20-3300 cc. Possible SBP. Placed on ceftriaxone. Blood work included a positive AMA and elevated iron studies. GS re-consulted. Over the past 24 hours. Patient has had increased oxygen requirements from 4 L currently 2 nonrebreather. He denies chest pressure respiratory denies cough. No significant peripheral edema. Patient's abdomen is quite distended however ultrasound reveals minimal ascites. Awake and alert. His only complaint is "dry throat from aerosolized mask 03/27: Patient developed worsening respiratory distress during the day and was placed on BiPAP with full facemask. He was requiring 100% FiO2 with BiPAP settings at +15/+8. His respiratory status declined as a day progress. Had multiple discussions with patient as well as his family members including reviewing his CT chest from early this morning which revealed extensive pulmonary infiltrates (right greater than left) and explained probable need for proceeding with intubation and mechanical ventilation. Subsequently patient's O2 sats dropped in the upper 80s despite BiPAP and patient was intubated and placed on mechanical ventilation around 6 PM. I subsequently proceeded with central line placement. Postintubation chest x-ray revealed extensive bilateral pulmonary infiltrates which appeared to have progress since his previous chest x-ray. Patient was requiring high doses of sedatives including Versed/fentanyl and propofol drips to keep him sedated. 03/28: Patient placed on prone ventilation last night and inhaled Flolan. Currently sedated, orally intubated on mechanical ventilation. On neuromuscular blockade. Remains on Versed/propofol/Dilaudid drips for sedation. Nimbex for neuromuscular blockade. 03/29: Remains sedated, orally intubated on mechanical ventilation, on neuromuscular blockade. Inhaled Flolan to be decreased from 20,000 ng per KG per minute to 10,000 ng per KG per minute this morning. O2 sats in the mid 90s. Vent mode change from pressure control to PRVC last night for elevation of PCO2. 09/16: Down to FiO2 0.50, PEEP 15. Will convert to regular bed. Leave on PRVC. Update, converted to APRV due to lack of progress on conventional mode. Improved PO2 to 114 and no CO2 retention. 03/31: Improved oxygenation. Lung lopez clearing on CXR. A little dry perhaps; will continue maintenance iv. Organism? Relaxant off 24 24hrs now, weaning dilaudid and versed. 04/01: Continued improvement in gas exchange but persistent ARDS pattern without diagnosis. Suspect infectious etiology and continue broad coverage. Withdrawal symptoms controlled, may need precedex to extubate. 04/02: Remains sedated, orally intubated on mechanical ventilation on APRV mode. Abdomen appears distended and firm currently. Stool positive for C. difficile by PCR. Had about 500 cc of diarrhea overnight. Tolerating tube feeds 04/03: Sedated, arousable, remains orally intubated on mechanical ventilation. Underwent paracentesis on 04/02 with drainage of 3.8 L of ascites fluid. Switched from APRV mode to PRVC mode mech vent on 04/02 and tolerating well remains on 35% FiO2 and PEEP at +14 this morning. Started on oral vancomycin for C. difficile colitis on 04/02. Tolerating tube feeds. On propofol and Versed drips currently for sedation. 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 Chest x-ray showed bilateral worsening infiltrates. Patient's white count has increased from 29, 000 to 38,500 indicating possible worsening C. difficile colitis with potential complications. CT of abdomen pelvis ordered stat. Add IV Flagyl Objective Vital Signs Date Time Temp Pulse Resp B/P (MAP) Pulse Ox O2 Delivery O2 Flow Rate FiO2 04/04/17 08:30 99 60 04/04/17 07:00 Mechanical Ventilator 04/04/17 06:00 106 04/04/17 04:00 99.3 27 128/60 (82) 04/04/17 00:48 6.00 Intake and Output 04/04/17 04/04/17 04/05/17 08:00 16:00 00:00 Intake Total 869 ml Output Total 2050 ml Balance -1181 ml Result Diagram: 04/04/17 0545 04/04/17 0545 Other Results Laboratory Tests Test 04/03/17 12:05 04/04/17 03:35 04/04/17 06:13 Blood Gas Puncture Site ART LINE RT RADIAL RT RADIAL Blood Gas Patient Temperature 98.6 98.6 98.6 Blood Gas HCO3 23 mmol/L (22-26) 26 mmol/L (22-26) 27 mmol/L (22-26) Blood Gas Base Excess -1.4 mmol/L (-2-2) 2.0 mmol/L (-2-2) 2.7 mmol/L (-2-2) Blood Gas Oxygen Saturation 93 % (90-100) 89 % (90-100) 98 % (90-100) Arterial Blood pH 7.41 (7.380-7.420) 7.45 (7.380-7.420) 7.42 (7.380-7.420) Arterial Blood Partial Pressure CO2 36 mmHg (38-42) 37 mmHg (38-42) 42 mmHg (38-42) Arterial Blood Partial Pressure O2 78 mmHg (61-120) 61 mmHg (61-120) 202 mmHg (61-120) Arterial Blood Oxygen Content 13.1 Vol % (12.0-20.0) 12.5 Vol % (12.0-20.0) 14.1 Vol % (12.0-20.0) Arterial Blood Carboxyhemoglobin 1.3 % (0-4) 1.6 % (0-4) 1.2 % (0-4) Arterial Blood Methemoglobin 1.0 % (0-2) 1.1 % (0-2) 1.1 % (0-2) Blood Gas Hemoglobin 10.0 G/DL (12.0-16.0) 10.0 G/DL (12.0-16.0) 9.9 G/DL (12.0-16.0) Oxygen Delivery Device NASAL CANNULA NONREBRATHER VENTILATOR Blood Gas Liter Flow 5 L/M 15 L/M Blood Gas Ventilator Setting PRVC/AC Blood Gas Inspired Oxygen 100 % Imaging Last Impressions Abdomen X-Ray 04/02/17 0600 Signed Impressions: Service Date/Time: Sunday, April 02, 2017 06:08 - CONCLUSION: No dilated bowel loops. Suspected ascites. Miles Ge Jr., MD Chest X-Ray 04/02/17 0000 Signed Impressions: Service Date/Time: Sunday, April 02, 2017 13:18 - CONCLUSION: 1. Improving aeration in both lungs with resolving bibasilar atelectatic changes. 2. Endotracheal tube is been pulled back to the thoracic inlet and I believe the nasogastric tube is now identified with the tip in the midesophagus, above the GE junction. 3. Right IJ central venous catheter and a Dobbhoff feeding tube are stable in position. Michael Oliveira MD Abdomen Ultrasound 04/02/17 0000 Signed Impressions: Service Date/Time: Sunday, April 02, 2017 10:36 - CONCLUSION: 1. There is a large amount of ascites. Marked was placed on the right lower quadrant with patient lying on back with head elevated to about 30-40. Distance from skin to peritoneal surface is 2.2 cm and maximal safe depth is 4.[address] Kyle Thorpe MD CT Angiography 03/27/17 0000 Signed Impressions: Service Date/Time: Monday, March 27, 2017 03:55 - CONCLUSION: 1. Mixed groundglass opacity and airspace consolidation in both upper lobes. Differential diagnosis includes infection, aspiration and pulmonary hemorrhage. 2. Moderate pleural effusions with dependent consolidation and atelectasis at both lung bases. 3. Hepatomegaly with ascites. 4. Contrast bolus suboptimal but no pulmonary emboli identified. Kyle Thorpe MD Cyst Biopsy Asp-Paracentesis US 03/20/17 0600 Signed Impressions: Service Date/Time: Monday, March 20, 2017 09:42 - CONCLUSION: Uncomplicated ultrasound guided paracentesis. Kareem Mahan MD Lower Extremity Ultrasound 03/19/17 1441 Signed Impressions: Service Date/Time: Sunday, March 19, 2017 15:40 - CONCLUSION: 1. No evidence of deep venous thrombosis. Claudio Argueta MD Liver Ultrasound 03/19/17 0000 Signed Impressions: Service Date/Time: Sunday, March 19, 2017 18:23 - CONCLUSION: 1. Moderate ascites. Thickened gallbladder wall with sludge. Mild hepatosplenomegaly. Kyle Thorpe MD Chest x-ray portable done on 03/27 post intubation was personally reviewed: ET tube above antonio, right IJ central line with tip overlying SVC, NG tube in place, extensive bilateral infiltrates involving almost the entire lung olpez. Last [address] Angiography 03/27/17 0000 Signed Impressions: Service Date/Time: Monday, March 27, 2017 03:55 - CONCLUSION: 1. Mixed groundglass opacity and airspace consolidation in both upper lobes. Differential diagnosis includes infection, aspiration and pulmonary hemorrhage. 2. Moderate pleural effusions with dependent consolidation and atelectasis at both lung bases. 3. Hepatomegaly with ascites. 4. Contrast bolus suboptimal but no pulmonary emboli identified. Kyle Thorpe MD Last Impressions Chest X-Ray 03/26/17 0000 Signed Impressions: Service Date/Time: Sunday, March 26, 2017 10:30 - CONCLUSION: 1. New alveolar infiltrates in both lungs which may represent pulmonary edema which may be noncardiogenic in origin. 2. Denser course infiltrates in both lung bases likely representing scarring. Ap Zamora MD Abdomen Ultrasound 03/25/17 0000 Signed Impressions: Service Date/Time: Saturday, March 25, 2017 10:49 - CONCLUSION: 1. Very subtle ascites without sufficient pocket for safe paracentesis. Hipolito Palencia MD Cyst Biopsy Asp-Paracentesis US 03/20/17 0600 Signed Impressions: Service Date/Time: Monday, March 20, 2017 09:42 - CONCLUSION: Uncomplicated ultrasound guided paracentesis. Kareem Mahan MD Lower Extremity Ultrasound 03/19/17 1441 Signed Impressions: Service Date/Time: Sunday, March 19, 2017 15:40 - CONCLUSION: 1. No evidence of deep venous thrombosis. Claudio Argueta MD Liver Ultrasound 03/19/17 0000 Signed Impressions: Service Date/Time: Sunday, March 19, 2017 18:23 - CONCLUSION: 1. Moderate ascites. Thickened gallbladder wall with sludge. Mild hepatosplenomegaly. Kyle Thorpe MD Objective Remarks HEENT/ Neuro: Lightly sedated, opens eyes to loud voice, no tremors, pupils 2 mm , reactive. Follows commands 4 Neck: Right IJ central line in place. Orally intubated. Chest/Pulm: Few rhonchi, equal air entry bilaterally, no wheezing/ crackles CVS: S1-S2 regular, no murmur, neck vein full (but thoracic pressures elevated). GI/abdomen: firm, moderately distended nontender, bowel sounds active. Bedside ultrasound with moderate ascites Extremities: warm bilaterally, trace edema, well perfused. Date of Insertion: Mar 27, 2017 Line: Central Venous Catheter Side: Right Location: Internal, Jugular A/P Assessment and Plan Neuro/Psych: Metabolic encephalopathy History of oxycodone use Anxiety disorder on chronic alprazolam History of hepatic encephalopathy Versed and Fentanyl for sedation and vent synchrony Continue Librium 20 mg every 12 hourly in view of history of alcohol abuse. Continue thiamine/folic acid/MVI via OG tube. Patient was on his home Suboxone 8 mg 4 times a day till 03/28 which was held following intubation as patient requiring deep sedation and neuromuscular blockade. Has been off neuromuscular blockade. Check ammonia level CV: Sinus tachycardia History of hypertension Hypotension Off Levophed. Resumed spironolactone for fluid retention secondary to liver disease on 04/03. Hold Lasix 40 mg IV daily due to worsening sepsis Resp: Acute hypoxemic respiratory failure Bilateral pneumonia ARDS Tobaccoism Re intubated 04/04 for hypoxemic respiratory failure. Chest x-ray shows worsening infiltrates CT chest on 03/27 with extensive bilateral infiltrates right greater than left. Initially intubated and placed on mechanical ventilation on 03/27. Was on prone ventilation and inhaled Flolan as well as neuromuscular blockade initially. Continue mechanical ventilation : Currently on PRVC 550/12/60%/ PEEP 10 Albuterol/ipratropium aerosols every 6 hours with albuterol aerosols every 2 hours when necessary Solu-Medrol 40 mg IV every 12 hourly- reduce to daily Nicotine patch at 21 mg daily GI/liver: Likely cirrhosis - Will need liver biopsy Abdominal ascites C. difficile colitis Stat CT of the abdomen pelvis to rule out severe colitis/toxic megacolon or perforation AMA positive. Elevated iron studies. Neg hepatitis panel. Appears to be carrier for hemochromatosis gene ? Significance. Status post paracentesis 03/20. -3300. Underwent repeat paracentesis on 04/02 with drainage of 3.8 L of ascites fluid. Plan for repeat paracentesis today Ursodiol to be continued possible primary biliary cirrhosis Noted 579 WBC and peritoneal fluid however peritoneal fluid cultures negative. Was on Rocephin from 03/20 - 03/27 Continue lactulose 30 cc daily. Resumed spironolactone 04/03. Hold Lasix 40 mg daily. Hold tube feeds for CT evaluation : Bowden catheterization for accurate intake output in critically ill patient with sepsis/pneumonia Endo: Sliding-scale insulin if needed for glycemic control. Renal: Strict intake output, monitor and replete electrolytes, follow BUN/creatinine. Heme: Leukocytosis Macrocytic anemia Thrombocytopenia Monitor CBC daily. Follow trends. Continue MVI/folic acid. No indications for transfusion of blood products at this time ID: Sepsis/pneumonia with ARDS SBP - culture negative C diff colitis Stool positive for C diff by PCR - d/w ID and started PO vancomycin 04/02. Add IV Flagyl 500 q8 today 04/04. DC Zosyn- D/W Dr. Farias Stat CT abd pelvis with Oral contrast Previously on Rocephin from 03/20 -03/27. Status post 1 dose vancomycin 03/27. Zosyn started 03/27. Added Zyvox 600 mg IV every 12 hourly on 03/27 following intubation. Off Zyvox and Levaquin, Zosyn DCd 04/04 Paracentesis repeated on 04/02 and fluid sent for Gram stain and cultures- negative to date. Repeated sputum gm stain and C/S on 04/03. All cultures remain negative so far Urine negative for strep pneumo and Legionella antigen Sputum for Gram stain and cultures obtained after intubation -> no growth so far. MSK: Physical therapy. Unable to participate. FEN: Hyponatremia Hypo-magnesium Hyponatremia most likely from liver cirrhosis Replacing electrolytes as clinically indicated Access -Placed right IJ central line 03/27. Prophylaxis - GI - pantoprazole - DVT - SCD/ pharmacological prophylaxis with subcutaneous heparin 5000 units every 12 hourly. Extensive discussion on 03/27 with patient's family members and with patient at bedside on multiple occasions during the day and following intubation with family members regarding severity of pneumonia and need for mechanical ventilation including neuromuscular blockade and they voiced understanding and were agreeable and appreciative of care provided. Also explained that if patient's restless status does not improve over the next 2 weeks he may require tracheostomy. Condition remains extremely critical. Continue neuromuscular blockade. Dr. Stoddard updated patient's mother on 03/28 and 03/29 regarding current clinical status including prone ventilation and possible need for prolonged mechanical ventilation. She voiced understanding and was agreeable with plan of care. Dr. Stoddard updated patient's mother on 04/03 regarding current clinical status and she voiced understanding. Overall impression: Patient remains critically ill with severe ARDS on mechanical ventilation Critical Care time excluding procedures : 40 mins Cassy Walker MD Apr 04, 2017 11:30
[2017-04-04] MEDS ORDERED: DIATRIZOATE MEGLUM/DIATRIZOATE SOD 9 ML CUP PO ONE (12:00)
[2017-04-04] MEDS: metroNIDAZOLE 500 MG INJ 100 ML IV SCH ×2 (12:07→19:25)
--- NOTE | 2017-04-04 12:18 | ECHRPT ---
Indication: sob CONCLUSIONS Normal left ventricular size and wall thickness. The left ventricular systolic function is normal wi th an estimated ejection fraction in the range of 60-65%. Left ventricular diastolic function parameters a re normal. There is trace tricuspid valve regurgitation. The estimated pulmonary arterial pressure is 36 mmHg. BP: / HR: Rhythm: Sinus MEASUREMENTS (Male / Female) Normal Values Technical Quality:Good 2D ECHO LV Diastolic Diameter PLAX 5.2 cm 4.2 - 5.9 / 3.9 - 5.3 cm LV Systolic Diameter PLAX 3.8 cm IVS Diastolic Thickness 0.9 cm 0.6 - 1.0 / 0.6 - 0.9 cm LVPW Diastolic Thickness 0.7 cm 0.6 - 1.0 / 0.6 - 0.9 cm LV Relative Wall Thickness 0.3 RV Internal Dim ED PLAX 2.3 cm LA Systolic Diameter LX 3.9 cm 3.0 - 4.0 / 2.7 - 3.8 cm M-MODE Aortic Root Diameter MM 3.0 cm AV Cusp Separation MM 2.1 cm DOPPLER Mitral E Point Velocity 138.0 cm/s Mitral A Point Velocity 54.8 cm/s Mitral E to A Ratio 2.5 TR Peak Velocity 255.0 cm/s TR Peak Gradient 26.0 mmHg Right Atrial Pressure 10.0 mmHg Pulmonary Artery Systolic Pressu 36.0 mmHg Right Ventricular Systolic Press 36.0 mmHg FINDINGS LEFT VENTRICLE Normal left ventricular size and wall thickness. The left ventricular systolic function is normal wi th an estimated ejection fraction in the range of 60-65%. Left ventricular diastolic function parameters a re normal. RIGHT VENTRICLE Normal right ventricular size and systolic function. LEFT ATRIUM The left atrial size is normal. RIGHT ATRIUM The right atrial size is normal. ATRIAL SEPTUM Normal atrial septal thickness without atrial level shunting by limited color doppler interrogation. AORTA The aortic root and proximal ascending aorta are normal in size on limited imaging. MITRAL VALVE Structurally normal mitral valve. No mitral valve stenosis or regurgitation. AORTIC VALVE Trileaflet aortic valve. No aortic valve stenosis or regurgitation. TRICUSPID VALVE There is trace tricuspid valve regurgitation. The estimated pulmonary arterial pressure is 36 mmHg. PULMONARY VALVE No pulmonary valve regurgitation or stenosis. VESSELS The inferior vena cava is normal in size. PERICARDIUM No pericardial effusion. Ivan Solano MD, FACC (Electronically Signed) Final Date:04 April 2017 12:17
--- NOTE | 2017-04-04 12:20 | HHI.IDPN ---
Subjective Subjective Remarks Pt was extubated yday and reintubated this am Stool o/p very high to 1600cc afebrile not on pressors Antibiotics PO vanco zosyn IV - stopped Lines Line sites with no e.o infection Past Medical History reviewed. Allergies: Coded Allergies: clarithromycin (Unverified Allergy, Severe, Rash, 03/19/17) clindamycin (Unverified Allergy, Severe, RASH, 03/19/17) Objective . Vital Signs Date Time Temp Pulse Resp B/P (MAP) Pulse Ox O2 Delivery O2 Flow Rate FiO2 04/04/17 10:59 96 50 04/04/17 10:00 104 04/04/17 08:30 99 60 04/04/17 08:00 94 04/04/17 08:00 100 04/04/17 08:00 98.3 94 18 108/55 (72) 99 04/04/17 07:00 99 Mechanical Ventilator 50 04/04/17 06:00 106 04/04/17 05:39 100 100 04/04/17 05:30 100 04/04/17 04:00 124 04/04/17 04:00 99.3 124 27 128/60 (82) 93 04/04/17 03:32 89 Non-Rebreather 04/04/17 02:00 116 04/04/17 00:48 93 Simple Mask 6.00 04/04/17 00:45 91 Nasal Cannula 5.00 04/04/17 00:00 106 04/04/17 00:00 99.0 106 24 115/64 (81) 95 04/03/17 22:00 106 04/03/17 20:22 95 Nasal Cannula 5.00 04/03/17 20:00 105 04/03/17 20:00 99.3 105 24 105/54 (71) 95 04/03/17 19:00 96 Nasal Cannula 5.00 04/03/17 18:00 105 04/03/17 16:00 101 04/03/17 16:00 99.0 101 24 108/57 (74) 95 Arterial Line 04/03/17 14:00 98 . Laboratory Tests Test 04/03/17 08:00 04/04/17 05:45 White Blood Count 28.9 TH/MM3 38.5 TH/MM3 Red Blood Count 2.59 MIL/MM3 2.69 MIL/MM3 Hemoglobin 9.8 GM/DL 10.3 GM/DL Hematocrit 29.3 % 30.2 % Mean Corpuscular Volume 113.1 FL 112.4 FL Mean Corpuscular Hemoglobin 38.0 PG 38.2 PG Mean Corpuscular Hemoglobin Concent 33.6 % 34.0 % Red Cell Distribution Width 17.1 % 17.2 % Platelet Count 178 TH/MM3 163 TH/MM3 Mean Platelet Volume 7.2 FL 7.6 FL Neutrophils (%) (Auto) 87.4 % 86.7 % Lymphocytes (%) (Auto) 3.6 % 3.5 % Monocytes (%) (Auto) 8.9 % 9.2 % Eosinophils (%) (Auto) 0.0 % 0.0 % Basophils (%) (Auto) 0.1 % 0.6 % Neutrophils # (Auto) 25.2 TH/MM3 33.3 TH/MM3 Lymphocytes # (Auto) 1.0 TH/MM3 1.4 TH/MM3 Monocytes # (Auto) 2.6 TH/MM3 3.5 TH/MM3 Eosinophils # (Auto) 0.0 TH/MM3 0.0 TH/MM3 Basophils # (Auto) 0.0 TH/MM3 0.2 TH/MM3 CBC Comment AUTO DIFF AUTO DIFF Differential Total Cells Counted 100 100 Neutrophils % (Manual) 81 % 87 % Band Neutrophils % 4 % 3 % Lymphocytes % 7 % 2 % Monocytes % 6 % 6 % Neutrophils # (Manual) 25.1 TH/MM3 35.4 TH/MM3 Metamyelocytes 1 % 2 % Myelocytes 1 % Nucleated Red Blood Cells 1 /100 WBC Differential Comment FINAL DIFF MANUAL FINAL DIFF MANUAL Platelet Estimate NORMAL NORMAL Platelet Morphology Comment NORMAL NORMAL Target Cells 1+ 1+ Red Cell Morphology Comment Laboratory Tests Test 04/03/17 04:00 04/03/17 08:00 04/04/17 05:45 04/04/17 10:30 Creatinine 1.81 MG/DL 1.76 MG/DL 1.69 MG/DL Estimat Glomerular Filtration Rate 42 ML/MIN 43 ML/MIN 45 ML/MIN Blood Urea Nitrogen 62 MG/DL 61 MG/DL Random Glucose 132 MG/DL 123 MG/DL Total Protein 6.4 GM/DL 6.9 GM/DL Albumin 3.9 GM/DL 3.9 GM/DL Calcium Level 9.0 MG/DL 8.9 MG/DL Phosphorus Level 4.1 MG/DL Magnesium Level 2.3 MG/DL Alkaline Phosphatase 50 U/L 45 U/L Aspartate Amino Transf (AST/SGOT) 62 U/L 62 U/L Alanine Aminotransferase (ALT/SGPT) 46 U/L 45 U/L Total Bilirubin 1.7 MG/DL 2.3 MG/DL Sodium Level 131 MEQ/L 135 MEQ/L Potassium Level 3.8 MEQ/L 3.5 MEQ/L Chloride Level 95 MEQ/L 99 MEQ/L Carbon Dioxide Level 25.4 MEQ/L 25.9 MEQ/L Anion Gap 11 MEQ/L 10 MEQ/L B-Type Natriuretic Peptide 633 PG/ML Ammonia 36 MCMOL/L Microbiology Date/Time Source Procedure Growth Status 04/02/17 13:30 Fluid Peritoneal Fluid Gram Stain - Final Resulted 04/02/17 13:30 Fluid Peritoneal Fluid Body Fluid Culture - Preliminary NO GROWTH IN 48 HOURS. Resulted 04/03/17 10:00 Sputum Endotracheal Gram Stain - Final Resulted 04/03/17 10:00 Sputum Endotracheal Sputum Culture - Preliminary MODERATE GROWTH NORMAL RESPIRATORY FL... Resulted Imaging Last Impressions Chest X-Ray 04/04/17 0600 Signed Impressions: Service Date/Time: March 02:48 - CONCLUSION: Diffuse bilateral pulmonary infiltrates with small left effusion. Miles Ge Jr., MD Abdomen X-Ray 04/02/17 0600 Signed Impressions: Service Date/Time: Sunday, April 02, 2017 06:08 - CONCLUSION: No dilated bowel loops. Suspected ascites. Miles Ge Jr., MD Abdomen Ultrasound 04/02/17 0000 Signed Impressions: Service Date/Time: Sunday, April 02, 2017 10:36 - CONCLUSION: 1. There is a large amount of ascites. Marked was placed on the right lower quadrant with patient lying on back with head elevated to about 30-40. Distance from skin to peritoneal surface is 2.2 cm and maximal safe depth is 4.[address] Thorpe MD CT Angiography 03/27/17 0000 Signed Impressions: Service Date/Time: Monday, March 27, 2017 03:55 - CONCLUSION: 1. Mixed groundglass opacity and airspace consolidation in both upper lobes. Differential diagnosis includes infection, aspiration and pulmonary hemorrhage. 2. Moderate pleural effusions with dependent consolidation and atelectasis at both lung bases. 3. Hepatomegaly with ascites. 4. Contrast bolus suboptimal but no pulmonary emboli identified. Kyle Thorpe MD Cyst Biopsy Asp-Paracentesis US 03/20/17 0600 Signed Impressions: Service Date/Time: Monday, March 20, 2017 09:42 - CONCLUSION: Uncomplicated ultrasound guided paracentesis. Kareem Maahn MD Lower Extremity Ultrasound 03/19/17 1441 Signed Impressions: Service Date/Time: Sunday, March 19, 2017 15:40 - CONCLUSION: 1. No evidence of deep venous thrombosis. Claudio Argueta MD Liver Ultrasound 03/19/17 0000 Signed Impressions: Service Date/Time: Sunday, March 19, 2017 18:23 - CONCLUSION: 1. Moderate ascites. Thickened gallbladder wall with sludge. Mild hepatosplenomegaly. Kyle Thorpe MD Physical Exam CONSTITUTIONAL/GENERAL: This is an adequately nourished patient, in no apparent distress. Intubated TUBES/LINES/DRAINS: SKIN: No jaundice, rashes, or lesions. Skin temperature appropriate. Not diaphoretic. HEAD: Atraumatic. Normocephalic. EYES: Pupils equal and round and reactive. Extraocular motions intact. No scleral icterus. No injection or drainage. Fundi not examined. ENT: Nose without bleeding or purulent drainage. Oral mucosae without visible erythema, exudates, masses, or lesions. Orally intubated NECK: Trachea midline. Supple, nontender. CARDIOVASCULAR: Regular rate and rhythm without murmurs, gallops, or rubs. No JVD. Peripheral pulses symmetric. RESPIRATORY/CHEST: Symmetric, unlabored respirations. Rhonchi to auscultation. Breath sounds equal bilaterally.+ rhonchi. + bloody purulent secretions in tubing GASTROINTESTINAL: Abdomen is quite distended again today Not tender palpation, + distended. No hepato-splenomegaly, or palpable masses appreaciated. Bowel sounds present. Has dignishield i place with liquid brown stool GENITOURINARY: Without palpable bladder distension. Bowden catheter in place with clierar yellow urine MUSCULOSKELETAL: Extremities without clubbing, cyanosis, + marked edema, 3+ . No mottling or clubbing. NEUROLOGICAL: sedated; opens eyes to voice PSYCHIATRIC: unable to assess Assessment & Plan Remarks PNA, culture negative - crypto also negative Recurretnt acut VDRF Liver cirrhosis Critically ill again resp astable tense ascites sp therapeutic paracentesis x 2. - negative clx C.diff - worsening stool output Severe leukocytosis , leukemoid reaction ? from C.diff Pt is clincially worse ion the alst 24 hrs Recs: dc zosyn, Continue vanco PO cont IV flagyl - chk sputum clx chk CT Abd/pel dw RN dw Dr Aaron Farias,Elda Youngblood MD Apr 04, 2017 12:20
--- NOTE | 2017-04-04 13:03 | HHI.PR ---
Subjective Remarks On the vent and was Reintubated . On FIO2 50 %. Ascites to be drained Sedated CXR showing some Improvement . Objective Vital Signs Date Time Temp Pulse Resp B/P (MAP) Pulse Ox O2 Delivery O2 Flow Rate FiO2 04/04/17 12:00 98.4 98 19 97/52 (67) 95 04/04/17 12:00 100 04/04/17 12:00 98 04/04/17 10:59 96 50 04/04/17 10:00 104 04/04/17 08:30 99 60 04/04/17 08:00 94 04/04/17 08:00 100 04/04/17 08:00 98.3 94 18 108/55 (72) 99 04/04/17 07:00 99 Mechanical Ventilator 50 04/04/17 06:00 106 04/04/17 05:39 100 100 04/04/17 05:30 100 04/04/17 04:00 124 04/04/17 04:00 99.3 124 27 128/60 (82) 93 04/04/17 03:32 89 Non-Rebreather 04/04/17 02:00 116 04/04/17 00:48 93 Simple Mask 6.00 04/04/17 00:45 91 Nasal Cannula 5.00 04/04/17 00:00 106 04/04/17 00:00 99.0 106 24 115/64 (81) 95 04/03/17 22:00 106 04/03/17 20:22 95 Nasal Cannula 5.00 04/03/17 20:00 105 04/03/17 20:00 99.3 105 24 105/54 (71) 95 04/03/17 19:00 96 Nasal Cannula 5.00 04/03/17 18:00 105 04/03/17 16:00 101 04/03/17 16:00 99.0 101 24 108/57 (74) 95 Arterial Line 04/03/17 14:00 98 I/O 04/03/17 04/03/17 04/03/17 04/04/17 04/04/17 04/04/17 07:00 15:00 23:00 07:00 15:00 23:00 Intake Total 1400 ml 324 ml 434 ml 869 ml Output Total 1200 ml 2500 ml 2050 ml Balance 200 ml 324 ml -2066 ml -1181 ml IV Total 737 ml 324 ml 182 ml 421 ml Tube Feeding 563 ml 192 ml 388 ml Albumin 100 ml Tube Irrigant 60 ml Other 60 ml Output Urine Total 1100 ml 1500 ml 1450 ml Stool Total 100 ml 1000 ml 600 ml Result Diagram: 04/04/17 0545 04/04/17 0545 Objective Remarks PHYSICAL EXAMINATION IN GENERAL: This averagely built middle-aged man on the vent HEAD, EYES, EARS, NOSE, AND THROAT: Pupils reactive. Sclerae are clear Throat clear. NECK: No venous distension. CHEST: Decreased breath sounds at the periphery. Crackles at bases and wheezes HEART: Heart sounds are regular S1-S2. ABDOMEN: Abdomen is soft, Non tender, Bowel sounds not heard. EXTREMITIES: Mild peripheral edema. The patient is sedated . DERMATOLOGY: The skin was warm Assessment and Plan Assessment and Plan IMPRESSION 1. Acute hypoxemic respiratory failure.Resolved 2. ARDS 3. Aspiration pneumonia versus pulmonary edema. 4. Cirrhosis of the liver 5. Probable underlying chronic lung disease 6. Ascites. Plan : 1. Wean FIO2 to keep sat >92. 2. CXR in am 3. Antibiotics as ordered. 4 Solumedrol 40 mg IV q12h. 5. Nebs q6h with duoneb. 6. Wean sedation 7. D/W Dr Walker, need for Drainage of ascites 7. CXR ,CBC,BMP in am Mela Becerra MD Apr 04, 2017 13:03
--- NOTE | 2017-04-04 16:21 | RADRPT ---
EXAM DATE/TIME: 04/04/2017 15:55 [facility] COMPARISON: CT PULMONARY ANGIOGRAM, March 27, 2017, 3:55. INDICATIONS : Abdomen pain, C-diff worsening. ORAL CONTRAST: Partial prescribed oral contrast ingested. RADIATION DOSE: 12.58 CTDIvol (mGy) MEDICAL HISTORY : Hypertension. Renal insufficiency. Cirrhosis. SURGICAL HISTORY : None. ENCOUNTER: Initial ACUITY: 1 day PAIN SCALE: 6/10 LOCATION: Bilateral lower quadrant TECHNIQUE: Volumetric scanning of the abdomen and pelvis was performed. Using automated exposure control and ad justment of the mA and/or kV according to patient size, radiation dose was kept as low as reasonably achievable to obtain optimal diagnostic quality images. DICOM format image data is available electro nically for review and comparison. FINDINGS: The examination demonstrates consolidative changes in both lung bases. There is minimal bilateral eff usion. The liver is enlarged. There is ascites diffusely throughout the upper abdomen. The spleen is enlarge d. The pancreas, adrenal glands and kidneys are intact. There is a nasogastric tube within the stomach. The abdominal aorta is normal in caliber. No retroperitoneal lymphadenopathy is seen. The patient was given oral contrast. Oral contrast does pass freely through the colon and is all the way down to the level of the rectum. There is no significant thickening of the colonic wall identifie d. There is free fluid throughout the pelvis. No iliac or inguinal adenopathy is present. Note is made of mild anasarca. The visualized bony structures are intact. CONCLUSION: 1. Hepatosplenomegaly. 2. Abdominal ascites. 3. Oral contrast has passed throughout the small bowel and colon. There is no significant thickening of the colonic wall identified. The colon is decompressed. 4. Consolidation in both lung bases with minimal basilar effusions. 5. Nasogastric tube within the stomach. Bo Wall MD on April 04, 2017 at 16:16 Board Certified Radiologist. This report was verified electronically.
--- NOTE | 2017-04-04 17:44 | PD.PROCEDR ---
Procedure Note Procedure Procedure Preoperative diagnosis: Ascites, liver cirrhosis, ARDS Postop diagnosis: Same Procedure: Ultrasound-guided abdominal paracentesis LLQ (diagnostic and therapeutic) Informed consent: Obtained from patient's mother. Anesthesia used: 1% lidocaine for local infiltration anesthesia Procedure: After sterile prepping and draping using 1% lidocaine for local infiltration anesthesia, small stab wound was made on the left lower quadrant at the ultrasound guided marked site following which paracentesis Angiocath was used to advance catheter into peritoneal cavity while applying suction until ascites fluid was obtained and the syringe following which the catheter was advanced into the peritoneal cavity and the needle was then removed. Connector tubing was attached to the catheter and then connected to a Vacutainer bottle and 3.0 L of dark straw-colored, slightly blood tinged ascites fluid was drained. Following this introducer catheter was removed and pressure was held on the drainage site. There was mild superficial bleeding at the site and pressure was held post procedure for 10 min. Patient tolerated the procedure well with no immediate complications noted. Ordered specimen to be sent for studies. Cassy Walker MD Apr 04, 2017 17:44
[2017-04-04 19:26] LABS: PERITONEAL POLYS(SEGS) 65 %; PERITONEAL WBC 140 /MM3 (0-10)
[2017-04-04 19:27] LABS: PERITONEAL HISTIOCYTES 10 %; PERITONEAL LYMPHS 11 %; PERITONEAL MESOTHELIAL 4 %; PERITONEAL MONOS 10 %
[2017-04-04 21:10] LABS: BACTERIA, URINE OCC /hpf; BLOOD, URINE MOD (NEG); COMMENT (UR) CATH-CULTURE IND; CULTURE IF INDICATED CATH CULTURE IND; GLUCOSE,URINE NEG (NEG); KETONE, URINE NEG (NEG); MUCUS URINE FEW /lpf (OCC); NITRITE,URINE NEG (NEG); SQUAMOUS EPITHELIAL CELL URINE <1 /hpf (0-5); URINE COLOR YELLOW (YELLW/STRAW)
[2017-04-05] VITALS (19 sets, daily range): BP systolic 98–112; BP diastolic 55–59; PULSE 86–119; RESP 13–24; TEMP 98.3–99.9; O2SAT 91–100
[2017-04-05] MEDS: RESP: ACETYLCYSTEINE 10% 30 ML NEB NEB SCH ×4 (00:19→23:54)
[2017-04-05] MEDS: RESP: ALBUTEROL 2.5 MG/IPRATROPIUM 0.5 MG NEB (SCH) NEB ×6 (03:51→23:53)
[2017-04-05] MEDS: VANCOMYCIN 500 MG VIAL (FOR ORAL USE ONLY) PO SCH ×4 (03:58→21:31)
[2017-04-05] MEDS: ALBUMIN HUMAN 25% 25 GM/100 ML BAGP IV SCH ×2 (03:58→13:30)
[2017-04-05] MEDS: metroNIDAZOLE 500 MG INJ 100 ML IV SCH ×3 (03:58→21:32)
[2017-04-05] MEDS: INSULIN NovoLIN REGULAR SUPPLEMENTAL SCALE SQ SCH ×6 (04:00→20:00)
[2017-04-05] MEDS: PCA - TOTAL MG DILAUDID DELIVERED PER SHIFT OTHER SCH ×3 (05:22→22:00)
[2017-04-05 05:35] LABS: HEMATOCRIT 29.8 % (39.0-51.0); MEAN CELL VOLUME 113.1 FL (80.0-100.0); MEAN CORPUSCULAR HEMOGLOBIN 38.8 PG (27.0-34.0); MEAN CORPUSCULAR HGB CONC 34.3 % (32.0-36.0); PLATELET COUNT 126 TH/MM3 (150-450); RED BLOOD COUNT 2.64 MIL/MM3 (4.50-5.90); RED CELL DISTRIBUTION WIDTH 17.3 % (11.6-17.2); WHITE BLOOD COUNT 33.1 TH/MM3 (4.0-11.0)
[2017-04-05 05:36] LABS: HEMO FLAGS AUTO DIFF
[2017-04-05 06:10] LABS: ALKALINE PHOSPHATASE 43 U/L (45-117); ALT (GPT) 39 U/L (12-78); ANION GAP 10 MEQ/L (5-15); AST (GOT) 53 U/L (15-37); BLOOD UREA NITROGEN 63 MG/DL (7-18); CHLORIDE 103 MEQ/L (98-107); GLOMERULAR FILTRATION RATE 52 ML/MIN (>89); MAGNESIUM 2.6 MG/DL (1.5-2.5); POTASSIUM 3.8 MEQ/L (3.5-5.1); SODIUM (NA) 139 MEQ/L (136-145); TOTAL BILIRUBIN ADULT 2.7 MG/DL (0.2-1.0)
[2017-04-05] MEDS: METOCLOPRAMIDE HCL 10 MG/2 ML VIAL IV PUSH SCH ×3 (06:18→21:31)
[2017-04-05 07:09] LABS: BANDS 3 % (0-6); MYELOCYTES 3 % (0-0); NEUTROPHIL # MANUAL DIFF 24.8 TH/MM3 (1.8-7.7); POLYS (SEG NEUTROPHILS) 69 % (16-70); WBC DIFF SAMPLE 100
[2017-04-05 07:10] LABS: PLATELET ESTIMATE SMEAR LOW (NORMAL); PLATELET MORPHOLOGY NORMAL (NORMAL); SCAN/DIFF FINAL DIFF MANUAL; TARGET CELLS 1+ (NORMAL)
--- NOTE | 2017-04-05 07:37 | RADRPT ---
EXAM DATE/TIME: 04/05/2017 03:16 [facility] COMPARISON: CHEST SINGLE AP, April 04, 2017, 5:33. INDICATIONS : Respiratory disease. MEDICAL HISTORY : Gastroesophageal reflux disease. Hypertension. Renal insufficiency. Cirrhosis. Tremors. SURGICAL HISTORY : None. ENCOUNTER: Subsequent ACUITY: 1 week PAIN SCORE: Non-responsive. LOCATION: Bilateral chest FINDINGS: A single view of the chest demonstrates endotracheal tube in good position. Eating tube traverses the esophagus. Right central line in superior vena cava. Bilateral mostly basilar airspace disease with trace pleural fluid. CONCLUSION: 1. Support apparatus unchanged. Relatively stable bilateral airspace disease and trace pleural fluid. Kyle Thorpe MD on April 05, 2017 at 7:35 Board Certified Radiologist. This report was verified electronically.
[2017-04-05] MEDS: CHLORHEXIDINE 0.12% (ORAL KIT) 15 ML CUP MT SCH ×2 (08:00→20:00)
[2017-04-05] MEDS: RESP: BUDESONIDE 0.5 MG/2 ML NEB NEB SCH ×2 (08:02→20:13)
[2017-04-05] MEDS: PANTOPRAZOLE SODIUM 40 MG VIAL IV SCH (08:36)
[2017-04-05] MEDS: HEPARIN SODIUM - SQ 10,000 UNITS/ML VIAL SQ SCH ×2 (08:36→21:31)
[2017-04-05] MEDS: methylPREDNISolone SOD SUCC 40 MG/1 ML VIAL IV PUSH SCH (08:36)
[2017-04-05] MEDS: ARTIFICIAL TEARS OPTH OINT 3.5 APPLIC/3.5 GM TUBO EACH EYE SCH ×2 (08:37→21:00)
[2017-04-05] MEDS: URSODIOL 300 MG CAP PO SCH ×3 (08:37→17:05)
[2017-04-05] MEDS: SPIRONOLACTONE 25 MG TAB OG-TUBE SCH ×2 (08:37→17:05)
[2017-04-05] MEDS: MULTIVITAMIN TAB PO SCH (08:37)
[2017-04-05] MEDS: FOLIC ACID 1 MG TAB PO SCH (08:37)
[2017-04-05] MEDS: LACTULOSE SYRUP 20 GM/30 ML CUP PO SCH (08:38)
[2017-04-05] MEDS: SODIUM CHLORIDE 0.9% FLUSH 10 ML FLUSH IV FLUSH SCH ×2 (08:38→21:00)
[2017-04-05] MEDS: THIAMINE HCL 100 MG TAB PO SCH (08:45)
[2017-04-05] MEDS: FUROSEMIDE 40 MG/4 ML VIAL IV PUSH SCH ×2 (08:45→17:05)
--- NOTE | 2017-04-05 10:42 | HHI.CCPN ---
Subjective Remarks/Hospital Course 03/26: This is a 42-year-old male. Date of admission 03/19/2017. Date of consultation 03/27/2017. Past medical history includes EtOH use abuse, tobaccoism, hypertension Gastroesophageal reflux disease and DDD. Patient is on Suboxone for prior opiate abuse. He drinks one bottle of vodka daily patient is on chronic alprazolam at home on lactulose and Lasix. Patient was originally admitted with abdominal ascites. Status post paracentesis 03/20-3300 cc. Possible SBP. Placed on ceftriaxone. Blood work included a positive AMA and elevated iron studies. GS re-consulted. Over the past 24 hours. Patient has had increased oxygen requirements from 4 L currently 2 nonrebreather. He denies chest pressure respiratory denies cough. No significant peripheral edema. Patient's abdomen is quite distended however ultrasound reveals minimal ascites. Awake and alert. His only complaint is "dry throat from aerosolized mask 03/27: Patient developed worsening respiratory distress during the day and was placed on BiPAP with full facemask. He was requiring 100% FiO2 with BiPAP settings at +15/+8. His respiratory status declined as a day progress. Had multiple discussions with patient as well as his family members including reviewing his CT chest from early this morning which revealed extensive pulmonary infiltrates (right greater than left) and explained probable need for proceeding with intubation and mechanical ventilation. Subsequently patient's O2 sats dropped in the upper 80s despite BiPAP and patient was intubated and placed on mechanical ventilation around 6 PM. I subsequently proceeded with central line placement. Postintubation chest x-ray revealed extensive bilateral pulmonary infiltrates which appeared to have progress since his previous chest x-ray. Patient was requiring high doses of sedatives including Versed/fentanyl and propofol drips to keep him sedated. 03/28: Patient placed on prone ventilation last night and inhaled Flolan. Currently sedated, orally intubated on mechanical ventilation. On neuromuscular blockade. Remains on Versed/propofol/Dilaudid drips for sedation. Nimbex for neuromuscular blockade. 03/29: Remains sedated, orally intubated on mechanical ventilation, on neuromuscular blockade. Inhaled Flolan to be decreased from 20,000 ng per KG per minute to 10,000 ng per KG per minute this morning. O2 sats in the mid 90s. Vent mode change from pressure control to PRVC last night for elevation of PCO2. 09/16: Down to FiO2 0.50, PEEP 15. Will convert to regular bed. Leave on PRVC. Update, converted to APRV due to lack of progress on conventional mode. Improved PO2 to 114 and no CO2 retention. 03/31: Improved oxygenation. Lung lopez clearing on CXR. A little dry perhaps; will continue maintenance iv. Organism? Relaxant off 24 24hrs now, weaning dilaudid and versed. 04/01: Continued improvement in gas exchange but persistent ARDS pattern without diagnosis. Suspect infectious etiology and continue broad coverage. Withdrawal symptoms controlled, may need precedex to extubate. 04/02: Remains sedated, orally intubated on mechanical ventilation on APRV mode. Abdomen appears distended and firm currently. Stool positive for C. difficile by PCR. Had about 500 cc of diarrhea overnight. Tolerating tube feeds 04/03: Sedated, arousable, remains orally intubated on mechanical ventilation. Underwent paracentesis on 04/02 with drainage of 3.8 L of ascites fluid. Switched from APRV mode to PRVC mode mech vent on 04/02 and tolerating well remains on 35% FiO2 and PEEP at +14 this morning. Started on oral vancomycin for C. difficile colitis on 04/02. Tolerating tube feeds. On propofol and Versed drips currently for sedation. 04/04: Patient was extubated yesterday but got reintubated today mandrel maker for increasing tachypnea respiratory distress and hypoxia. Chest x-ray showed bilateral worsening infiltrates. Patient's white count has increased from 29, 000 to 38,500 indicating possible worsening C. difficile colitis with potential complications. CT of abdomen pelvis ordered stat. Add IV Flagyl 04/05: Remains intubated sedated chest x-ray continues to show pulmonary edema. Urine output 2.2 L in 24 hours creatinine 1.5. WBC trending down from 38.5- 33.1. CT of the abdomen did not show any significant colitis. Status post paracentesis and 3 L fluid removal 04/04/17 Objective Vital Signs Date Time Temp Pulse Resp B/P (MAP) Pulse Ox O2 Delivery O2 Flow Rate FiO2 04/05/17 10:00 112 04/05/17 08:20 40 04/05/17 08:20 99 04/05/17 08:00 99.7 13 107/57 (74) 04/05/17 07:00 Mechanical Ventilator 04/04/17 00:48 6.00 Intake and Output 04/05/17 04/05/17 04/06/17 08:00 16:00 00:00 Intake Total 388 ml Output Total 1200 ml Balance -812 ml Result Diagram: 04/05/17 0500 04/05/17 0500 Other Results Microbiology Date/Time Source Procedure Growth Status 04/02/17 13:30 Fluid Peritoneal Fluid Gram Stain - Final Complete 04/02/17 13:30 Fluid Peritoneal Fluid Body Fluid Culture - Final NO GROWTH IN 72 HRS.--AEROBICALLY OR ... Complete 04/03/17 10:00 Sputum Endotracheal Gram Stain - Final Complete 04/03/17 10:00 Sputum Endotracheal Sputum Culture - Final MODERATE GROWTH NORMAL RESPIRATORY SOLO Complete Imaging Last Impressions Abdomen X-Ray 04/02/17 0600 Signed Impressions: Service Date/Time: Sunday, April 02, 2017 06:08 - CONCLUSION: No dilated bowel loops. Suspected ascites. Miles Ge Jr., MD Chest X-Ray 04/02/17 0000 Signed Impressions: Service Date/Time: Sunday, April 02, 2017 13:18 - CONCLUSION: 1. Improving aeration in both lungs with resolving bibasilar atelectatic changes. 2. Endotracheal tube is been pulled back to the thoracic inlet and I believe the nasogastric tube is now identified with the tip in the midesophagus, above the GE junction. 3. Right IJ central venous catheter and a Dobbhoff feeding tube are stable in position. Michael Oliveira MD Abdomen Ultrasound 04/02/17 0000 Signed Impressions: Service Date/Time: Sunday, April 02, 2017 10:36 - CONCLUSION: 1. There is a large amount of ascites. Marked was placed on the right lower quadrant with patient lying on back with head elevated to about 30-40. Distance from skin to peritoneal surface is 2.2 cm and maximal safe depth is 4.[address] Thorpe MD CT Angiography 03/27/17 0000 Signed Impressions: Service Date/Time: Monday, March 27, 2017 03:55 - CONCLUSION: 1. Mixed groundglass opacity and airspace consolidation in both upper lobes. Differential diagnosis includes infection, aspiration and pulmonary hemorrhage. 2. Moderate pleural effusions with dependent consolidation and atelectasis at both lung bases. 3. Hepatomegaly with ascites. 4. Contrast bolus suboptimal but no pulmonary emboli identified. Kyle Thorpe MD Cyst Biopsy Asp-Paracentesis US 03/20/17 0600 Signed Impressions: Service Date/Time: Monday, March 20, 2017 09:42 - CONCLUSION: Uncomplicated ultrasound guided paracentesis. Kareem Mahan MD Lower Extremity Ultrasound 03/19/17 1441 Signed Impressions: Service Date/Time: Sunday, March 19, 2017 15:40 - CONCLUSION: 1. No evidence of deep venous thrombosis. Claudio Argueta MD Liver Ultrasound 03/19/17 0000 Signed Impressions: Service Date/Time: Sunday, March 19, 2017 18:23 - CONCLUSION: 1. Moderate ascites. Thickened gallbladder wall with sludge. Mild hepatosplenomegaly. Kyle Thorpe MD Chest x-ray portable done on 03/27 post intubation was personally reviewed: ET tube above antonio, right IJ central line with tip overlying SVC, NG tube in place, extensive bilateral infiltrates involving almost the entire lung lopez. Last [address] Angiography 03/27/17 0000 Signed Impressions: Service Date/Time: Monday, March 27, 2017 03:55 - CONCLUSION: 1. Mixed groundglass opacity and airspace consolidation in both upper lobes. Differential diagnosis includes infection, aspiration and pulmonary hemorrhage. 2. Moderate pleural effusions with dependent consolidation and atelectasis at both lung bases. 3. Hepatomegaly with ascites. 4. Contrast bolus suboptimal but no pulmonary emboli identified. Kyle Thorpe MD Last Impressions Chest X-Ray 03/26/17 0000 Signed Impressions: Service Date/Time: Sunday, March 26, 2017 10:30 - CONCLUSION: 1. New alveolar infiltrates in both lungs which may represent pulmonary edema which may be noncardiogenic in origin. 2. Denser course infiltrates in both lung bases likely representing scarring. Ap Zamora MD Abdomen Ultrasound 03/25/17 0000 Signed Impressions: Service Date/Time: Saturday, March 25, 2017 10:49 - CONCLUSION: 1. Very subtle ascites without sufficient pocket for safe paracentesis. Hipolito Palencia MD Cyst Biopsy Asp-Paracentesis US 03/20/17 0600 Signed Impressions: Service Date/Time: Monday, March 20, 2017 09:42 - CONCLUSION: Uncomplicated ultrasound guided paracentesis. Kareem Mahan MD Lower Extremity Ultrasound 03/19/17 1441 Signed Impressions: Service Date/Time: Sunday, March 19, 2017 15:40 - CONCLUSION: 1. No evidence of deep venous thrombosis. Claudio Argueta MD Liver Ultrasound 03/19/17 0000 Signed Impressions: Service Date/Time: Sunday, March 19, 2017 18:23 - CONCLUSION: 1. Moderate ascites. Thickened gallbladder wall with sludge. Mild hepatosplenomegaly. Kyle Thorpe MD Objective Remarks HEENT/ Neuro: Lightly sedated, opens eyes, no tremors, pupils 2 mm, reactive. Follows commands 4 Neck: Right IJ central line in place. Orally intubated. Chest/Pulm: Few rhonchi, equal air entry bilaterally, no wheezing/ crackles CVS: S1-S2 regular, no murmur GI/abdomen: Less distended today, s/p 3L paracentesis 04/04. nontender, bowel sounds active. Extremities: warm bilaterally, trace edema, well perfused. Date of Insertion: Mar 27, 2017 Line: Central Venous Catheter Side: Right Location: Internal, Jugular A/P Assessment and Plan Neuro/Psych: Metabolic encephalopathy History of oxycodone use Anxiety disorder on chronic alprazolam History of hepatic encephalopathy Versed and Fentanyl for sedation and vent synchrony. Daily sedation vacation. Improving neuro exam Continue Librium 20 mg every 12 hourly in view of history of alcohol abuse. Continue thiamine/folic acid/MVI via OG tube. Patient was on his home Suboxone 8 mg 4 times a day till 03/28 which was held following intubation as patient requiring deep sedation and neuromuscular blockade. Has been off neuromuscular blockade. Ammonia level 36 on 04/04/17 CV: Sinus tachycardia Pulmonary edema History of hypertension Hypotension Off Levophed. Resumed spironolactone for fluid retention secondary to liver disease on 04/03. Resume IV Lasix today 04/05/17 Pulmonary edema may be noncardiogenic Resp: Acute hypoxemic respiratory failure Bilateral pneumonia ARDS Tobaccoism Re intubated 04/04 for hypoxemic respiratory failure. Chest x-ray shows worsening infiltrates, stable today CT chest on 03/27 with extensive bilateral infiltrates right greater than left. Initially intubated and placed on mechanical ventilation on 03/27. Was on prone ventilation and inhaled Flolan as well as neuromuscular blockade initially. Continue mechanical ventilation : Currently on PRVC 550/12/60%/ PEEP 10 Reduce PEEP gradually to 5 Start spontaneous breathing trials today Albuterol/ipratropium aerosols every 6 hours with albuterol aerosols every 2 hours when necessary Solu-Medrol 40 mg IV every 12 hourly- reduce to daily Nicotine patch at 21 mg daily GI/liver: Likely cirrhosis - Will need liver biopsy Abdominal ascites C. difficile colitis CT of the abdomen pelvis 04/04 no evidence of significant colitis AMA positive. Elevated iron studies. Neg hepatitis panel. Appears to be carrier for hemochromatosis gene ? Significance. Status post paracentesis 03/20. -3300. Repeat paracentesis on 04/02 with drainage of 3.8 L of ascites fluid and again paracentesis 04/04 with 3L removed No evidence of SBP on fluid studies 04/04/17 Ursodiol to be continued possible primary biliary cirrhosis Previous fluid studies Noted 579 WBC and peritoneal fluid however peritoneal fluid cultures negative. Was on Rocephin from 03/20 - 03/27 Continue lactulose 30 cc daily. Continue Aldactone, resume IV Lasix Restart tube feeds : Bowden catheterization for accurate intake output in critically ill patient with sepsis/pneumonia Endo: Sliding-scale insulin if needed for glycemic control. Renal: Acute kidney injury Strict intake output, monitor and replete electrolytes, follow BUN/creatinine. Creatinine now stable at 1.5 slightly improved Heme: Leukocytosis Macrocytic anemia Thrombocytopenia Monitor CBC daily. Follow trends. Continue MVI/folic acid. No indications for transfusion of blood products at this time ID: Sepsis/pneumonia with ARDS SBP - culture negative C diff colitis Stool positive for C diff by PCR - d/w ID and started PO vancomycin 04/02. Added IV Flagyl 500 q8 04/04. DCd Zosyn 04/04- D/W Dr. Farias Stat CT abd pelvis with Oral contrast-no evidence of significant colitis Previously on Rocephin from 03/20 -03/27. Status post 1 dose vancomycin 03/27. Zosyn started 03/27. Added Zyvox 600 mg IV every 12 hourly on 03/27 following intubation. Off Zyvox and Levaquin, Zosyn DCd 04/04 Paracentesis repeated on 04/02, 04/04 and fluid sent for Gram stain and cultures- negative to date. Repeated sputum gm stain and C/S on 04/03 cultures negative to date All cultures remain negative so far Urine negative for strep pneumo and Legionella antigen Sputum for Gram stain and cultures obtained after intubation -> no growth so far. MSK: Physical therapy. Unable to participate. Passive range of motion FEN: Hyponatremia Hypo-magnesium Hyponatremia most likely from liver cirrhosis Replacing electrolytes as clinically indicated Access -Placed right IJ central line 03/27. Prophylaxis - GI - pantoprazole - DVT - SCD/ pharmacological prophylaxis with subcutaneous heparin 5000 units every 12 hourly. Extensive discussion on 03/27 with patient's family members and with patient at bedside on multiple occasions during the day and following intubation with family members regarding severity of pneumonia and need for mechanical ventilation including neuromuscular blockade and they voiced understanding and were agreeable and appreciative of care provided. Also explained that if patient's restless status does not improve over the next 2 weeks he may require tracheostomy. Condition remains extremely critical. Continue neuromuscular blockade. Dr. Stoddard updated patient's mother on 03/28 and 03/29 regarding current clinical status including prone ventilation and possible need for prolonged mechanical ventilation. She voiced understanding and was agreeable with plan of care. Dr. Stoddard updated patient's mother on 04/03 regarding current clinical status and she voiced understanding. Overall impression: Patient remains critically ill with severe ARDS on mechanical ventilation Critical Care time excluding procedures : 32 mins Cassy Walker MD Apr 05, 2017 10:42
[2017-04-05 12:05] LABS: BLOOD GAS BASE EXCESS 2.8 mmol/L (-2-2); BLOOD GAS CARBOXYHEMOGLOBIN 1.6 % (0-4); BLOOD GAS HCO3 26 mmol/L (22-26); BLOOD GAS METHEMOGLOBIN 0.8 % (0-2); BLOOD GAS O2 HGB SATURATION 92 % (90-100); BLOOD GAS OXYGEN CONTENT 12.4 Vol % (12.0-20.0); BLOOD GAS PCO2 36 mmHg (38-42); BLOOD GAS PO2 72 mmHg (61-120); BLOOD GAS TOTAL HGB 9.5 G/DL (12.0-16.0); TEMP CORR TO 98.6
[2017-04-05 12:06] LABS: CRITICAL VALUE NO; DRAW SITE RT RADIAL; FIO2 45 %; NUMBER OF ARTERIAL PUNCTURES 1; OXYGEN DEVICE VENTILATOR; STAT NO; ULNAR PULSE PRESENT; VENT SETTINGS CPAP 5/PS 5
--- NOTE | 2017-04-05 12:57 | HHI.PR ---
Subjective Remarks On the vent and is more alert.. On FIO2 40 %. Ascites drained. On CPAP now and ABG's were Good. CXR showing some Improvement . Objective Vital Signs Date Time Temp Pulse Resp B/P (MAP) Pulse Ox O2 Delivery O2 Flow Rate FiO2 04/05/17 12:00 40 04/05/17 12:00 99.9 116 19 107/59 (75) 93 04/05/17 12:00 116 04/05/17 10:45 94 40 04/05/17 10:00 112 04/05/17 08:20 40 04/05/17 08:20 99 40 04/05/17 08:07 99 40 04/05/17 08:00 40 04/05/17 08:00 112 04/05/17 08:00 99.7 112 13 107/57 (74) 95 04/05/17 07:00 99 Mechanical Ventilator 50 04/05/17 06:00 100 04/05/17 04:00 99.3 90 18 102/56 (71) 98 04/05/17 04:00 90 04/05/17 04:00 50 04/05/17 03:57 100 Ventilator 04/05/17 03:53 100 50 04/05/17 02:00 88 04/05/17 00:00 50 04/05/17 00:00 86 04/05/17 00:00 98.4 86 18 98/55 (69) 100 04/04/17 23:54 100 Ventilator 04/04/17 23:51 100 50 04/04/17 22:00 84 04/04/17 20:10 99 Ventilator 04/04/17 20:02 99 50 04/04/17 20:00 97.7 80 18 93/55 (68) 100 04/04/17 20:00 80 04/04/17 20:00 50 04/04/17 19:00 99 Mechanical Ventilator 50 04/04/17 18:00 92 04/04/17 16:40 96 60 04/04/17 16:00 102 04/04/17 16:00 100 04/04/17 16:00 97.9 102 17 99/55 (70) 97 04/04/17 15:30 100 100 04/04/17 14:00 94 I/O 04/04/17 04/04/17 04/04/17 04/05/17 9/22/17 9/22/17 07:00 15:00 23:00 07:00 15:00 23:00 Intake Total 869 ml 200 ml 400 ml 388 ml Output Total 2050 ml 4450 ml 1200 ml Balance -1181 ml 200 ml -4050 ml -812 ml IV Total 421 ml 200 ml 100 ml 328 ml Tube Feeding 388 ml 0 ml Tube Irrigant 60 ml 60 ml Other 300 ml Output Urine Total 1450 ml 1150 ml 1100 ml Stool Total 600 ml 300 ml 100 ml Drainage Total 3000 ml Result Diagram: 04/05/17 0500 04/05/17 0500 Objective Remarks PHYSICAL EXAMINATION IN GENERAL: This averagely built middle-aged man on the vent HEAD, EYES, EARS, NOSE, AND THROAT: Pupils reactive. Sclerae are clear Throat clear. NECK: No venous distension. CHEST: Decreased breath sounds at the periphery. Occ wheezes HEART: Heart sounds are regular S1-S2. ABDOMEN: Abdomen is soft, Non tender, Bowel sounds not heard. EXTREMITIES:No edema. The patient is alert , and responds to commands DERMATOLOGY: The skin was warm Assessment and Plan Assessment and Plan IMPRESSION 1. Acute hypoxemic respiratory failure.Resolved 2. ARDS 3. Aspiration pneumonia versus pulmonary edema. 4. Cirrhosis of the liver 5. Probable underlying chronic lung disease 6. Ascites. Plan : 1. Wean FIO2 to keep sat >92. 2. Extubate if OK with DR Walker 3. Antibiotics as ordered. 4 Solumedrol 40 mg IV q12h. 5. Nebs q6h with duoneb. 6. D/C sedation 7. Bipap after Extubation, for the Night. 7. CXR ,CBC,BMP in am Mela Becerra MD Apr 05, 2017 12:57
--- NOTE | 2017-04-05 16:24 | HHI.IDPN ---
Subjective Subjective Remarks Extubated again today DOing OK denies abd pain No cough afebrile Antibiotics PO vanco zosyn IV - stopped Lines Line sites with no e.o infection Past Medical History reviewed. Allergies: Coded Allergies: clarithromycin (Unverified Allergy, Severe, Rash, 03/19/17) clindamycin (Unverified Allergy, Severe, RASH, 03/19/17) Objective . Vital Signs Date Time Temp Pulse Resp B/P (MAP) Pulse Ox O2 Delivery O2 Flow Rate FiO2 04/05/17 14:00 119 04/05/17 13:37 92 Nasal Cannula 6 04/05/17 12:00 40 04/05/17 12:00 99.9 116 19 107/59 (75) 93 04/05/17 12:00 116 04/05/17 10:45 94 40 04/05/17 10:00 112 04/05/17 08:20 40 04/05/17 08:20 99 40 04/05/17 08:07 99 40 04/05/17 08:00 40 04/05/17 08:00 112 04/05/17 08:00 99.7 112 13 107/57 (74) 95 04/05/17 07:00 99 Mechanical Ventilator 50 04/05/17 06:00 100 04/05/17 04:00 99.3 90 18 102/56 (71) 98 04/05/17 04:00 90 04/05/17 04:00 50 04/05/17 03:57 100 Ventilator 04/05/17 03:53 100 50 04/05/17 02:00 88 04/05/17 00:00 50 04/05/17 00:00 86 04/05/17 00:00 98.4 86 18 98/55 (69) 100 04/04/17 23:54 100 Ventilator 04/04/17 23:51 100 50 04/04/17 22:00 84 04/04/17 20:10 99 Ventilator 04/04/17 20:02 99 50 04/04/17 20:00 97.7 80 18 93/55 (68) 100 04/04/17 20:00 80 04/04/17 20:00 50 04/04/17 19:00 99 Mechanical Ventilator 50 04/04/17 18:00 92 04/04/17 16:40 96 60 904/05/17 04/06/17 15:00 23:00 07:00 Intake Total 200 ml Balance 200 ml IV Total 200 ml . Laboratory Tests Test 04/04/17 05:45 04/05/17 05:00 White Blood Count 38.5 TH/MM3 33.1 TH/MM3 Red Blood Count 2.69 MIL/MM3 2.64 MIL/MM3 Hemoglobin 10.3 GM/DL 10.2 GM/DL Hematocrit 30.2 % 29.8 % Mean Corpuscular Volume 112.4 FL 113.1 FL Mean Corpuscular Hemoglobin 38.2 PG 38.8 PG Mean Corpuscular Hemoglobin Concent 34.0 % 34.3 % Red Cell Distribution Width 17.2 % 17.3 % Platelet Count 163 TH/MM3 126 TH/MM3 Mean Platelet Volume 7.6 FL 7.7 FL Neutrophils (%) (Auto) 86.7 % Lymphocytes (%) (Auto) 3.5 % Monocytes (%) (Auto) 9.2 % Eosinophils (%) (Auto) 0.0 % Basophils (%) (Auto) 0.6 % Neutrophils # (Auto) 33.3 TH/MM3 Lymphocytes # (Auto) 1.4 TH/MM3 Monocytes # (Auto) 3.5 TH/MM3 Eosinophils # (Auto) 0.0 TH/MM3 Basophils # (Auto) 0.2 TH/MM3 CBC Comment AUTO DIFF AUTO DIFF Differential Total Cells Counted 100 100 Neutrophils % (Manual) 87 % 69 % Band Neutrophils % 3 % 3 % Lymphocytes % 2 % 14 % Monocytes % 6 % 11 % Neutrophils # (Manual) 35.4 TH/MM3 24.8 TH/MM3 Metamyelocytes 2 % Differential Comment FINAL DIFF MANUAL FINAL DIFF MANUAL Platelet Estimate NORMAL LOW Platelet Morphology Comment NORMAL NORMAL Target Cells 1+ 1+ Red Cell Morphology Comment Myelocytes 3 % Laboratory Tests Test 04/04/17 05:45 04/04/17 10:30 04/04/17 17:34 04/05/17 05:00 Blood Urea Nitrogen 61 MG/DL 63 MG/DL Creatinine 1.69 MG/DL 1.50 MG/DL Random Glucose 123 MG/DL 92 MG/DL Total Protein 6.9 GM/DL 6.3 GM/DL 6.5 GM/DL Albumin 3.9 GM/DL 4.0 GM/DL Calcium Level 8.9 MG/DL 9.0 MG/DL Alkaline Phosphatase 45 U/L 43 U/L Aspartate Amino Transf (AST/SGOT) 62 U/L 53 U/L Alanine Aminotransferase (ALT/SGPT) 45 U/L 39 U/L Total Bilirubin 2.3 MG/DL 2.7 MG/DL Sodium Level 135 MEQ/L 139 MEQ/L Potassium Level 3.5 MEQ/L 3.9 MEQ/L 3.8 MEQ/L Chloride Level 99 MEQ/L 103 MEQ/L Carbon Dioxide Level 25.9 MEQ/L 26.0 MEQ/L Anion Gap 10 MEQ/L 10 MEQ/L Estimat Glomerular Filtration Rate 45 ML/MIN 52 ML/MIN B-Type Natriuretic Peptide 633 PG/ML Ammonia 36 MCMOL/L Lactate Dehydrogenase 119 U/L Magnesium Level 2.6 MG/DL Microbiology Date/Time Source Procedure Growth Status 04/04/17 17:34 Fluid Peritoneal Fluid Gram Stain - Final Resulted 04/04/17 17:34 Fluid Peritoneal Fluid Body Fluid Culture - Preliminary NO GROWTH IN 24 HOURS. Resulted 04/04/17 21:30 Sputum Endotracheal Gram Stain - Final Resulted 04/04/17 21:30 Sputum Endotracheal Sputum Culture - Preliminary IMMATURE GROWTH - REINCUBATE Resulted 04/03/17 10:00 Sputum Endotracheal Gram Stain - Final Complete 04/03/17 10:00 Sputum Endotracheal Sputum Culture - Final MODERATE GROWTH NORMAL RESPIRATORY SOLO Complete 04/04/17 20:00 Urine Catheterized Urine Urine Culture - Preliminary RESULTS PENDING Resulted Imaging Last Impressions Chest X-Ray 04/05/17 0600 Signed Impressions: Service Date/Time: Wednesday, April 05, 2017 03:16 - CONCLUSION: 1. Support apparatus unchanged. Relatively stable bilateral airspace disease and trace pleural fluid. Kyle Thorpe MD Abdomen/Pelvis CT 04/04/17 0000 Signed Impressions: Service Date/Time: March 15:55 - CONCLUSION: 1. Hepatosplenomegaly. 2. Abdominal ascites. 3. Oral contrast has passed throughout the small bowel and colon. There is no significant thickening of the colonic wall identified. The colon is decompressed. 4. Consolidation in both lung bases with minimal basilar effusions. 5. Nasogastric tube within the stomach. Bo Wall MD Abdomen X-Ray 04/02/17 0600 Signed Impressions: Service Date/Time: Sunday, April 02, 2017 06:08 - CONCLUSION: No dilated bowel loops. Suspected ascites. Miles Ge Jr., MD Abdomen Ultrasound 04/02/17 0000 Signed Impressions: Service Date/Time: Sunday, April 02, 2017 10:36 - CONCLUSION: 1. There is a large amount of ascites. Marked was placed on the right lower quadrant with patient lying on back with head elevated to about 30-40. Distance from skin to peritoneal surface is 2.2 cm and maximal safe depth is 4.4 cm. Kyle Thorpe MD CT Angiography 03/27/17 0000 Signed Impressions: Service Date/Time: Monday, March 27, 2017 03:55 - CONCLUSION: 1. Mixed groundglass opacity and airspace consolidation in both upper lobes. Differential diagnosis includes infection, aspiration and pulmonary hemorrhage. 2. Moderate pleural effusions with dependent consolidation and atelectasis at both lung bases. 3. Hepatomegaly with ascites. 4. Contrast bolus suboptimal but no pulmonary emboli identified. Kyle Thorpe MD Cyst Biopsy Asp-Paracentesis US 03/20/17 0600 Signed Impressions: Service Date/Time: Monday, March 20, 2017 09:42 - CONCLUSION: Uncomplicated ultrasound guided paracentesis. Kraeem Mahan MD Lower Extremity Ultrasound 03/19/17 1441 Signed Impressions: Service Date/Time: Sunday, March 19, 2017 15:40 - CONCLUSION: 1. No evidence of deep venous thrombosis. Claudio Argueta MD Liver Ultrasound 03/19/17 0000 Signed Impressions: Service Date/Time: Sunday, March 19, 2017 18:23 - CONCLUSION: 1. Moderate ascites. Thickened gallbladder wall with sludge. Mild hepatosplenomegaly. Kyle Thorpe MD Physical Exam CONSTITUTIONAL/GENERAL: This is an adequately nourished patient, in no apparent distress. On NC O 2 TUBES/LINES/DRAINS: SKIN: No jaundice, rashes, or lesions. Skin temperature appropriate. Not diaphoretic. CARDIOVASCULAR: Regular rate and rhythm without murmurs, gallops, or rubs. No JVD. Peripheral pulses symmetric. RESPIRATORY/CHEST: Symmetric, unlabored respirations. Clear to auscultation. Breath sounds equal bilaterally. GASTROINTESTINAL: Abdomen is less distended today draining odorless clear fluid from LLQ opening at previous paracenthesis site Not tender palpation, + distended. No hepato-splenomegaly, or palpable masses appreaciated. Bowel sounds present. Has dignishield i place with liquid brown stool GENITOURINARY: Without palpable bladder distension. Bowden catheter in place with clierar yellow urine MUSCULOSKELETAL: Extremities without clubbing, cyanosis, + marked edema, 3+ . No mottling or clubbing. NEUROLOGICAL: awake, alert communicates, non focal PSYCHIATRIC: calm and cooperative Assessment & Plan Remarks PNA, culture negative - crypto also negative Recurretnt acut VDRF: extubated Liver cirrhosis Critically ill again resp astable tense ascites sp therapeutic paracentesis x 2. - negative clx C.diff - worsening stool output Severe leukocytosis , leukemoid reaction ? from C.diff Pt is clinciallyimproved in the alst 24 hrs Recs: Continue vanco PO cont IV flagyl - fu sputum clx chk CT Abd/pel dw RN dw Elda Rivera MD Apr 05, 2017 16:24
[2017-04-05] MEDS: LORazepam 1 MG TAB PO PRN ×2 (21:31→23:48)
[2017-04-06] VITALS (14 sets, daily range): BP systolic 112–128; BP diastolic 56–77; PULSE 106–126; RESP 22–31; TEMP 98.7–99.7; O2SAT 89–98
[2017-04-06] MEDS: ALBUMIN HUMAN 25% 25 GM/100 ML BAGP IV SCH ×2 (02:17→14:42)
[2017-04-06] MEDS: RESP: ALBUTEROL 2.5 MG/IPRATROPIUM 0.5 MG NEB (SCH) NEB ×6 (03:28→23:28)
[2017-04-06] MEDS: metroNIDAZOLE 500 MG INJ 100 ML IV SCH ×3 (03:54→20:47)
[2017-04-06] MEDS: INSULIN NovoLIN REGULAR SUPPLEMENTAL SCALE SQ SCH ×6 (03:55→20:00)
[2017-04-06] MEDS: VANCOMYCIN 500 MG VIAL (FOR ORAL USE ONLY) PO SCH ×4 (03:55→20:46)
[2017-04-06] MEDS: PCA - TOTAL MG DILAUDID DELIVERED PER SHIFT OTHER SCH ×3 (05:21→20:46)
[2017-04-06] MEDS: LORazepam 1 MG TAB PO PRN ×2 (05:31→22:49)
[2017-04-06] MEDS: METOCLOPRAMIDE HCL 10 MG/2 ML VIAL IV PUSH SCH ×3 (05:31→20:46)
--- NOTE | 2017-04-06 06:10 | RADRPT ---
EXAM DATE/TIME: 04/06/2017 04:46 [facility] COMPARISON: CT ABDOMEN & PELVIS W/O CONTRAST, April 04, 2017, 15:55. CHEST SINGLE AP, April 05, 2017, 3: 16. INDICATIONS : Respiratory disease. MEDICAL HISTORY : Gastroesophageal reflux disease. Hypertension. Renal insufficiency. Cirrhosis. Tremors SURGICAL HISTORY : None. ENCOUNTER: Subsequent ACUITY: 2 weeks PAIN SCORE: 0/10 LOCATION: Bilateral chest FINDINGS: Interval extubation and removal of enteric tube. Right IJ catheter tip objects over the distal super ior vena cava. Patchy non-consolidative infiltrates in the mid and lower lungs bilaterally and conso lidation left lower lung with air bronchograms, similar to prior exam. The heart is upper limits nor mal size for AP technique. CONCLUSION: Diffuse bilateral airspace opacities and consolidation in the left lower lung, stable. Miles Paul MD on April 06, 2017 at 6:07 Board Certified Radiologist. This report was verified electronically.
[2017-04-06 06:25] LABS: HEMATOCRIT 29.3 % (39.0-51.0); MEAN CELL VOLUME 112.6 FL (80.0-100.0); MEAN CORPUSCULAR HEMOGLOBIN 38.6 PG (27.0-34.0); MEAN CORPUSCULAR HGB CONC 34.3 % (32.0-36.0); PLATELET COUNT 120 TH/MM3 (150-450); RED CELL DISTRIBUTION WIDTH 17.2 % (11.6-17.2); WHITE BLOOD COUNT 33.2 TH/MM3 (4.0-11.0)
[2017-04-06 06:29] LABS: ALT (GPT) 39 U/L (12-78); ANION GAP 9 MEQ/L (5-15); AST (GOT) 62 U/L (15-37); BICARBONATE 28.2 MEQ/L (21.0-32.0); BLOOD UREA NITROGEN 56 MG/DL (7-18); CHLORIDE 105 MEQ/L (98-107); GLOMERULAR FILTRATION RATE 68 ML/MIN (>89); POTASSIUM 3.3 MEQ/L (3.5-5.1); SODIUM (NA) 142 MEQ/L (136-145)
[2017-04-06 06:30] LABS: HEMO FLAGS AUTO DIFF
[2017-04-06 06:31] LABS: ALKALINE PHOSPHATASE 45 U/L (45-117)
[2017-04-06] MEDS: RESP: ACETYLCYSTEINE 10% 30 ML NEB NEB SCH (07:37)
[2017-04-06] MEDS: RESP: BUDESONIDE 0.5 MG/2 ML NEB NEB SCH ×2 (07:37→19:53)
[2017-04-06] MEDS ORDERED: POTASSIUM PHOSPHATE MONOBASIC 500 MG TAB PO/TUBE PRN (08:00)
[2017-04-06] MEDS: CHLORHEXIDINE 0.12% (ORAL KIT) 15 ML CUP MT SCH ×2 (08:00→20:47)
[2017-04-06] MEDS ORDERED: POTASSIUM PHOSPHATE MONOBASIC 500 MG TAB PO PRN (08:00)
[2017-04-06] MEDS ORDERED: MAGNESIUM OXIDE 400 MG TAB PO PRN (08:00)
[2017-04-06] MEDS ORDERED: SODIUM PHOSPHATE INJ 30 MMOL in SODIUM CHLOR 0.9% 250 ML INJ 240 ML IV PRN (08:00)
[2017-04-06] MEDS ORDERED: POTASSIUM CHLOR 20 MEQ PREMIX 100 ML IV PRN (08:00)
[2017-04-06] MEDS ORDERED: MAGNESIUM SULFATE INJ 4 GM in SODIUM CHLORIDE 0.9% INJ 92 ML IV PRN (08:00)
[2017-04-06] MEDS ORDERED: MAGNESIUM SULFATE INJ 2 GM in SODIUM CHLORIDE 0.9% INJ 96 ML IV PRN (08:00)
[2017-04-06] MEDS ORDERED: POTASSIUM PHOSPHATE INJ 30 MMOL in SODIUM CHLOR 0.9% 250 ML INJ 250 ML IV PRN (08:00)
[2017-04-06] MEDS ORDERED: POTASSIUM CHLORIDE 25 MEQ EFFERVESCENT TAB PO PRN (08:00)
--- NOTE | 2017-04-06 08:08 | HHI.CCPN ---
Subjective Remarks/Hospital Course 03/26: This is a 42-year-old male. Date of admission 03/19/2017. Date of consultation 03/27/2017. Past medical history includes EtOH use abuse, tobaccoism, hypertension Gastroesophageal reflux disease and DDD. Patient is on Suboxone for prior opiate abuse. He drinks one bottle of vodka daily patient is on chronic alprazolam at home on lactulose and Lasix. Patient was originally admitted with abdominal ascites. Status post paracentesis 03/20-3300 cc. Possible SBP. Placed on ceftriaxone. Blood work included a positive AMA and elevated iron studies. GS re-consulted. Over the past 24 hours. Patient has had increased oxygen requirements from 4 L currently 2 nonrebreather. He denies chest pressure respiratory denies cough. No significant peripheral edema. Patient's abdomen is quite distended however ultrasound reveals minimal ascites. Awake and alert. His only complaint is "dry throat from aerosolized mask 03/27: Patient developed worsening respiratory distress during the day and was placed on BiPAP with full facemask. He was requiring 100% FiO2 with BiPAP settings at +15/+8. His respiratory status declined as a day progress. Had multiple discussions with patient as well as his family members including reviewing his CT chest from early this morning which revealed extensive pulmonary infiltrates (right greater than left) and explained probable need for proceeding with intubation and mechanical ventilation. Subsequently patient's O2 sats dropped in the upper 80s despite BiPAP and patient was intubated and placed on mechanical ventilation around 6 PM. I subsequently proceeded with central line placement. Postintubation chest x-ray revealed extensive bilateral pulmonary infiltrates which appeared to have progress since his previous chest x-ray. Patient was requiring high doses of sedatives including Versed/fentanyl and propofol drips to keep him sedated. 03/28: Patient placed on prone ventilation last night and inhaled Flolan. Currently sedated, orally intubated on mechanical ventilation. On neuromuscular blockade. Remains on Versed/propofol/Dilaudid drips for sedation. Nimbex for neuromuscular blockade. 03/29: Remains sedated, orally intubated on mechanical ventilation, on neuromuscular blockade. Inhaled Flolan to be decreased from 20,000 ng per KG per minute to 10,000 ng per KG per minute this morning. O2 sats in the mid 90s. Vent mode change from pressure control to PRVC last night for elevation of PCO2. 09/16: Down to FiO2 0.50, PEEP 15. Will convert to regular bed. Leave on PRVC. Update, converted to APRV due to lack of progress on conventional mode. Improved PO2 to 114 and no CO2 retention. 03/31: Improved oxygenation. Lung lopez clearing on CXR. A little dry perhaps; will continue maintenance iv. Organism? Relaxant off 24 24hrs now, weaning dilaudid and versed. 04/01: Continued improvement in gas exchange but persistent ARDS pattern without diagnosis. Suspect infectious etiology and continue broad coverage. Withdrawal symptoms controlled, may need precedex to extubate. 04/02: Remains sedated, orally intubated on mechanical ventilation on APRV mode. Abdomen appears distended and firm currently. Stool positive for C. difficile by PCR. Had about 500 cc of diarrhea overnight. Tolerating tube feeds 04/03: Sedated, arousable, remains orally intubated on mechanical ventilation. Underwent paracentesis on 04/02 with drainage of 3.8 L of ascites fluid. Switched from APRV mode to PRVC mode mech vent on 04/02 and tolerating well remains on 35% FiO2 and PEEP at +14 this morning. Started on oral vancomycin for C. difficile colitis on 04/02. Tolerating tube feeds. On propofol and Versed drips currently for sedation. 04/04: Patient was extubated yesterday but got reintubated today search coordinator for increasing tachypnea respiratory distress and hypoxia. Chest x-ray showed bilateral worsening infiltrates. Patient's white count has increased from 29, 000 to 38,500 indicating possible worsening C. difficile colitis with potential complications. CT of abdomen pelvis ordered stat. Add IV Flagyl 04/05: Remains intubated sedated chest x-ray continues to show pulmonary edema. Urine output 2.2 L in 24 hours creatinine 1.5. WBC trending down from 38.5- 33.1. CT of the abdomen did not show any significant colitis. Status post paracentesis and 3 L fluid removal 04/04/1704/06: Extubated yesterday tolerating well so far. Chest x-ray with stable bilateral infiltrates. Urine output 4.6 L after restarting Lasix 04/05. Appears to have some reaccumulation of ascites. I will increase Aldactone to 50 every 8 hours, currently on 25 twice a day. Creat improved to 1.2, WBC elevated at 33,000 Objective Vital Signs Date Time Temp Pulse Resp B/P (MAP) Pulse Ox O2 Delivery O2 Flow Rate FiO2 04/06/17 07:41 93 Nasal Cannula 6.00 04/06/17 06:00 116 04/06/17 04:00 98.9 22 115/56 (75) 04/05/17 18:12 44 45 Intake and Output 04/06/17 04/06/17 04/07/17 08:00 16:00 00:00 Intake Total 960 ml Output Total 2750 ml Balance -1790 ml Result Diagram: 04/06/17 0540 04/06/17 0540 Other Results Microbiology Date/Time Source Procedure Growth Status 04/03/17 10:00 Sputum Endotracheal Gram Stain - Final Complete 04/03/17 10:00 Sputum Endotracheal Sputum Culture - Final MODERATE GROWTH NORMAL RESPIRATORY SOLO Complete Laboratory Tests Test 04/05/17 11:48 Blood Gas Puncture Site RT RADIAL Blood Gas Patient Temperature 98.6 Blood Gas HCO3 26 mmol/L (22-26) Blood Gas Base Excess 2.8 mmol/L (-2-2) Blood Gas Oxygen Saturation 92 % (90-100) Arterial Blood pH 7.47 (7.380-7.420) Arterial Blood Partial Pressure CO2 36 mmHg (38-42) Arterial Blood Partial Pressure O2 72 mmHg (61-120) Arterial Blood Oxygen Content 12.4 Vol % (12.0-20.0) Arterial Blood Carboxyhemoglobin 1.6 % (0-4) Arterial Blood Methemoglobin 0.8 % (0-2) Blood Gas Hemoglobin 9.5 G/DL (12.0-16.0) Oxygen Delivery Device VENTILATOR Blood Gas Ventilator Setting CPAP 5/PS 5 Blood Gas Inspired Oxygen 45 % Imaging Last Impressions Abdomen X-Ray 04/02/17 0600 Signed Impressions: Service Date/Time: Sunday, April 02, 2017 06:08 - CONCLUSION: No dilated bowel loops. Suspected ascites. Miles Ge Jr., MD Chest X-Ray 04/02/17 0000 Signed Impressions: Service Date/Time: Sunday, April 02, 2017 13:18 - CONCLUSION: 1. Improving aeration in both lungs with resolving bibasilar atelectatic changes. 2. Endotracheal tube is been pulled back to the thoracic inlet and I believe the nasogastric tube is now identified with the tip in the midesophagus, above the GE junction. 3. Right IJ central venous catheter and a Dobbhoff feeding tube are stable in position. Michael Oliveira MD Abdomen Ultrasound 04/02/17 0000 Signed Impressions: Service Date/Time: Sunday, April 02, 2017 10:36 - CONCLUSION: 1. There is a large amount of ascites. Marked was placed on the right lower quadrant with patient lying on back with head elevated to about 30-40. Distance from skin to peritoneal surface is 2.2 cm and maximal safe depth is 4.4 cm. Kyle Thorpe MD CT Angiography 03/27/17 0000 Signed Impressions: Service Date/Time: Monday, March 27, 2017 03:55 - CONCLUSION: 1. Mixed groundglass opacity and airspace consolidation in both upper lobes. Differential diagnosis includes infection, aspiration and pulmonary hemorrhage. 2. Moderate pleural effusions with dependent consolidation and atelectasis at both lung bases. 3. Hepatomegaly with ascites. 4. Contrast bolus suboptimal but no pulmonary emboli identified. Kyle Thorpe MD Cyst Biopsy Asp-Paracentesis US 03/20/17 0600 Signed Impressions: Service Date/Time: Monday, March 20, 2017 09:42 - CONCLUSION: Uncomplicated ultrasound guided paracentesis. Kareem Mahan MD Lower Extremity Ultrasound 03/19/17 1441 Signed Impressions: Service Date/Time: Sunday, March 19, 2017 15:40 - CONCLUSION: 1. No evidence of deep venous thrombosis. Claudio Argueta MD Liver Ultrasound 03/19/17 0000 Signed Impressions: Service Date/Time: Sunday, March 19, 2017 18:23 - CONCLUSION: 1. Moderate ascites. Thickened gallbladder wall with sludge. Mild hepatosplenomegaly. Kyle Thorpe MD Chest x-ray portable done on 03/27 post intubation was personally reviewed: ET tube above antonio, right IJ central line with tip overlying SVC, NG tube in place, extensive bilateral infiltrates involving almost the entire lung lopez. Last [address] Angiography 03/27/17 0000 Signed Impressions: Service Date/Time: Monday, March 27, 2017 03:55 - CONCLUSION: 1. Mixed groundglass opacity and airspace consolidation in both upper lobes. Differential diagnosis includes infection, aspiration and pulmonary hemorrhage. 2. Moderate pleural effusions with dependent consolidation and atelectasis at both lung bases. 3. Hepatomegaly with ascites. 4. Contrast bolus suboptimal but no pulmonary emboli identified. Kyle Thorpe MD Last Impressions Chest X-Ray 03/26/17 0000 Signed Impressions: Service Date/Time: Sunday, March 26, 2017 10:30 - CONCLUSION: 1. New alveolar infiltrates in both lungs which may represent pulmonary edema which may be noncardiogenic in origin. 2. Denser course infiltrates in both lung bases likely representing scarring. Ap Zamora MD Abdomen Ultrasound 03/25/17 0000 Signed Impressions: Service Date/Time: Saturday, March 25, 2017 10:49 - CONCLUSION: 1. Very subtle ascites without sufficient pocket for safe paracentesis. Hipolito Palencia MD Cyst Biopsy Asp-Paracentesis US 03/20/17 0600 Signed Impressions: Service Date/Time: Monday, March 20, 2017 09:42 - CONCLUSION: Uncomplicated ultrasound guided paracentesis. Kareem Mahan MD Lower Extremity Ultrasound 03/19/17 1441 Signed Impressions: Service Date/Time: Sunday, March 19, 2017 15:40 - CONCLUSION: 1. No evidence of deep venous thrombosis. Claudio Argueta MD Liver Ultrasound 03/19/17 0000 Signed Impressions: Service Date/Time: Sunday, March 19, 2017 18:23 - CONCLUSION: 1. Moderate ascites. Thickened gallbladder wall with sludge. Mild hepatosplenomegaly. Kyle Thorpe MD Objective Remarks HEENT/ Neuro: Alert awake oriented 3. Lethargic with some generalized weakness. No focal deficits Neck: Right IJ central line in place. Chest/Pulm: Few rhonchi, and basilar crackles equal air entry bilaterally, no wheezing CVS: S1-S2 regular, no murmur. Tachycardic rhythm GI/abdomen: Abdomen slightly distended appears to have some reaccumulation of ascites fluid, s/p 3L paracentesis 04/04. nontender, bowel sounds active. Significant scrotal edema Extremities: warm bilaterally,+ pedal edema edema, well perfused. Urinary Catheter: Yes Assessment to: Remove Date of Insertion: Mar 27, 2017 Line: Central Venous Catheter Side: Right Location: Internal, Jugular A/P Assessment and Plan Neuro/Psych: Metabolic encephalopathy History of alcohol dependence History of oxycodone use Anxiety disorder on chronic alprazolam History of hepatic encephalopathy Discontinue all continuos sedation Reduce Librium 20 mg daily and stop in 3 days. Continue thiamine/folic acid/MVI Patient was on his home Suboxone 8 mg 4 times a day till 03/28 which was held following intubation as patient requiring deep sedation and neuromuscular blockade. Ammonia level 36 on 04/04/17 PT OOB, OT CV: Sinus tachycardia Pulmonary edema History of hypertension Hypotension Was seemed IV Lasix yesterday 04/05/17 40 mg every 12 Increase spironolactone to 50 mg every 8 hours (was on 25 BID) Pulmonary edema may be noncardiogenic Resp: Acute hypoxemic respiratory failure Bilateral pneumonia ARDS Tobaccoism Extubated 04/05, tolerating well Was Re intubated 04/04 for hypoxemic respiratory failure. Chest x-ray shows worsening infiltrates, stable today CT chest on 03/27 with extensive bilateral infiltrates right greater than left. Initially intubated and placed on mechanical ventilation on 03/27. Was on prone ventilation and inhaled Flolan as well as neuromuscular blockade initially. Albuterol/ipratropium aerosols every 6 hours with albuterol aerosols every 2 hours when necessary Solu-Medrol 40 mg daily Aggressive pulmonary toilet. EzPAP, Acapella, IS Nicotine patch at 21 mg daily GI/liver: Likely cirrhosis Abdominal ascites C. difficile colitis CT of the abdomen pelvis 04/04 no evidence of significant colitis AMA positive. Elevated iron studies. Neg hepatitis panel. Appears to be carrier for hemochromatosis gene ? Significance. s/p paracentesis 03/20. -3300. Repeat paracentesis on 04/02 with 3.8 L fluid removed and again 04/04 with 3L removed No evidence of SBP on fluid studies 04/04/17 Ursodiol to be continued possible primary biliary cirrhosis Previous fluid studies Noted 579 WBC and peritoneal fluid however peritoneal fluid cultures negative. Was on Rocephin from 03/20 - 03/27 Continue lactulose 30 cc daily. Continue Aldactone, IV Lasix-see above Will need liver biopsy at some point Start PO diet, if cleared by speech : Bowden catheterization for accurate intake output in critically ill patient with sepsis/pneumonia Can DC today, use condom catheter if needed Endo: Sliding-scale insulin if needed for glycemic control. Electrolyte replacement per protocol Renal: Acute kidney injury Strict intake output, monitor and replete electrolytes, follow BUN/creatinine. Creatinine now 1.2 slightly improved. UO 4.6 L in 24 hours Heme: Leukocytosis Macrocytic anemia Thrombocytopenia Monitor CBC daily. Follow trends. Continue MVI/folic acid. No indications for transfusion of blood products at this time ID: Sepsis/pneumonia with ARDS SBP - culture negative C diff colitis Stool positive for C diff by PCR -On PO vancomycin 04/02. IV Flagyl 500 q8 04/04. DCd Zosyn 03/27- 04/04- D/W Dr. Farias Stat CT abd pelvis with Oral contrast 04/04-no evidence of significant colitis Previously on Rocephin from 03/20 -03/27. Status post 1 dose vancomycin 03/27. Zosyn 03/27-04/04. Added Zyvox 03/27 following intubation. Off Zyvox and Levaquin, Paracentesis repeated on 04/02, 04/04 and fluid sent for Gram stain and cultures- negative to date. Repeated sputum gm stain and C/S on 04/03 cultures negative to date All cultures remain negative so far Urine negative for strep pneumo and Legionella antigen Sputum for Gram stain and cultures obtained after intubation -> no growth so far. MSK: Physical therapy. OOB to stretcher chair. OT FEN: Hyponatremia Hypo-magnesium Hyponatremia most likely from liver cirrhosis Replacing electrolytes as clinically indicated Access -Placed right IJ central line 03/27. Prophylaxis - GI - pantoprazole - DVT - SCD/ pharmacological prophylaxis with subcutaneous heparin 5000 units every [address] Stoddard updated patient's mother on 03/28 and 03/29 regarding current clinical status including prone ventilation and possible need for prolonged mechanical ventilation. She voiced understanding and was agreeable with plan of care. Dr. Stoddard updated patient's mother on 04/03 regarding current clinical status and she voiced understanding. Overall impression: Patient remains critically ill but now showing signs of improvement. Sepsis persists though as evidenced by elevated white count Critical Care time excluding procedures : 32 mins Cassy Walker MD Apr 06, 2017 08:08
[2017-04-06] MEDS: ARTIFICIAL TEARS OPTH OINT 3.5 APPLIC/3.5 GM TUBO EACH EYE SCH ×2 (08:46→20:47)
[2017-04-06] MEDS: LACTULOSE SYRUP 20 GM/30 ML CUP PO SCH (08:47)
[2017-04-06] MEDS: URSODIOL 300 MG CAP PO SCH ×3 (10:41→17:40)
[2017-04-06] MEDS: SODIUM CHLORIDE 0.9% FLUSH 10 ML FLUSH IV FLUSH SCH ×2 (10:42→20:47)
[2017-04-06] MEDS: FUROSEMIDE 40 MG/4 ML VIAL IV PUSH SCH ×2 (10:42→17:41)
[2017-04-06] MEDS: THIAMINE HCL 100 MG TAB PO SCH (10:42)
[2017-04-06] MEDS: HEPARIN SODIUM - SQ 10,000 UNITS/ML VIAL SQ SCH ×2 (10:42→20:46)
[2017-04-06] MEDS: MULTIVITAMIN TAB PO SCH (10:42)
[2017-04-06] MEDS: PANTOPRAZOLE SODIUM 40 MG VIAL IV SCH (10:42)
[2017-04-06] MEDS: FOLIC ACID 1 MG TAB PO SCH (10:42)
[2017-04-06] MEDS: methylPREDNISolone SOD SUCC 40 MG/1 ML VIAL IV PUSH SCH (10:43)
[2017-04-06] MEDS: POTASSIUM CHLOR 40 MEQ PREMIX 100 ML IV PRN (10:44)
[2017-04-06] MEDS: SPIRONOLACTONE 50 MG TAB PO SCH ×2 (10:56→17:40)
[2017-04-06 11:11] LABS: BANDS 2 % (0-6); EOSINOPHILS 1 % (0-4); NEUTROPHIL # MANUAL DIFF 28.2 TH/MM3 (1.8-7.7); POLYS (SEG NEUTROPHILS) 83 % (16-70); WBC DIFF SAMPLE 100
[2017-04-06 11:12] LABS: PLATELET ESTIMATE SMEAR LOW (NORMAL); PLATELET MORPHOLOGY NORMAL (NORMAL); SCAN/DIFF FINAL DIFF MANUAL; TARGET CELLS 2+ (NORMAL)
--- NOTE | 2017-04-06 15:00 | HHI.PR ---
Addendum to Inpatient Note Additional Information Full note to maggie Pt seen today around 1415 On 5 L of NC O2 no cough still high volume liquid diarrhea dw Elda Bridges MD Apr 06, 2017 15:00
[2017-04-06] MEDS: ONDANSETRON HCL 4 MG/2 ML VIAL IVP PRN ×2 (18:36→20:46)
--- NOTE | 2017-04-06 22:21 | HHI.IDPN ---
Subjective Subjective Remarks delayed entry Pt seen today around 1415 On 5 L of NC O2 no cough still high volume liquid diarrhea afebrile, though intermittently low grade fever < 100 quite confused denies abd pain Antibiotics PO vanco zosyn IV - stopped Lines Line sites with no e.o infection Past Medical History reviewed. Allergies: Coded Allergies: clarithromycin (Unverified Allergy, Severe, Rash, 03/19/17) clindamycin (Unverified Allergy, Severe, RASH, 03/19/17) Objective . Vital Signs Date Time Temp Pulse Resp B/P (MAP) Pulse Ox O2 Delivery O2 Flow Rate FiO2 04/06/17 22:00 94 High Flow Nasal Cannula 25.00 70 04/06/17 19:54 98 Non-Rebreather 15.00 100 04/06/17 18:00 108 04/06/17 16:00 112 04/06/17 16:00 99.3 112 27 117/62 (80) 89 04/06/17 14:00 114 04/06/17 12:00 99.3 114 26 112/57 (75) 92 04/06/17 12:00 114 04/06/17 10:00 112 04/06/17 08:00 126 04/06/17 08:00 99.7 118 24 117/64 (81) 91 04/06/17 07:41 93 Nasal Cannula 6.00 04/06/17 07:00 91 Nasal Cannula 5.00 04/06/17 06:00 116 04/06/17 04:00 98.9 116 22 115/56 (75) 91 04/06/17 04:00 117 04/06/17 02:00 116 04/06/17 00:00 114 04/06/17 00:00 98.7 118 26 119/70 (86) 95 04/06/17 04/06/17 04/07/17 15:00 23:00 07:00 Intake Total 200 ml 1300 ml Output Total 2750 ml Balance 200 ml -1450 ml Intake Oral 1200 ml IV Total 200 ml 100 ml Output Urine Total 2250 ml Stool Total 500 ml . Laboratory Tests Test 04/05/17 05:00 04/06/17 05:40 White Blood Count 33.1 TH/MM3 33.2 TH/MM3 Red Blood Count 2.64 MIL/MM3 2.60 MIL/MM3 Hemoglobin 10.2 GM/DL 10.0 GM/DL Hematocrit 29.8 % 29.3 % Mean Corpuscular Volume 113.1 FL 112.6 FL Mean Corpuscular Hemoglobin 38.8 PG 38.6 PG Mean Corpuscular Hemoglobin Concent 34.3 % 34.3 % Red Cell Distribution Width 17.3 % 17.2 % Platelet Count 126 TH/MM3 120 TH/MM3 Mean Platelet Volume 7.7 FL 7.8 FL CBC Comment AUTO DIFF AUTO DIFF Differential Total Cells Counted 100 100 Neutrophils % (Manual) 69 % 83 % Band Neutrophils % 3 % 2 % Lymphocytes % 14 % 9 % Monocytes % 11 % 5 % Neutrophils # (Manual) 24.8 TH/MM3 28.2 TH/MM3 Myelocytes 3 % Differential Comment FINAL DIFF MANUAL FINAL DIFF MANUAL Platelet Estimate LOW LOW Platelet Morphology Comment NORMAL NORMAL Target Cells 1+ 2+ Eosinophils % 1 % Laboratory Tests Test 04/05/17 05:00 04/06/17 05:40 Blood Urea Nitrogen 63 MG/DL 56 MG/DL Creatinine 1.50 MG/DL 1.19 MG/DL Random Glucose 92 MG/DL 118 MG/DL Total Protein 6.5 GM/DL 6.5 GM/DL Albumin 4.0 GM/DL 4.1 GM/DL Calcium Level 9.0 MG/DL 9.1 MG/DL Magnesium Level 2.6 MG/DL Alkaline Phosphatase 43 U/L 45 U/L Aspartate Amino Transf (AST/SGOT) 53 U/L 62 U/L Alanine Aminotransferase (ALT/SGPT) 39 U/L 39 U/L Total Bilirubin 2.7 MG/DL 4.0 MG/DL Sodium Level 139 MEQ/L 142 MEQ/L Potassium Level 3.8 MEQ/L 3.3 MEQ/L Chloride Level 103 MEQ/L 105 MEQ/L Carbon Dioxide Level 26.0 MEQ/L 28.2 MEQ/L Anion Gap 10 MEQ/L 9 MEQ/L Estimat Glomerular Filtration Rate 52 ML/MIN 68 ML/MIN Phosphorus Level 2.7 MG/DL Microbiology Date/Time Source Procedure Growth Status 04/04/17 17:34 Fluid Peritoneal Fluid Gram Stain - Final Resulted 04/04/17 17:34 Fluid Peritoneal Fluid Body Fluid Culture - Preliminary NO GROWTH IN 48 HOURS. Resulted 04/04/17 21:30 Sputum Endotracheal Gram Stain - Final Complete 04/04/17 21:30 Sputum Endotracheal Sputum Culture - Final MODERATE GROWTH NORMAL RESPIRATORY DEDRICK Complete 04/04/17 20:00 Urine Catheterized Urine Urine Culture - Final NO GROWTH IN 48 HOURS. Complete Imaging Last Impressions Chest X-Ray 04/06/17 0600 Signed Impressions: Service Date/Time: Thursday, April 06, 2017 04:46 - CONCLUSION: Diffuse bilateral airspace opacities and consolidation in the left lower lung, stable. Miles Paul MD Abdomen/Pelvis CT 04/04/17 0000 Signed Impressions: Service Date/Time: March 15:55 - CONCLUSION: 1. Hepatosplenomegaly. 2. Abdominal ascites. 3. Oral contrast has passed throughout the small bowel and colon. There is no significant thickening of the colonic wall identified. The colon is decompressed. 4. Consolidation in both lung bases with minimal basilar effusions. 5. Nasogastric tube within the stomach. Bo Wall MD Abdomen X-Ray 04/02/17 0600 Signed Impressions: Service Date/Time: Sunday, April 02, 2017 06:08 - CONCLUSION: No dilated bowel loops. Suspected ascites. Miles Ge Jr., MD Abdomen Ultrasound 04/02/17 0000 Signed Impressions: Service Date/Time: Sunday, April 02, 2017 10:36 - CONCLUSION: 1. There is a large amount of ascites. Marked was placed on the right lower quadrant with patient lying on back with head elevated to about 30-40. Distance from skin to peritoneal surface is 2.2 cm and maximal safe depth is 4.4 cm. Kyle Thorpe MD CT Angiography 03/27/17 0000 Signed Impressions: Service Date/Time: Monday, March 27, 2017 03:55 - CONCLUSION: 1. Mixed groundglass opacity and airspace consolidation in both upper lobes. Differential diagnosis includes infection, aspiration and pulmonary hemorrhage. 2. Moderate pleural effusions with dependent consolidation and atelectasis at both lung bases. 3. Hepatomegaly with ascites. 4. Contrast bolus suboptimal but no pulmonary emboli identified. Kyle Thorpe MD Cyst Biopsy Asp-Paracentesis US 03/20/17 0600 Signed Impressions: Service Date/Time: Monday, March 20, 2017 09:42 - CONCLUSION: Uncomplicated ultrasound guided paracentesis. Kareem Mahan MD Lower Extremity Ultrasound 03/19/17 1441 Signed Impressions: Service Date/Time: Sunday, March 19, 2017 15:40 - CONCLUSION: 1. No evidence of deep venous thrombosis. Claudio Argueta MD Liver Ultrasound 03/19/17 0000 Signed Impressions: Service Date/Time: Sunday, March 19, 2017 18:23 - CONCLUSION: 1. Moderate ascites. Thickened gallbladder wall with sludge. Mild hepatosplenomegaly. Kyle Thorpe MD Physical Exam CONSTITUTIONAL/GENERAL: This is an adequately nourished patient, in no apparent distress. On NC O 2 TUBES/LINES/DRAINS: SKIN: No jaundice, rashes, or lesions. Skin temperature appropriate. Not diaphoretic. CARDIOVASCULAR: Regular rate and rhythm without murmurs, gallops, or rubs. No JVD. Peripheral pulses symmetric. RESPIRATORY/CHEST: Symmetric, unlabored respirations. Clear to auscultation. Breath sounds equal bilaterally. GASTROINTESTINAL: Abdomen is less distended today draining odorless clear fluid from LLQ opening at previous paracenthesis site Not tender palpation, + distended. No hepato-splenomegaly, or palpable masses appreaciated. Bowel sounds present. Has dignishield i place with liquid brown stool GENITOURINARY: Without palpable bladder distension. Bowden catheter in place with clierar yellow urine MUSCULOSKELETAL: Extremities without clubbing, cyanosis, +less prominent edema , 3+ . No mottling or clubbing. NEUROLOGICAL: awake, alert communicates, non focal quite confused PSYCHIATRIC: calm and confused Assessment & Plan Remarks PNA, culture negative - crypto also negative last clx with nl resp dedrick Recurretnt acut VDRF: extubated Liver cirrhosis Critically ill again resp astable tense ascites sp therapeutic paracentesis x 2. - negative clx C.diff - worsening stool output Severe leukocytosis , leukemoid reaction ? from C.diff - also sterroida might contributing Pt is clincially stable Recs: Continue vanco PO cont IV flagyl - fu sputum clx dw Elda Bridges MD Apr 06, 2017 22:21
[2017-04-07] VITALS (15 sets, daily range): BP systolic 112–128; BP diastolic 63–85; PULSE 94–120; RESP 20–29; TEMP 98.6–100.2; O2SAT 91–100
[2017-04-07] MEDS: SPIRONOLACTONE 50 MG TAB PO SCH ×4 (01:14→23:48)
[2017-04-07] MEDS: ALBUMIN HUMAN 25% 25 GM/100 ML BAGP IV SCH ×2 (01:14→13:08)
[2017-04-07] MEDS: ONDANSETRON HCL 4 MG/2 ML VIAL IVP PRN (03:57)
[2017-04-07] MEDS: VANCOMYCIN 500 MG VIAL (FOR ORAL USE ONLY) PO SCH ×4 (03:57→20:43)
[2017-04-07] MEDS: LORazepam 1 MG TAB PO PRN (03:57)
[2017-04-07] MEDS: metroNIDAZOLE 500 MG INJ 100 ML IV SCH ×3 (03:57→20:41)
[2017-04-07] MEDS: INSULIN NovoLIN REGULAR SUPPLEMENTAL SCALE SQ SCH ×7 (04:00→23:32)
[2017-04-07] MEDS: RESP: ALBUTEROL 2.5 MG/IPRATROPIUM 0.5 MG NEB (SCH) NEB ×6 (04:46→23:36)
[2017-04-07] MEDS: METOCLOPRAMIDE HCL 10 MG/2 ML VIAL IV PUSH SCH ×3 (04:52→20:43)
[2017-04-07 05:31] LABS: ALKALINE PHOSPHATASE 44 U/L (45-117); ALT (GPT) 37 U/L (12-78); ANION GAP 9 MEQ/L (5-15); AST (GOT) 80 U/L (15-37); BICARBONATE 27.8 MEQ/L (21.0-32.0); BLOOD UREA NITROGEN 41 MG/DL (7-18); CHLORIDE 105 MEQ/L (98-107); GLOMERULAR FILTRATION RATE 80 ML/MIN (>89); MAGNESIUM 2.2 MG/DL (1.5-2.5); POTASSIUM 3.1 MEQ/L (3.5-5.1); SODIUM (NA) 142 MEQ/L (136-145); TOTAL BILIRUBIN ADULT 3.8 MG/DL (0.2-1.0)
--- NOTE | 2017-04-07 05:34 | RADRPT ---
EXAM DATE/TIME: 04/07/2017 03:58 [facility] COMPARISON: CHEST SINGLE AP, April 06, 2017, 4:46. INDICATIONS : Shortness of breath, Sepsis MEDICAL HISTORY : Gastroesophageal reflux disease. Hypertension Renal insufficiency. Cirrhosis SURGICAL HISTORY : None. ENCOUNTER: Subsequent ACUITY: 2 weeks PAIN SCORE: 8/10 LOCATION: Bilateral chest FINDINGS: Increasing consolidative infiltrates in the left lower lung with complete loss of delineation of the left hemidiaphragm. There also diffuse airspace opacities throughout both lungs which are slightly m ore prominent than on prior exam. Right internal jugular catheter tip projects in the right atrium. CONCLUSION: Increasing airspace opacities throughout both lungs with lobar consolidation left lower lobe. Miles Paul MD on April 07, 2017 at 5:32 Board Certified Radiologist. This report was verified electronically.
[2017-04-07 05:38] LABS: AUTOMATED NEUTROPHIL # 28.1 TH/MM3 (1.8-7.7); BASOPHIL # 0.1 TH/MM3 (0-0.2); BASOPHIL % 0.2 % (0.0-2.0); EOSINOPHIL % 0.1 % (0.0-4.0); HEMATOCRIT 29.4 % (39.0-51.0); LYMPH % 6.1 % (9.0-44.0); MEAN CELL VOLUME 112.5 FL (80.0-100.0); MEAN CORPUSCULAR HEMOGLOBIN 37.3 PG (27.0-34.0); MEAN CORPUSCULAR HGB CONC 33.1 % (32.0-36.0); MONO % 9.2 % (0.0-8.0); NEUT % 84.4 % (16.0-70.0); PLATELET COUNT 124 TH/MM3 (150-450); RED BLOOD COUNT 2.62 MIL/MM3 (4.50-5.90); RED CELL DISTRIBUTION WIDTH 17.8 % (11.6-17.2); WHITE BLOOD COUNT 33.3 TH/MM3 (4.0-11.0)
[2017-04-07 05:46] LABS: HEMO FLAGS AUTO DIFF
[2017-04-07] MEDS: PCA - TOTAL MG DILAUDID DELIVERED PER SHIFT OTHER SCH ×3 (06:00→22:00)
[2017-04-07 07:14] LABS: BANDS 2 % (0-6); NEUTROPHIL # MANUAL DIFF 28.3 TH/MM3 (1.8-7.7); PLATELET ESTIMATE SMEAR LOW (NORMAL); PLATELET MORPHOLOGY NORMAL (NORMAL); POLYS (SEG NEUTROPHILS) 83 % (16-70); SCAN/DIFF FINAL DIFF MANUAL; WBC DIFF SAMPLE 100
[2017-04-07 07:15] LABS: TARGET CELLS 1+ (NORMAL)
[2017-04-07] MEDS: RESP: BUDESONIDE 0.5 MG/2 ML NEB NEB SCH ×2 (07:44→19:33)
[2017-04-07] MEDS: CHLORHEXIDINE 0.12% (ORAL KIT) 15 ML CUP MT SCH ×2 (08:00→20:00)
[2017-04-07] MEDS: ARTIFICIAL TEARS OPTH OINT 3.5 APPLIC/3.5 GM TUBO EACH EYE SCH ×2 (08:53→20:43)
[2017-04-07] MEDS: SODIUM CHLORIDE 0.9% FLUSH 10 ML FLUSH IV FLUSH SCH ×2 (09:00→20:43)
[2017-04-07] MEDS: FUROSEMIDE 40 MG/4 ML VIAL IV PUSH SCH ×3 (09:00→23:48)
[2017-04-07] MEDS: LACTULOSE SYRUP 20 GM/30 ML CUP PO SCH (09:00)
[2017-04-07] MEDS: THIAMINE HCL 100 MG TAB PO SCH (09:02)
[2017-04-07] MEDS: URSODIOL 300 MG CAP PO SCH ×3 (09:02→17:39)
[2017-04-07] MEDS: HEPARIN SODIUM - SQ 10,000 UNITS/ML VIAL SQ SCH ×2 (09:02→20:43)
[2017-04-07] MEDS: PANTOPRAZOLE SODIUM 40 MG VIAL IV SCH (09:02)
[2017-04-07] MEDS: FOLIC ACID 1 MG TAB PO SCH (09:02)
[2017-04-07] MEDS: MULTIVITAMIN TAB PO SCH (09:02)
[2017-04-07] MEDS: methylPREDNISolone SOD SUCC 40 MG/1 ML VIAL IV PUSH SCH (09:03)
[2017-04-07] MEDS: POTASSIUM CHLOR 40 MEQ PREMIX 100 ML IV PRN ×2 (09:12→11:37)
[2017-04-07] MEDS ORDERED: FUROSEMIDE 20 MG/2 ML VIAL IV PUSH ONE (09:30)
--- NOTE | 2017-04-07 09:56 | HHI.CCPN ---
Subjective Remarks/Hospital Course 03/26: This is a 42-year-old male. Date of admission 03/19/2017. Date of consultation 03/27/2017. Past medical history includes EtOH use abuse, tobaccoism, hypertension Gastroesophageal reflux disease and DDD. Patient is on Suboxone for prior opiate abuse. He drinks one bottle of vodka daily patient is on chronic alprazolam at home on lactulose and Lasix. Patient was originally admitted with abdominal ascites. Status post paracentesis 03/20-3300 cc. Possible SBP. Placed on ceftriaxone. Blood work included a positive AMA and elevated iron studies. GS re-consulted. Over the past 24 hours. Patient has had increased oxygen requirements from 4 L currently 2 nonrebreather. He denies chest pressure respiratory denies cough. No significant peripheral edema. Patient's abdomen is quite distended however ultrasound reveals minimal ascites. Awake and alert. His only complaint is "dry throat from aerosolized mask 03/27: Patient developed worsening respiratory distress during the day and was placed on BiPAP with full facemask. He was requiring 100% FiO2 with BiPAP settings at +15/+8. His respiratory status declined as a day progress. Had multiple discussions with patient as well as his family members including reviewing his CT chest from early this morning which revealed extensive pulmonary infiltrates (right greater than left) and explained probable need for proceeding with intubation and mechanical ventilation. Subsequently patient's O2 sats dropped in the upper 80s despite BiPAP and patient was intubated and placed on mechanical ventilation around 6 PM. I subsequently proceeded with central line placement. Postintubation chest x-ray revealed extensive bilateral pulmonary infiltrates which appeared to have progress since his previous chest x-ray. Patient was requiring high doses of sedatives including Versed/fentanyl and propofol drips to keep him sedated. 03/28: Patient placed on prone ventilation last night and inhaled Flolan. Currently sedated, orally intubated on mechanical ventilation. On neuromuscular blockade. Remains on Versed/propofol/Dilaudid drips for sedation. Nimbex for neuromuscular blockade. 03/29: Remains sedated, orally intubated on mechanical ventilation, on neuromuscular blockade. Inhaled Flolan to be decreased from 20,000 ng per KG per minute to 10,000 ng per KG per minute this morning. O2 sats in the mid 90s. Vent mode change from pressure control to PRVC last night for elevation of PCO2. 09/16: Down to FiO2 0.50, PEEP 15. Will convert to regular bed. Leave on PRVC. Update, converted to APRV due to lack of progress on conventional mode. Improved PO2 to 114 and no CO2 retention. 03/31: Improved oxygenation. Lung lopez clearing on CXR. A little dry perhaps; will continue maintenance iv. Organism? Relaxant off 24 24hrs now, weaning dilaudid and versed. 04/01: Continued improvement in gas exchange but persistent ARDS pattern without diagnosis. Suspect infectious etiology and continue broad coverage. Withdrawal symptoms controlled, may need precedex to extubate. 04/02: Remains sedated, orally intubated on mechanical ventilation on APRV mode. Abdomen appears distended and firm currently. Stool positive for C. difficile by PCR. Had about 500 cc of diarrhea overnight. Tolerating tube feeds 04/03: Sedated, arousable, remains orally intubated on mechanical ventilation. Underwent paracentesis on 04/02 with drainage of 3.8 L of ascites fluid. Switched from APRV mode to PRVC mode mech vent on 04/02 and tolerating well remains on 35% FiO2 and PEEP at +14 this morning. Started on oral vancomycin for C. difficile colitis on 04/02. Tolerating tube feeds. On propofol and Versed drips currently for sedation. 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 Chest x-ray showed bilateral worsening infiltrates. Patient's white count has increased from 29, 000 to 38,500 indicating possible worsening C. difficile colitis with potential complications. CT of abdomen pelvis ordered stat. Add IV Flagyl 04/05: Remains intubated sedated chest x-ray continues to show pulmonary edema. Urine output 2.2 L in 24 hours creatinine 1.5. WBC trending down from 38.5- 33.1. CT of the abdomen did not show any significant colitis. Status post paracentesis and 3 L fluid removal 04/04/1704/06: Extubated yesterday tolerating well so far. Chest x-ray with stable bilateral infiltrates. Urine output 4.6 L after restarting Lasix 04/05. Appears to have some reaccumulation of ascites. I will increase Aldactone to 50 every 8 hours, currently on 25 twice a day. Creat improved to 1.2, WBC elevated at 33,000 04/07: Increasing oxygen requirement currently on high flow nasal cannula at 70% . Chest x-ray shows some increase in infiltrates. Patient remains AO 3. Urine output 4 L in 24 hours. I will increase Lasix to 40 mg every 8 hours IV, give additional 20 mg of Lasix now. There is reaccumulation of ascites fluid-we 'll repeat paracentesis Objective Vital Signs Date Time Temp Pulse Resp B/P (MAP) Pulse Ox O2 Delivery O2 Flow Rate FiO2 04/07/17 07:44 95 High Flow Nasal Cannula 25.00 73 04/07/17 06:00 105 04/07/17 04:00 99.9 29 128/77 (94) Intake and Output 04/07/17 04/07/17 04/08/17 08:00 16:00 00:00 Intake Total 700 ml Output Total 1900 ml Balance -1200 ml Result Diagram: 04/07/17 0445 04/07/17 0445 Other Results Microbiology Date/Time Source Procedure Growth Status 04/04/17 17:34 Fluid Peritoneal Fluid Gram Stain - Final Complete 04/04/17 17:34 Fluid Peritoneal Fluid Body Fluid Culture - Final NO GROWTH IN 72 HRS.--AEROBICALLY OR ... Complete 04/04/17 21:30 Sputum Endotracheal Gram Stain - Final Complete 04/04/17 21:30 Sputum Endotracheal Sputum Culture - Final MODERATE GROWTH NORMAL RESPIRATORY SOLO Complete 04/04/17 20:00 Urine Catheterized Urine Urine Culture - Final NO GROWTH IN 48 HOURS. Complete Imaging Last Impressions Abdomen X-Ray 04/02/17 0600 Signed Impressions: Service Date/Time: Sunday, April 02, 2017 06:08 - CONCLUSION: No dilated bowel loops. Suspected ascites. Miles Ge Jr., MD Chest X-Ray 04/02/17 0000 Signed Impressions: Service Date/Time: Sunday, April 02, 2017 13:18 - CONCLUSION: 1. Improving aeration in both lungs with resolving bibasilar atelectatic changes. 2. Endotracheal tube is been pulled back to the thoracic inlet and I believe the nasogastric tube is now identified with the tip in the midesophagus, above the GE junction. 3. Right IJ central venous catheter and a Dobbhoff feeding tube are stable in position. Michael Oliveira MD Abdomen Ultrasound 04/02/17 0000 Signed Impressions: Service Date/Time: Sunday, April 02, 2017 10:36 - CONCLUSION: 1. There is a large amount of ascites. Marked was placed on the right lower quadrant with patient lying on back with head elevated to about 30-40. Distance from skin to peritoneal surface is 2.2 cm and maximal safe depth is 4.4 cm. Kyle Thorpe MD CT Angiography 03/27/17 0000 Signed Impressions: Service Date/Time: Monday, March 27, 2017 03:55 - CONCLUSION: 1. Mixed groundglass opacity and airspace consolidation in both upper lobes. Differential diagnosis includes infection, aspiration and pulmonary hemorrhage. 2. Moderate pleural effusions with dependent consolidation and atelectasis at both lung bases. 3. Hepatomegaly with ascites. 4. Contrast bolus suboptimal but no pulmonary emboli identified. Kyle Thorpe MD Cyst Biopsy Asp-Paracentesis US 03/20/17 0600 Signed Impressions: Service Date/Time: Monday, March 20, 2017 09:42 - CONCLUSION: Uncomplicated ultrasound guided paracentesis. Kareem Mahan MD Lower Extremity Ultrasound 03/19/17 1441 Signed Impressions: Service Date/Time: Sunday, March 19, 2017 15:40 - CONCLUSION: 1. No evidence of deep venous thrombosis. Claudio Argueta MD Liver Ultrasound 03/19/17 0000 Signed Impressions: Service Date/Time: Sunday, March 19, 2017 18:23 - CONCLUSION: 1. Moderate ascites. Thickened gallbladder wall with sludge. Mild hepatosplenomegaly. Kyle Thorpe MD Chest x-ray portable done on 03/27 post intubation was personally reviewed: ET tube above antonio, right IJ central line with tip overlying SVC, NG tube in place, extensive bilateral infiltrates involving almost the entire lung lopez. Last [address] Angiography 03/27/17 0000 Signed Impressions: Service Date/Time: Monday, March 27, 2017 03:55 - CONCLUSION: 1. Mixed groundglass opacity and airspace consolidation in both upper lobes. Differential diagnosis includes infection, aspiration and pulmonary hemorrhage. 2. Moderate pleural effusions with dependent consolidation and atelectasis at both lung bases. 3. Hepatomegaly with ascites. 4. Contrast bolus suboptimal but no pulmonary emboli identified. Kyle Thorpe MD Last Impressions Chest X-Ray 03/26/17 0000 Signed Impressions: Service Date/Time: Sunday, March 26, 2017 10:30 - CONCLUSION: 1. New alveolar infiltrates in both lungs which may represent pulmonary edema which may be noncardiogenic in origin. 2. Denser course infiltrates in both lung bases likely representing scarring. Ap Zamora MD Abdomen Ultrasound 03/25/17 0000 Signed Impressions: Service Date/Time: Saturday, March 25, 2017 10:49 - CONCLUSION: 1. Very subtle ascites without sufficient pocket for safe paracentesis. Hipolito Palencia MD Cyst Biopsy Asp-Paracentesis US 03/20/17 0600 Signed Impressions: Service Date/Time: Monday, March 20, 2017 09:42 - CONCLUSION: Uncomplicated ultrasound guided paracentesis. Kareem Mahan MD Lower Extremity Ultrasound 03/19/17 1441 Signed Impressions: Service Date/Time: Sunday, March 19, 2017 15:40 - CONCLUSION: 1. No evidence of deep venous thrombosis. Claudio Argueta MD Liver Ultrasound 03/19/17 0000 Signed Impressions: Service Date/Time: Sunday, March 19, 2017 18:23 - CONCLUSION: 1. Moderate ascites. Thickened gallbladder wall with sludge. Mild hepatosplenomegaly. Kyle Thorpe MD Objective Remarks HEENT/ Neuro: Alert awake oriented 3. Lethargic with some generalized weakness. No focal deficits Neck: Right IJ central line in place. Chest/Pulm: Few rhonchi, and basilar crackles equal air entry bilaterally, no wheezing. On Hi [place] NC with 70% FiO2 CVS: S1-S2 regular, no murmur. Tachycardic rhythm GI/abdomen: Abdomen distended with reaccumulation of ascites fluid, on bedside US 04/07/17. s/p 3L paracentesis 04/04. nontender, bowel sounds active. Significant scrotal edema Extremities: warm bilaterally,+ pedal edema edema, well perfused. Date of Insertion: Mar 27, 2017 Line: Central Venous Catheter Side: Right Location: Internal, Jugular A/P Assessment and Plan Neuro/Psych: Metabolic encephalopathy History of alcohol dependence History of oxycodone use Anxiety disorder on chronic alprazolam History of hepatic encephalopathy Off all continuos sedation. Reduced Librium 20 mg daily 04/06 and stop in 3 days. Continue thiamine/folic acid/MVI Patient was on his home Suboxone 8 mg 4 times a day till 03/28 which was held following intubation as patient requiring deep sedation and neuromuscular blockade. Ammonia level 36 on 04/04/17 PT OOB, OT CV: Sinus tachycardia Pulmonary edema History of hypertension Hypotension Increase IV Lasix to 40 q8hr, additional 20 mg dose today 04/07 Increased spironolactone to 50 mg every 8 hours 04/06 (was on 25 BID) Pulmonary edema may be noncardiogenic Resp: Acute hypoxemic respiratory failure Bilateral pneumonia ARDS Tobaccoism Extubated 04/05, now with increasing oxygen requirement. On high flow-nasal cannula with 70% FiO2 Was Re intubated 04/04 for hypoxemic respiratory failure. Chest x-ray shows worsening infiltrates, today. IV Lasix increased as above CT chest on 03/27 with extensive bilateral infiltrates right greater than left. Initially intubated and placed on mechanical ventilation on 03/27. Was on prone ventilation and inhaled Flolan as well as neuromuscular blockade initially. Albuterol/ipratropium aerosols every 6 hours with albuterol aerosols every 2 hours when necessary. Solu-Medrol 40 mg daily Aggressive pulmonary toilet. EzPAP, Acapella, IS Nicotine patch at 21 mg daily GI/liver: Likely cirrhosis Abdominal ascites C. difficile colitis CT of the abdomen pelvis 04/04 no evidence of significant colitis AMA positive. Elevated iron studies. Neg hepatitis panel. Appears to be carrier for hemochromatosis gene ? Significance. s/p paracentesis 03/20. -3300. Repeat paracentesis on 04/02 with 3.8 L fluid removed and again 04/04 with 3L removed. Repeat again today due to worsening respiratory status No evidence of SBP on fluid studies 04/04/17. Ursodiol to be continued possible primary biliary cirrhosis Previous fluid studies Noted 579 WBC and peritoneal fluid however peritoneal fluid cultures negative. Was on Rocephin from 03/20 - 03/27 Continue lactulose 30 cc daily, hold for diarrhea. Continue Aldactone, IV Lasix-see above Will need liver biopsy at some point Diet per speech : Bowden catheterization for accurate intake output in critically ill patient with sepsis/pneumonia Continue Bowden catheter, patient has significant scrotal edema pedal been difficult to use condom catheter, and difficult to get accurate intake output without Bowden Endo: Sliding-scale insulin if needed for glycemic control. Electrolyte replacement per protocol Renal: Acute kidney injury Strict intake output, monitor and replete electrolytes, follow BUN/creatinine. Creatinine now 1.03 slightly improved. UO 4.0 L in 24 hours Heme: Leukocytosis Macrocytic anemia Thrombocytopenia Monitor CBC daily. Follow trends. Continue MVI/folic acid. No indications for transfusion of blood products at this time ID: Sepsis/pneumonia with ARDS SBP - culture negative C diff colitis Stool positive for C diff by PCR -On PO vancomycin 04/02. IV Flagyl 500 q8 04/04. DCd Zosyn 03/27- 04/04- D/W Dr. Farias Stat CT abd pelvis with Oral contrast 04/04-no evidence of significant colitis Previously on Rocephin from 03/20 -03/27. Status post 1 dose vancomycin 03/27. Zosyn 03/27-04/04. Added Zyvox 03/27 following intubation. Off Zyvox and Levaquin , Paracentesis repeated on 04/02, 04/04 and fluid sent for Gram stain and cultures- negative to date. Repeated sputum gm stain and C/S on 04/03 cultures negative to date All cultures remain negative so far Urine negative for strep pneumo and Legionella antigen Sputum for Gram stain and cultures obtained after intubation -> no growth so far. MSK: Physical therapy. OOB to stretcher chair. OT FEN: Hyponatremia Hypo-magnesium Hyponatremia most likely from liver cirrhosis Replacing electrolytes as clinically indicated Access -Right IJ central line 03/27. Prophylaxis - GI - pantoprazole - DVT - SCD/ pharmacological prophylaxis with subcutaneous heparin 5000 units every [address] Stoddard updated patient's mother on 03/28 and 03/29 regarding current clinical status including prone ventilation and possible need for prolonged mechanical ventilation. She voiced understanding and was agreeable with plan of care. Dr. Stoddard updated patient's mother on 04/03 regarding current clinical status and she voiced understanding. I have updated patient;s mother on 04/06/17 Overall impression: Patient remains critically ill but now showing signs of improvement. Sepsis persists though as evidenced by elevated white count. Now with worsening hypoxemic respiratory failure on 70% FiO2 Critical Care time excluding procedures : 32 mins Cassy Walker MD Apr 07, 2017 09:56
--- NOTE | 2017-04-07 12:29 | HHI.IDPN ---
Subjective Subjective Remarks O2 reqwuirement s go up + low grade temps up to 100.5 No cough no expectoration increasing abd girth Liquid diarreha, up to 700 cc Antibiotics PO vanco iv flagyl Lines Line sites with no e.o infection Past Medical History reviewed. Allergies: Coded Allergies: clarithromycin (Unverified Allergy, Severe, Rash, 03/19/17) clindamycin (Unverified Allergy, Severe, RASH, 03/19/17) Objective . Vital Signs Date Time Temp Pulse Resp B/P (MAP) Pulse Ox O2 Delivery O2 Flow Rate FiO2 04/07/17 12:00 107 04/07/17 10:00 112 04/07/17 08:00 113 04/07/17 08:00 100.2 110 20 122/85 (97) 95 04/07/17 07:44 95 High Flow Nasal Cannula 25.00 73 04/07/17 07:00 94 Nasal Cannula 70 04/07/17 06:00 105 04/07/17 04:00 99.9 109 29 128/77 (94) 93 04/07/17 04:00 109 04/07/17 02:00 112 04/07/17 00:00 108 04/07/17 00:00 99.9 108 23 119/64 (82) 95 04/06/17 22:00 110 04/06/17 22:00 94 High Flow Nasal Cannula 25.00 70 04/06/17 20:00 99.7 106 31 128/77 (94) 96 04/06/17 20:00 106 04/06/17 19:54 98 Non-Rebreather 15.00 100 04/06/17 19:00 96 Non-Rebreather 15.00 04/06/17 18:00 108 04/06/17 16:00 112 04/06/17 16:00 99.3 112 27 117/62 (80) 89 04/06/17 14:00 114 . Laboratory Tests Test 04/06/17 05:40 04/07/17 04:45 White Blood Count 33.2 TH/MM3 33.3 TH/MM3 Red Blood Count 2.60 MIL/MM3 2.62 MIL/MM3 Hemoglobin 10.0 GM/DL 9.7 GM/DL Hematocrit 29.3 % 29.4 % Mean Corpuscular Volume 112.6 FL 112.5 FL Mean Corpuscular Hemoglobin 38.6 PG 37.3 PG Mean Corpuscular Hemoglobin Concent 34.3 % 33.1 % Red Cell Distribution Width 17.2 % 17.8 % Platelet Count 120 TH/MM3 124 TH/MM3 Mean Platelet Volume 7.8 FL 7.8 FL CBC Comment AUTO DIFF AUTO DIFF Differential Total Cells Counted 100 100 Neutrophils % (Manual) 83 % 83 % Band Neutrophils % 2 % 2 % Lymphocytes % 9 % 6 % Monocytes % 5 % 9 % Eosinophils % 1 % Neutrophils # (Manual) 28.2 TH/MM3 28.3 TH/MM3 Differential Comment FINAL DIFF MANUAL FINAL DIFF MANUAL Platelet Estimate LOW LOW Platelet Morphology Comment NORMAL NORMAL Target Cells 2+ 1+ Neutrophils (%) (Auto) 84.4 % Lymphocytes (%) (Auto) 6.1 % Monocytes (%) (Auto) 9.2 % Eosinophils (%) (Auto) 0.1 % Basophils (%) (Auto) 0.2 % Neutrophils # (Auto) 28.1 TH/MM3 Lymphocytes # (Auto) 2.0 TH/MM3 Monocytes # (Auto) 3.1 TH/MM3 Eosinophils # (Auto) 0.0 TH/MM3 Basophils # (Auto) 0.1 TH/MM3 Laboratory Tests Test 04/06/17 05:40 04/07/17 04:45 04/07/17 06:40 Blood Urea Nitrogen 56 MG/DL 41 MG/DL Creatinine 1.19 MG/DL 1.03 MG/DL Random Glucose 118 MG/DL 151 MG/DL Total Protein 6.5 GM/DL 6.5 GM/DL Albumin 4.1 GM/DL 4.2 GM/DL Calcium Level 9.1 MG/DL 9.0 MG/DL Alkaline Phosphatase 45 U/L 44 U/L Aspartate Amino Transf (AST/SGOT) 62 U/L 80 U/L Alanine Aminotransferase (ALT/SGPT) 39 U/L 37 U/L Total Bilirubin 4.0 MG/DL 3.8 MG/DL Sodium Level 142 MEQ/L 142 MEQ/L Potassium Level 3.3 MEQ/L 3.1 MEQ/L Chloride Level 105 MEQ/L 105 MEQ/L Carbon Dioxide Level 28.2 MEQ/L 27.8 MEQ/L Anion Gap 9 MEQ/L 9 MEQ/L Estimat Glomerular Filtration Rate 68 ML/MIN 80 ML/MIN Phosphorus Level 2.7 MG/DL Magnesium Level 2.2 MG/DL Ammonia 35 MCMOL/L Microbiology Date/Time Source Procedure Growth Status 04/04/17 17:34 Fluid Peritoneal Fluid Gram Stain - Final Complete 04/04/17 17:34 Fluid Peritoneal Fluid Body Fluid Culture - Final NO GROWTH IN 72 HRS.--AEROBICALLY OR ... Complete 04/04/17 21:30 Sputum Endotracheal Gram Stain - Final Complete 04/04/17 21:30 Sputum Endotracheal Sputum Culture - Final MODERATE GROWTH NORMAL RESPIRATORY DEDRICK Complete 04/04/17 20:00 Urine Catheterized Urine Urine Culture - Final NO GROWTH IN 48 HOURS. Complete Imaging Last Impressions Chest X-Ray 04/07/17 0600 Signed Impressions: Service Date/Time: Friday, April 07, 2017 03:58 - CONCLUSION: Increasing airspace opacities throughout both lungs with lobar consolidation left lower lobe. Miles Paul MD Abdomen/Pelvis CT 04/04/17 0000 Signed Impressions: Service Date/Time: March 15:55 - CONCLUSION: 1. Hepatosplenomegaly. 2. Abdominal ascites. 3. Oral contrast has passed throughout the small bowel and colon. There is no significant thickening of the colonic wall identified. The colon is decompressed. 4. Consolidation in both lung bases with minimal basilar effusions. 5. Nasogastric tube within the stomach. Bo Wall MD Abdomen X-Ray 04/02/17 0600 Signed Impressions: Service Date/Time: Sunday, April 02, 2017 06:08 - CONCLUSION: No dilated bowel loops. Suspected ascites. Miles Ge Jr., MD Abdomen Ultrasound 04/02/17 0000 Signed Impressions: Service Date/Time: Sunday, April 02, 2017 10:36 - CONCLUSION: 1. There is a large amount of ascites. Marked was placed on the right lower quadrant with patient lying on back with head elevated to about 30-40. Distance from skin to peritoneal surface is 2.2 cm and maximal safe depth is 4.4 cm. Kyle Thorpe MD CT Angiography 03/27/17 0000 Signed Impressions: Service Date/Time: Monday, March 27, 2017 03:55 - CONCLUSION: 1. Mixed groundglass opacity and airspace consolidation in both upper lobes. Differential diagnosis includes infection, aspiration and pulmonary hemorrhage. 2. Moderate pleural effusions with dependent consolidation and atelectasis at both lung bases. 3. Hepatomegaly with ascites. 4. Contrast bolus suboptimal but no pulmonary emboli identified. Kyle Thorpe MD Cyst Biopsy Asp-Paracentesis US 03/20/17 0600 Signed Impressions: Service Date/Time: Monday, March 20, 2017 09:42 - CONCLUSION: Uncomplicated ultrasound guided paracentesis. Kareem Mahan MD Lower Extremity Ultrasound 03/19/17 1441 Signed Impressions: Service Date/Time: Sunday, March 19, 2017 15:40 - CONCLUSION: 1. No evidence of deep venous thrombosis. Claudio Argueta MD Liver Ultrasound 03/19/17 0000 Signed Impressions: Service Date/Time: Sunday, March 19, 2017 18:23 - CONCLUSION: 1. Moderate ascites. Thickened gallbladder wall with sludge. Mild hepatosplenomegaly. Kyle Thorpe MD Physical Exam CONSTITUTIONAL/GENERAL: This is an adequately nourished patient, in no apparent distress. On NC O 2 TUBES/LINES/DRAINS: SKIN: No jaundice, rashes, or lesions. Skin temperature appropriate. Not diaphoretic. CARDIOVASCULAR: Regular rate and rhythm without murmurs, gallops, or rubs. No JVD. Peripheral pulses symmetric. RESPIRATORY/CHEST: Symmetric, unlabored respirations. Clear to auscultation. Breath sounds equal bilaterally. GASTROINTESTINAL: Abdomen is very distended and quite tight today Not tender palpation, + distended. No hepato-splenomegaly, or palpable masses appreaciated. Bowel sounds present. Has dignishield i place with liquid brown stool GENITOURINARY: Without palpable bladder distension. Bowden catheter in place with clierar yellow urine MUSCULOSKELETAL: Extremities without clubbing, cyanosis, resolved edema, No mottling or clubbing. NEUROLOGICAL: awake, alert communicates, non focal not confused PSYCHIATRIC: calm and cooperative Assessment & Plan Remarks PNA, culture negative - crypto also negative last clx with nl resp dedrick Recurretnt acut VDRF: extubated - worsening resp status, likley 2/2 fluid overload, recurrent Liver cirrhosis Critically ill again resp astable tense ascites sp therapeutic paracentesis x 2. - negative clx C.diff - worsening stool output Severe leukocytosis , leukemoid reaction ? from C.diff - also sterroida might contributing Pt is clincially stable Recs: probably will need repeat paracenthesis Continue vanco PO cont IV flagyl rechk blood clx if worsening fever or othe rsigns of infection will restart systemic abx autumn RN Elda Kumar Dr, MD Apr 07, 2017 12:29
--- NOTE | 2017-04-07 14:06 | PD.PROCEDR ---
Procedure Note Procedure Preoperative diagnosis: Reaccumulation of Ascites, with a respiratory compromise Postop diagnosis: Same Procedure: Ultrasound-guided abdominal paracentesis RLQ (therapeutic) Informed consent: Obtained from patient's mother. Anesthesia used: 1% lidocaine for local infiltration anesthesia Procedure: After sterile prepping and draping using 1% lidocaine for local infiltration anesthesia, small stab wound was made on the right lower quadrant at the ultrasound guided marked site. The paracentesis Angiocath was used to advance catheter into peritoneal cavity while applying suction until ascites fluid was obtained, following which the catheter was advanced into the peritoneal cavity and the needle was removed. Connector tubing was attached to the catheter and attached to a Vacutainer bottle and 3.8 L of dark straw-colored , slightly blood tinged ascites fluid was drained. Following this introducer catheter was removed and pressure was held on the drainage site. Patient tolerated the procedure well with no immediate complications noted. No studies were ordered, this was a therapeutic only paracentesis Cassy Walker MD Apr 07, 2017 14:06
--- NOTE | 2017-04-07 22:15 | HHI.PR ---
Addendum to Inpatient Note Addendum Reason: Additional Documentation Additional Information I will be off April [address] Young is covering for me Elda Farias MD Apr 07, 2017 22:15
[2017-04-08] VITALS (15 sets, daily range): BP systolic 110–130; BP diastolic 60–72; PULSE 102–118; RESP 20–28; TEMP 98.1–99.3; O2SAT 92–99
[2017-04-08] MEDS: LORazepam 1 MG TAB PO PRN ×2 (01:36→22:48)
[2017-04-08] MEDS: ALBUMIN HUMAN 25% 25 GM/100 ML BAGP IV SCH ×2 (01:36→13:50)
[2017-04-08] MEDS: VANCOMYCIN 500 MG VIAL (FOR ORAL USE ONLY) PO SCH ×4 (03:11→20:05)
[2017-04-08] MEDS: INSULIN NovoLIN REGULAR SUPPLEMENTAL SCALE SQ SCH ×5 (03:11→20:00)
[2017-04-08] MEDS: metroNIDAZOLE 500 MG INJ 100 ML IV SCH ×3 (03:11→20:04)
[2017-04-08] MEDS: RESP: ALBUTEROL 2.5 MG/IPRATROPIUM 0.5 MG NEB (SCH) NEB ×6 (03:30→23:49)
[2017-04-08 03:44] LABS: HEMATOCRIT 30.7 % (39.0-51.0); MEAN CELL VOLUME 111.8 FL (80.0-100.0); MEAN CORPUSCULAR HEMOGLOBIN 37.2 PG (27.0-34.0); MEAN CORPUSCULAR HGB CONC 33.3 % (32.0-36.0); PLATELET COUNT 118 TH/MM3 (150-450); RED BLOOD COUNT 2.74 MIL/MM3 (4.50-5.90); RED CELL DISTRIBUTION WIDTH 17.6 % (11.6-17.2); WHITE BLOOD COUNT 37.5 TH/MM3 (4.0-11.0)
[2017-04-08 03:46] LABS: HEMO FLAGS AUTO DIFF
[2017-04-08 04:12] LABS: BICARBONATE 28.8 MEQ/L (21.0-32.0); POTASSIUM 3.5 MEQ/L (3.5-5.1)
[2017-04-08] MEDS: PCA - TOTAL MG DILAUDID DELIVERED PER SHIFT OTHER SCH ×3 (05:25→21:18)
[2017-04-08] MEDS: METOCLOPRAMIDE HCL 10 MG/2 ML VIAL IV PUSH SCH ×3 (05:28→20:05)
[2017-04-08] MEDS: POTASSIUM CHLOR 40 MEQ PREMIX 100 ML IV PRN (05:29)
[2017-04-08 05:42] LABS: METAMYELOCYTES 1 % (0-1); NEUTROPHIL # MANUAL DIFF 33.4 TH/MM3 (1.8-7.7); POLYS (SEG NEUTROPHILS) 88 % (16-70); SCAN/DIFF FINAL DIFF MANUAL; WBC DIFF SAMPLE 100
[2017-04-08 05:43] LABS: PLATELET ESTIMATE SMEAR LOW (NORMAL); PLATELET MORPHOLOGY NORMAL (NORMAL)
[2017-04-08 05:44] LABS: TARGET CELLS 1+ (NORMAL)
--- NOTE | 2017-04-08 07:54 | HHI.CCPN ---
Subjective Remarks/Hospital Course 03/26: This is a 42-year-old male. Date of admission 03/19/2017. Date of consultation 03/27/2017. Past medical history includes EtOH use abuse, tobaccoism, hypertension Gastroesophageal reflux disease and DDD. Patient is on Suboxone for prior opiate abuse. He drinks one bottle of vodka daily patient is on chronic alprazolam at home on lactulose and Lasix. Patient was originally admitted with abdominal ascites. Status post paracentesis 03/20-3300 cc. Possible SBP. Placed on ceftriaxone. Blood work included a positive AMA and elevated iron studies. GS re-consulted. Over the past 24 hours. Patient has had increased oxygen requirements from 4 L currently 2 nonrebreather. He denies chest pressure respiratory denies cough. No significant peripheral edema. Patient's abdomen is quite distended however ultrasound reveals minimal ascites. Awake and alert. His only complaint is "dry throat from aerosolized mask 03/27: Patient developed worsening respiratory distress during the day and was placed on BiPAP with full facemask. He was requiring 100% FiO2 with BiPAP settings at +15/+8. His respiratory status declined as a day progress. Had multiple discussions with patient as well as his family members including reviewing his CT chest from early this morning which revealed extensive pulmonary infiltrates (right greater than left) and explained probable need for proceeding with intubation and mechanical ventilation. Subsequently patient's O2 sats dropped in the upper 80s despite BiPAP and patient was intubated and placed on mechanical ventilation around 6 PM. I subsequently proceeded with central line placement. Postintubation chest x-ray revealed extensive bilateral pulmonary infiltrates which appeared to have progress since his previous chest x-ray. Patient was requiring high doses of sedatives including Versed/fentanyl and propofol drips to keep him sedated. 03/28: Patient placed on prone ventilation last night and inhaled Flolan. Currently sedated, orally intubated on mechanical ventilation. On neuromuscular blockade. Remains on Versed/propofol/Dilaudid drips for sedation. Nimbex for neuromuscular blockade. 03/29: Remains sedated, orally intubated on mechanical ventilation, on neuromuscular blockade. Inhaled Flolan to be decreased from 20,000 ng per KG per minute to 10,000 ng per KG per minute this morning. O2 sats in the mid 90s. Vent mode change from pressure control to PRVC last night for elevation of PCO2. 09/16: Down to FiO2 0.50, PEEP 15. Will convert to regular bed. Leave on PRVC. Update, converted to APRV due to lack of progress on conventional mode. Improved PO2 to 114 and no CO2 retention. 03/31: Improved oxygenation. Lung lopez clearing on CXR. A little dry perhaps; will continue maintenance iv. Organism? Relaxant off 24 24hrs now, weaning dilaudid and versed. 04/01: Continued improvement in gas exchange but persistent ARDS pattern without diagnosis. Suspect infectious etiology and continue broad coverage. Withdrawal symptoms controlled, may need precedex to extubate. 04/02: Remains sedated, orally intubated on mechanical ventilation on APRV mode. Abdomen appears distended and firm currently. Stool positive for C. difficile by PCR. Had about 500 cc of diarrhea overnight. Tolerating tube feeds 04/03: Sedated, arousable, remains orally intubated on mechanical ventilation. Underwent paracentesis on 04/02 with drainage of 3.8 L of ascites fluid. Switched from APRV mode to PRVC mode mech vent on 04/02 and tolerating well remains on 35% FiO2 and PEEP at +14 this morning. Started on oral vancomycin for C. difficile colitis on 04/02. Tolerating tube feeds. On propofol and Versed drips currently for sedation. 04/04: Patient was extubated yesterday but got reintubated today sedimentationist for increasing tachypnea respiratory distress and hypoxia. Chest x-ray showed bilateral worsening infiltrates. Patient's white count has increased from 29, 000 to 38,500 indicating possible worsening C. difficile colitis with potential complications. CT of abdomen pelvis ordered stat. Add IV Flagyl 04/05: Remains intubated sedated chest x-ray continues to show pulmonary edema. Urine output 2.2 L in 24 hours creatinine 1.5. WBC trending down from 38.5- 33.1. CT of the abdomen did not show any significant colitis. Status post paracentesis and 3 L fluid removal 04/04/1704/06: Extubated yesterday tolerating well so far. Chest x-ray with stable bilateral infiltrates. Urine output 4.6 L after restarting Lasix 04/05. Appears to have some reaccumulation of ascites. I will increase Aldactone to 50 every 8 hours, currently on 25 twice a day. Creat improved to 1.2, WBC elevated at 33,000 04/07: Increasing oxygen requirement currently on high flow nasal cannula at 70% . Chest x-ray shows some increase in infiltrates. Patient remains AO 3. Urine output 4 L in 24 hours. I will increase Lasix to 40 mg every 8 hours IV, give additional 20 mg of Lasix now. There is reaccumulation of ascites fluid-we 'll repeat paracentesis 04/08: Breathing, comfortably today, FiO2 of hi hayden down to 50%. Chest x-rays pending this time. Urine output 3.8 L, paracentesis performed yesterday with 3.8 L removed. Achieving negative balance. Increase activity today, up to chair. Objective Vital Signs Date Time Temp Pulse Resp B/P (MAP) Pulse Ox O2 Delivery O2 Flow Rate FiO2 04/08/17 06:00 108 04/08/17 04:00 99.3 25 113/60 (77) 92 04/07/17 23:39 High Flow Nasal Cannula 25.00 50 Intake and Output 04/08/17 04/08/17 04/09/17 08:00 16:00 00:00 Intake Total 1792 ml Output Total 1850 ml Balance -58 ml Result Diagram: 04/08/17 0328 04/08/17 0328 Imaging Last Impressions Abdomen X-Ray 04/02/17 0600 Signed Impressions: Service Date/Time: Sunday, April 02, 2017 06:08 - CONCLUSION: No dilated bowel loops. Suspected ascites. Miles Ge Jr., MD Chest X-Ray 04/02/17 0000 Signed Impressions: Service Date/Time: Sunday, April 02, 2017 13:18 - CONCLUSION: 1. Improving aeration in both lungs with resolving bibasilar atelectatic changes. 2. Endotracheal tube is been pulled back to the thoracic inlet and I believe the nasogastric tube is now identified with the tip in the midesophagus, above the GE junction. 3. Right IJ central venous catheter and a Dobbhoff feeding tube are stable in position. Michael Oliveira MD Abdomen Ultrasound 04/02/17 0000 Signed Impressions: Service Date/Time: Sunday, April 02, 2017 10:36 - CONCLUSION: 1. There is a large amount of ascites. Marked was placed on the right lower quadrant with patient lying on back with head elevated to about 30-40. Distance from skin to peritoneal surface is 2.2 cm and maximal safe depth is 4.4 cm. Kyle Thorpe MD CT Angiography 03/27/17 0000 Signed Impressions: Service Date/Time: Monday, March 27, 2017 03:55 - CONCLUSION: 1. Mixed groundglass opacity and airspace consolidation in both upper lobes. Differential diagnosis includes infection, aspiration and pulmonary hemorrhage. 2. Moderate pleural effusions with dependent consolidation and atelectasis at both lung bases. 3. Hepatomegaly with ascites. 4. Contrast bolus suboptimal but no pulmonary emboli identified. Kyle Thorpe MD Cyst Biopsy Asp-Paracentesis US 03/20/17 0600 Signed Impressions: Service Date/Time: Monday, March 20, 2017 09:42 - CONCLUSION: Uncomplicated ultrasound guided paracentesis. Kareem Mahan MD Lower Extremity Ultrasound 03/19/17 1441 Signed Impressions: Service Date/Time: Sunday, March 19, 2017 15:40 - CONCLUSION: 1. No evidence of deep venous thrombosis. Claudio Argueta MD Liver Ultrasound 03/19/17 0000 Signed Impressions: Service Date/Time: Sunday, March 19, 2017 18:23 - CONCLUSION: 1. Moderate ascites. Thickened gallbladder wall with sludge. Mild hepatosplenomegaly. Kyle Thorpe MD Chest x-ray portable done on 03/27 post intubation was personally reviewed: ET tube above antonio, right IJ central line with tip overlying SVC, NG tube in place, extensive bilateral infiltrates involving almost the entire lung lopez. Last [address] Angiography 03/27/17 0000 Signed Impressions: Service Date/Time: Monday, March 27, 2017 03:55 - CONCLUSION: 1. Mixed groundglass opacity and airspace consolidation in both upper lobes. Differential diagnosis includes infection, aspiration and pulmonary hemorrhage. 2. Moderate pleural effusions with dependent consolidation and atelectasis at both lung bases. 3. Hepatomegaly with ascites. 4. Contrast bolus suboptimal but no pulmonary emboli identified. Kyle Thorpe MD Last Impressions Chest X-Ray 03/26/17 0000 Signed Impressions: Service Date/Time: Sunday, March 26, 2017 10:30 - CONCLUSION: 1. New alveolar infiltrates in both lungs which may represent pulmonary edema which may be noncardiogenic in origin. 2. Denser course infiltrates in both lung bases likely representing scarring. Ap Zamora MD Abdomen Ultrasound 03/25/17 0000 Signed Impressions: Service Date/Time: Saturday, March 25, 2017 10:49 - CONCLUSION: 1. Very subtle ascites without sufficient pocket for safe paracentesis. Hipolito Palencia MD Cyst Biopsy Asp-Paracentesis US 03/20/17 0600 Signed Impressions: Service Date/Time: Monday, March 20, 2017 09:42 - CONCLUSION: Uncomplicated ultrasound guided paracentesis. Kareem Mahan MD Lower Extremity Ultrasound 03/19/17 1441 Signed Impressions: Service Date/Time: Sunday, March 19, 2017 15:40 - CONCLUSION: 1. No evidence of deep venous thrombosis. Claudio Argueta MD Liver Ultrasound 03/19/17 0000 Signed Impressions: Service Date/Time: Sunday, March 19, 2017 18:23 - CONCLUSION: 1. Moderate ascites. Thickened gallbladder wall with sludge. Mild hepatosplenomegaly. Kyle Thorpe MD Objective Remarks HEENT/ Neuro: Alert awake oriented 3. Generalized weakness. No focal deficits Neck: Right IJ central line in place. Chest/Pulm: Few rhonchi, and basilar crackles equal air entry bilaterally, no wheezing. On Hi Hayden NC with 50% FiO2 CVS: S1-S2 regular, no murmur. Tachycardic rhythm GI/abdomen: Abdomen distended with reaccumulation of ascites fluid, on bedside US 04/07/17. s/p 3.8L paracentesis 04/07. nontender, bowel sounds active. Significant scrotal edema Extremities: warm bilaterally,+ pedal edema edema, well perfused. Date of Insertion: Mar 27, 2017 Line: Central Venous Catheter Side: Right Location: Internal, Jugular A/P Assessment and Plan Neuro/Psych: Metabolic encephalopathy Alcohol dependence History of oxycodone use Anxiety disorder on chronic alprazolam History of hepatic encephalopathy Off all continuos sedation. Reduced Librium 20 mg daily 04/06 and stop 03/29/17. Continue thiamine/folic acid/MVI Patient was on his home Suboxone 8 mg 4 times a day till 03/28 which was held following intubation Ammonia level 36 on 04/04/17 PT OOB, OT, up to chair today CV: Sinus tachycardia Pulmonary edema, noncardiogenic History of hypertension IV Lasix to 40 q8hr, spironolactone to 50 mg every 8 hours 04/06 (was on 25 BID) Pulmonary edema may be noncardiogenic Achieving negative fluid balance now Resp: Acute hypoxemic respiratory failure Bilateral pneumonia ARDS Tobaccoism Extubated 04/05. On high flow-nasal cannula with 50% FiO2 Was Re intubated 04/04 for hypoxemic respiratory failure. CT chest on 03/27 with extensive bilateral infiltrates right greater than left. Initially intubated and placed on mechanical ventilation on 03/27. Was on prone ventilation and inhaled Flolan as well as neuromuscular blockade initially. Albuterol/ipratropium aerosols every 6 hours with albuterol aerosols every 2 hours when necessary. Solu-Medrol 40 mg daily- DC today 04/08/17 Aggressive pulmonary toilet. EzPAP, Acapella, IS Nicotine patch at 21 mg daily GI/liver: Likely cirrhosis Abdominal ascites C. difficile colitis CT of the abdomen pelvis 04/04 no evidence of significant colitis AMA positive. Elevated iron studies. Neg hepatitis panel. Appears to be carrier for hemochromatosis gene ? Significance. s/p paracentesis 03/20. -3300. Repeat 04/02 with 3.8 L fluid removed and again with 3L removed. 04/07 3.8L removed If recurrent, consider TIPS No evidence of SBP on fluid studies 04/04/17. Ursodiol to be continued possible primary biliary cirrhosis Previous fluid studies Noted 579 WBC and peritoneal fluid however peritoneal fluid cultures negative. Was on Rocephin from 03/20 - 03/27 Continue lactulose 30 cc daily, hold for diarrhea. Continue Aldactone, IV Lasix-see above. Will need liver biopsy at some point. Diet per speech : Bowden catheterization for accurate intake output in critically ill patient with sepsis/pneumonia Continue Bowden catheter, patient has significant scrotal edema pedal been difficult to use condom catheter, and difficult to get accurate intake output without Bowden Endo: Sliding-scale insulin if needed for glycemic control. Electrolyte replacement per protocol Renal: Acute kidney injury Strict intake output, monitor and replete electrolytes, follow BUN/creatinine. Creatinine now 1.0 slightly improved. UO 3.8 L in 24 hours Heme: Leukocytosis Macrocytic anemia Thrombocytopenia Monitor CBC daily. Follow trends. Continue MVI/folic acid. No indications for transfusion of blood products at this time ID: Sepsis/pneumonia with ARDS SBP - culture negative C diff colitis Stool positive for C diff by PCR -On PO vancomycin 04/02. IV Flagyl 500 q8 04/04. DCd Zosyn 03/27- 04/04- D/W Dr. Farias Stat CT abd pelvis with Oral contrast 04/04-no evidence of significant colitis WBC continues to increase. IV Solu Medrol discontinued today Previously on Rocephin from 03/20 -03/27. Status post 1 dose vancomycin 03/27. Zosyn 03/27-04/04. Added Zyvox 03/27 following intubation. Off Zyvox and Levaquin , Paracentesis repeated on 04/02, 04/04 and fluid sent for Gram stain and cultures- negative to date. Rpt sputum gm stain and C/S on 04/03 cultures negative to date All cultures remain negative so far Urine negative for strep pneumo and Legionella antigen Sputum for Gram stain and cultures obtained after intubation -> no growth so far. MSK: Physical therapy. OOB to stretcher chair. OT FEN: Hyponatremia Hypo-magnesium Hyponatremia most likely from liver cirrhosis Replacing electrolytes as clinically indicated Access -Right IJ central line 03/27-DC after establishing peripheral IV Prophylaxis - GI - pantoprazole - DVT - SCD/ pharmacological prophylaxis with subcutaneous heparin 5000 units every [address] Stoddard updated patient's mother on 03/28 and 03/29 regarding current clinical status including prone ventilation and possible need for prolonged mechanical ventilation. She voiced understanding and was agreeable with plan of care. Dr. Stoddard updated patient's mother on 04/03 regarding current clinical status and she voiced understanding. I have updated patients mother on 04/06/17, 04/07/17 Overall impression: Patient remains critically ill but now showing signs of improvement. Sepsis persists though as evidenced by elevated white count. Now with worsening hypoxemic respiratory failure on 70% FiO2 Level 3 Cassy Walker MD Apr 08, 2017 07:54
[2017-04-08] MEDS: CHLORHEXIDINE 0.12% (ORAL KIT) 15 ML CUP MT SCH ×2 (08:00→20:00)
[2017-04-08] MEDS: PANTOPRAZOLE SODIUM 40 MG VIAL IV SCH (08:40)
[2017-04-08] MEDS: URSODIOL 300 MG CAP PO SCH ×3 (08:40→17:29)
[2017-04-08] MEDS: HEPARIN SODIUM - SQ 10,000 UNITS/ML VIAL SQ SCH ×2 (08:40→20:05)
[2017-04-08] MEDS: THIAMINE HCL 100 MG TAB PO SCH (08:40)
[2017-04-08] MEDS: MULTIVITAMIN TAB PO SCH (08:41)
[2017-04-08] MEDS: LACTULOSE SYRUP 20 GM/30 ML CUP PO SCH (08:41)
[2017-04-08] MEDS: FUROSEMIDE 40 MG/4 ML VIAL IV PUSH SCH ×3 (08:41→23:01)
[2017-04-08] MEDS: SPIRONOLACTONE 50 MG TAB PO SCH ×3 (08:41→23:01)
[2017-04-08] MEDS: FOLIC ACID 1 MG TAB PO SCH (08:41)
[2017-04-08] MEDS: ARTIFICIAL TEARS OPTH OINT 3.5 APPLIC/3.5 GM TUBO EACH EYE SCH ×2 (08:42→20:05)
[2017-04-08] MEDS: SODIUM CHLORIDE 0.9% FLUSH 10 ML FLUSH IV FLUSH SCH ×2 (08:42→20:05)
[2017-04-08] MEDS: RESP: BUDESONIDE 0.5 MG/2 ML NEB NEB SCH ×2 (08:45→19:47)
--- NOTE | 2017-04-08 11:29 | RADRPT ---
EXAM DATE/TIME: 04/08/2017 09:31 [facility] COMPARISON: CHEST SINGLE AP, April 07, 2017, 3:58. INDICATIONS : Shortness of breath. MEDICAL HISTORY : Gastroesophageal reflux disease. Hypertension Renal insufficiency. SURGICAL HISTORY : None. ENCOUNTER: Subsequent ACUITY: 2 weeks PAIN SCORE: 0/10 LOCATION: Bilateral chest FINDINGS: Stable right IJ central line in with tip in the right atrium. Improved diffuse patchy airspace diseas e and left lower lung zone airspace consolidation. Slightly more prominent focal air space consolidat ion in the right lower lung zone. Cardiomediastinal contours are stable. Remainder of exam is unchang ed. CONCLUSION: 1. Significantly improved diffuse bilateral patchy airspace disease consistent with improved pulmonar y edema pattern. 2. Improved left lower lung zone airspace consolidation. 3. Slightly more prominent focal air space consolidation in the right lower lung zone. Hipolito Palencia MD on April 08, 2017 at 11:25 Board Certified Radiologist. This report was verified electronically.
--- NOTE | 2017-04-08 14:24 | HHI.GIFU ---
Subjective Remarks Reconsulted for recurrent ascites. Pt up in chair. He has moderate to large amount of ascites. He denies any abdominal pain. Tolerating diet. Does report that he has been drinking a lot of fluids. Flexiseal out, had a small bm. (Claudia Harvey) Objective Vitals I&O Vital Signs Date Time Temp Pulse Resp B/P (MAP) Pulse Ox O2 Delivery O2 Flow Rate FiO2 04/08/17 12:00 99.0 118 24 130/69 (89) 95 04/08/17 12:00 107 04/08/17 11:24 99 Nasal Cannula 6.00 04/08/17 10:00 115 04/08/17 08:47 94 High Flow Nasal Cannula 20.00 40 04/08/17 08:00 110 04/08/17 08:00 99.3 112 25 127/72 (90) 95 04/08/17 07:00 93 Nasal Cannula 25.00 60 04/08/17 06:00 108 04/08/17 04:00 114 04/08/17 04:00 99.3 114 25 113/60 (77) 92 04/08/17 02:00 108 04/08/17 00:00 99.3 104 20 120/72 (88) 96 04/08/17 00:00 104 04/07/17 23:39 97 High Flow Nasal Cannula 25.00 50 04/07/17 22:00 104 04/07/17 20:00 98.6 106 24 120/84 (96) 100 04/07/17 20:00 106 04/07/17 19:33 100 Nasal Cannula 60 04/07/17 19:33 98 High Flow Nasal Cannula 25.00 60 04/07/17 19:00 100 Nasal Cannula 70 04/07/17 18:00 109 04/07/17 16:00 94 04/07/17 16:00 99.5 94 24 112/70 (84) 98 04/07/17 14:28 22 04/07/17 14:00 106 I/O 04/07/17 04/07/17 04/07/17 04/08/17 04/08/17 04/08/17 07:00 15:00 23:00 07:00 15:00 23:00 Intake Total 700 ml 300 ml 1060 ml 1792 ml Output Total 1900 ml 5950 ml 1850 ml Balance -1200 ml 300 ml -4890 ml -58 ml Intake Oral 500 ml 960 ml 1460 ml IV Total 200 ml 300 ml 100 ml 232 ml Albumin 100 ml Output Urine Total 1700 ml 2000 ml 1750 ml Stool Total 200 ml 150 ml 100 ml Drainage Total 3800 ml Laboratory Laboratory Tests Test 04/07/17 18:00 04/08/17 03:28 Potassium Level 4.0 3.5 White Blood Count 37.5 Red Blood Count 2.74 Hemoglobin 10.2 Hematocrit 30.7 Mean Corpuscular Volume 111.8 Mean Corpuscular Hemoglobin 37.2 Mean Corpuscular Hemoglobin Concent 33.3 Red Cell Distribution Width 17.6 Platelet Count 118 Mean Platelet Volume 7.9 CBC Comment AUTO DIFF Differential Total Cells Counted 100 Neutrophils % (Manual) 88 Lymphocytes % 6 Monocytes % 5 Neutrophils # (Manual) 33.4 Metamyelocytes 1 Differential Comment FINAL DIFF MANUAL Platelet Estimate LOW Platelet Morphology Comment NORMAL Target Cells 1+ Blood Urea Nitrogen 36 Creatinine 1.01 Random Glucose 122 Calcium Level 9.0 Sodium Level 141 Chloride Level 103 Carbon Dioxide Level 28.8 Anion Gap 9 Estimat Glomerular Filtration Rate 82 Date/Time Source Procedure Growth Status 04/07/17 17:36 Blood Peripheral Aerobic Blood Culture - Preliminary NO GROWTH IN 1 DAY Resulted 04/07/17 17:36 Blood Peripheral Anaerobic Blood Culture - Preliminary NO GROWTH IN 1 DAY Resulted 04/04/17 17:34 Fluid Peritoneal Fluid Gram Stain - Final Complete 04/04/17 17:34 Fluid Peritoneal Fluid Body Fluid Culture - Final NO GROWTH IN 72 HRS.--AEROBICALLY OR ... Complete 04/04/17 21:30 Sputum Endotracheal Gram Stain - Final Complete 04/04/17 21:30 Sputum Endotracheal Sputum Culture - Final MODERATE GROWTH NORMAL RESPIRATORY DEDRICK Complete 04/04/17 20:00 Urine Catheterized Urine Urine Culture - Final NO GROWTH IN 48 HOURS. Complete Imaging Last Impressions Chest X-Ray 04/08/17 0000 Signed Impressions: Service Date/Time: Saturday, April 08, 2017 09:31 - CONCLUSION: 1. Significantly improved diffuse bilateral patchy airspace disease consistent with improved pulmonary edema pattern. 2. Improved left lower lung zone airspace consolidation. 3. Slightly more prominent focal air space consolidation in the right lower lung zone. Hipolito Palencia MD Abdomen/Pelvis CT 04/04/17 0000 Signed Impressions: Service Date/Time: March 15:55 - CONCLUSION: 1. Hepatosplenomegaly. 2. Abdominal ascites. 3. Oral contrast has passed throughout the small bowel and colon. There is no significant thickening of the colonic wall identified. The colon is decompressed. 4. Consolidation in both lung bases with minimal basilar effusions. 5. Nasogastric tube within the stomach. Bo Wall MD Abdomen X-Ray 04/02/17 0600 Signed Impressions: Service Date/Time: Sunday, April 02, 2017 06:08 - CONCLUSION: No dilated bowel loops. Suspected ascites. Miles Ge Jr., MD Abdomen Ultrasound 04/02/17 0000 Signed Impressions: Service Date/Time: Sunday, April 02, 2017 10:36 - CONCLUSION: 1. There is a large amount of ascites. Marked was placed on the right lower quadrant with patient lying on back with head elevated to about 30-40. Distance from skin to peritoneal surface is 2.2 cm and maximal safe depth is 4.4 cm. Kyle Thorpe MD CT Angiography 03/27/17 0000 Signed Impressions: Service Date/Time: Monday, March 27, 2017 03:55 - CONCLUSION: 1. Mixed groundglass opacity and airspace consolidation in both upper lobes. Differential diagnosis includes infection, aspiration and pulmonary hemorrhage. 2. Moderate pleural effusions with dependent consolidation and atelectasis at both lung bases. 3. Hepatomegaly with ascites. 4. Contrast bolus suboptimal but no pulmonary emboli identified. Kyle Thorpe MD Cyst Biopsy Asp-Paracentesis US 03/20/17 0600 Signed Impressions: Service Date/Time: Monday, March 20, 2017 09:42 - CONCLUSION: Uncomplicated ultrasound guided paracentesis. Kareem Mahan MD Lower Extremity Ultrasound 03/19/17 1441 Signed Impressions: Service Date/Time: Sunday, March 19, 2017 15:40 - CONCLUSION: 1. No evidence of deep venous thrombosis. Claudio Argueta MD Liver Ultrasound 03/19/17 0000 Signed Impressions: Service Date/Time: Sunday, March 19, 2017 18:23 - CONCLUSION: 1. Moderate ascites. Thickened gallbladder wall with sludge. Mild hepatosplenomegaly. Kyle Thorpe MD Physical Exam HEENT: Normocephalic CHEST: Resp. even/unlabored, on n/c, diminished CARDIAC: RRR ABDOMEN: Abdomen distended with moderate to large amount of ascites, nontender, bowel sounds present. POURER METAL: Awake, oriented, follows commands (Claudia Harvey) Assessment and Plan Plan ASSESSMENT: - Recurrent Ascites requiring frequent paracentesis. US guided paracentesis (03/20/17)---> 3,300cc removed. Peritoneal WBC 579, RBC 140. Peritoneal cx no growth 72 hours. Rpt. Paracentesis 04/04 with 3 L removed. Rpt paracentesis 04/07 with 3.8 L removed. He is on Lasix 40mg IV q8h, Spironolactone 50mg q8h. His albumin is 4.2. Still with significant ascites. GI consulted for further evaluation and treatment, ? TIPS. He has had US, CT scan without contrast- no evidence of portal vein thrombosis. However, his ammonia has been elevated. Will limit fluid intake. Continue current tx. Will d/w Dr. Cancino , ? candidate for TIPS with elevated ammonia. - Elevated liver enzymes, liver cirrhosis. Liver US (03/19/17)---> Moderate ascites. Thickened gallbladder wall with sludge, mild hepatomegaly. ALEJA negative, AMA 79.7, ASMA negative, Ceruloplasmin 20, Alpha 1 Antitrypsin 180, Hepatitis profile negative, AFP 2.1. Iron saturation 102.2%, Ferritin 840, Hfe gene C282Y one mutation identified, H63D, S65C not detected. On Ursodiol. LFTs improved, T. Bili 3.8, AST 80, ALT 37, Alk Phosph 44. ? Liver bx at some point. - Elevated Iron Saturation. Hfe gene C282Y one mutation identified, H63D, S65C not detected. - (+) AMA. Started on Actigal, ? liver biopsy when stable. LFTs are stable. - Leukocytosis. WBC 37.5. Bilateral pna s/p tx, CDiff (+), Epid )27 (-). Urine negative for legionella, streptococcus pneumoniae. Bcx no growth 1 day, sputum with moderate growth normal respiratory dedrick. On Flagyl, Oral Vanco. - CDifficile, Epid 027 (-). Flagyl, Oral vanco. - Anemia. HH 10.2/30.7. - Thrombocytopenia, improved. Plt 118. - Hepatic encephalopathy. A/O x3. Lactulose - Respiratory failure, bilateral pneumonia, ARDS. Improved. Now off of rotaprone and extubated, on n/c. PLAN: - Change diet to 2 gram sodium diet - 1,500cc fluid restriction - Diuretics per CCM - Cont Ursodiol - Cont Protonix - Cont. Lactulose - Add Xifaxan - Cont. Oral Vanco, Flagyl - Monitor labs - Monitor I/O - Supportive care - ? liver biopsy when stable - We will add Xifaxan, continue diuretics, place on low sodium diet, fluid restriction. If no improvement, will need evaluation for TIPS. - Will need egd with band ligation, timing to be determined (inpatient vs. outpatient)-inpatient if active bleeding, otherwise when stable - Further recommendations to follow based on results of above - Pt seen and examined by Dr. Cancino and myself and this note is written on her behalf (Claudia Harvey) Plan Patient was seen and examined, agree with the above note, I discussed the case with the patient and his sister he is unaware of the cirrhosis and we discussed 's TIPS, shunt and possible transplant patient to be off alcohol before he can be considered for that we'll continue current management (Ann-Marie Cancino MD) Claudia Harvey Apr 08, 2017 14:24 Ann-Marie Cancino MD Apr 08, 2017 16:31
--- NOTE | 2017-04-08 19:37 | HHI.PR ---
Subjective Remarks Extubated and is more alert.. On FIO2 50 %. Ascites drained. CXR still shows bilateral Infiltrates Objective Vital Signs Date Time Temp Pulse Resp B/P (MAP) Pulse Ox O2 Delivery O2 Flow Rate FiO2 04/08/17 18:00 115 04/08/17 16:00 98.8 112 25 110/60 (77) 92 04/08/17 16:00 114 04/08/17 14:00 110 04/08/17 12:00 99.0 118 24 130/69 (89) 95 04/08/17 12:00 107 04/08/17 11:24 99 Nasal Cannula 6.00 04/08/17 10:00 115 04/08/17 08:47 94 High Flow Nasal Cannula 20.00 40 04/08/17 08:00 110 04/08/17 08:00 99.3 112 25 127/72 (90) 95 04/08/17 07:00 93 Nasal Cannula 25.00 60 04/08/17 06:00 108 04/08/17 04:00 114 04/08/17 04:00 99.3 114 25 113/60 (77) 92 04/08/17 02:00 108 04/08/17 00:00 99.3 104 20 120/72 (88) 96 04/08/17 00:00 104 04/07/17 23:39 97 High Flow Nasal Cannula 25.00 50 04/07/17 22:00 104 04/07/17 20:00 98.6 106 24 120/84 (96) 100 04/07/17 20:00 106 I/O 04/07/17 04/07/17 04/07/17 04/08/17 04/08/17 04/08/17 07:00 15:00 23:00 07:00 15:00 23:00 Intake Total 700 ml 300 ml 1060 ml 1792 ml 820 ml Output Total 1900 ml 5950 ml 1850 ml 1850 ml Balance -1200 ml 300 ml -4890 ml -58 ml -1030 ml Intake Oral 500 ml 960 ml 1460 ml 600 ml IV Total 200 ml 300 ml 100 ml 232 ml 220 ml Albumin 100 ml Output Urine Total 1700 ml 2000 ml 1750 ml 1800 ml Stool Total 200 ml 150 ml 100 ml 50 ml Drainage Total 3800 ml Result Diagram: 04/08/17 0328 04/08/17 1657 Objective Remarks PHYSICAL EXAMINATION IN GENERAL: This averagely built middle-aged man alert on O2 HEAD, EYES, EARS, NOSE, AND THROAT: Pupils reactive. Sclerae are clear Throat clear. NECK: No venous distension. CHEST: Decreased breath sounds at the periphery. Occ wheezes and Crackles. HEART: Heart sounds are regular S1-S2. ABDOMEN: Abdomen is soft, Non tender, Bowel sounds not heard. EXTREMITIES:No edema. The patient is alert , and responds to commands DERMATOLOGY: The skin was warm Assessment and Plan Assessment and Plan IMPRESSION 1. Acute hypoxemic respiratory failure.Resolved 2. ARDS 3. Aspiration pneumonia versus pulmonary edema. 4. Cirrhosis of the liver 5. Probable underlying chronic lung disease 6. Ascites. Plan : 1. Wean FIO2 to keep sat >92. 2. Chest Xray in am 3. Antibiotics as ordered. 4 D/C Solumedrol . 5. Nebs q6h with duoneb. 6. D/C sedation 7. Bipap 12/5 CM , for the Night. 7. CBC,BMP in am Mela Becerra MD Apr 08, 2017 19:37
[2017-04-08] MEDS: RIFAXIMIN 550 MG TAB PO SCH (20:05)
[2017-04-09] VITALS (16 sets, daily range): BP systolic 102–116; BP diastolic 52–67; PULSE 106–119; RESP 25–33; TEMP 98.8–99.7; O2SAT 89–97
[2017-04-09] MEDS: ALBUMIN HUMAN 25% 25 GM/100 ML BAGP IV SCH ×2 (00:23→14:04)
[2017-04-09] MEDS: VANCOMYCIN 500 MG VIAL (FOR ORAL USE ONLY) PO SCH ×4 (02:03→21:17)
[2017-04-09] MEDS: LORazepam 1 MG TAB PO PRN ×3 (02:03→20:58)
[2017-04-09] MEDS: metroNIDAZOLE 500 MG INJ 100 ML IV SCH ×3 (02:04→20:58)
[2017-04-09] MEDS: diphenhydrAMINE HCL 25 MG CAP PO PRN ×2 (02:13→20:58)
[2017-04-09] MEDS: RESP: ALBUTEROL 2.5 MG/IPRATROPIUM 0.5 MG NEB (SCH) NEB ×6 (03:32→23:22)
[2017-04-09] MEDS: INSULIN NovoLIN REGULAR SUPPLEMENTAL SCALE SQ SCH ×5 (04:00→20:00)
[2017-04-09] MEDS: METOCLOPRAMIDE HCL 10 MG/2 ML VIAL IV PUSH SCH ×3 (04:41→21:16)
[2017-04-09] MEDS: PCA - TOTAL MG DILAUDID DELIVERED PER SHIFT OTHER SCH ×3 (04:42→21:17)
[2017-04-09 05:12] LABS: HEMATOCRIT 28.9 % (39.0-51.0); MEAN CELL VOLUME 111.7 FL (80.0-100.0); MEAN CORPUSCULAR HEMOGLOBIN 38.6 PG (27.0-34.0); MEAN CORPUSCULAR HGB CONC 34.5 % (32.0-36.0); PLATELET COUNT 103 TH/MM3 (150-450); RED BLOOD COUNT 2.59 MIL/MM3 (4.50-5.90); RED CELL DISTRIBUTION WIDTH 17.7 % (11.6-17.2); WHITE BLOOD COUNT 31.5 TH/MM3 (4.0-11.0)
[2017-04-09 05:31] LABS: ANION GAP 9 MEQ/L (5-15); AST (GOT) 125 U/L (15-37); BICARBONATE 27.9 MEQ/L (21.0-32.0); BLOOD UREA NITROGEN 27 MG/DL (7-18); CHLORIDE 102 MEQ/L (98-107); GLOMERULAR FILTRATION RATE 92 ML/MIN (>89); MAGNESIUM 1.7 MG/DL (1.5-2.5); POTASSIUM 3.3 MEQ/L (3.5-5.1); SODIUM (NA) 139 MEQ/L (136-145)
[2017-04-09 05:35] LABS: ALKALINE PHOSPHATASE 45 U/L (45-117); ALT (GPT) 46 U/L (12-78); TOTAL BILIRUBIN ADULT 4.4 MG/DL (0.2-1.0)
[2017-04-09 05:36] LABS: HEMO FLAGS AUTO DIFF
--- NOTE | 2017-04-09 06:41 | RADRPT ---
EXAM DATE/TIME: 04/09/2017 05:52 [facility] COMPARISON: CHEST SINGLE AP, April 08, 2017, 9:31. INDICATIONS : Respiratory distress. MEDICAL HISTORY : Gastroesophageal reflux disease. Hypertension Renal insufficiency. SURGICAL HISTORY : None. ENCOUNTER: Subsequent ACUITY: 2 weeks PAIN SCORE: Non-responsive. LOCATION: Bilateral chest FINDINGS: A single view of the chest demonstrates bilateral airspace disease space at the bases with probable s mall effusions. Previous right central line has been removed. CONCLUSION: 1. Bilateral airspace disease slightly increased from April 08. Kyle Thorpe MD on April 09, 2017 at 6:39 Board Certified Radiologist. This report was verified electronically.
[2017-04-09] MEDS: RESP: BUDESONIDE 0.5 MG/2 ML NEB NEB SCH ×2 (07:46→19:48)
[2017-04-09] MEDS: SODIUM CHLORIDE 0.9% FLUSH 10 ML FLUSH IV FLUSH SCH ×2 (08:00→21:14)
[2017-04-09] MEDS: LACTULOSE SYRUP 20 GM/30 ML CUP PO SCH (08:00)
[2017-04-09] MEDS: CHLORHEXIDINE 0.12% (ORAL KIT) 15 ML CUP MT SCH ×2 (08:00→20:00)
[2017-04-09] MEDS: PANTOPRAZOLE SODIUM 40 MG VIAL IV SCH (08:00)
[2017-04-09] MEDS: ARTIFICIAL TEARS OPTH OINT 3.5 APPLIC/3.5 GM TUBO EACH EYE SCH ×2 (08:00→21:14)
[2017-04-09] MEDS: FUROSEMIDE 40 MG/4 ML VIAL IV PUSH SCH ×2 (08:00→21:15)
[2017-04-09] MEDS: RIFAXIMIN 550 MG TAB PO SCH ×2 (08:01→21:15)
[2017-04-09] MEDS: MULTIVITAMIN TAB PO SCH (08:01)
[2017-04-09] MEDS: THIAMINE HCL 100 MG TAB PO SCH (08:01)
[2017-04-09] MEDS: URSODIOL 300 MG CAP PO SCH ×3 (08:01→17:25)
[2017-04-09] MEDS: SPIRONOLACTONE 50 MG TAB PO SCH ×2 (08:01→17:25)
[2017-04-09] MEDS: HEPARIN SODIUM - SQ 10,000 UNITS/ML VIAL SQ SCH ×2 (08:01→21:16)
[2017-04-09] MEDS: FOLIC ACID 1 MG TAB PO SCH (08:01)
[2017-04-09] MEDS: POTASSIUM CHLOR 40 MEQ PREMIX 100 ML IV PRN (08:08)
--- NOTE | 2017-04-09 08:11 | HHI.IDPN ---
Note Infectious Disease Note ID COVERAGE FOR DR AYERS Vital Signs Date Time Temp Pulse Resp B/P (MAP) Pulse Ox O2 Delivery O2 Flow Rate FiO2 04/08/17 11:24 99 Nasal Cannula 6.00 04/08/17 10:00 115 04/08/17 08:47 94 High Flow Nasal Cannula 20.00 40 04/08/17 08:00 110 04/08/17 08:00 99.3 112 25 127/72 (90) 95 04/08/17 07:00 93 Nasal Cannula 25.00 60 04/08/17 06:00 108 04/08/17 04:00 114 04/08/17 04:00 99.3 114 25 113/60 (77) 92 04/08/17 02:00 108 04/08/17 00:00 99.3 104 20 120/72 (88) 96 04/08/17 00:00 104 04/07/17 23:39 97 High Flow Nasal Cannula 25.00 50 04/07/17 22:00 104 04/07/17 20:00 98.6 106 24 120/84 (96) 100 04/07/17 20:00 106 04/07/17 19:33 100 Nasal Cannula 60 04/07/17 19:33 98 High Flow Nasal Cannula 25.00 60 04/07/17 19:00 100 Nasal Cannula 70 04/07/17 18:00 109 04/07/17 16:00 94 04/07/17 16:00 99.5 94 24 112/70 (84) 98 04/07/17 14:28 22 04/07/17 14:00 106 04/07/17 12:00 100.0 107 23 117/63 (81) 91 04/07/17 12:00 107 Laboratory Tests Test 04/07/17 18:00 04/08/17 03:28 Potassium Level 4.0 MEQ/L 3.5 MEQ/L White Blood Count 37.5 TH/MM3 Red Blood Count 2.74 MIL/MM3 Hemoglobin 10.2 GM/DL Hematocrit 30.7 % Mean Corpuscular Volume 111.8 FL Mean Corpuscular Hemoglobin 37.2 PG Mean Corpuscular Hemoglobin Concent 33.3 % Red Cell Distribution Width 17.6 % Platelet Count 118 TH/MM3 Mean Platelet Volume 7.9 FL CBC Comment AUTO DIFF Differential Total Cells Counted 100 Neutrophils % (Manual) 88 % Lymphocytes % 6 % Monocytes % 5 % Neutrophils # (Manual) 33.4 TH/MM3 Metamyelocytes 1 % Differential Comment FINAL DIFF MANUAL Platelet Estimate LOW Platelet Morphology Comment NORMAL Target Cells 1+ Blood Urea Nitrogen 36 MG/DL Creatinine 1.01 MG/DL Random Glucose 122 MG/DL Calcium Level 9.0 MG/DL Sodium Level 141 MEQ/L Chloride Level 103 MEQ/L Carbon Dioxide Level 28.8 MEQ/L Anion Gap 9 MEQ/L Estimat Glomerular Filtration Rate 82 ML/MIN Laboratory Tests Test 04/07/17 04:45 04/08/17 03:28 White Blood Count 33.3 TH/MM3 37.5 TH/MM3 Red Blood Count 2.62 MIL/MM3 2.74 MIL/MM3 Hemoglobin 9.7 GM/DL 10.2 GM/DL Hematocrit 29.4 % 30.7 % Mean Corpuscular Volume 112.5 FL 111.8 FL Mean Corpuscular Hemoglobin 37.3 PG 37.2 PG Mean Corpuscular Hemoglobin Concent 33.1 % 33.3 % Red Cell Distribution Width 17.8 % 17.6 % Platelet Count 124 TH/MM3 118 TH/MM3 Mean Platelet Volume 7.8 FL 7.9 FL Neutrophils (%) (Auto) 84.4 % Lymphocytes (%) (Auto) 6.1 % Monocytes (%) (Auto) 9.2 % Eosinophils (%) (Auto) 0.1 % Basophils (%) (Auto) 0.2 % Neutrophils # (Auto) 28.1 TH/MM3 Lymphocytes # (Auto) 2.0 TH/MM3 Monocytes # (Auto) 3.1 TH/MM3 Eosinophils # (Auto) 0.0 TH/MM3 Basophils # (Auto) 0.1 TH/MM3 CBC Comment AUTO DIFF AUTO DIFF Differential Total Cells Counted 100 100 Neutrophils % (Manual) 83 % 88 % Band Neutrophils % 2 % Lymphocytes % 6 % 6 % Monocytes % 9 % 5 % Neutrophils # (Manual) 28.3 TH/MM3 33.4 TH/MM3 Differential Comment FINAL DIFF MANUAL FINAL DIFF MANUAL Platelet Estimate LOW LOW Platelet Morphology Comment NORMAL NORMAL Target Cells 1+ 1+ Metamyelocytes 1 % Laboratory Tests Test 04/07/17 04:45 04/07/17 06:40 04/07/17 18:00 04/08/17 03:28 Blood Urea Nitrogen 41 MG/DL 36 MG/DL Creatinine 1.03 MG/DL 1.01 MG/DL Random Glucose 151 MG/DL 122 MG/DL Total Protein 6.5 GM/DL Albumin 4.2 GM/DL Calcium Level 9.0 MG/DL 9.0 MG/DL Magnesium Level 2.2 MG/DL Alkaline Phosphatase 44 U/L Aspartate Amino Transf (AST/SGOT) 80 U/L Alanine Aminotransferase (ALT/SGPT) 37 U/L Total Bilirubin 3.8 MG/DL Sodium Level 142 MEQ/L 141 MEQ/L Potassium Level 3.1 MEQ/L 4.0 MEQ/L 3.5 MEQ/L Chloride Level 105 MEQ/L 103 MEQ/L Carbon Dioxide Level 27.8 MEQ/L 28.8 MEQ/L Anion Gap 9 MEQ/L 9 MEQ/L Estimat Glomerular Filtration Rate 80 ML/MIN 82 ML/MIN Ammonia 35 MCMOL/L Microbiology Date/Time Source Procedure Growth Status 04/07/17 17:36 Blood Peripheral Aerobic Blood Culture - Preliminary NO GROWTH IN 1 DAY Resulted 04/07/17 17:36 Blood Peripheral Anaerobic Blood Culture - Preliminary NO GROWTH IN 1 DAY Resulted 04/07/17 17:29 Blood Peripheral Aerobic Blood Culture - Preliminary NO GROWTH IN 1 DAY Resulted 04/07/17 17:29 Blood Peripheral Anaerobic Blood Culture - Preliminary NO GROWTH IN 1 DAY Resulted SUBJECTIVE patient continues to have diarrhea No fever I dw RN MEDICATIONS: reviewed . Antibiotics - iv flagyl and po vancomycin PHYSICAL EXGENERAL: Patient is in no acute distress. HEENT: EOMI, No icterus. NECK: Supple. LUNGS: basal rales . CARDIAC: Regular rate and rhythm ABDOMEN: slightly distended , Soft, non tender. EXTREMITIES: No CCE. SKIN: No rash.AM NEURO; alert , orientated Rectal tube - contains liquid stool CLINICAL IMPRESSION: C. diff colitis Leukocytosis bacterial pneumonia - treated s/p VDRF Liver cirrhosis with ascitis RECOMMENDATIONS : Continue current antibiotics Add po questran powder ID will continue to follow Rogerio Peralta MD Apr 09, 2017 08:11
--- NOTE | 2017-04-09 08:17 | HHI.CCPN ---
Subjective Remarks/Hospital Course 03/26: This is a 42-year-old male. Date of admission 03/19/2017. Date of consultation 03/27/2017. Past medical history includes EtOH use abuse, tobaccoism, hypertension Gastroesophageal reflux disease and DDD. Patient is on Suboxone for prior opiate abuse. He drinks one bottle of vodka daily patient is on chronic alprazolam at home on lactulose and Lasix. Patient was originally admitted with abdominal ascites. Status post paracentesis 03/20-3300 cc. Possible SBP. Placed on ceftriaxone. Blood work included a positive AMA and elevated iron studies. GS re-consulted. Over the past 24 hours. Patient has had increased oxygen requirements from 4 L currently 2 nonrebreather. He denies chest pressure respiratory denies cough. No significant peripheral edema. Patient's abdomen is quite distended however ultrasound reveals minimal ascites. Awake and alert. His only complaint is "dry throat from aerosolized mask 03/27: Patient developed worsening respiratory distress during the day and was placed on BiPAP with full facemask. He was requiring 100% FiO2 with BiPAP settings at +15/+8. His respiratory status declined as a day progress. Had multiple discussions with patient as well as his family members including reviewing his CT chest from early this morning which revealed extensive pulmonary infiltrates (right greater than left) and explained probable need for proceeding with intubation and mechanical ventilation. Subsequently patient's O2 sats dropped in the upper 80s despite BiPAP and patient was intubated and placed on mechanical ventilation around 6 PM. I subsequently proceeded with central line placement. Postintubation chest x-ray revealed extensive bilateral pulmonary infiltrates which appeared to have progress since his previous chest x-ray. Patient was requiring high doses of sedatives including Versed/fentanyl and propofol drips to keep him sedated. 03/28: Patient placed on prone ventilation last night and inhaled Flolan. Currently sedated, orally intubated on mechanical ventilation. On neuromuscular blockade. Remains on Versed/propofol/Dilaudid drips for sedation. Nimbex for neuromuscular blockade. 03/29: Remains sedated, orally intubated on mechanical ventilation, on neuromuscular blockade. Inhaled Flolan to be decreased from 20,000 ng per KG per minute to 10,000 ng per KG per minute this morning. O2 sats in the mid 90s. Vent mode change from pressure control to PRVC last night for elevation of PCO2. 09/16: Down to FiO2 0.50, PEEP 15. Will convert to regular bed. Leave on PRVC. Update, converted to APRV due to lack of progress on conventional mode. Improved PO2 to 114 and no CO2 retention. 03/31: Improved oxygenation. Lung lopez clearing on CXR. A little dry perhaps; will continue maintenance iv. Organism? Relaxant off 24 24hrs now, weaning dilaudid and versed. 04/01: Continued improvement in gas exchange but persistent ARDS pattern without diagnosis. Suspect infectious etiology and continue broad coverage. Withdrawal symptoms controlled, may need precedex to extubate. 04/02: Remains sedated, orally intubated on mechanical ventilation on APRV mode. Abdomen appears distended and firm currently. Stool positive for C. difficile by PCR. Had about 500 cc of diarrhea overnight. Tolerating tube feeds 04/03: Sedated, arousable, remains orally intubated on mechanical ventilation. Underwent paracentesis on 04/02 with drainage of 3.8 L of ascites fluid. Switched from APRV mode to PRVC mode mech vent on 04/02 and tolerating well remains on 35% FiO2 and PEEP at +14 this morning. Started on oral vancomycin for C. difficile colitis on 04/02. Tolerating tube feeds. On propofol and Versed drips currently for sedation. 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 Chest x-ray showed bilateral worsening infiltrates. Patient's white count has increased from 29, 000 to 38,500 indicating possible worsening C. difficile colitis with potential complications. CT of abdomen pelvis ordered stat. Add IV Flagyl 04/05: Remains intubated sedated chest x-ray continues to show pulmonary edema. Urine output 2.2 L in 24 hours creatinine 1.5. WBC trending down from 38.5- 33.1. CT of the abdomen did not show any significant colitis. Status post paracentesis and 3 L fluid removal 04/04/1704/06: Extubated yesterday tolerating well so far. Chest x-ray with stable bilateral infiltrates. Urine output 4.6 L after restarting Lasix 04/05. Appears to have some reaccumulation of ascites. I will increase Aldactone to 50 every 8 hours, currently on 25 twice a day. Creat improved to 1.2, WBC elevated at 33,000 04/07: Increasing oxygen requirement currently on high flow nasal cannula at 70% . Chest x-ray shows some increase in infiltrates. Patient remains AO 3. Urine output 4 L in 24 hours. I will increase Lasix to 40 mg every 8 hours IV, give additional 20 mg of Lasix now. There is reaccumulation of ascites fluid-we 'll repeat paracentesis 04/08: Breathing, comfortably today, FiO2 of hi hayden down to 50%. Chest x-rays pending this time. Urine output 3.8 L, paracentesis performed yesterday with 3.8 L removed. Achieving negative balance. Increase activity today, up to chair. 04/09: Breathing comfortably in no acute distress FiO2 at 50% on high flow nasal cannula. White cell count improving now 31.5. BUN 27 creatinine 0.9 urine output 4.1 L in 24 hours. Objective Vital Signs Date Time Temp Pulse Resp B/P (MAP) Pulse Ox O2 Delivery O2 Flow Rate FiO2 04/09/17 07:47 89 High Flow Nasal Cannula 25.00 50 04/09/17 06:00 110 04/09/17 04:00 99.1 32 102/55 (71) Intake and Output 04/09/17 04/09/17 04/10/17 08:00 16:00 00:00 Intake Total 834 ml Output Total 2300 ml Balance -1466 ml Result Diagram: 04/09/17 0407 04/09/17 0407 Imaging Last Impressions Abdomen X-Ray 04/02/17 0600 Signed Impressions: Service Date/Time: Sunday, April 02, 2017 06:08 - CONCLUSION: No dilated bowel loops. Suspected ascites. Miles Ge Jr., MD Chest X-Ray 04/02/17 0000 Signed Impressions: Service Date/Time: Sunday, April 02, 2017 13:18 - CONCLUSION: 1. Improving aeration in both lungs with resolving bibasilar atelectatic changes. 2. Endotracheal tube is been pulled back to the thoracic inlet and I believe the nasogastric tube is now identified with the tip in the midesophagus, above the GE junction. 3. Right IJ central venous catheter and a Dobbhoff feeding tube are stable in position. Michael Oliveira MD Abdomen Ultrasound 04/02/17 0000 Signed Impressions: Service Date/Time: Sunday, April 02, 2017 10:36 - CONCLUSION: 1. There is a large amount of ascites. Marked was placed on the right lower quadrant with patient lying on back with head elevated to about 30-40. Distance from skin to peritoneal surface is 2.2 cm and maximal safe depth is 4.4 cm. Kyle Thorpe MD CT Angiography 03/27/17 0000 Signed Impressions: Service Date/Time: Monday, March 27, 2017 03:55 - CONCLUSION: 1. Mixed groundglass opacity and airspace consolidation in both upper lobes. Differential diagnosis includes infection, aspiration and pulmonary hemorrhage. 2. Moderate pleural effusions with dependent consolidation and atelectasis at both lung bases. 3. Hepatomegaly with ascites. 4. Contrast bolus suboptimal but no pulmonary emboli identified. Kyle Thorpe MD Cyst Biopsy Asp-Paracentesis US 03/20/17 0600 Signed Impressions: Service Date/Time: Monday, March 20, 2017 09:42 - CONCLUSION: Uncomplicated ultrasound guided paracentesis. Kareem Mahan MD Lower Extremity Ultrasound 03/19/17 1441 Signed Impressions: Service Date/Time: Sunday, March 19, 2017 15:40 - CONCLUSION: 1. No evidence of deep venous thrombosis. Claudio Argueta MD Liver Ultrasound 03/19/17 0000 Signed Impressions: Service Date/Time: Sunday, March 19, 2017 18:23 - CONCLUSION: 1. Moderate ascites. Thickened gallbladder wall with sludge. Mild hepatosplenomegaly. Kyle Thorpe MD Chest x-ray portable done on 03/27 post intubation was personally reviewed: ET tube above antonio, right IJ central line with tip overlying SVC, NG tube in place, extensive bilateral infiltrates involving almost the entire lung lopez. Last [address] Angiography 03/27/17 0000 Signed Impressions: Service Date/Time: Monday, March 27, 2017 03:55 - CONCLUSION: 1. Mixed groundglass opacity and airspace consolidation in both upper lobes. Differential diagnosis includes infection, aspiration and pulmonary hemorrhage. 2. Moderate pleural effusions with dependent consolidation and atelectasis at both lung bases. 3. Hepatomegaly with ascites. 4. Contrast bolus suboptimal but no pulmonary emboli identified. Kyle Thorpe MD Last Impressions Chest X-Ray 03/26/17 0000 Signed Impressions: Service Date/Time: Sunday, March 26, 2017 10:30 - CONCLUSION: 1. New alveolar infiltrates in both lungs which may represent pulmonary edema which may be noncardiogenic in origin. 2. Denser course infiltrates in both lung bases likely representing scarring. Ap Zamora MD Abdomen Ultrasound 03/25/17 0000 Signed Impressions: Service Date/Time: Saturday, March 25, 2017 10:49 - CONCLUSION: 1. Very subtle ascites without sufficient pocket for safe paracentesis. Hipolito Palencia MD Cyst Biopsy Asp-Paracentesis US 03/20/17 0600 Signed Impressions: Service Date/Time: Monday, March 20, 2017 09:42 - CONCLUSION: Uncomplicated ultrasound guided paracentesis. Kareem Mahan MD Lower Extremity Ultrasound 03/19/17 1441 Signed Impressions: Service Date/Time: Sunday, March 19, 2017 15:40 - CONCLUSION: 1. No evidence of deep venous thrombosis. Claudio Argueta MD Liver Ultrasound 03/19/17 0000 Signed Impressions: Service Date/Time: Sunday, March 19, 2017 18:23 - CONCLUSION: 1. Moderate ascites. Thickened gallbladder wall with sludge. Mild hepatosplenomegaly. Kyle Thorpe MD Objective Remarks HEENT/ Neuro: Alert awake oriented 3. Generalized weakness. No focal deficits Neck: Right IJ central line discontinued 04/08/17 Chest/Pulm: Few rhonchi, and basilar crackles equal air entry bilaterally, no wheezing. On Hi Hayden NC with 50% FiO2 CVS: S1-S2 regular, no murmur. Tachycardic rhythm GI/abdomen: Abdomen distended with only small amount of of ascites fluid, on bedside US 04/09/17. s/p 3.8L paracentesis 04/07. nontender, bowel sounds active. Significant scrotal edema Extremities: warm bilaterally,+ pedal edema edema, well perfused. Date of Insertion: Mar 27, 2017 Line: Central Venous Catheter Side: Right Location: Internal, Jugular A/P Assessment and Plan Neuro/Psych: Metabolic encephalopathy Alcohol dependence History of oxycodone use Anxiety disorder on chronic alprazolam History of hepatic encephalopathy Librium stopped 04/08/17. Continue thiamine/folic acid/MVI Patient was on home Suboxone 8 mg 4 times a day till 03/28 which was held following intubation Ammonia level 36 on 04/04/17 PT OOB, OT, up to chair daily CV: Sinus tachycardia Pulmonary edema, noncardiogenic History of hypertension IV Lasix to 40 q8hr, spironolactone to 50 mg every 8 hours Pulmonary edema may be noncardiogenic Achieving negative fluid balance now Resp: Acute hypoxemic respiratory failure Bilateral pneumonia ARDS Tobaccoism Extubated 04/05. On high flow-nasal cannula with 50% FiO2 Initially intubated and placed on mechanical ventilation on 03/27. Was on prone ventilation and inhaled Flolan as well as neuromuscular blockade initially. Was Re intubated 04/04 for hypoxemic respiratory failure. CT chest on 03/27 with extensive bilateral infiltrates right greater than left. Albuterol/ipratropium aerosols every 6 hours with albuterol aerosols every 2 hours when necessary. Solu-Medrol 40 mg daily- DCd 04/08/17 Aggressive pulmonary toilet. EzPAP, Acapella, IS Nicotine patch at 21 mg daily GI/liver: Probable cirrhosis Abdominal ascites-improving C. difficile colitis CT of the abdomen pelvis 04/04 no evidence of significant colitis AMA positive. Elevated iron studies. Neg hepatitis panel. Appears to be carrier for hemochromatosis gene ? Significance. s/p paracentesis 03/20. -3300. 04/02 with 3.8 L fluid removed and again 04/04 with 3L removed. 04/07 3.8L removed If recurrent, consider TIPS. Today US only minimal fluid No evidence of SBP on fluid studies 04/04/17. Ursodiol to be continued possible primary biliary cirrhosis Previous fluid studies Noted 579 WBC and peritoneal fluid however peritoneal fluid cultures negative. Was on Rocephin from 03/20 - 03/27 Continue lactulose 30 cc daily, hold for diarrhea. Continue Aldactone, IV Lasix-see above. Will need liver biopsy at some point. Diet per speech : Bowden catheterization for accurate intake output in critically ill patient with sepsis/pneumonia Continue Bowden catheter, patient has significant scrotal edema pedal been difficult to use condom catheter, and difficult to get accurate intake output and patient is on aggressive diuretic regimen Endo: Sliding-scale insulin if needed for glycemic control. Electrolyte replacement per protocol Renal: Acute kidney injury Strict intake output, monitor and replete electrolytes, follow BUN/creatinine. Creatinine now 0.9 slightly improved. UO 3.8 L in 24 hours IV lasix 40 q8, aldactone 50 q8 Heme: Leukocytosis Macrocytic anemia Thrombocytopenia Monitor CBC daily. Follow trends. Continue MVI/folic acid. No indications for transfusion of blood products at this time ID: Sepsis/pneumonia with ARDS SBP - culture negative C diff colitis Stool positive for C diff by PCR -On PO vancomycin 04/02. IV Flagyl 500 q8 04/04. DCd Zosyn 03/27- 04/04- D/W Dr. Farias CT abd pelvis with Oral contrast 04/04-no evidence of significant colitis WBC starting to trend down. IV Solu Medrol discontinued 04/08 Previously on Rocephin from 03/20 -03/27. Status post 1 dose vancomycin 03/27. Zosyn 03/27-04/04. Added Zyvox 03/27 following intubation. Off Zyvox and Levaquin , Paracentesis repeated on 04/02, 04/04 and fluid sent for Gram stain and cultures- negative to date. Rpt sputum gm stain and C/S on 04/03 cultures negative to date All cultures remain negative so far Urine negative for strep pneumo and Legionella antigen Sputum for Gram stain and cultures obtained after intubation -> no growth so far. MSK: Physical therapy. OOB to stretcher chair daily. OT FEN: Hyponatremia Hypo-magnesium Hyponatremia most likely from liver cirrhosis Replacing electrolytes as clinically indicated Access -Right IJ central line 03/27-04/08 Prophylaxis - GI - pantoprazole - DVT - SCD/ pharmacological prophylaxis with subcutaneous heparin 5000 units every [address] Stoddard updated patient's mother on 03/28 and 03/29 regarding current clinical status including prone ventilation and possible need for prolonged mechanical ventilation. She voiced understanding and was agreeable with plan of care. Dr. Stoddard updated patient's mother on 04/03 regarding current clinical status and she voiced understanding. I have updated patients mother on 04/06/17, 04/07/17 Overall impression: Patient remains critically ill but now showing signs of improvement. Sepsis persists though as evidenced by elevated white count. Now with worsening hypoxemic respiratory failure on 70% FiO2 CCT 35 Cassy Walker MD Apr 09, 2017 08:17
[2017-04-09 08:28] LABS: BANDS 2 % (0-6); BASOPHILS 1 % (0-2); NEUTROPHIL # MANUAL DIFF 27.7 TH/MM3 (1.8-7.7); PLATELET ESTIMATE SMEAR LOW (NORMAL); PLATELET MORPHOLOGY NORMAL (NORMAL); POLYS (SEG NEUTROPHILS) 86 % (16-70); SCAN/DIFF FINAL DIFF MANUAL; TARGET CELLS 2+ (NORMAL); WBC DIFF SAMPLE 100
[2017-04-09] MEDS: CHOLESTYRAMINE 4 GM PACKET PO SCH ×2 (09:00→21:15)
--- NOTE | 2017-04-09 12:41 | HHI.PR ---
Subjective Remarks Extubated and is alert.. On FIO2 50 %. with High flow O2 CXR still shows bilateral Infiltrates, and worse. Objective Vital Signs Date Time Temp Pulse Resp B/P (MAP) Pulse Ox O2 Delivery O2 Flow Rate FiO2 04/09/17 12:00 99.4 109 25 110/56 (74) 93 04/09/17 12:00 112 04/09/17 10:00 115 04/09/17 08:00 99.7 110 29 114/67 (83) 92 04/09/17 08:00 112 04/09/17 07:47 89 High Flow Nasal Cannula 25.00 50 04/09/17 07:00 89 Nasal Cannula 20.00 41 04/09/17 06:00 110 04/09/17 04:00 110 04/09/17 04:00 99.1 110 32 102/55 (71) 91 04/09/17 02:30 87 Nasal Cannula 41 04/09/17 02:21 92 High Flow Nasal Cannula 20.00 35 04/09/17 02:15 88 Nasal Cannula 35 04/09/17 02:00 110 04/09/17 00:00 106 04/09/17 00:00 99.0 106 26 110/61 (77) 96 04/08/17 22:00 110 04/08/17 20:00 102 04/08/17 20:00 98.1 102 28 115/67 (83) 98 04/08/17 19:50 93 Nasal Cannula 5.00 04/08/17 19:00 98 Nasal Cannula 6.00 04/08/17 18:00 115 04/08/17 16:00 98.8 112 25 110/60 (77) 92 04/08/17 16:00 114 04/08/17 14:00 110 I/O 04/08/17 04/08/17 04/08/17 04/09/17 04/09/17 04/09/17 07:00 15:00 23:00 07:00 15:00 23:00 Intake Total 1792 ml 820 ml 834 ml Output Total 1850 ml 1850 ml 2300 ml Balance -58 ml -1030 ml -1466 ml Intake Oral 1460 ml 600 ml 600 ml IV Total 232 ml 220 ml 234 ml Albumin 100 ml Output Urine Total 1750 ml 1800 ml 2300 ml Stool Total 100 ml 50 ml # Bowel Movements 3 Result Diagram: 04/09/1740604/09/17406 Objective Remarks PHYSICAL EXAMINATION IN GENERAL: This averagely built middle-aged man alert on O2 HEAD, EYES, EARS, NOSE, AND THROAT: Pupils reactive. Sclerae are clear Throat clear. NECK: No venous distension. CHEST: Decreased breath sounds at the periphery. Occ wheezes and Basal Crackles. HEART: Heart sounds are regular S1-S2. ABDOMEN: Abdomen is soft, Non tender, Bowel sounds not heard. EXTREMITIES:No edema. Neuro The patient is alert , and responds to commands and has no deficits. DERMATOLOGY: The skin was warm Assessment and Plan Assessment and Plan IMPRESSION 1. Acute hypoxemic respiratory failure.Resolved 2. ARDS 3. Aspiration pneumonia versus pulmonary edema. 4. Cirrhosis of the liver 5. Probable underlying chronic lung disease 6. Ascites. Plan : 1. Wean FIO2 to keep sat >92. 2. [address] on BIPAP at HS 12/5 CM , FIO2 40 % 3. Antibiotics as ordered. 4 IS q3h, bedside 5. Nebs q6h with duoneb. 6. PT eval and ambulate [facility]. [facility] Mela Becerra MD Apr 09, 2017 12:41
--- NOTE | 2017-04-09 16:10 | HHI.GIFU ---
Subjective Remarks Resting in bed. Requiring more oxygen today. Abdominal distention slighty improved. (Claudia Harvey) Objective Vitals I&O Vital Signs Date Time Temp Pulse Resp B/P (MAP) Pulse Ox O2 Delivery O2 Flow Rate FiO2 04/09/17 14:00 119 04/09/17 12:00 99.4 109 25 110/56 (74) 93 04/09/17 12:00 112 04/09/17 10:00 115 04/09/17 08:00 99.7 110 29 114/67 (83) 92 04/09/17 08:00 112 04/09/17 07:47 89 High Flow Nasal Cannula 25.00 50 04/09/17 07:00 89 Nasal Cannula 20.00 41 04/09/17 06:00 110 04/09/17 04:00 110 04/09/17 04:00 99.1 110 32 102/55 (71) 91 04/09/17 02:30 87 Nasal Cannula 41 04/09/17 02:21 92 High Flow Nasal Cannula 20.00 35 04/09/17 02:15 88 Nasal Cannula 35 04/09/17 02:00 110 04/09/17 00:00 106 04/09/17 00:00 99.0 106 26 110/61 (77) 96 04/08/17 22:00 110 04/08/17 20:00 102 04/08/17 20:00 98.1 102 28 115/67 (83) 98 04/08/17 19:50 93 Nasal Cannula 5.00 04/08/17 19:00 98 Nasal Cannula 6.00 04/08/17 18:00 115 04/08/17 16:00 98.8 112 25 110/60 (77) 92 04/08/17 16:00 114 I/O 04/08/17 04/08/17 04/08/17 04/09/17 04/09/17 04/09/17 07:00 15:00 23:00 07:00 15:00 23:00 Intake Total 1792 ml 820 ml 834 ml Output Total 1850 ml 1850 ml 2300 ml Balance -58 ml -1030 ml -1466 ml Intake Oral 1460 ml 600 ml 600 ml IV Total 232 ml 220 ml 234 ml Albumin 100 ml Output Urine Total 1750 ml 1800 ml 2300 ml Stool Total 100 ml 50 ml # Bowel Movements 3 Laboratory Laboratory Tests Test 04/08/17 16:57 04/09/17 04:07 Potassium Level 3.8 3.3 White Blood Count 31.5 Red Blood Count 2.59 Hemoglobin 10.0 Hematocrit 28.9 Mean Corpuscular Volume 111.7 Mean Corpuscular Hemoglobin 38.6 Mean Corpuscular Hemoglobin Concent 34.5 Red Cell Distribution Width 17.7 Platelet Count 103 Mean Platelet Volume 8.5 CBC Comment AUTO DIFF Differential Total Cells Counted 100 Neutrophils % (Manual) 86 Band Neutrophils % 2 Lymphocytes % 4 Monocytes % 7 Basophils % 1 Neutrophils # (Manual) 27.7 Differential Comment FINAL DIFF MANUAL Platelet Estimate LOW Platelet Morphology Comment NORMAL Target Cells 2+ Blood Urea Nitrogen 27 Creatinine 0.91 Random Glucose 105 Total Protein 6.3 Albumin 4.1 Calcium Level 8.8 Magnesium Level 1.7 Alkaline Phosphatase 45 Aspartate Amino Transf (AST/SGOT) 125 Alanine Aminotransferase (ALT/SGPT) 46 Total Bilirubin 4.4 Sodium Level 139 Chloride Level 102 Carbon Dioxide Level 27.9 Anion Gap 9 Estimat Glomerular Filtration Rate 92 Date/Time Source Procedure Growth Status 04/07/17 17:36 Blood Peripheral Aerobic Blood Culture - Preliminary NO GROWTH IN 2 DAYS Resulted 04/07/17 17:36 Blood Peripheral Anaerobic Blood Culture - Preliminary NO GROWTH IN 2 DAYS Resulted 04/04/17 17:34 Fluid Peritoneal Fluid Gram Stain - Final Complete 04/04/17 17:34 Fluid Peritoneal Fluid Body Fluid Culture - Final NO GROWTH IN 72 HRS.--AEROBICALLY OR ... Complete 04/04/17 21:30 Sputum Endotracheal Gram Stain - Final Complete 04/04/17 21:30 Sputum Endotracheal Sputum Culture - Final MODERATE GROWTH NORMAL RESPIRATORY DEDRICK Complete 04/04/17 20:00 Urine Catheterized Urine Urine Culture - Final NO GROWTH IN 48 HOURS. Complete Imaging Last Impressions Chest X-Ray 04/09/17 0600 Signed Impressions: Service Date/Time: Sunday, April 09, 2017 05:52 - CONCLUSION: 1. Bilateral airspace disease slightly increased from April 08. Kyle Thorpe MD Abdomen/Pelvis CT 04/04/17 0000 Signed Impressions: Service Date/Time: March 15:55 - CONCLUSION: 1. Hepatosplenomegaly. 2. Abdominal ascites. 3. Oral contrast has passed throughout the small bowel and colon. There is no significant thickening of the colonic wall identified. The colon is decompressed. 4. Consolidation in both lung bases with minimal basilar effusions. 5. Nasogastric tube within the stomach. Bo Wall MD Abdomen X-Ray 04/02/17 0600 Signed Impressions: Service Date/Time: Sunday, April 02, 2017 06:08 - CONCLUSION: No dilated bowel loops. Suspected ascites. Miles Ge Jr., MD Abdomen Ultrasound 04/02/17 0000 Signed Impressions: Service Date/Time: Sunday, April 02, 2017 10:36 - CONCLUSION: 1. There is a large amount of ascites. Marked was placed on the right lower quadrant with patient lying on back with head elevated to about 30-40. Distance from skin to peritoneal surface is 2.2 cm and maximal safe depth is 4.4 cm. Kyle Thorpe MD CT Angiography 03/27/17 0000 Signed Impressions: Service Date/Time: Monday, March 27, 2017 03:55 - CONCLUSION: 1. Mixed groundglass opacity and airspace consolidation in both upper lobes. Differential diagnosis includes infection, aspiration and pulmonary hemorrhage. 2. Moderate pleural effusions with dependent consolidation and atelectasis at both lung bases. 3. Hepatomegaly with ascites. 4. Contrast bolus suboptimal but no pulmonary emboli identified. Kyle Tohrpe MD Cyst Biopsy Asp-Paracentesis US 03/20/17 0600 Signed Impressions: Service Date/Time: Monday, March 20, 2017 09:42 - CONCLUSION: Uncomplicated ultrasound guided paracentesis. Kareem Mahan MD Lower Extremity Ultrasound 03/19/17 1441 Signed Impressions: Service Date/Time: Sunday, March 19, 2017 15:40 - CONCLUSION: 1. No evidence of deep venous thrombosis. Claudio Argueta MD Liver Ultrasound 03/19/17 0000 Signed Impressions: Service Date/Time: Sunday, March 19, 2017 18:23 - CONCLUSION: 1. Moderate ascites. Thickened gallbladder wall with sludge. Mild hepatosplenomegaly. Kyle Thorpe MD Physical Exam HEENT: Normocephalic CHEST: Resp. even/unlabored, on n/c, diminished CARDIAC: RRR ABDOMEN: Abdomen distended with moderate amount of ascites, nontender, bowel sounds present. EXTREMITIES: No edema [employer]: Awake, oriented, follows commands (Claudia Harvey [facility]) Assessment and Plan Plan ASSESSMENT: - Recurrent Ascites requiring frequent paracentesis. US guided paracentesis (03/20/17)---> 3,300cc removed. Peritoneal WBC 579, RBC 140. Peritoneal cx no growth 72 hours. Rpt. Paracentesis 04/04 with 3 L removed. Rpt paracentesis 04/07 with 3.8 L removed. He is on Lasix 40mg IV q8h, Spironolactone 50mg q8h. His albumin is 4.2. Still with significant ascites. GI consulted for further evaluation and treatment, ? TIPS. He has had US, CT scan without contrast- no evidence of portal vein thrombosis. However, his ammonia has been elevated. Will limit fluid intake. Albumin, Lasix, Spironolactone. Does seem to be slightly less ascites today. Will continue current tx and see how he does over the next few days - Elevated liver enzymes, liver cirrhosis. Liver US (03/19/17)---> Moderate ascites. Thickened gallbladder wall with sludge, mild hepatomegaly. ALEJA negative, AMA 79.7, ASMA negative, Ceruloplasmin 20, Alpha 1 Antitrypsin 180, Hepatitis profile negative, AFP 2.1. Iron saturation 102.2%, Ferritin 840, Hfe gene C282Y one mutation identified, H63D, S65C not detected. On Ursodiol. LFTs improved, T. Bili 4.4, AST 125, ALT 46, Alk Phosph 45. ? Liver bx at some point. - Elevated Iron Saturation. Hfe gene C282Y one mutation identified, H63D, S65C not detected. - (+) AMA. Started on Actigal, ? liver biopsy when stable. LFTs are stable. - Leukocytosis. WBC 37.5. Bilateral pna s/p tx, CDiff (+), Epid )27 (-). Urine negative for legionella, streptococcus pneumoniae. Bcx no growth 1 day, sputum with moderate growth normal respiratory dedrick. On Flagyl, Oral Vanco. - CDifficile, Epid 027 (-). Flagyl, Oral vanco. - Anemia. HH 10.2/30.7. - Thrombocytopenia, improved. Plt 118. - Hepatic encephalopathy. A/O x3. Lactulose - Respiratory failure, bilateral pneumonia, ARDS. Improved. Now off of rotaprone and extubated, on n/c. PLAN: - Change diet to 2 gram sodium diet - 1,500cc fluid restriction - Diuretics per CCM - Cont. Albumin - Cont Ursodiol - Cont Protonix - Cont. Lactulose - Cont. Xifaxan - Cont. Oral Vanco, Flagyl - Monitor labs - Monitor I/O - Supportive care - ? liver biopsy when stable - We will add Xifaxan, continue diuretics, place on low sodium diet, fluid restriction. If no improvement, will need evaluation for TIPS, but ideally would need to be alcohol free x 6 months - Will need egd with band ligation, timing to be determined (inpatient vs. outpatient)-inpatient if active bleeding, otherwise when stable - Further recommendations to follow based on results of above - Pt seen and examined by Dr. Cancino and myself and this note is written on her behalf (Claudia Harvey) Plan Patient was seen and examined, seems a little bit better today, not distended as much (Ann-Marie Cancino MD) Claudia Harvey Apr 09, 2017 16:10 Ann-Marie Cancino MD Apr 10, 2017 13:24
[2017-04-10] VITALS (14 sets, daily range): BP systolic 98–125; BP diastolic 56–95; PULSE 106–120; RESP 22–29; TEMP 97.1–99; O2SAT 91–95
[2017-04-10] MEDS: SPIRONOLACTONE 50 MG TAB PO SCH ×2 (01:41→08:31)
[2017-04-10] MEDS: ALBUMIN HUMAN 25% 25 GM/100 ML BAGP IV SCH ×2 (01:41→14:50)
[2017-04-10] MEDS: LORazepam 1 MG TAB PO PRN ×3 (02:03→21:41)
[2017-04-10] MEDS: RESP: ALBUTEROL 2.5 MG/IPRATROPIUM 0.5 MG NEB (SCH) NEB ×6 (03:25→23:55)
[2017-04-10] MEDS: metroNIDAZOLE 500 MG INJ 100 ML IV SCH ×2 (03:47→12:41)
[2017-04-10] MEDS: VANCOMYCIN 500 MG VIAL (FOR ORAL USE ONLY) PO SCH ×4 (03:47→21:40)
[2017-04-10] MEDS: INSULIN NovoLIN REGULAR SUPPLEMENTAL SCALE SQ SCH ×6 (04:00→20:00)
--- NOTE | 2017-04-10 04:51 | RADRPT ---
EXAM DATE/TIME: 04/10/2017 03:59 [facility] COMPARISON: CHEST SINGLE AP, April 09, 2017, 5:52. INDICATIONS : Shortness of breath. MEDICAL HISTORY : Gastroesophageal reflux disease. Hypertension. Renal insufficiency. Cirrhosis SURGICAL HISTORY : None. ENCOUNTER: Subsequent ACUITY: 2 weeks PAIN SCORE: Non-responsive. LOCATION: Bilateral chest FINDINGS: A single view of the chest demonstrates a heart size upper limits normal. Patchy bilateral airspace d isease. Small effusions. No pneumothorax. CONCLUSION: 1. Patchy air space disease, slightly improved from April 09. No pneumothorax. Kyle Thorpe MD on April 10, 2017 at 4:48 Board Certified Radiologist. This report was verified electronically.
[2017-04-10 04:56] LABS: AUTOMATED NEUTROPHIL # 23.6 TH/MM3 (1.8-7.7); BASOPHIL % 0.2 % (0.0-2.0); EOSINOPHIL # 0.1 TH/MM3 (0-0.4); EOSINOPHIL % 0.5 % (0.0-4.0); HEMATOCRIT 28.9 % (39.0-51.0); HEMO FLAGS DIFF FINAL; LYMPH % 6.7 % (9.0-44.0); LYMPHOCYTE # 1.8 TH/MM3 (1.0-4.8); MEAN CELL VOLUME 111.8 FL (80.0-100.0); MEAN CORPUSCULAR HEMOGLOBIN 37.2 PG (27.0-34.0); MEAN CORPUSCULAR HGB CONC 33.3 % (32.0-36.0); NEUT % 86.6 % (16.0-70.0); PLATELET COUNT 114 TH/MM3 (150-450); RED BLOOD COUNT 2.58 MIL/MM3 (4.50-5.90); RED CELL DISTRIBUTION WIDTH 17.7 % (11.6-17.2); WHITE BLOOD COUNT 27.3 TH/MM3 (4.0-11.0)
[2017-04-10] MEDS: PCA - TOTAL MG DILAUDID DELIVERED PER SHIFT OTHER SCH ×2 (05:08→21:42)
[2017-04-10 05:13] LABS: ANION GAP 9 MEQ/L (5-15); AST (GOT) 151 U/L (15-37); BICARBONATE 28.4 MEQ/L (21.0-32.0); BLOOD UREA NITROGEN 20 MG/DL (7-18); CHLORIDE 102 MEQ/L (98-107); GLOMERULAR FILTRATION RATE 101 ML/MIN (>89); MAGNESIUM 1.7 MG/DL (1.5-2.5); POTASSIUM 3.3 MEQ/L (3.5-5.1); SODIUM (NA) 139 MEQ/L (136-145)
[2017-04-10 05:17] LABS: ALKALINE PHOSPHATASE 47 U/L (45-117); ALT (GPT) 60 U/L (12-78); TOTAL BILIRUBIN ADULT 4.3 MG/DL (0.2-1.0)
[2017-04-10] MEDS: METOCLOPRAMIDE HCL 10 MG/2 ML VIAL IV PUSH SCH ×3 (05:23→21:41)
[2017-04-10] MEDS: POTASSIUM CHLORIDE INJ 20 MEQ in SODIUM CHLORIDE 0.9% INJ 100 ML IV SCH ×2 (05:57→08:29)
[2017-04-10] MEDS: CHLORHEXIDINE 0.12% (ORAL KIT) 15 ML CUP MT SCH ×2 (08:00→20:00)
[2017-04-10] MEDS: HEPARIN SODIUM - SQ 10,000 UNITS/ML VIAL SQ SCH ×2 (08:30→21:41)
[2017-04-10] MEDS: PANTOPRAZOLE SODIUM 40 MG VIAL IV SCH (08:30)
[2017-04-10] MEDS: RIFAXIMIN 550 MG TAB PO SCH ×2 (08:31→21:40)
[2017-04-10] MEDS: THIAMINE HCL 100 MG TAB PO SCH (08:31)
[2017-04-10] MEDS: MULTIVITAMIN TAB PO SCH (08:31)
[2017-04-10] MEDS: FUROSEMIDE 40 MG/4 ML VIAL IV PUSH SCH ×2 (08:31→21:41)
[2017-04-10] MEDS: CHOLESTYRAMINE 4 GM PACKET PO SCH ×2 (08:31→21:42)
[2017-04-10] MEDS: FOLIC ACID 1 MG TAB PO SCH (08:31)
[2017-04-10] MEDS: URSODIOL 300 MG CAP PO SCH ×3 (08:31→19:24)
[2017-04-10] MEDS: RESP: BUDESONIDE 0.5 MG/2 ML NEB NEB SCH ×2 (08:59→20:04)
[2017-04-10] MEDS: SODIUM CHLORIDE 0.9% FLUSH 10 ML FLUSH IV FLUSH SCH ×2 (09:00→21:43)
[2017-04-10] MEDS: LACTULOSE SYRUP 20 GM/30 ML CUP PO SCH (09:00)
--- NOTE | 2017-04-10 12:18 | HHI.GIFU ---
Subjective Remarks Resting in bed. Mildly short of breath. Abdomen distended with ascites. Tolerating diet. (+) Bm. Possible transfer to [facility] tomorrow. (Claudia Harvey) Objective Vitals I&O Vital Signs Date Time Temp Pulse Resp B/P (MAP) Pulse Ox O2 Delivery O2 Flow Rate FiO2 04/10/17 10:00 112 04/10/17 09:05 92 Nasal Cannula 6.00 04/10/17 08:00 99.0 116 29 119/95 (103) 93 04/10/17 08:00 116 04/10/17 07:00 93 Nasal Cannula 6.00 04/10/17 06:00 110 04/10/17 04:00 118 04/10/17 04:00 98.7 118 28 120/75 (90) 91 04/10/17 02:00 116 04/10/17 00:00 106 04/10/17 00:00 97.1 106 22 115/69 (84) 93 04/09/17 22:00 108 04/09/17 21:06 93 40 04/09/17 20:00 106 04/09/17 20:00 98.8 106 33 116/59 (78) 97 04/09/17 19:50 97 Nasal Cannula 6.00 04/09/17 19:00 92 Nasal Cannula 6.00 04/09/17 18:00 115 04/09/17 16:00 99.2 106 26 102/52 (69) 90 04/09/17 16:00 114 04/09/17 14:00 119 I/O 04/09/17 04/09/17 04/09/17 04/10/17 04/10/17 04/10/17 07:00 15:00 23:00 07:00 15:00 23:00 Intake Total 834 ml 786 ml 880 ml Output Total 2300 ml 1800 ml 1250 ml Balance -1466 ml -1014 ml -370 ml Intake Oral 600 ml 400 ml 480 ml IV Total 234 ml 386 ml 300 ml Albumin 100 ml Output Urine Total 2300 ml 1800 ml 1250 ml # Voids 3 # Bowel Movements 3 1 1 Laboratory Laboratory Tests Test 04/09/17 20:25 04/10/17 04:07 Potassium Level 3.5 3.3 White Blood Count 27.3 Red Blood Count 2.58 Hemoglobin 9.6 Hematocrit 28.9 Mean Corpuscular Volume 111.8 Mean Corpuscular Hemoglobin 37.2 Mean Corpuscular Hemoglobin Concent 33.3 Red Cell Distribution Width 17.7 Platelet Count 114 Mean Platelet Volume 8.8 Neutrophils (%) (Auto) 86.6 Lymphocytes (%) (Auto) 6.7 Monocytes (%) (Auto) 6.0 Eosinophils (%) (Auto) 0.5 Basophils (%) (Auto) 0.2 Neutrophils # (Auto) 23.6 Lymphocytes # (Auto) 1.8 Monocytes # (Auto) 1.6 Eosinophils # (Auto) 0.1 Basophils # (Auto) 0.0 CBC Comment DIFF FINAL Differential Comment Blood Urea Nitrogen 20 Creatinine 0.84 Random Glucose 108 Total Protein 6.5 Albumin 4.3 Calcium Level 8.9 Magnesium Level 1.7 Alkaline Phosphatase 47 Aspartate Amino Transf (AST/SGOT) 151 Alanine Aminotransferase (ALT/SGPT) 60 Total Bilirubin 4.3 Sodium Level 139 Chloride Level 102 Carbon Dioxide Level 28.4 Anion Gap 9 Estimat Glomerular Filtration Rate 101 Date/Time Source Procedure Growth Status 04/07/17 17:36 Blood Peripheral Aerobic Blood Culture - Preliminary NO GROWTH IN 3 DAYS Resulted 04/07/17 17:36 Blood Peripheral Anaerobic Blood Culture - Preliminary NO GROWTH IN 3 DAYS Resulted 04/04/17 17:34 Fluid Peritoneal Fluid Gram Stain - Final Complete 04/04/17 17:34 Fluid Peritoneal Fluid Body Fluid Culture - Final NO GROWTH IN 72 HRS.--AEROBICALLY OR ... Complete 04/04/17 21:30 Sputum Endotracheal Gram Stain - Final Complete 04/04/17 21:30 Sputum Endotracheal Sputum Culture - Final MODERATE GROWTH NORMAL RESPIRATORY DEDRICK Complete 04/04/17 20:00 Urine Catheterized Urine Urine Culture - Final NO GROWTH IN 48 HOURS. Complete Imaging Last Impressions Chest X-Ray 04/10/17 0600 Signed Impressions: Service Date/Time: Monday, April 10, 2017 03:59 - CONCLUSION: 1. Patchy air space disease, slightly improved from April 09. No pneumothorax. Kyle Thorpe MD Abdomen/Pelvis CT 04/04/17 0000 Signed Impressions: Service Date/Time: March 15:55 - CONCLUSION: 1. Hepatosplenomegaly. 2. Abdominal ascites. 3. Oral contrast has passed throughout the small bowel and colon. There is no significant thickening of the colonic wall identified. The colon is decompressed. 4. Consolidation in both lung bases with minimal basilar effusions. 5. Nasogastric tube within the stomach. Bo Wall MD Abdomen X-Ray 04/02/17 0600 Signed Impressions: Service Date/Time: Sunday, April 02, 2017 06:08 - CONCLUSION: No dilated bowel loops. Suspected ascites. Miles Ge Jr., MD Abdomen Ultrasound 04/02/17 0000 Signed Impressions: Service Date/Time: Sunday, April 02, 2017 10:36 - CONCLUSION: 1. There is a large amount of ascites. Marked was placed on the right lower quadrant with patient lying on back with head elevated to about 30-40. Distance from skin to peritoneal surface is 2.2 cm and maximal safe depth is 4.4 cm. Kyle Thorpe MD CT Angiography 03/27/17 0000 Signed Impressions: Service Date/Time: Monday, March 27, 2017 03:55 - CONCLUSION: 1. Mixed groundglass opacity and airspace consolidation in both upper lobes. Differential diagnosis includes infection, aspiration and pulmonary hemorrhage. 2. Moderate pleural effusions with dependent consolidation and atelectasis at both lung bases. 3. Hepatomegaly with ascites. 4. Contrast bolus suboptimal but no pulmonary emboli identified. Kyle Thorpe MD Cyst Biopsy Asp-Paracentesis US 03/20/17 0600 Signed Impressions: Service Date/Time: Monday, March 20, 2017 09:42 - CONCLUSION: Uncomplicated ultrasound guided paracentesis. Kareem Mahan MD Lower Extremity Ultrasound 03/19/17 1441 Signed Impressions: Service Date/Time: Sunday, March 19, 2017 15:40 - CONCLUSION: 1. No evidence of deep venous thrombosis. Claudio Argueta MD Liver Ultrasound 03/19/17 0000 Signed Impressions: Service Date/Time: Sunday, March 19, 2017 18:23 - CONCLUSION: 1. Moderate ascites. Thickened gallbladder wall with sludge. Mild hepatosplenomegaly. Kyle Thorpe MD Physical Exam HEENT: Normocephalic CHEST: Resp. even, minimally labored , on 5L n/c, diminished CARDIAC: RRR ABDOMEN: Abdomen distended with moderate amount of ascites, nontender, bowel sounds present. EXTREMITIES: No edema CERTIFIED PARALEGAL: Awake, oriented, follows commands (Claudia Harvey [facility]) Assessment and Plan Plan ASSESSMENT: - Recurrent Ascites requiring frequent paracentesis. US guided paracentesis (03/20/17)---> 3,300cc removed. Peritoneal WBC 579, RBC 140. Peritoneal cx no growth 72 hours. Rpt. Paracentesis 04/04 with 3 L removed. Rpt paracentesis 04/07 with 3.8 L removed. He has had US, CT scan without contrast- no evidence of portal vein thrombosis. However, his ammonia has been elevated. Low sodium, Fluid restriction, Albumin, Diuretics decreased to Lasix 40mg IV BID and [id number] po q8h. Still with moderate ascites/ distention, despite negative fluid balance. Increase spironolactone to 100mg po bid. - Elevated liver enzymes, liver cirrhosis. Liver US (03/19/17)---> Moderate ascites. Thickened gallbladder wall with sludge, mild hepatomegaly. ALEJA negative, AMA 79.7, ASMA negative, Ceruloplasmin 20, Alpha 1 Antitrypsin 180, Hepatitis profile negative, AFP 2.1. Iron saturation 102.2%, Ferritin 840, Hfe gene C282Y one mutation identified, H63D, S65C not detected. On Ursodiol. LFTs improved, T. Bili 4.3, AST 151, ALT 60, Alk Phosph 47. ? Liver bx at some point. - Elevated Iron Saturation. Hfe gene C282Y one mutation identified, H63D, S65C not detected. Pentoxfylline for alcoholic hepatitis component. - (+) AMA. Started on Actigal, ? liver biopsy when stable. LFTs are stable. - Leukocytosis. WBC 37.5. Bilateral pna s/p tx, CDiff (+), Epid )27 (-). Urine negative for legionella, streptococcus pneumoniae. Bcx no growth 3 day, sputum with moderate growth normal respiratory dedrick. On Flagyl, Oral Vanco. WBC 27.3 - CDifficile, Epid 027 (-). Flagyl, Oral vanco. - Anemia. HH 9.6/28.9 - Thrombocytopenia, improved. Plt 114. - Hepatic encephalopathy. A/O x3. Lactulose - Respiratory failure, bilateral pneumonia, ARDS. Improved. Now off of rotaprone and extubated, on n/c. PLAN: - Change diet to 2 gram sodium diet - 1,500cc fluid restriction - Lasix 40mg IV BID - Spironolactone 100mg po BID - Cont. Albumin - Cont Ursodiol - Cont Protonix - Cont. Lactulose - Cont. Xifaxan - Add Pentoxifylline - Cont. Oral Vanco, Flagyl - KUB today - Monitor labs - Monitor I/O - Supportive care - ? liver biopsy when stable - Continue diuretics, low sodium diet, fluid restriction. If no improvement, will need evaluation for TIPS, but ideally would need to be alcohol free x 6 months - Will need egd with band ligation as outpatient - Further recommendations to follow based on results of above - Pt seen and examined by Dr. Cancino and myself and this note is written on her behalf (Claudia Harvey) Plan Patient was seen and examined, agree with above normal, his ascites is under control now, he is able to walk around, continue with the fluid restriction and current diuretics, I discussed the case with Dr. Ureña comfortable managing the patient will sign off at this time (Ann-Marie Cancino MD) Claudia Harvey Apr 10, 2017 12:18 Ann-Marie Cancino MD Apr 10, 2017 14:17
--- NOTE | 2017-04-10 13:53 | HHI.PR ---
Addendum to Inpatient Note Additional Information Pt seen arounf [id number] full note to follow diarrhea 2-5 x/day less abd pain no fever wbc going down On exam: + mild icterus benign abd resolved BLE edema cobn vanco po dc IV Elda Gonzalez MD Apr 10, 2017 13:53
--- NOTE | 2017-04-10 14:18 | RADRPT ---
EXAM DATE/TIME: 04/10/2017 13:20 [facility] COMPARISON: CT ABDOMEN & PELVIS W/O CONTRAST, April 04, 2017, 15:55. CHEST SINGLE AP, April 10, 2017, 3: 59. INDICATIONS : Distention ascites vs colonic MEDICAL HISTORY : Gastroesophageal reflux disease. Hypertension Renal insufficiency. SURGICAL HISTORY : None. ENCOUNTER: Initial ACUITY: 3 weeks PAIN SCORE: 0/10 LOCATION: Bilateral abdomen FINDINGS: There is central clumping of the bowel gas pattern suggesting possible ascites. The bowel gas pattern is otherwise unremarkable. No abnormal calcifications are seen. The bony structures are intact. There is minimal effusion and consolidative change at the left lung base. CONCLUSION: 1. Central clumping of the loops of small large bowel suggesting ascites. The bowel is nondilated. Bo Wall MD on April 10, 2017 at 14:16 Board Certified Radiologist. This report was verified electronically.
--- NOTE | 2017-04-10 16:32 | HHI.PR ---
Subjective Remarks Pt with prolonged ICU stay d/t respiratory failure and sepsis. No new complaints today. Objective Vitals Vital Signs Date Time Temp Pulse Resp B/P (MAP) Pulse Ox O2 Delivery O2 Flow Rate FiO2 04/10/17 10:00 112 04/10/17 09:05 92 Nasal Cannula 6.00 04/10/17 08:00 99.0 116 29 119/95 (103) 93 04/10/17 08:00 116 04/10/17 07:00 93 Nasal Cannula 6.00 04/10/17 06:00 110 04/10/17 04:00 118 04/10/17 04:00 98.7 118 28 120/75 (90) 91 04/10/17 02:00 116 04/10/17 00:00 106 04/10/17 00:00 97.1 106 22 115/69 (84) 93 04/09/17 22:00 108 04/09/17 21:06 93 40 04/09/17 20:00 106 04/09/17 20:00 98.8 106 33 116/59 (78) 97 04/09/17 19:50 97 Nasal Cannula 6.00 04/09/17 19:00 92 Nasal Cannula 6.00 04/09/17 18:00 115 Result Diagram: 04/10/17 0407 04/10/17 1530 Imaging Last Impressions Cyst Biopsy Asp-Paracentesis US 03/20/17 0600 Signed Impressions: Service Date/Time: Monday, March 20, 2017 09:42 - CONCLUSION: Uncomplicated ultrasound guided paracentesis. Kareem Mahan MD Lower Extremity Ultrasound 03/19/17 1441 Signed Impressions: Service Date/Time: Sunday, March 19, 2017 15:40 - CONCLUSION: 1. No evidence of deep venous thrombosis. Claudio Argueta MD Chest X-Ray 03/19/17 1423 Signed Impressions: Service Date/Time: Sunday, March 19, 2017 14:33 - CONCLUSION: Bibasilar atelectasis and borderline cardiomegaly. Aaron Tesfaye MD Liver Ultrasound 03/19/17 0000 Signed Impressions: Service Date/Time: Sunday, March 19, 2017 18:23 - CONCLUSION: 1. Moderate ascites. Thickened gallbladder wall with sludge. Mild hepatosplenomegaly. Kyle Thorpe MD Objective Remarks General: NAD, AAOx3 Chest: CTA Cardiac: Regular Abd: +BS, semi-firm, distended, NT Ext: 1-2+ bilateral LE edema Date of Insertion: Mar 27, 2017 Line: Central Venous Catheter Side: Right Location: Internal, Jugular A/P Problem List: (1) Alcoholic cirrhosis ICD Codes: K70.30 - Alcoholic cirrhosis of liver without ascites Status: Acute Plan: - comgmt with GI - Pt is known alcoholic with hx narcotic addiction/abuse - Pt presented with 4 months progressive lower ext edema/ascites - Appears to have liver cirrhosis/portal HTN. SAAG 1.5 - He had US guided paracentesis on 03/20 with removal of 3.3 L of ascetic fluid. - possible TIPS when more stable - possible liver biopsy when more stable - 1,500cc fluid restriction - Lasix 40mg IV BID - Spironolactone 100mg po BID - Cont. Albumin - Cont Ursodiol - Cont Protonix - Cont. Lactulose - Cont. Xifaxan - Add Pentoxifylline - Oral Vanco for C.Dif - Supportive care (2) ETOH abuse ICD Codes: F10.10 - Alcohol abuse, uncomplicated Status: Chronic Plan: - see above (3) Tobacco abuse ICD Codes: Z72.0 - Tobacco use Status: Chronic (4) Chronic back pain ICD Codes: M54.9 - Dorsalgia, unspecified; G89.29 - Other chronic pain Status: Chronic (5) HTN (hypertension) ICD Codes: I10 - Essential (primary) hypertension Status: Chronic (6) Chronic respiratory failure ICD Codes: J96.10 - Chronic respiratory failure, unspecified whether with hypoxia or hypercapnia Status: Acute Plan: - continue supplemental oxygen - Ezpap, acapella, IS - nicotine patch Problem Qualifiers (1) Alcoholic cirrhosis: Qualified Codes: K70.31 - Alcoholic cirrhosis of liver with ascites (2) Chronic respiratory failure: Qualified Codes: J96.10 - Chronic respiratory failure, unspecified whether with hypoxia or hypercapnia Jerardo Khan DO Apr 10, 2017 16:32
[2017-04-10] MEDS: PENTOXIFYLLINE 400 MG CONTROLLED RELEASE TAB PO SCH ×2 (16:35→21:40)
--- NOTE | 2017-04-10 18:31 | HHI.PR ---
Subjective Remarks Now with N/C at 5L. Seems better. SOB at rest. CXR still shows bilateral Infiltrates. Objective Vital Signs Date Time Temp Pulse Resp B/P (MAP) Pulse Ox O2 Delivery O2 Flow Rate FiO2 04/10/17 16:00 111 04/10/17 14:00 115 04/10/17 12:00 113 04/10/17 10:00 112 04/10/17 09:05 92 Nasal Cannula 6.00 04/10/17 08:00 99.0 116 29 119/95 (103) 93 04/10/17 08:00 116 04/10/17 07:00 93 Nasal Cannula 6.00 04/10/17 06:00 110 04/10/17 04:00 118 04/10/17 04:00 98.7 118 28 120/75 (90) 91 04/10/17 02:00 116 04/10/17 00:00 106 04/10/17 00:00 97.1 106 22 115/69 (84) 93 04/09/17 22:00 108 04/09/17 21:06 93 40 04/09/17 20:00 106 04/09/17 20:00 98.8 106 33 116/59 (78) 97 04/09/17 19:50 97 Nasal Cannula 6.00 04/09/17 19:00 92 Nasal Cannula 6.00 I/O 04/09/17 04/09/17 04/09/17 04/10/17 04/10/17 04/10/17 07:00 15:00 23:00 07:00 15:00 23:00 Intake Total 834 ml 786 ml 880 ml Output Total 2300 ml 1800 ml 1250 ml Balance -1466 ml -1014 ml -370 ml Intake Oral 600 ml 400 ml 480 ml IV Total 234 ml 386 ml 300 ml Albumin 100 ml Output Urine Total 2300 ml 1800 ml 1250 ml # Voids 3 # Bowel Movements 3 1 1 Result Diagram: 04/10/17 0407 04/10/17 1530 Objective Remarks PHYSICAL EXAMINATION IN GENERAL: This averagely built middle-aged man alert .No distress HEAD, EYES, EARS, NOSE, AND THROAT: Pupils reactive. Sclerae are clear Throat clear. NECK: No venous distension. CHEST: Decreased breath sounds at the periphery. Occ wheezes and Basal Crackles. HEART: Heart sounds are regular S1-S2. ABDOMEN: Abdomen is soft, Non tender, Bowel sounds not heard. EXTREMITIES:No edema. Neuro The patient is alert , and responds to commands and has no deficits. DERMATOLOGY: The skin was warm Assessment and Plan Assessment and Plan IMPRESSION 1. Acute hypoxemic respiratory failure.Resolved 2. ARDS 3. Aspiration pneumonia versus pulmonary edema. 4. Cirrhosis of the liver 5. Probable underlying chronic lung disease 6. Ascites. Plan : 1. Wean FIO2 to keep sat >92. 2. Place on BIPAP at HS 12/5 CM , FIO2 40 % 3. Cont Antibiotics as ordered. 4 IS q3h, bedside 5. Nebs q6h with duoneb. 6. PT eval and ambulate 7. Labs in am Mela Becerra MD Apr 10, 2017 18:30
[2017-04-10] MEDS: POTASSIUM CHLOR 20 MEQ PREMIX 100 ML IV PRN (21:40)
[2017-04-10] MEDS: SPIRONOLACTONE 100 MG TAB PO SCH (21:40)
[2017-04-10] MEDS: ARTIFICIAL TEARS OPTH OINT 3.5 APPLIC/3.5 GM TUBO EACH EYE SCH (21:43)
[2017-04-10] MEDS: diphenhydrAMINE HCL 25 MG CAP PO PRN (22:10)
--- NOTE | 2017-04-10 23:22 | HHI.IDPN ---
Subjective Subjective Remarks Pt seen today around 1345 delayed entry pt on NC O2 co diarrhea 2-5 x/day less abdominal pain no fever wbc going down, but still quite high (27K) Antibiotics PO vanco iv flagyl Lines Line sites with no e.o infection Past Medical History reviewed. Allergies: Coded Allergies: clarithromycin (Unverified Allergy, Severe, Rash, 03/19/17) clindamycin (Unverified Allergy, Severe, RASH, 03/19/17) Objective . Vital Signs Date Time Temp Pulse Resp B/P (MAP) Pulse Ox O2 Delivery O2 Flow Rate FiO2 04/10/17 20:05 92 Nasal Cannula 6.00 04/10/17 18:00 113 04/10/17 16:00 111 04/10/17 16:00 98.8 111 27 105/63 (77) 93 04/10/17 14:00 115 04/10/17 12:00 113 04/10/17 12:00 98.8 113 29 98/56 (70) 95 04/10/17 10:00 112 04/10/17 09:05 92 Nasal Cannula 6.00 04/10/17 08:00 99.0 116 29 119/95 (103) 93 04/10/17 08:00 116 04/10/17 07:00 93 Nasal Cannula 6.00 04/10/17 06:00 110 04/10/17 04:00 118 04/10/17 04:00 98.7 118 28 120/75 (90) 91 04/10/17 02:00 116 04/10/17 00:00 106 04/10/17 00:00 97.1 106 22 115/69 (84) 93 04/10/17 04/10/17 04/11/17 15:00 23:00 07:00 Intake Total 1839 ml Balance 1839 ml Intake Oral 800 ml IV Total 939 ml Albumin 100 ml # Voids 3 # Bowel Movements 3 . Laboratory Tests Test 04/09/17 04:07 04/10/17 04:07 White Blood Count 31.5 TH/MM3 27.3 TH/MM3 Red Blood Count 2.59 MIL/MM3 2.58 MIL/MM3 Hemoglobin 10.0 GM/DL 9.6 GM/DL Hematocrit 28.9 % 28.9 % Mean Corpuscular Volume 111.7 FL 111.8 FL Mean Corpuscular Hemoglobin 38.6 PG 37.2 PG Mean Corpuscular Hemoglobin Concent 34.5 % 33.3 % Red Cell Distribution Width 17.7 % 17.7 % Platelet Count 103 TH/MM3 114 TH/MM3 Mean Platelet Volume 8.5 FL 8.8 FL CBC Comment AUTO DIFF DIFF FINAL Differential Total Cells Counted 100 Neutrophils % (Manual) 86 % Band Neutrophils % 2 % Lymphocytes % 4 % Monocytes % 7 % Basophils % 1 % Neutrophils # (Manual) 27.7 TH/MM3 Differential Comment FINAL DIFF MANUAL Platelet Estimate LOW Platelet Morphology Comment NORMAL Target Cells 2+ Neutrophils (%) (Auto) 86.6 % Lymphocytes (%) (Auto) 6.7 % Monocytes (%) (Auto) 6.0 % Eosinophils (%) (Auto) 0.5 % Basophils (%) (Auto) 0.2 % Neutrophils # (Auto) 23.6 TH/MM3 Lymphocytes # (Auto) 1.8 TH/MM3 Monocytes # (Auto) 1.6 TH/MM3 Eosinophils # (Auto) 0.1 TH/MM3 Basophils # (Auto) 0.0 TH/MM3 Laboratory Tests Test 04/09/17 04:07 04/09/17 20:25 04/10/17 04:07 04/10/17 15:30 Blood Urea Nitrogen 27 MG/DL 20 MG/DL Creatinine 0.91 MG/DL 0.84 MG/DL Random Glucose 105 MG/DL 108 MG/DL Total Protein 6.3 GM/DL 6.5 GM/DL Albumin 4.1 GM/DL 4.3 GM/DL Calcium Level 8.8 MG/DL 8.9 MG/DL Magnesium Level 1.7 MG/DL 1.7 MG/DL Alkaline Phosphatase 45 U/L 47 U/L Aspartate Amino Transf (AST/SGOT) 125 U/L 151 U/L Alanine Aminotransferase (ALT/SGPT) 46 U/L 60 U/L Total Bilirubin 4.4 MG/DL 4.3 MG/DL Sodium Level 139 MEQ/L 139 MEQ/L Potassium Level 3.3 MEQ/L 3.5 MEQ/L 3.3 MEQ/L 3.5 MEQ/L Chloride Level 102 MEQ/L 102 MEQ/L Carbon Dioxide Level 27.9 MEQ/L 28.4 MEQ/L Anion Gap 9 MEQ/L 9 MEQ/L Estimat Glomerular Filtration Rate 92 ML/MIN 101 ML/MIN Imaging Last Impressions Chest X-Ray 04/10/17 0600 Signed Impressions: Service Date/Time: Monday, April 10, 2017 03:59 - CONCLUSION: 1. Patchy air space disease, slightly improved from April 09. No pneumothorax. Kyle Thorpe MD Abdomen X-Ray 04/10/17 0000 Signed Impressions: Service Date/Time: Monday, April 10, 2017 13:20 - CONCLUSION: 1. Central clumping of the loops of small large bowel suggesting ascites. The bowel is nondilated. Bo Wall MD Abdomen/Pelvis CT 04/04/17 0000 Signed Impressions: Service Date/Time: March 15:55 - CONCLUSION: 1. Hepatosplenomegaly. 2. Abdominal ascites. 3. Oral contrast has passed throughout the small bowel and colon. There is no significant thickening of the colonic wall identified. The colon is decompressed. 4. Consolidation in both lung bases with minimal basilar effusions. 5. Nasogastric tube within the stomach. Bo Wall MD Abdomen Ultrasound 04/02/17 0000 Signed Impressions: Service Date/Time: Sunday, April 02, 2017 10:36 - CONCLUSION: 1. There is a large amount of ascites. Marked was placed on the right lower quadrant with patient lying on back with head elevated to about 30-40. Distance from skin to peritoneal surface is 2.2 cm and maximal safe depth is 4.4 cm. Kyle Thorpe MD CT Angiography 03/27/17 0000 Signed Impressions: Service Date/Time: Monday, March 27, 2017 03:55 - CONCLUSION: 1. Mixed groundglass opacity and airspace consolidation in both upper lobes. Differential diagnosis includes infection, aspiration and pulmonary hemorrhage. 2. Moderate pleural effusions with dependent consolidation and atelectasis at both lung bases. 3. Hepatomegaly with ascites. 4. Contrast bolus suboptimal but no pulmonary emboli identified. Kyle Thorpe MD Cyst Biopsy Asp-Paracentesis US 03/20/17 0600 Signed Impressions: Service Date/Time: Monday, March 20, 2017 09:42 - CONCLUSION: Uncomplicated ultrasound guided paracentesis. Kareem Mahan MD Lower Extremity Ultrasound 03/19/17 1441 Signed Impressions: Service Date/Time: Sunday, March 19, 2017 15:40 - CONCLUSION: 1. No evidence of deep venous thrombosis. Claudio Argueta MD Liver Ultrasound 03/19/17 0000 Signed Impressions: Service Date/Time: Sunday, March 19, 2017 18:23 - CONCLUSION: 1. Moderate ascites. Thickened gallbladder wall with sludge. Mild hepatosplenomegaly. Kyle Thorpe MD Physical Exam CONSTITUTIONAL/GENERAL: This is an adequately nourished patient, in no apparent distress. On NC O 2 TUBES/LINES/DRAINS: SKIN: No jaundice, rashes, or lesions. Skin temperature appropriate. Not diaphoretic. HEENT: + mild icterus CARDIOVASCULAR: Regular rate and rhythm without murmurs, gallops, or rubs. No JVD. Peripheral pulses symmetric. RESPIRATORY/CHEST: Symmetric, unlabored respirations. Clear to auscultation. Breath sounds equal bilaterally. GASTROINTESTINAL: Abdomen is not distended and soft Not tender palpation, No hepato-splenomegaly, or palpable masses appreaciated. Bowel sounds present. GENITOURINARY: Without palpable bladder distension. Bowden catheter in place with clierar yellow urine MUSCULOSKELETAL: Extremities without clubbing, cyanosis, no edema, No mottling or clubbing. NEUROLOGICAL: awake, alert communicates, non focal not confused PSYCHIATRIC: calm and cooperative Assessment & Plan Remarks PNA, culture negative - crypto also negative last clx with nl resp dedrick Recurretnt acut VDRF: extubated doing well from resp standpoint Liver cirrhosis recurrent ascites sp therapeutic paracentesis x 2. - negative clx C.diff - clin improving Severe leukocytosis , leukemoid reaction ? from C.diff - also sterroida might contributing - leukocytsis slowly resolving Pt is clincially stable and definetely improved Recs: cont vanco po x 14 days dc IV flagyl autmun RN Elda London MD Apr 10, 2017 23:22
[2017-04-11] VITALS (18 sets, daily range): BP systolic 105–134; BP diastolic 57–77; PULSE 110–127; RESP 17–30; TEMP 97.8–98.8; O2SAT 92–99
[2017-04-11] MEDS: LORazepam 1 MG TAB PO PRN ×3 (00:45→23:39)
[2017-04-11] MEDS: POTASSIUM CHLOR 20 MEQ PREMIX 100 ML IV PRN (01:57)
[2017-04-11] MEDS: ALBUMIN HUMAN 25% 25 GM/100 ML BAGP IV SCH ×2 (02:04→14:00)
[2017-04-11] MEDS: RESP: ALBUTEROL 2.5 MG/IPRATROPIUM 0.5 MG NEB (SCH) NEB ×3 (03:35→11:30)
[2017-04-11] MEDS: VANCOMYCIN 500 MG VIAL (FOR ORAL USE ONLY) PO SCH ×4 (03:40→21:52)
[2017-04-11] MEDS: INSULIN NovoLIN REGULAR SUPPLEMENTAL SCALE SQ SCH ×7 (04:00→23:38)
[2017-04-11] MEDS: PCA - TOTAL MG DILAUDID DELIVERED PER SHIFT OTHER SCH ×3 (05:11→20:38)
[2017-04-11] MEDS: METOCLOPRAMIDE HCL 10 MG/2 ML VIAL IV PUSH SCH ×3 (05:11→21:52)
[2017-04-11] MEDS: PENTOXIFYLLINE 400 MG CONTROLLED RELEASE TAB PO SCH ×3 (05:11→23:35)
[2017-04-11 05:28] LABS: AUTOMATED NEUTROPHIL # 24.7 TH/MM3 (1.8-7.7); BASOPHIL # 0.1 TH/MM3 (0-0.2); BASOPHIL % 0.4 % (0.0-2.0); EOSINOPHIL # 0.1 TH/MM3 (0-0.4); EOSINOPHIL % 0.5 % (0.0-4.0); HEMATOCRIT 27.9 % (39.0-51.0); HEMO FLAGS DIFF FINAL; MEAN CELL VOLUME 111.7 FL (80.0-100.0); MEAN CORPUSCULAR HEMOGLOBIN 38.3 PG (27.0-34.0); MEAN CORPUSCULAR HGB CONC 34.3 % (32.0-36.0); MONO % 5.5 % (0.0-8.0); NEUT % 86.6 % (16.0-70.0); PLATELET COUNT 110 TH/MM3 (150-450); RED CELL DISTRIBUTION WIDTH 17.3 % (11.6-17.2); WHITE BLOOD COUNT 28.6 TH/MM3 (4.0-11.0)
[2017-04-11 05:46] LABS: BICARBONATE 26.2 MEQ/L (21.0-32.0); MAGNESIUM 1.6 MG/DL (1.5-2.5); POTASSIUM 3.5 MEQ/L (3.5-5.1)
[2017-04-11] MEDS: RESP: BUDESONIDE 0.5 MG/2 ML NEB NEB SCH ×2 (07:42→20:58)
[2017-04-11] MEDS: CHLORHEXIDINE 0.12% (ORAL KIT) 15 ML CUP MT SCH ×2 (08:00→20:00)
[2017-04-11] MEDS: FUROSEMIDE 40 MG/4 ML VIAL IV PUSH SCH ×2 (08:53→21:47)
[2017-04-11] MEDS: CHOLESTYRAMINE 4 GM PACKET PO SCH ×2 (08:53→23:35)
[2017-04-11] MEDS: SPIRONOLACTONE 100 MG TAB PO SCH ×2 (08:53→23:35)
[2017-04-11] MEDS: URSODIOL 300 MG CAP PO SCH ×3 (08:54→16:39)
[2017-04-11] MEDS: FOLIC ACID 1 MG TAB PO SCH (08:54)
[2017-04-11] MEDS: MULTIVITAMIN TAB PO SCH (08:54)
[2017-04-11] MEDS: PANTOPRAZOLE SODIUM 40 MG VIAL IV SCH (08:54)
[2017-04-11] MEDS: RIFAXIMIN 550 MG TAB PO SCH ×2 (08:54→21:49)
[2017-04-11] MEDS: THIAMINE HCL 100 MG TAB PO SCH (08:55)
[2017-04-11] MEDS: SODIUM CHLORIDE 0.9% FLUSH 10 ML FLUSH IV FLUSH SCH ×2 (09:00→21:46)
[2017-04-11] MEDS: HEPARIN SODIUM - SQ 10,000 UNITS/ML VIAL SQ SCH ×2 (09:00→21:51)
[2017-04-11] MEDS: ARTIFICIAL TEARS OPTH OINT 3.5 APPLIC/3.5 GM TUBO EACH EYE SCH ×2 (09:00→23:34)
[2017-04-11] MEDS: LACTULOSE SYRUP 20 GM/30 ML CUP PO SCH (09:00)
--- NOTE | 2017-04-11 13:01 | HHI.PR ---
Subjective Remarks Now with N/C at 5L. Did not use Bipap last night.Seems better. No SOB at rest. CXR still shows bilateral Infiltrates. Will go to rehab. Objective Vital Signs Date Time Temp Pulse Resp B/P (MAP) Pulse Ox O2 Delivery O2 Flow Rate FiO2 04/11/17 12:00 98.2 127 27 134/69 (90) 94 04/11/17 12:00 127 04/11/17 10:00 111 04/11/17 08:00 98.1 126 28 122/69 (86) 94 04/11/17 08:00 126 04/11/17 07:45 98 Nasal Cannula 6.00 04/11/17 07:00 94 Nasal Cannula 6.00 04/11/17 06:00 116 04/11/17 04:00 98.0 112 30 105/58 (74) 94 04/11/17 04:00 112 04/11/17 02:00 112 04/11/17 00:00 98.1 110 30 109/57 (74) 99 04/11/17 00:00 110 04/10/17 22:00 120 04/10/17 20:05 92 Nasal Cannula 6.00 04/10/17 20:00 98.4 115 27 125/73 (90) 93 04/10/17 20:00 115 04/10/17 19:00 94 Nasal Cannula 6.00 04/10/17 18:00 113 04/10/17 16:00 111 04/10/17 16:00 98.8 111 27 105/63 (77) 93 04/10/17 14:00 115 I/O 04/10/17 04/10/17 04/10/17 04/11/17 04/11/17 04/11/17 07:00 15:00 23:00 07:00 15:00 23:00 Intake Total 880 ml 100 ml 1839 ml 920 ml Output Total 1250 ml Balance -370 ml 100 ml 1839 ml 920 ml Intake Oral 480 ml 800 ml 480 ml IV Total 300 ml 100 ml 939 ml 340 ml Albumin 100 ml 100 ml 100 ml Output Urine Total 1250 ml # Voids 3 3 3 # Bowel Movements 1 3 3 Result Diagram: 04/11/17 0424 04/11/17 0424 Objective Remarks PHYSICAL EXAMINATION IN GENERAL: This averagely built middle-aged man alert .No distress HEAD, EYES, EARS, NOSE, AND THROAT: Pupils reactive. Sclerae are clear Throat injected NECK: No venous distension. CHEST: Decreased breath sounds at the periphery. Occ wheezes and fine Basal Crackles. HEART: Heart sounds are regular S1-S2. ABDOMEN: Abdomen is soft, Non tender, Bowel sounds not heard. EXTREMITIES:No edema. Neuro The patient is alert , and responds well to questions DERMATOLOGY: The skin was warm. No Gross neuro deficit. Assessment and Plan Assessment and Plan IMPRESSION 1. Acute hypoxemic respiratory failure.Resolved 2. ARDS 3. Aspiration pneumonia versus pulmonary edema. 4. Cirrhosis of the liver 5. Probable underlying chronic lung disease 6. Ascites. Plan : 1. Wean FIO2 to keep sat >92. O2 N/C 5 L 2. D/C BIPAP at HS 3. Antibiotics as ordered. 4 IS q3h, bedside 5. Nebs q6h with duoneb. 6. PT eval and ambulate 7. Transfer to rehab soon. Mela Becerra MD Apr 11, 2017 13:01
--- NOTE | 2017-04-11 15:40 | HHI.PR ---
Subjective Remarks No new complaints. Objective Vitals Vital Signs Date Time Temp Pulse Resp B/P (MAP) Pulse Ox O2 Delivery O2 Flow Rate FiO2 04/11/17 14:00 113 04/11/17 12:00 98.2 127 27 134/69 (90) 94 04/11/17 12:00 127 04/11/17 10:00 111 04/11/17 08:00 98.1 126 28 122/69 (86) 94 04/11/17 08:00 126 04/11/17 07:45 98 Nasal Cannula 6.00 04/11/17 07:00 94 Nasal Cannula 6.00 04/11/17 06:00 116 04/11/17 04:00 98.0 112 30 105/58 (74) 94 04/11/17 04:00 112 04/11/17 02:00 112 04/11/17 00:00 98.1 110 30 109/57 (74) 99 04/11/17 00:00 110 04/10/17 22:00 120 04/10/17 20:05 92 Nasal Cannula 6.00 04/10/17 20:00 98.4 115 27 125/73 (90) 93 04/10/17 20:00 115 04/10/17 19:00 94 Nasal Cannula 6.00 04/10/17 18:00 113 04/10/17 16:00 111 04/10/17 16:00 98.8 111 27 105/63 (77) 93 Result Diagram: 04/11/17 0424 04/11/17 1356 Imaging Last Impressions Cyst Biopsy Asp-Paracentesis US 03/20/17 0600 Signed Impressions: Service Date/Time: Monday, March 20, 2017 09:42 - CONCLUSION: Uncomplicated ultrasound guided paracentesis. Kareem Mahan MD Lower Extremity Ultrasound 03/19/17 1441 Signed Impressions: Service Date/Time: Sunday, March 19, 2017 15:40 - CONCLUSION: 1. No evidence of deep venous thrombosis. Claudio Argueta MD Chest X-Ray 03/19/17 1423 Signed Impressions: Service Date/Time: Sunday, March 19, 2017 14:33 - CONCLUSION: Bibasilar atelectasis and borderline cardiomegaly. Aaron Tesfaye MD Liver Ultrasound 03/19/17 0000 Signed Impressions: Service Date/Time: Sunday, March 19, 2017 18:23 - CONCLUSION: 1. Moderate ascites. Thickened gallbladder wall with sludge. Mild hepatosplenomegaly. Kyle Thorpe MD Objective Remarks General: NAD, AAOx3 Chest: CTA Cardiac: Regular Abd: +BS, semi-firm, distended, NT Ext: 1-2+ bilateral LE edema Date of Insertion: Mar 27, 2017 Line: Central Venous Catheter Side: Right Location: Internal, Jugular A/P Problem List: (1) Chronic respiratory failure ICD Codes: J96.10 - Chronic respiratory failure, unspecified whether with hypoxia or hypercapnia Status: Acute Plan: - continue supplemental oxygen - 5-6 liters O2 by NC - Ezpap, acapella, IS - nicotine patch - Case d/w Dr. Becerra (04/11/17) - repeat CXR 04/12 - if pt's pulmonary status remains stable, no need for [facility]. Pt already on NC - Pt will need continued rehabilitation, physical therapy, and close observation - Consider discharge to [facility] in next 2-3 days (2) Alcoholic cirrhosis ICD Codes: K70.30 - Alcoholic cirrhosis of liver without ascites Status: Acute Plan: - comgmt with GI - Pt is known alcoholic with hx narcotic addiction/abuse - Pt presented with 4 months progressive lower ext edema/ascites - Appears to have liver cirrhosis/portal HTN. SAAG 1.5 - He had US guided paracentesis on 03/20 with removal of 3.3 L of ascetic fluid. - possible TIPS when more stable & off alcohol for 6 months - possible liver biopsy when more stable - 1,500cc fluid restriction - Lasix 40mg IV BID - Spironolactone 100mg po BID - Cont. Albumin - Cont Ursodiol - Cont Protonix - Cont. Lactulose - Cont. Xifaxan - Add Pentoxifylline - Oral Vanco for C.Dif - Supportive care (3) ETOH abuse ICD Codes: F10.10 - Alcohol abuse, uncomplicated Status: Chronic Plan: - see above (4) Tobacco abuse ICD Codes: Z72.0 - Tobacco use Status: Chronic (5) Chronic back pain ICD Codes: M54.9 - Dorsalgia, unspecified; G89.29 - Other chronic pain Status: Chronic (6) HTN (hypertension) ICD Codes: I10 - Essential (primary) hypertension Status: Chronic Problem Qualifiers (1) Chronic respiratory failure: Qualified Codes: J96.10 - Chronic respiratory failure, unspecified whether with hypoxia or hypercapnia (2) Alcoholic cirrhosis: Qualified Codes: K70.31 - Alcoholic cirrhosis of liver with ascites Jerardo Khan DO Apr 11, 2017 15:40
[2017-04-12] VITALS: BP 121/73; PULSE 116; RESP 17; TEMP 98.2; O2SAT 95
[2017-04-12] MEDS: ALBUMIN HUMAN 25% 25 GM/100 ML BAGP IV SCH ×2 (02:08→14:00)
[2017-04-12 04:00] VITALS: BP 125/70; PULSE 118; RESP 17; TEMP 97.5; O2SAT 94
[2017-04-12] MEDS: INSULIN NovoLIN REGULAR SUPPLEMENTAL SCALE SQ SCH ×4 (04:00→16:00)
[2017-04-12] MEDS: VANCOMYCIN 500 MG VIAL (FOR ORAL USE ONLY) PO SCH ×3 (04:39→16:37)
[2017-04-12] MEDS: PCA - TOTAL MG DILAUDID DELIVERED PER SHIFT OTHER SCH ×2 (06:00→14:00)
[2017-04-12] MEDS: PENTOXIFYLLINE 400 MG CONTROLLED RELEASE TAB PO SCH ×2 (06:05→15:05)
[2017-04-12] MEDS: METOCLOPRAMIDE HCL 10 MG/2 ML VIAL IV PUSH SCH ×2 (06:05→15:06)
[2017-04-12] MEDS: LORazepam 1 MG TAB PO PRN ×4 (06:15→16:43)
[2017-04-12 08:00] VITALS: BP 132/78; PULSE 123; RESP 20; TEMP 99.3; O2SAT 94
[2017-04-12] MEDS: RESP: BUDESONIDE 0.5 MG/2 ML NEB NEB SCH (08:00)
[2017-04-12] MEDS: CHLORHEXIDINE 0.12% (ORAL KIT) 15 ML CUP MT SCH (08:00)
[2017-04-12 08:45] VITALS: O2SAT 95
[2017-04-12] MEDS: ARTIFICIAL TEARS OPTH OINT 3.5 APPLIC/3.5 GM TUBO EACH EYE SCH (09:00)
[2017-04-12] MEDS: MULTIVITAMIN TAB PO SCH (09:46)
[2017-04-12] MEDS: RIFAXIMIN 550 MG TAB PO SCH (09:46)
[2017-04-12] MEDS: LACTULOSE SYRUP 20 GM/30 ML CUP PO SCH (09:46)
[2017-04-12] MEDS: THIAMINE HCL 100 MG TAB PO SCH (09:46)
[2017-04-12] MEDS: FOLIC ACID 1 MG TAB PO SCH (09:47)
[2017-04-12] MEDS: PANTOPRAZOLE SODIUM 40 MG VIAL IV SCH (09:47)
[2017-04-12] MEDS: SPIRONOLACTONE 100 MG TAB PO SCH (09:47)
[2017-04-12] MEDS: URSODIOL 300 MG CAP PO SCH ×2 (09:47→12:24)
[2017-04-12] MEDS: HEPARIN SODIUM - SQ 10,000 UNITS/ML VIAL SQ SCH (09:47)
[2017-04-12] MEDS: SODIUM CHLORIDE 0.9% FLUSH 10 ML FLUSH IV FLUSH SCH (09:48)
[2017-04-12] MEDS: CHOLESTYRAMINE 4 GM PACKET PO SCH (09:48)
[2017-04-12] MEDS: FUROSEMIDE 40 MG/4 ML VIAL IV PUSH SCH (09:48)
[2017-04-12] MEDS: RESP: ALBUTEROL 2.5 MG/3 ML NEB (PRN) NEB (11:18)
[2017-04-12 12:00] VITALS: BP 122/70; PULSE 116; RESP 18; TEMP 99.4; O2SAT 94
--- NOTE | 2017-04-12 13:10 | HHI.PR ---
Subjective Remarks On N/C at 3 L. Did not use Bipap .Seems better.SOB at rest. CXR still shows bilateral Infiltrates. Will go to rehab. this week Objective Vital Signs Date Time Temp Pulse Resp B/P (MAP) Pulse Ox O2 Delivery O2 Flow Rate FiO2 04/12/17 08:50 94 Nasal Cannula 3.00 04/12/17 08:45 95 Nasal Cannula 2.00 04/12/17 08:00 99.3 123 20 132/78 (96) 94 04/12/17 04:00 97.5 118 17 125/70 (88) 94 04/12/17 00:00 98.2 116 17 121/73 (89) 95 04/11/17 23:00 98.8 118 19 120/70 (87) 94 04/11/17 22:00 97.8 119 17 126/74 (91) 94 04/11/17 21:06 94 Nasal Cannula 3.00 04/11/17 21:01 94 Nasal Cannula 3.00 04/11/17 21:00 98.7 116 17 132/74 (93) 94 04/11/17 20:50 118 04/11/17 20:00 98.8 124 18 129/77 (94) 93 04/11/17 20:00 94 Nasal Cannula 3.00 04/11/17 19:50 93 04/11/17 16:00 98.2 115 18 125/71 (89) 92 04/11/17 14:00 113 I/O 04/11/17 04/11/17 04/11/17 04/12/17 04/12/17 04/12/17 07:00 15:00 23:00 07:00 15:00 23:00 Intake Total 920 ml 240 ml 240 ml Balance 920 ml 240 ml 240 ml Intake Oral 480 ml 240 ml 240 ml IV Total 340 ml Albumin 100 ml # Voids 3 2 3 # Bowel Movements 3 1 Result Diagram: 04/11/17 0424 04/11/17 1356 Objective Remarks PHYSICAL EXAMINATION IN GENERAL: This averagely built middle-aged man alert .No distress HEAD, EYES, EARS, NOSE, AND THROAT: Pupils reactive. Sclerae icteric. Throat injected NECK: No venous distension. CHEST: Decreased breath sounds at the periphery. Occ wheezes and occ Basal Crackles. HEART: Heart sounds are regular S1-S2. ABDOMEN: Abdomen is soft, Non tender, Bowel sounds not heard. EXTREMITIES:No edema. Neuro The patient is alert , and responds well . DERMATOLOGY: The skin was warm. No Gross neuro deficit. Assessment and Plan Assessment and Plan IMPRESSION 1. Acute hypoxemic respiratory failure.Resolved 2. ARDS 3. Aspiration pneumonia versus pulmonary edema. 4. Cirrhosis of the liver 5. Probable underlying chronic lung disease 6. Ascites. Plan : 1. Wean FIO2 to keep sat >92. O2 N/C 4 L 2. To rehab per Dr Khan 3. CXR on Saturday 4 IS q3h, bedside 5. Nebs q6h with duoneb.PRN 6. PT evaluation and ambulate 7. Will F/U on Saturday Mela Becerra MD Apr 12, 2017 13:10
[2017-04-12] MEDS ORDERED: PROT40TA PO (14:11)
[2017-04-12] MEDS ORDERED: ACET1TAB86 PO (14:11)
[2017-04-12] MEDS ORDERED: VANC500I3 PO (14:11)
[2017-04-12] MEDS ORDERED: NICO21DI25 T-DERMAL (14:11)
[2017-04-12] MEDS ORDERED: THERTAB15 PO (14:11)
[2017-04-12] MEDS ORDERED: BUDE.5I NEB (14:11)
[2017-04-12] MEDS ORDERED: Ursodiol PO (14:11)
[2017-04-12] MEDS ORDERED: XIFA550T4 PO (14:11)
[2017-04-12] MEDS ORDERED: FURO1TAB60 PO (14:11)
[2017-04-12] MEDS ORDERED: CHOL4POW4 PO (14:11)
[2017-04-12] MEDS ORDERED: FOLI1TAB6 PO (14:11)
[2017-04-12] MEDS ORDERED: ALDA100T PO (14:11)
[2017-04-12] MEDS ORDERED: IPRASOL INH (14:11)
[2017-04-12] MEDS ORDERED: PENT400T PO (14:11)
[2017-04-12] MEDS ORDERED: GNP100TA3 PO (14:11)
[2017-04-12] MEDS ORDERED: REGL10TA5 PO (14:11)
--- NOTE | 2017-04-12 14:20 | HHI.DS ---
Discharge Summary Admission Date Mar 19, 2017 at 17:28 Discharge Date: Apr 12, 2017 Admitting Diagnosis (1) Chronic respiratory failure Diagnosis: Principal ICD Codes: J96.10 - Chronic respiratory failure, unspecified whether with hypoxia or hypercapnia Status: Acute (2) Alcoholic cirrhosis Diagnosis: Principal ICD Codes: K70.30 - Alcoholic cirrhosis of liver without ascites Status: Chronic (3) ETOH abuse Diagnosis: Principal ICD Codes: F10.10 - Alcohol abuse, uncomplicated Status: Chronic (4) Tobacco abuse Diagnosis: Principal ICD Codes: Z72.0 - Tobacco use Status: Chronic (5) Chronic back pain Diagnosis: Secondary ICD Codes: M54.9 - Dorsalgia, unspecified; G89.29 - Other chronic pain Status: Chronic (6) HTN (hypertension) Diagnosis: Secondary ICD Codes: I10 - Essential (primary) hypertension Status: Chronic Consultants Dr. Danette Farias, Infectious Disease Dr. Hui Cancino, Gastroenterology Dr. Aaron Becerra, Pulmonary Medicine Brief History This a 41 year old male patient with a past medical history which includes ETOH abuse, tobacco abuse and HTN. Patient reports over the last 4 months he has had progressively worsening BLE edema. Patient also having increasing abdominal girth over the past four months. Patient also endorses SOB difficult to take a deep breath, cough productive of brown sputum. Patient denies history of known Cirrhosis. Patient does admit to daily ETOH use a pint or more of vodka a day. Patient also endorses constipation for which he takes Lactulose. Patient denies chest or nausea. CBC/BMP: 04/11/17 0424 04/11/17 1356 Significant Findings Laboratory Tests Test 04/09/17 20:25 04/10/17 04:07 04/10/17 15:30 04/11/17 04:24 White Blood Count 27.3 TH/MM3 (4.0-11.0) 28.6 TH/MM3 (4.0-11.0) Red Blood Count 2.58 MIL/MM3 (4.50-5.90) 2.50 MIL/MM3 (4.50-5.90) Hemoglobin 9.6 GM/DL (13.0-17.0) 9.6 GM/DL (13.0-17.0) Hematocrit 28.9 % (39.0-51.0) 27.9 % (39.0-51.0) Mean Corpuscular Volume 111.8 FL (80.0-100.0) 111.7 FL (80.0-100.0) Mean Corpuscular Hemoglobin 37.2 PG (27.0-34.0) 38.3 PG (27.0-34.0) Red Cell Distribution Width 17.7 % (11.6-17.2) 17.3 % (11.6-17.2) Platelet Count 114 TH/MM3 (150-450) 110 TH/MM3 (150-450) Neutrophils (%) (Auto) 86.6 % (16.0-70.0) 86.6 % (16.0-70.0) Lymphocytes (%) (Auto) 6.7 % (9.0-44.0) 7.0 % (9.0-44.0) Neutrophils # (Auto) 23.6 TH/MM3 (1.8-7.7) 24.7 TH/MM3 (1.8-7.7) Monocytes # (Auto) 1.6 TH/MM3 (0-0.9) 1.6 TH/MM3 (0-0.9) Blood Urea Nitrogen 20 MG/DL (7-18) Random Glucose 108 MG/DL (74-106) Aspartate Amino Transf (AST/SGOT) 151 U/L (15-37) Total Bilirubin 4.3 MG/DL (0.2-1.0) Potassium Level 3.3 MEQ/L (3.5-5.1) Test 04/11/17 13:56 04/12/17 05:45 Potassium Level 3.3 MEQ/L (3.5-5.1) Imaging Last Impressions Chest X-Ray 04/10/17 0600 Signed Impressions: Service Date/Time: Monday, April 10, 2017 03:59 - CONCLUSION: 1. Patchy air space disease, slightly improved from April 09. No pneumothorax. Kyle Thorpe MD Abdomen X-Ray 04/10/17 0000 Signed Impressions: Service Date/Time: Monday, April 10, 2017 13:20 - CONCLUSION: 1. Central clumping of the loops of small large bowel suggesting ascites. The bowel is nondilated. Bo Wall MD Abdomen/Pelvis CT 04/04/17 0000 Signed Impressions: Service Date/Time: March 15:55 - CONCLUSION: 1. Hepatosplenomegaly. 2. Abdominal ascites. 3. Oral contrast has passed throughout the small bowel and colon. There is no significant thickening of the colonic wall identified. The colon is decompressed. 4. Consolidation in both lung bases with minimal basilar effusions. 5. Nasogastric tube within the stomach. Bo Wall MD Abdomen Ultrasound 04/02/17 0000 Signed Impressions: Service Date/Time: Sunday, April 02, 2017 10:36 - CONCLUSION: 1. There is a large amount of ascites. Marked was placed on the right lower quadrant with patient lying on back with head elevated to about 30-40. Distance from skin to peritoneal surface is 2.2 cm and maximal safe depth is 4.4 cm[address] Kyle Thorpe MD CT Angiography 03/27/17 0000 Signed Impressions: Service Date/Time: Monday, March 27, 2017 03:55 - CONCLUSION: 1. Mixed groundglass opacity and airspace consolidation in both upper lobes. Differential diagnosis includes infection, aspiration and pulmonary hemorrhage. 2. Moderate pleural effusions with dependent consolidation and atelectasis at both lung bases. 3. Hepatomegaly with ascites. 4. Contrast bolus suboptimal but no pulmonary emboli identified. Kyle Thorpe MD Cyst Biopsy Asp-Paracentesis US 03/20/17 0600 Signed Impressions: Service Date/Time: Monday, March 20, 2017 09:42 - CONCLUSION: Uncomplicated ultrasound guided paracentesis. Kareem Mahan MD Lower Extremity Ultrasound 03/19/17 1441 Signed Impressions: Service Date/Time: Sunday, March 19, 2017 15:40 - CONCLUSION: 1. No evidence of deep venous thrombosis. Claudio Argueta MD Liver Ultrasound 03/19/17 0000 Signed Impressions: Service Date/Time: Sunday, March 19, 2017 18:23 - CONCLUSION: 1. Moderate ascites. Thickened gallbladder wall with sludge. Mild hepatosplenomegaly. Kyle Thorpe MD PE at Discharge General: NAD, AAOx3 Chest: CTA Cardiac: Regular Abd: +BS, semi-firm, distended, NT Ext: 1-2+ bilateral LE edema Hospital Course (1) Chronic respiratory failure ICD Codes: J96.10 - Chronic respiratory failure, unspecified whether with hypoxia or hypercapnia Status: Acute Plan: - continue supplemental oxygen - 5-6 liters O2 by , weaned to 3L NC - Ezpap, acapella, IS - nicotine patch - Case d/w Dr. Becerra (04/11/17) - repeat CXR 04/12 - Pt will need continued rehabilitation, physical therapy, and close observation - discharge to [facility] - see orders (2) Alcoholic cirrhosis ICD Codes: K70.30 - Alcoholic cirrhosis of liver without ascites Plan: - comgmt with GI - Pt is known alcoholic with hx narcotic addiction/abuse - Pt presented with 4 months progressive lower ext edema/ascites - Appears to have liver cirrhosis/portal HTN. SAAG 1.5 - He had US guided paracentesis on 03/20 with removal of 3.3 L of ascetic fluid. - possible TIPS when more stable & off alcohol for 6 months - possible liver biopsy when more stable - 1,500cc fluid restriction - Lasix 40mg IV BID - Spironolactone 100mg po BID - Cont Ursodiol - Cont Protonix - Cont. Lactulose - Cont. Xifaxan - Add Pentoxifylline - Oral Vanco for C.Dif - Supportive care (3) ETOH abuse ICD Codes: F10.10 - Alcohol abuse, uncomplicated Status: Chronic Plan: - see above (4) Tobacco abuse ICD Codes: Z72.0 - Tobacco use Status: Chronic (5) Chronic back pain ICD Codes: M54.9 - Dorsalgia, unspecified; G89.29 - Other chronic pain Status: Chronic (6) HTN (hypertension) ICD Codes: I10 - Essential (primary) hypertension Status: Chronic Pt Condition on Discharge: Stable Discharge Disposition: Rehab Inpatient Discharge Instructions DIET: Follow Instructions for: As Tolerated, No Restrictions Activities you can perform: Weight Bearing as Carter Follow up Referrals: Gastroenterology - 3 Weeks with Ann-Marie Cancino MD Pulmonology - 2 Weeks with Mela Becerra MD New Medications: Furosemide (Lasix) 40 Mg Tab 40 MG PO BID for cirrhosis, #60 TAB 0 Refills Ipratropium-Albuterol Neb (Duoneb) 0.5-2.5 Mg/3 Ml Neb 1 NEBULE INH Q6HR NEB for Breathing Treatment, #120 NEBULE 0 Refills Lorazepam (Ativan) 1 Mg Tab 1 MG PO Q6H PRN for ANXIETY AND/OR AGITATION for 30 Days, #120 TAB 0 Refills Acetaminophen (Eq Acetaminophen) 325 Mg Tab 650 MG PO Q4H PRN for TEMP > 100.4 for 30 Days, #360 TAB Cholestyramine (Cholestyramine) 4 Gm/Pkt Powd 4 GM PO BID for diarrhea for 30 Days, #240 GM 1 packet contains 4 grams of cholestyramine. Spironolactone (Aldactone) 100 Mg Tab 100 MG PO BID for cirrhosis for 30 Days, #60 TAB Vancomycin Inj (Vancomycin Inj) 500 Mg Inj 500 MG PO Q6H for c dif for 7 Days, INJECTION Discontinued Medications: Alprazolam (Xanax) 1 Mg Tab 1 MG PO Q6H PRN for ANXIETY, TAB 0 Refills Furosemide (Lasix) 40 Mg Tab Unknown Dose PO DAILY, #30 TAB 0 Refills Lactulose Liq (Lactulose Liq) 10 Gm/15 Ml Soln 30 ML PO Q6H PRN for CONSTIPATION, ML 0 Refills [bp med] () Unknown Dose PO DAILY [subutex] () 8 mg 8 MG SL QID Jerardo Khan DO Apr 12, 2017 14:20
[2017-04-12] MEDS ORDERED: LORA-474 PO (14:50)
[2017-04-22] MEDS ORDERED: TRANSPORT CHAIR1 MIS (11:29)
[2017-04-22] MEDS ORDERED: MISCMIS81 (11:29)
[2017-04-23] MEDS ORDERED: FOLI1TAB6 PO (08:26)
[2017-04-23] MEDS ORDERED: MAGN400T3 PO (08:26)
[2017-04-23] MEDS ORDERED: PROT40TA PO (08:26)
[2017-04-23] MEDS ORDERED: THERTAB15 PO (08:26)
[2017-04-23] MEDS ORDERED: GNP100TA3 PO (08:26)
[2017-04-23] MEDS ORDERED: XIFA550T4 PO (08:26)
[2017-04-23] MEDS ORDERED: TRAZ50TA12 PO (08:26)
[2017-04-23] MEDS ORDERED: LIDO5DIS5 T-DERMAL (08:26)
[2017-04-23] MEDS ORDERED: XANA1TAB2 PO (08:26)
[2017-04-23] MEDS ORDERED: PENT400T PO (08:26)
[2017-04-23] MEDS ORDERED: Ursodiol PO (08:26)
[2017-04-23] MEDS ORDERED: POTA20TA5 PO (08:26)
[2017-04-23] MEDS ORDERED: BUDE.5I NEB (08:26)
[2017-04-23] MEDS ORDERED: NICO21DI25 T-DERMAL (08:26)
[2017-04-23] MEDS ORDERED: REGL10TA5 PO (08:26)
== END 2017-04-12 16:47 | DRG 432 ==
LOC: NEPE 13:48 → NEDA 17:28 → HOCB 21:25 → N03B 03-27 02:23 → N07A 04-11 14:33
PROVIDERS: ADMIT Hospitalist; ATTEND Hospitalist
PROC: 0W9G3ZZ Drainage of Peritoneal Cavity, Percutaneous Approach (ICD-10-PCS; 2017-03-20)
PROC: 5A1955Z Respiratory Ventilation, Greater than 96 Consecutive Hours (ICD-10-PCS; principal; 2017-03-27)
PROC: 04HY32Z Insertion of Monitoring Device into Lower Artery, Percutaneous Approach (ICD-10-PCS; 2017-03-27)
PROC: 02HV33Z Insertion of Infusion Device into Superior Vena Cava, Percutaneous Approach (ICD-10-PCS; 2017-03-27)
PROC: B543ZZA Ultrasonography of Right Jugular Veins, Guidance (ICD-10-PCS; 2017-03-27)
PROC: 0CJS8ZZ Inspection of Larynx, Via Natural or Artificial Opening Endoscopic (ICD-10-PCS; 2017-03-27)
PROC: 0BH17EZ Insertion of Endotracheal Airway into Trachea, Via Natural or Artificial Opening (ICD-10-PCS; 2017-03-27)
PROC: 0W9G3ZZ Drainage of Peritoneal Cavity, Percutaneous Approach (ICD-10-PCS; 2017-04-02)
PROC: 0BH17EZ Insertion of Endotracheal Airway into Trachea, Via Natural or Artificial Opening (ICD-10-PCS; 2017-04-04)
PROC: 5A1945Z Respiratory Ventilation, 24-96 Consecutive Hours (ICD-10-PCS; 2017-04-04)
PROC: 0CJS8ZZ Inspection of Larynx, Via Natural or Artificial Opening Endoscopic (ICD-10-PCS; 2017-04-04)
PROC: 0W9G3ZZ Drainage of Peritoneal Cavity, Percutaneous Approach (ICD-10-PCS; 2017-04-04)
PROC: 0W9G3ZZ Drainage of Peritoneal Cavity, Percutaneous Approach (ICD-10-PCS; 2017-04-07)
DX: K70.31 Alcoholic cirrhosis of liver with ascites (principal); J69.0 Pneumonitis due to inhalation of food and vomit; J96.01 Acute respiratory failure with hypoxia; A41.9 Sepsis, unspecified organism; G93.41 Metabolic encephalopathy; J90 Pleural effusion, not elsewhere classified; N17.9 Acute kidney failure, unspecified; A04.7 Enterocolitis due to Clostridium difficile; K76.6 Portal hypertension; E87.2 Acidosis; E87.1 Hypo-osmolality and hyponatremia; J98.11 Atelectasis; F10.288 Alcohol dependence with other alcohol-induced disorder; F11.20 Opioid dependence, uncomplicated; I95.9 Hypotension, unspecified; D69.6 Thrombocytopenia, unspecified; K72.90 Hepatic failure, unspecified without coma; E83.42 Hypomagnesemia; I10 Essential (primary) hypertension; K59.00 Constipation, unspecified; K21.9 Gastro-esophageal reflux disease without esophagitis; F41.9 Anxiety disorder, unspecified; D53.9 Nutritional anemia, unspecified; M51.36 Other intervertebral disc degeneration, lumbar region; N50.89 Other specified disorders of the male genital organs; F17.210 Nicotine dependence, cigarettes, uncomplicated; Z14.8 Genetic carrier of other disease; Z88.1 Allergy status to other antibiotic agents
CPT/HCPCS: 31500; 36556; 36600; 49083; 71010; 71020; 71275; 74000; 74176; 76705; 76937; 80048; 80053; 80074; 80076; 80202; 80307; 81001; 81256; 82042; 82103; 82105; 82140; 82150; 82390; 82550; 82565; 82607; 82728; 82746; 82805; 82945; 82948; 83520; 83540; 83550; 83605; 83615; 83690; 83735; 83880; 83930; 83935; 84100; 84132; 84155; 84157; 84300; 84443; 84478; 84484; 84550; 85007; 85025; 85027; 85384; 85610; 85730; 86038; 86255; 87040; 87070; 87086; 87205; 87449; 87493; 87641; 87804; 87899; 89051; 93005; 93306; 93970; 94002; 94003; 94150; 94640; 94664; 94667; 94668; 94799; 96365; C1729; C9113; J0330; J0696; J1170; J1325; J1644; J1940; J1956; J2020; J2250; J2405; J2543; J2765; J2920; J3010; J3370; J3475; J3480; J7030; J7040; J7050; J7608; J7613; J7626; P9047; Q9963; Q9967

== ENCOUNTER 2017-05-17 16:42 | Emergency (ER) | payer OTHER ==
[~2017-05-17] VITALS: Ht 188 cm; Wt 78.0 kg
[~2017-05-17 16:42] MED LIST changes: +ACET325T15 PO; +ALDA100T PO; -BACT800T5 PO; +BUDE.5I NEB; -BUPR1SUB6 SL; +CHOL4POW4 PO; +FOLI1TAB6 PO; +FURO1TAB60 PO; +IPRASOL INH; +LIDO1ADH4 T-DERMAL; +LORA-474 PO; +MAGN400T3 PO; +MISCMIS81; +NICO21DI25 T-DERMAL; +PENT400T PO; +POTA20TA5 PO; +PROT40TA PO; +REGL10TA5 PO; +THERTAB15 PO; +THIA100 PO; +TRANSPORT CHAIR1 MIS; +TRAZ50TA12 PO; +Ursodiol PO; +VANC500I3 PO; +XANA1TAB2 PO; -XANA1TAB6 PO; +XIFA550T4 PO
[2017-05-17 16:43] VITALS: BP 134/72; PULSE 136; RESP 16; TEMP 98.3; O2SAT 96
--- NOTE | 2017-05-17 17:29 | PD ---
HPI Chief Complaint: Abdominal Pain Time Seen by Provider: 17:07 Travel History International Travel<30 days: No Contact w/Intl Traveler<30days: No Traveled to known affect area: No History of Present Illness HPI 42 yo M c/o abdominal fullness c/w alcoholic liver cirrhosis and ascites buildup. Onset gradual. Timing constant. Severity moderate. Last paracentesis was about 10 days prior. No fever. No n/v. Discomfort similar to prior episodes. c/w Lasix reported. PFSH Past Medical History Arthritis: No Asthma: No Autoimmune Disease: No Anxiety: Yes Depression: No Heart Rhythm Problems: No Cancer: No Cardiovascular Problems: Yes High Cholesterol: No Chemotherapy: No Chest Pain: Yes Congestive Heart Failure: No COPD: No Cerebrovascular Accident: No Diabetes: No Diminished Hearing: No Endocrine: No GERD: No Genitourinary: No Hiatal Hernia: No Hypertension: Yes Immune Disorder: No Kidney Stones: No Musculoskeletal: No Neurologic: No Psychiatric: No Reproductive: No Respiratory: No Immunizations Current: Yes Migraines: No Pneumonia: Yes Radiation Therapy: No Renal Failure: No Seizures: No Sickle Cell Disease: No Sleep Apnea: No Thyroid Disease: No Ulcer: No Past Surgical History Abdominal Surgery: No AICD: No Arteriovenous Shunt: No Cardiac Surgery: No Ear Surgery: No Endocrine Surgery: No Eye Surgery: No Genitourinary Surgery: No Gynecologic Surgery: No Insulin Pump: No Joint Replacement: No Oral Surgery: No Pacemaker: No Thoracic Surgery: No Social History Alcohol Use: Yes (daily) Tobacco Use: Yes (1 PPD) Substance Use: Yes (oxycodone 6 years ago) Allergies-Medications (Allergen,Severity, Reaction): Coded Allergies: clarithromycin (Unverified Allergy, Severe, Rash, 05/17/17) clindamycin (Unverified Allergy, Severe, RASH, 05/17/17) Reported Meds & Prescriptions Reported Meds & Active Scripts Active Thera/Beta-Carotene (Multiple Vitamin) 1 Tab Tab 1 Tab PO DAILY 30 Days Gnp Vitamin B-1 (Thiamine HCl) 100 Mg Tab 100 Mg PO DAILY 30 Days Folic Acid 1 Mg Tablet 1 Mg PO DAILY 30 Days Magnesium Oxide 400 Mg Tab 400 Mg PO DAILY@1600 30 Days Pulmicort Respules (Budesonide) 0.5 Mg/2 Ml Neb 0.5 Mg NEB Q12HR NEB 30 Days Potassium Chloride Microencaps 20 Meq Tab 20 Meq PO DAILY 5 Days Xanax (Alprazolam) 1 Mg Tab 1 Mg PO Q8HR PRN Trazodone (Trazodone HCl) 50 Mg Tab 25 Mg PO HS Reglan (Metoclopramide HCl) 10 Mg Tab 10 Mg PO TIDAC 30 Days Protonix (Pantoprazole Sodium) 40 Mg Tab 40 Mg PO DAILY [Ursodiol] 300 MG Cap 300 Mg PO TID 30 Days Pentoxifylline ER (Pentoxifylline) 400 Mg Tab 400 Mg PO Q8HR 30 Days Eq Nicotine (Nicotine) 21 Mg/24 Hour Dis 1 Patch T-DERMAL DAILY Transport Chair Ultra Lig (Device) 1 Mis Mis Ea .ROUTE DIRECTED Lasix (Furosemide) 40 Mg Tab 40 Mg PO BID Eq Acetaminophen (Acetaminophen) 325 Mg Tab 650 Mg PO Q4H PRN 30 Days Aldactone (Spironolactone) 100 Mg Tab 100 Mg PO BID 30 Days Cholestyramine 4 Gm/Pkt Powd 4 Gm PO BID 30 Days 1 packet contains 4 grams of cholestyramine. Review of Systems Except as stated in HPI: all other systems reviewed are Neg General / Constitutional: No: Fever Gastrointestinal: Positive: Nausea, Vomiting Physical Exam Narrative GENERAL: 42 yo M, WNWD, NAD SKIN: Warm and dry. HEAD: Atraumatic. Normocephalic. EYES: Pupils equal and round. No scleral icterus. No injection or drainage. ENT: No nasal bleeding or discharge. Mucous membranes pink and moist. NECK: Trachea midline. No JVD. CARDIOVASCULAR: Regular rate and rhythm. RESPIRATORY: No accessory muscle use. Clear to auscultation. Breath sounds equal bilaterally. GASTROINTESTINAL: Soft. Distension c/w ascites. Non-tender. MUSCULOSKELETAL: Extremities without clubbing, cyanosis, or edema. No obvious deformities. NEUROLOGICAL: Awake and alert. No obvious cranial nerve deficits. Motor grossly within normal limits. Five out of 5 muscle strength in the arms and legs. Normal speech. PSYCHIATRIC: Appropriate mood and affect; insight and judgment normal. Data Data Last Documented VS Vital Signs Date Time Temp Pulse Resp B/P (MAP) Pulse Ox O2 Delivery O2 Flow Rate FiO2 05/17/17 16:43 98.3 136 16 134/72 (92) 96 Orders Orders Electrocardiogram (05/17/17 ) Prothrombin Time / Inr (Pt) (05/17/17 17:08) Act Partial Throm Time (Ptt) (05/17/17 17:08) Ed Discharge Order (05/17/17 18:23) Labs Laboratory Tests Test 05/17/17 17:25 Prothrombin Time 14.0 SEC Prothromb Time International Ratio 1.3 RATIO Activated Partial Thromboplast Time 28.6 SEC MDM Medical Decision Making Medical Screen Exam Complete: Yes Emergency Medical Condition: Yes Medical Record Reviewed: Yes Differential Diagnosis SBP, hypocoagulable state, ascites Narrative Course Today there is no emergency and the patient can wait until a scheduled outpatient paracentesis. Prescription written by me with phone number to call to make appointment for outpatient paracentesis. Pt agreeable with plan. INR 1.3 Pt is tachycardic today however tending his pulse back 60 days reveals tachycardia generally between 90 and 125. Diagnosis Primary Impression: Ascites of liver Referrals: Call [phone] for outpatient paracentesis 3 days Additional Instructions: You have a choice when it comes to health care, and we are glad that you chose [facility]. Hopefully, we have met your expectations on today's visit. You are welcome to return to [facility] at any time, as we are committed to meeting the health care needs of our community. PLEASE CALL [phone] TO SCHEDULE OUTPATIENT APPOINTMENT FOR PARACENTESIS. Med/Other Pt SpecificInfo: No Change to Meds Disposition: 01 DISCHARGE HOME Condition: Bo Moseley MD May 17, 2017 17:29
[2017-05-17 18:03] LABS: APTT (PATIENT) 28.6 SEC (24.3-30.1); INTERNATIONAL NORMALIZED RATIO 1.3 RATIO
--- NOTE | 2017-05-19 11:45 | EKG ---
Date Performed: 05/17/2017 Time Performed: 16:59:14 PTAGE: 42 years EKG: SINUS TACHYCARDIA Nonspecific ST-T wave changes ABNORMAL ECG PREVIOUS TRACING 03/19/17 DOCTOR: Silver Farias Interpretating Date/Time 05/19/2017 11:45:06
== END 2017-05-17 19:12 | disposition home or self-care (01) ==
LOC: NEPC 16:42
DX: K70.31 Alcoholic cirrhosis of liver with ascites (principal); R00.0 Tachycardia, unspecified; I10 Essential (primary) hypertension; F41.9 Anxiety disorder, unspecified
CPT/HCPCS: 85610; 85730; 93005; 99284

== ENCOUNTER 2017-05-24 09:35 | Day surgery (SDC) | payer OTHER ==
[2017-05-24 10:11] LABS: HEMATOCRIT 30.6 % (39.0-51.0); MEAN CELL VOLUME 101.5 FL (80.0-100.0); MEAN CORPUSCULAR HEMOGLOBIN 34.5 PG (27.0-34.0); PLATELET COUNT 213 TH/MM3 (150-450); RED BLOOD COUNT 3.01 MIL/MM3 (4.50-5.90); RED CELL DISTRIBUTION WIDTH 15.6 % (11.6-17.2); REVIEW FLAG FINAL; WHITE BLOOD COUNT 13.2 TH/MM3 (4.0-11.0)
[2017-05-24 11:55] VITALS: BP 110/63; PULSE 96; RESP 20; TEMP 98.8; O2SAT 94
[2017-05-24 12:17] VITALS: BP 112/63; PULSE 96; RESP 20; TEMP 98.8; O2SAT 96
--- NOTE | 2017-05-24 13:38 | PD.RAD ---
Post US Procedure Prog Note Pre Procedure Diagnosis: (1) Ascites (2) Alcoholic cirrhosis Post Procedure Diagnosis: (1) Ascites (2) Alcoholic cirrhosis Procedure Date: May 24, 2017 Supervising Radiologist: Aaron Gaviria Estimated blood loss: none Anesthesia: Local Plan of Activity Patient to Unit: ROPU Patient Condition: Good See PACS Report for procedural detail/treatment Drainage Procedure Procedure 1 Imaging Guidance: Ultrasound Side: Right Procedure Type: Paracentesis Fluid Removal (CCs): 5400 Fluid Description: Clear, Yellow Plan to ROPU then discharge. Aaron Gaviria MD May 24, 2017 13:38
--- NOTE | 2017-05-24 13:39 | RADRPT ---
EXAM DATE/TIME: 05/24/2017 10:29 [facility] COMPARISON: EXTERNAL COMPARISON: US GUIDED ABD PARACENTESIS, March 20, 2017, 9:42. [facility], CT ABDOMEN, W & W/O CONTR AST March 08, 2017. [facility], US ABDOMEN, COMPLETE April 12, 2015. [facility], US ABDOMEN - UPPER LIMITED June 30, 2013. INDICATIONS : Ascites. MEDICAL HISTORY : Hypertension. Cirrhosis. Gastroesophageal reflux disease. Tremors. Pneumonia. ETOH abuse. C.diff. Anx iety. SURGICAL HISTORY : Right hand surgery. Paracentesis. ENCOUNTER: Subsequent ACUITY: 2 months PAIN SCORE: 0/10 LOCATION: Right lower quadrant FLUID: Total volume of 5,400 cc of clear, yellow fluid was removed. Fluid was discarded. Paracentesis was therapeutic only. Post procedure scanning reveals no hematoma or other complication. TECHNIQUE: 1. Ultrasound guidance for abdominal paracentesis. 2. Paracentesis. The risks, benefits, and alternatives to ultrasound guided paracentesis were explained to the patient in detail including the risk of bleeding and infection. Written and verbal informed consent was obt ained. With the patient on the ultrasound table, ultrasound imaging was used to select the most appropriate approach for paracentesis. Overlying skin was prepped and draped in the usual sterile fashion and wi th a local anesthetic, a dermatotomy was made with an 11 blade scalpel. A 6 Wolof [id number] ca theter was introduced into the peritoneal cavity and fluid was collected. The patient tolerated the procedure well and left the ultrasound suite in stable condition. CONCLUSION: Uncomplicated ultrasound guided paracentesis. Aaron Gaviria MD on May 24, 2017 at 13:34 Board Certified Radiologist. This report was verified electronically.
== END 2017-05-24 12:15 | disposition home or self-care (01) ==
LOC: HRAD 09:35 → HRIP 09:51 → HRAD 12:15
PROVIDERS: ATTEND Hospitalist
DX: R18.8 Other ascites (principal); K21.9 Gastro-esophageal reflux disease without esophagitis; I10 Essential (primary) hypertension
CPT/HCPCS: 36415; 49083; 85027; C1729